=== PATIENT | male | born 1950 | race Caucasian/White ===

== ENCOUNTER 2022-01-26 10:21 | Emergency (ER) | payer OTHER, MEDICARE, SELFPAY ==
[2022-01-26 10:25] VITALS: BP 115/65; PULSE 59; RESP 16; TEMP 36.8; O2SAT 96; BMI 29.5
[2022-01-26 12:37] VITALS: BP 127/78; PULSE 51; RESP 18; O2SAT 95
--- NOTE | 2022-01-26 13:02 | CRLHL7_ITS ---
For Patients: As a result of the Century Cures Act, medical imaging exams and procedure reports are released immediately into your electronic medical record. You may view this report before your referring provider. If you have questions, please contact your health care provider. indication: 2 to three-week progressive speech change, history of dementia Technique: Volumetric multidetector CT images of the head were obtained without the administration of low osmolar intravenous contrast. Comparison: CT head May 23, 2019 Findings: There are mildly prominent bilateral frontal convexity extra-axial CSF spaces. There is no intra-axial or extra-axial fluid collection. There is no mass effect or midline shift. There is slightly progressed cortical atrophy with moderate sulcal widening and ex vacuo dilatation of the lateral ventricles predominantly within the frontal lobes. There are chronic small vessel disease changes in the subcortical and periventricular white matter without lost landa-white differentiation. The orbits and their contents are grossly within normal limits. The bony calvarium is grossly intact. The paranasal sinuses are clear. The mastoid air cells are well aerated. Impression: Slight progression of frontotemporal cortical atrophic changes from remote comparison exam with widening of the sulci and prominence of the extra-axial CSF spaces. These findings are consistent with history of dementia. Otherwise, no acute intracranial abnormality is appreciated. Please note that all CT scans at this facility use dose modulation, iterative reconstruction, and/or weight-based dosing when appropriate to reduce radiation dose to as low as reasonably achievable. Dictated by Darrin Martinez MD @ 01/26/2022 1:45:03 PM (Electronically Signed)
--- NOTE | 2022-01-26 13:04 | ED.GENADULT ---
HPI - General Adult General Time Seen by Provider: 13:06 Date Seen: 01/26/22 Chief complaint: Neuro Symptoms/Altered Deficit Stated complaint: speech garbled,dragging feet,sleephy Time Seen by Provider: 01/26/22 12:37 Source: patient Mode of arrival: ambulatory Limitations: no limitations History of Present Illness HPI narrative: Silas is a 71-year-old male past medical history includes mild cognitive disorder, chronic hyponatremia, prostate cancer status post radiation, obstructive sleep apnea currently on CPAP, chronic speech changes and shuffling gait presents emerged department from clinic with neuro symptoms. Patient was seen in clinic today for evaluation of a abdominal hernia, patient was noted to have slowed and slurred speech and worsening shuffling gait, concerning for new neuro deficit, patient was brought to the emergency department for further evaluation. Per family patient has had worsening symptoms over the last 2-3 weeks, he is currently on medication for his mild cognitive disorder. No new falls, patient denies any fevers or chills, no shortness of breath or chest pain, he has not had any nausea vomiting associated with his abdominal hernia, no urinary complaints, no diarrhea. Patient has not had any lightheadedness, dizziness or headache, he denies any focal weakness. No visual changes. Patient was instructed to come the emergency department. Patient has a history of CAD but no stroke. Patient denies any pain at this time. Related Data Home Medications Medication Instructions Recorded Confirmed aspirin 81 mg tablet,delayed 81 mg PO QDAY 10/26/21 02/23/22 release citalopram 20 mg tablet 20 mg PO QDAY 10/26/21 02/23/22 primidone 50 mg tablet 50 mg PO BID 10/26/21 02/23/22 tamsulosin 0.4 mg capsule cap PO 10/26/21 02/23/22 donepezil 5 mg tablet 5 mg PO BID 02/03/22 02/23/22 memantine 10 mg tablet 10 mg PO BID 02/03/22 02/23/22 multivitamin 1 tab PO DAILY 02/03/22 02/23/22 Previous Rx's Medication Instructions Recorded simvastatin 40 mg tablet 40 mg PO .QHS #90 tabs 12/13/21 triamcinolone acetonide 0.1 % 1 applic topical BID #15 grams 01/11/22 topical cream celecoxib 200 mg capsule 200 mg PO QDAY #90 caps 01/17/22 omeprazole 40 mg capsule,delayed 40 mg PO QDAY #90 caps 01/17/22 release amoxicillin 875 mg tablet 875 mg PO BID #14 tabs 02/03/22 Allergies Allergy/AdvReac Type Severity Reaction Status Date / Time No Known Allergies Allergy Unknown Verified 02/23/22 14:22 Review of Systems Status of ROS: Reports: 10 or more systems reviewed and unremarkable except as noted in History and below [facility] Medical History (Updated 02/23/22 @ 14:47 by Marce Cardenas MD) Abnormal CT scan, neck Cellulitis of leg Diastasis recti Family history of Alzheimer's disease Family history of coronary artery disease Family history of diabetes mellitus Former smoker History of cataract in right eye as a child History of prostate cancer Hordeolum externum (stye) Medial epicondylitis of left elbow Otitis media Periorbital cellulitis of right eye Strain of lumbar paraspinal muscle Throat congestion Surgical History History of cataract removal with insertion of prosthetic lens History of tonsillectomy and adenoidectomy History of vasectomy Status post total knee replacement, left Family History Father Heart disease Other Alzheimers disease Diabetes Social History (Updated 02/23/22 @ 14:41 by Marce Cardenas MD) Narrative: Consumes alcohol occasionally Does not use illicit drugs Former smoker Patient is retired. Lives with his , 2 children and grandkids. Smoking Status: Never smoker Do you use any of these nicotine containing products: None Second hand tobacco smoke exposure: No How often do you have a drink containing alcohol: never How often do you have six or more drinks on one occasion: Never AUDIT-C Alcohol total score: 0 Non-prescribed substance use: denies use Little interest or pleasure in doing things: not at all Feeling down, depressed, or hopeless: not at all service: No Exam Narrative: Exam Narrative: General: No obvious distress, sitting comfortably HEENT: Tympanic membranes within normal limits bilaterally oropharynx clear and moist, pupils equal round reactive to light Visual rush within normal limits, extraocular muscles intact No facial asymmetry Symmetrical smile Neck: Full range of motion, no adenopathy, supple Lungs: Clear to auscultation bilaterally Heart: Normal sinus rhythm S1-S2 Abdomen: He has a large abdominal hernia which is reproducible just above the umbilicus, no tenderness to palpation Muscle skeletal: +5 strength upper lower extremities, chronic shuffling gait Neuro: NIH Stroke Scale: Level of consciousness: 0 Asked month and age: 0 Horizontal extraocular movements: 0 Blink eyes and squeeze hand:0 Visual rush:0 Facial palsy:0 Left arm motor drift:0 Right arm motor drift:0 Left leg motor drift:0 Right leg motor drift:0 Limb ataxia:0 Sensation:0 Aphasia:0 Dysarthria: +1 Extinction inattention:0 Score: +1 Const: Vital Signs, click to edit/add: Vital Signs - 24 hr 01/26/22 10:25 01/26/22 12:37 Temperature 98.3 F Pulse Rate [Left P ulse Oximeter] 59 L 51 L Respiratory Rate 16 18 Blood Pressure [Le ft Upper Arm] 127/78 Blood Pressure [Ri ght Upper Arm] 115/65 Pulse Oximetry 96 95 Oxygen Delivery Me thod Room Air Room Air Course Course Hospital Course: 1:00 pm: AIDET performed. vitals are stable. NIH stroke scale is, score of +1 due to his slurred speech but understandable, this is a chronic issue, no new focal findings, we discussed obtaining CT head without IV contrast rule out any new findings based on symptoms being greater than 2-week-old, will obtain CBC and metabolic panel based on his history of hyponatremia. Patient and family in agreement Reevaluation(s) Reevaluation #1: Imaging showed Slight progression of frontotemporal cortical atrophic changes from remote comparison exam with widening of the sulci and prominence of the extra-axial CSF spaces. These findings are consistent with history of dementia. CBC showed no acute findings, metabolic panel within normal limits, patient did well during his stay in the emergency department, plan would be to discharge he can follow-up with primary care provider as scheduled. Time: 14:20 Vital Signs Vital signs: Initial Vital Signs Temperature 98.3 F 01/26/22 10:25 Temperature Source Temporal Artery Scan 01/26/22 10:25 Pulse Rate 59 L 01/26/22 10:25 Pulse Rhythm 01/26/22 10:25 Pulse Strength 3+ Normal 01/26/22 10:25 Respiratory Rate 16 10/05/22 10:25 Blood Pressure 115/65 01/26/22 10:25 Blood Pressure Mean 81 01/26/22 10:25 Blood Pressure Position Sitting 01/26/22 10:25 Pulse Oximetry 96 01/26/22 10:25 Oxygen Delivery Method 01/26/22 10:25 Vital Signs Temperature 98.3 F 01/26/22 10:25 Pulse Rate 59 L 01/26/22 10:25 Respiratory Rate 16 01/26/22 10:25 Blood Pressure 115/65 01/26/22 10:25 Pulse Oximetry 96 01/26/22 10:25 Oxygen Delivery Method 01/26/22 10:25 Temperature 98.3 F 01/26/22 10:25 Pulse Rate 51 L 01/26/22 12:37 Respiratory Rate 18 01/26/22 12:37 Blood Pressure 127/78 01/26/22 12:37 Pulse Oximetry 95 01/26/22 12:37 Oxygen Delivery Method 01/26/22 12:37 Medical Decision Making Lab Data Labs: Lab Results 01/26/22 01/26/22 Range/Units 13:10 13:10 WBC 4.81 (4.50-11.00) K/uL RBC 5.00 (4.30-5.90) m/uL Hgb 15.3 (13.5-17.5) gm/dL Hct 44.8 (37.0-53.0) % MCV 90 (80-100) fL MCH 31 (26-34) pg MCHC 34 (32-36) gm/dL RDW Coeff of Monse 12.6 (11.5-15.5) % Plt Count 117 L (140-440) K/uL Neut % (Auto) 69.7 (42.0-72.0) % Lymph % (Auto) 17.7 L (20-44) % Brown % (Auto) 8.7 (0.0-11.0) % Eos % (Auto) 3.1 (0.0-7.0) % Baso % (Auto) 0.6 (0.0-3.0) % Neut # (Auto) 3.35 (1.7-7.0) K/uL Lymph # (Auto) 0.90 (0.90-2.90) K/uL Brown # (Auto) 0.40 (0.00-0.90) K/UL Eos # (Auto) 0.15 (0.00-0.50) K/uL Baso # (Auto) 0.03 (0.00-0.30) K/uL Abs Immat Gran (auto) 0.01 (0.00-0.30) K/uL Sodium 140 (135-149) mmol/L Potassium 3.9 (3.6-5.1) mmol/L Chloride 107 (96-114) mmol/L Carbon Dioxide 23 (20-32) mmol/L BUN 20 (7-30) mg/dL Creatinine 1.1 (0.5-1.5) mg/dL Estimated Creat Clear 60.70 Estimated GFR 71 ml/min Glucose 104 (60-115) mg/dL Calcium 8.9 (8.4-10.6) mg/dL Magnesium 2.1 (1.5-2.6) mg/dL Total Bilirubin 0.7 (0.1-1.5) mg/dL AST 32 (12-35) U/L ALT 33 (4-50) U/L Alkaline Phosphatase 58 (40-150) U/L Total Protein 6.9 (6.0-8.3) g/dL Albumin 4.4 (3.3-5.0) g/dL Discharge Plan Discharge Clinical Impression: Altered gait, Mild cognitive disorder, Alteration in speech, Abdominal hernia Patient Disposition: Home, Self-Care Condition: Improved Instructions: Dementia (ED), Umbilical Hernia (ED) Additional Instructions: To follow up with primary care provider as scheduled early next month, return precautions given. Activity Level: Activity as Tolerated Prescriptions: No Action tamsulosin 0.4 mg capsule PO citalopram 20 mg tablet 20 mg PO QDAY aspirin 81 mg tablet,delayed release (DR/EC) 81 mg PO QDAY Label Comments: TAKE ONE TABLET BY MOUTH TWICE A DAY primidone 50 mg tablet 50 mg PO BID donepezil 5 mg tablet 5 mg PO BID memantine 10 mg tablet 10 mg PO BID multivitamin Tablet 1 tab PO DAILY amoxicillin 875 mg tablet 875 mg PO BID Qty: 14 0RF simvastatin 40 mg tablet 40 mg PO .QHS Qty: 90 3RF triamcinolone acetonide 0.1 % cream 1 applic topical BID Qty: 15 3RF Rx Instructions: Apply thin layer to affected finger twice daily for 2 to 4 weeks celecoxib 200 mg capsule 200 mg PO QDAY Qty: 90 0RF omeprazole 40 mg capsule,delayed release(DR/EC) 40 mg PO QDAY Qty: 90 0RF Follow Up/Referrals: Ranjan Membreno MD [Primary Care Provider] - Stand Alone Forms: [employer] Info Instructions
[2022-01-26 13:24] LABS: Basophils Absolute Auto 0.03 K/uL (0.00-0.30); Basophils Percent Auto 0.6 % (0.0-3.0); Eosinophils Absolute Auto 0.15 K/uL (0.00-0.50); Eosinophils Percent Auto 3.1 % (0.0-7.0); Hematocrit 44.8 % (37.0-53.0); Hemoglobin* 15.3 gm/dL (13.5-17.5); Immature Granulocytes Abs Auto 0.01 K/uL (0.00-0.30); Lymphocytes Percent Auto 17.7 % (20-44); Mean Corpuscular HGB Conc 34 gm/dL (32-36); Mean Corpuscular Hemoglobin 31 pg (26-34); Mean Corpuscular Volume 90 fL (80-100); Monocytes Percent Auto 8.7 % (0.0-11.0); Neutrophils Absolute Auto 3.35 K/uL (1.7-7.0); Neutrophils Percent Auto 69.7 % (42.0-72.0); Platelet Count* 117 K/uL (140-440); RDW Coefficient of Variation % 12.6 % (11.5-15.5); White Blood Count* 4.81 K/uL (4.50-11.00)
[2022-01-26 13:29] LABS: Slide Review Reflex No
[2022-01-26 13:40] LABS: Albumin* 4.4 g/dL (3.3-5.0); Chloride* 107 mmol/L (96-114); Potassium* 3.9 mmol/L (3.6-5.1); Sodium* 140 mmol/L (135-149)
[2022-01-26 13:42] LABS: Aspartate Amino Transferase* 32 U/L (12-35); Bilirubin Total* 0.7 mg/dL (0.1-1.5); Carbon Dioxide* 23 mmol/L (20-32); Creatinine* 1.1 mg/dL (0.5-1.5); Estimated Glomerular Filt Rate 71 ml/min; Total Protein* 6.9 g/dL (6.0-8.3)
[2022-01-26 13:43] LABS: Alanine Aminotransferase* 33 U/L (4-50); Alkaline Phosphatase* 58 U/L (40-150); Blood Urea Nitrogen* 20 mg/dL (7-30); Calcium* 8.9 mg/dL (8.4-10.6); Glucose* 104 mg/dL (60-115); Magnesium* 2.1 mg/dL (1.5-2.6)
== END 2022-01-26 14:34 | disposition home or self-care (01) ==
PROVIDERS: Emergency Provider Student in an Organized Health Care Education/Training Program; PCP Family Medicine
DX: G31.84 Mild cognitive impairment of uncertain or unknown etiology (principal); R47.81 Slurred speech; R26.89 Other abnormalities of gait and mobility
CPT/HCPCS: 36415; 70450; 80053; 83735; 85025; 99283; 99284

== ENCOUNTER 2022-01-28 16:05 | Emergency (ER) | payer OTHER, SELFPAY ==
[2022-01-28] VITALS (10 sets, daily range): BP systolic 126–141; BP diastolic 71–85; PULSE 56–63; RESP 14–21; TEMP 36.1; O2SAT 95–98; BMI 29.8
--- NOTE | 2022-01-28 16:12 | CRLHL7_ITS ---
For Patients: As a result of the Cures Act, medical imaging exams and procedure reports are released immediately into your electronic medical record. You may view this report before your referring provider. If you have questions, please contact your health care provider. INDICATION: Fall, head injury TECHNIQUE: CT cervical spine without contrast. COMPARISON: None. FINDINGS: Vertebrae: No acute fracture or aggressive osseous lesion. Grade 1 anterolisthesis of L4 on L5. Discs and facet joints: There are advanced diffuse degenerative changes in the disc spaces and facet joints. Intervertebral disc space narrowing most notably severe at C5-C6 and C6-C7. Severe degenerative spondylosis at C1-C2. Extraspinal findings: Paraspinous soft tissues are unremarkable. Partial visualization of suspected right glossal tonsillar sulcus. Underlying mass not excluded. IMPRESSION: 1. No evidence of acute cervical spine fracture. 2. Advance multilevel degenerative spondylosis. 3. Partial visualization of suspected right glossal tonsillar sulcus prominence. Underlying mass not excluded. Recommend direct visualization or CT soft tissue neck to further evaluate on a nonemergent basis. Please note that all CT scans at this facility use dose modulation, iterative reconstruction, and/or weight-based dosing when appropriate to reduce radiation dose to as low as reasonably achievable. Dictated by Alexi Lawrence MD @ 01/28/2022 5:04:26 PM (Electronically Signed)
--- NOTE | 2022-01-28 16:12 | CRLHL7_ITS ---
For Patients: As a result of the Century Cures Act, medical imaging exams and procedure reports are released immediately into your electronic medical record. You may view this report before your referring provider. If you have questions, please contact your health care provider. INDICATION: . Fall TECHNIQUE: Head CT without contrast. COMPARISON: None. FINDINGS: CSF spaces: Within normal limits for age. Brain parenchyma and extra-axial spaces: There are nonspecific low attenuation white matter changes consistent with chronic microvascular disease. No sign of intracranial hemorrhage, or midline shift. Skull base and calvarium: The visualized paranasal sinuses and mastoid air cells demonstrate no acute or significant findings. The visualized orbits are grossly unremarkable. No skull fractures. IMPRESSION: Suspect small posterior midline scalp contusion without evidence of skull fracture or intracranial hemorrhage. Please note that all CT scans at this facility use dose modulation, iterative reconstruction, and/or weight-based dosing when appropriate to reduce radiation dose to as low as reasonably achievable. Dictated by Alexi Lawrence MD @ 01/28/2022 4:58:24 PM (Electronically Signed)
--- NOTE | 2022-01-28 16:59 | ED.GENADULT ---
HPI - General Adult General Chief complaint: Fall/Minor Trauma Stated complaint: Fell off ladder Time Seen by Provider: 01/28/22 16:12 Source: patient, family and EMS Mode of arrival: EMS Limitations: no limitations History of Present Illness HPI narrative: Patient is a 71-year-old male who presents to the ER after falling of the 2nd step on his ladder. He was outside putting up following decorations when he was coming down the ladder and he missed the 2nd to last step falling backwards and hitting his head on asphalt. He is not sure if he lost consciousness or not. A neighbor ran in and told his that he was on the ground and they called EMS. He was awake but confused. However patient does have a history of dementia so is unclear if this is normal for him or if it is his baseline as he does have episodes of some cognitive impairment. There was no nausea or vomiting. Patient states that the back of his head hurts. He denies any neck or back pain. He denies any buttock pain. He denies pain to the extremities. Confusion is not worsening. He denies any changes in his hearing or vision. He is not on any blood thinners aside from a daily aspirin. TTA was called. Tetanus updated in 2018. Related Data Home Medications Medication Instructions Recorded Confirmed aspirin 81 mg tablet,delayed 81 mg PO QDAY 10/26/21 01/26/22 release citalopram 20 mg tablet 20 mg PO QDAY 10/26/21 01/26/22 donepezil 10 mg tablet 10 mg PO BID 10/26/21 01/26/22 primidone 50 mg tablet 50 mg PO BID 10/26/21 01/26/22 tamsulosin 0.4 mg capsule cap PO 10/26/21 10/26/21 Previous Rx's Medication Instructions Recorded simvastatin 40 mg tablet 40 mg PO .QHS #90 tabs 12/13/21 triamcinolone acetonide 0.1 % 1 applic topical BID #15 grams 01/11/22 topical cream celecoxib 200 mg capsule 200 mg PO QDAY #90 caps 01/17/22 omeprazole 40 mg capsule,delayed 40 mg PO QDAY #90 caps 01/17/22 release Allergies Allergy/AdvReac Type Severity Reaction Status Date / Time No Known Allergies Allergy Unknown Verified 01/28/22 16:18 Review of Systems Status of ROS: Reports: 10 or more systems reviewed and unremarkable except as noted in History and below [facility] Medical History Cellulitis of leg Family history of Alzheimer's disease Family history of coronary artery disease Family history of diabetes mellitus Former smoker History of cataract in right eye as a child History of prostate cancer Hordeolum externum (stye) Medial epicondylitis of left elbow Periorbital cellulitis of right eye Strain of lumbar paraspinal muscle Throat congestion Surgical History History of cataract removal with insertion of prosthetic lens History of tonsillectomy and adenoidectomy History of vasectomy Status post total knee replacement, left Family History Father Heart disease Other Alzheimer disease Diabetes Social History Narrative: Consumes alcohol occasionally Does not use illicit drugs Former smoker Smoking Status: Never smoker Do you use any of these nicotine containing products: None Second hand tobacco smoke exposure: No How often do you have a drink containing alcohol: never How often do you have six or more drinks on one occasion: Never AUDIT-C Alcohol total score: 0 Non-prescribed substance use: denies use service: No Exam Narrative: Exam Narrative: GCS is 15. Patient is alert and oriented x3. He is speaking and breathing without any difficulty. He has bleeding from the posterior scalp. Well-nourished well-developed patient in no acute distress. Answers questions appropriately. Mood and affect are appropriate. Thoughts are goal oriented and rational. No tangential or magical thinking noted. Patient speaks in full sentences without needing to catch his breath. HEENT: Normocephalic. Pupils are equally round reactive to light. Extraocular muscles are intact. Conjunctivae are moist without any icterus noted. Moist mucous membranes. Neck is soft without any lymphadenopathy or thyromegaly. Cervical collar is in place, He has no tenderness of the cervical spine. Patient has approximately a 1 in laceration to the occipital scalp, with surrounding hematoma. Cardiovascular: Heart is regular rate and rhythm S1 and S2 are present without any murmurs. Lungs: Clear to auscultation bilaterally no wheezes rhonchi or rales are appreciated. Patient takes deep breaths without any discomfort. Abdomen: Soft and nontender nondistended with normal bowel sounds. No guarding or rebound. No masses or organomegaly appreciated. Extremities: Bilateral lower extremities with trace edema. Normal DP and PT pulses. Skin: Well perfused without any obvious rashes. Back: No tenderness of the cervical, thoracic or lumbar spine. There is no bruising ecchymosis or abrasions to the back. Const: Vital Signs, click to edit/add: Vital Signs - 24 hr 01/28/22 16:19 Temperature 96.9 F L Pulse Rate [Apical ] 60 Respiratory Rate 18 Blood Pressure [Le ft Upper Arm] 134/79 Pulse Oximetry 96 Oxygen Delivery Me thod Room Air Course Course Hospital Course: Upon arrival patient had a head and cervical spine CT. Both unremarkable for acute pathology. Cervical spine CT did show a slight abnormality of tonsillar sulcus. C-collar was removed. Again no tenderness was noted on examination of the cervical spine. He had good range of motion with flexion, extension, side way bending and rotation without discomfort. Scalp laceration was washed per nursing. Area was anesthetized lidocaine with epinephrine. Running suture was placed with 3-0 Ethilon. Patient tolerated this well. Wound was dressed per nursing. Vital Signs Vital signs: Initial Vital Signs Temperature 96.9 F L 01/28/22 16:19 Temperature Source Temporal Artery Scan 01/28/22 16:19 Pulse Rate 60 01/28/22 16:19 Pulse Rhythm 01/28/22 16:19 Respiratory Rate 18 01/28/22 16:19 Blood Pressure 134/79 01/28/22 16:19 Blood Pressure Mean 97 01/28/22 16:19 Pulse Oximetry 96 01/28/22 16:19 Oxygen Delivery Method 01/28/22 16:19 Vital Signs Temperature 96.9 F L 01/28/22 16:19 Pulse Rate 60 01/28/22 16:19 Respiratory Rate 18 01/28/22 16:19 Blood Pressure 134/79 01/28/22 16:19 Pulse Oximetry 96 01/28/22 16:19 Oxygen Delivery Method 01/28/22 16:19 Temperature 96.9 F L 01/28/22 16:19 Pulse Rate 60 01/28/22 16:19 Respiratory Rate 18 01/28/22 16:19 Blood Pressure 134/79 01/28/22 16:19 Pulse Oximetry 96 01/28/22 16:19 Oxygen Delivery Method 01/28/22 16:19 Medical Decision Making MDM Narrative Medical decision making narrative: 71-year-old male status post fall with scalp laceration. Imaging did not show any further injury. Scalp was sutured per above. We discussed wound hygiene, signs and symptoms of infection, reasons to return to the ER. We discussed suture removal in 7-10 days in the clinic. Discussed results of cervical spine CT: Partial visualization of suspected right glossal tonsillar sulcus prominence. Underlying mass not excluded. Recommend direct visualization or CT soft tissue neck to further evaluate on a nonemergent basis. Report was given to them today and recommendation to follow up with her primary care provider. Patient and agreeable to everything discussed had no other questions or concerns. Medical Records Medical records reviewed: Yes I reviewed the patient's medical records Imaging Data CT scan - head: Attestation: I have reviewed the pertinent imaging results. Radiologist's impression: Head CT without contrast. COMPARISON: None. FINDINGS: CSF spaces: Within normal limits for age. Brain parenchyma and extra-axial spaces: There are nonspecific low attenuation white matter changes consistent with chronic microvascular disease. No sign of intracranial hemorrhage, or midline shift. Skull base and calvarium: The visualized paranasal sinuses and mastoid air cells demonstrate no acute or significant findings. The visualized orbits are grossly unremarkable. No skull fractures. IMPRESSION: Suspect small posterior midline scalp contusion without evidence of skull fracture or intracranial hemorrhage. Cervical spine CT: Attestation: I have reviewed the pertinent imaging results. Radiologist's impression: CT cervical spine without contrast. COMPARISON: None. FINDINGS: Vertebrae: No acute fracture or aggressive osseous lesion. Grade 1 anterolisthesis of L4 on L5. Discs and facet joints: There are advanced diffuse degenerative changes in the disc spaces and facet joints. Intervertebral disc space narrowing most notably severe at C5-C6 and C6-C7. Severe degenerative spondylosis at C1-C2. Extraspinal findings: Paraspinous soft tissues are unremarkable. Partial visualization of suspected right glossal tonsillar sulcus. Underlying mass not excluded. IMPRESSION: 1. No evidence of acute cervical spine fracture. 2. Advance multilevel degenerative spondylosis. 3. Partial visualization of suspected right glossal tonsillar sulcus prominence. Underlying mass not excluded. Recommend direct visualization or CT soft tissue neck to further evaluate on a nonemergent basis. Discharge Plan Discharge Clinical Impression: Fall, Laceration of scalp Patient Disposition: Home w/ Parent or Adult Condition: Stable Additional Instructions: Keep scalp clean and dry. Okay to shower like he normally would but be careful not to snag the sutures when you are washing. Watch for signs of infection which include redness of the area or purulent drainage from the laceration. Sutures need to come out in 7-10 days. You can follow-up in the clinic to have this done. There was a small abnormality found on the cervical neck CT scan-you should bring the results with you to your next clinic visit and discuss these results with your primary care provider to discuss what next steps are needed if any. Report of your cervical neck CT will be given to you today. Expect increased soreness of the neck and shoulder area tomorrow this is normal. Okay to take Tylenol as needed/as directed. Okay to use heat to the area, do not apply heat directly to skin. Return to the ER if he develops confusion, vomiting or lethargy. Prescriptions: No Action donepezil 10 mg tablet 10 mg PO BID tamsulosin 0.4 mg capsule PO citalopram 20 mg tablet 20 mg PO QDAY aspirin 81 mg tablet,delayed release (DR/EC) 81 mg PO QDAY Label Comments: TAKE ONE TABLET BY MOUTH TWICE A DAY primidone 50 mg tablet 50 mg PO BID simvastatin 40 mg tablet 40 mg PO .QHS Qty: 90 3RF triamcinolone acetonide 0.1 % cream 1 applic topical BID Qty: 15 3RF Rx Instructions: Apply thin layer to affected finger twice daily for 2 to 4 weeks celecoxib 200 mg capsule 200 mg PO QDAY Qty: 90 0RF omeprazole 40 mg capsule,delayed release(DR/EC) 40 mg PO QDAY Qty: 90 0RF Follow Up/Referrals: Ranjan Membreno MD [Referring] - Stand Alone Forms: [employer] Info Instructions
--- OUTSIDE RECORDS SUMMARY | 2022-01-28 17:13 | XMS_ITS | Encounter Summary ---
:1950 Author Organization [facility] Address [address] [place] [address] Care Team Providers Name Role Phone Unavailable Primary Care Provider Unavailable Encounter Details Date Type Department Care Team Description 02/27/2019 Clinical Communication Department of [facility] Radiation Oncology in [address] [place] [address] [address] [place] [address] [phone] Social History Tobacco Use Types Packs/Day Years Used Date Smoking Tobacco: Never Assessed Alcohol Habits Answer Date Recorded How often do you have a drink containing alcohol? Monthly or less 02/25/2021 How many drinks containing alcohol do you have on a 1 or 2 02/25/2021 typical day when you are drinking? How often do you have six or more drinks on one Less than mo nthly 02/25/2021 occasion? Comment: Not asked Social Isolation Answer Date Recorded In a typical week, how many times do you Twice a week 02/25/2021 talk on the phone with family, friends, or neighbors? How often do you get together with friends Once a week 02/25/2021 or relatives? How often do you attend bahai or spiritism 1 to 4 times per year 02/25/2021 services? Do you belong to any clubs or organizations Yes 02/25/2021 such as bahai groups, unions, fraternal or athletic groups, or school groups? How often do you attend meetings of the More than 4 times pe r year 02/25/2021 clubs or organizations you belong to? Are you now , , , 02/25/2021 , never or living with a partner? Physical Activity Answer Date Recorded On average, how many days per week do you engage in moderate to 1 day 02/25/2021 strenuous exercise (like walking fast, running, jogging, dancing, swimming, biking, or other activities that cause a light or heavy sweat)? On average, how many minutes do you engage in exercise at th is 30 min 02/25/2021 level? Stress Answer Date Recorded Do you feel stress - tense, restless, nervous, or anxious, N ot at all 02/25/2021 or unable to sleep at night because your mind is troubled all the time - these days? Financial Resource Strain Answer Date Recorded How hard is it for you to pay for the very basics like Not h kassie at all 02/25/2021 food, housing, medical care, and heating? Food Insecurity Answer Date Recorded Within the past 12 months, you worried that your food would Never true 02/25/2021 run out before you got money to buy more. Within the past 12 months, the food you bought just didn't N ever true 02/25/2021 last and you didn't have money to get more. Transportation Needs Answer Date Recorded In the past 12 months, has lack of transportation kept you f rom No 02/25/2021 medical appointments or from getting medications? In the past 12 months, has lack of transportation kept you f rom No 02/25/2021 meetings, work, or getting things needed for daily living? Housing Stability Answer Date Recorded In the last 12 months, was there a time when you were not ab le No 02/25/2021 to pay the mortgage or rent on time? In the last 12 months, how many places have you lived? 1 02/25/2021 In the last 12 months, was there a time when you did not hav e a No 02/25/[address] or slept in a retirement (including now)? Education Answer Date Recorded What is the highest level of school Associate degree: [employer]. program 02/01/2019 you have completed or the highest degree you have received? Sex Assigned at Date Recorded Male 12/24/2018 8:16 PM CDT documented as of this encounter Plan of Treatment Upcoming Encounters Date Type Specialty Care Team Description 02/14/2022 Appointment Radiation Oncology Chris Grey M.D. [address] [place] [address] [phone] (Wo rk) documented as of this encounter Visit Diagnoses Not on filedocumented in this encounter
--- OUTSIDE RECORDS SUMMARY | 2022-01-28 17:13 | XMS_ITS | Encounter Summary ---
:1950 Author Organization [facility] Address [address] [place] [address] Care Team Providers Name Role Phone Unavailable Primary Care Provider Unavailable Reason for Visit Reason Comments Results Encounter Details Date Type Department Care Team Description 10/25/2019 Clinical Communication Department of Radiation Cheri Al, Results Oncology in [facility] [address] [facility] [address] [place] [address] [phone] Social History Tobacco Use Types Packs/Day Years [...] or relatives? How often do you attend mandaen or zoroastrian 1 to 4 times per year 02/25/2021 services? Do you belong to any clubs or organizations Yes 02/25/2021 such as mandaen groups, unions, fraternal or athletic groups, or [...] place to sleep or slept in a care home (including now)? Education Answer Date Recorded What is the highest level of school Associate degree: [employer], 10/09/2019 you have completed or the highest technical, or vocational p leelee degree you have received? Sex Assigned at Date Recorded Male 12/24/2018 8:16 PM CDT documented as of this encounter Miscellaneous Notes Telephone Encounter - Cheri Al Judy, Marcelina. - 10/29/2019 1:07 PM CDT Test Result Information: Resulted Orders Interpretation of Outside CT Abdomen and or Pelvis Narrative EXAM: INTERPRETATION OF OUTSIDE CT ABDOMEN AND OR PELVIS COMPARISON: Outside CT 10/23/2018. Outside PET CT 04/18/2019. FINDINGS: Outside CT of the abdomen and pelvis with IV contrast dated 10/10/2019. External radiotherapy fiducial markers in the prostate, new since outside CT 10/23/2018. No suspicious lymphadenopathy. No suspicious bone lesion. Degenerative disc disease and facet arthropathy throughout the lumbar spine. Degenerative change both hips. Subcentimeter hypoenhancing focus inferiorly in the right hepatic lobe (series 2 image 65) is stable since 2019 and likely a benign cyst. Gallbladder, pancreas, spleen, and adrenals are negative. Bilateral renal parenchymal and parapelvic cysts. 2 mm nonobstructing calyceal stone in the lower pole of the right kidney. Bowel is normal caliber. Colonic diverticulosis. Subpleural fibrotic changes in the lung bases. Impression No evidence of metastatic prostate carcinoma in the abdomen or pelvis. October 14, 2019: PSA <0.06 ng/mL His oncologic history is as follows: 1. ??2017: ??PSA 2.49 ng/mL. 2. ??November 01, 2017: ??PSA 3.72 ng/mL. 3. ??January 17, 2018: ??PSA 3.42 ng/mL. 4. ??March 21, 2018: ??Urology consultation with Dr. Ming Laura where physical examination revealed a 35 g prostate with no nodule. ??Postvoid residual was 28 mL. ??The patient was prescribed Flomax 0.4 mg daily for urinary frequency. ??Plan to follow up in 2 months with PSA and bladder scan. 5. ??May 23, 2018: ??PSA 4.43 ng/mL. 6.?August 29, 2018: ??PSA 5.03 ng/mL. 7.?October 09, 2018: ??TRUS biopsy of the prostate was performed by Dr. Laura. ??Prostate volume was 69 cc. ??Pathology of the left prostate demonstrated adenocarcinoma of the prostate, [place] 3+4=7,involving 10-30% of the length of 3 cores, perineural invasion not seen. ??Pathology of the right prostate demonstrated high-grade prostatic intraepithelial neoplasia, focal and adenocarcinoma of the prostate, [place] 4+3=7, involving 1-40% of the length of 3 cores, perineural invasion not seen. 8. ??October 23, 2018: ??CT scan of the abdomen and pelvis demonstrated stable, mildly prominent bilateral inguinal lymph nodes, right greater than left, measuring up to 1.7 cm. ??Mild increased size and number of multiple mesenteric lymph nodes measuring up to 12 mm. ??multiple subcentimeter retroperitoneal lymph nodes. ??Bilateral simple renal cortical cysts and parapelvic cysts without hydronephrosis.??Fatty infiltration of the liver with indeterminate subcentimeter hypodensity within the tip of theliver. ??There was a 5 mm pleural-based nodule left lower lobe. ??Nuclear medicine whole-body bone scan demonstrated no convincing evidence of bony metastasis. ??There were findings consistent with benign arthritic changes at multiple locations. 9. ??October 29, 2018: ??Appointment with Dr. Laura for T1c prostate cancer, [place] 4+3=7. ??He discussed treatment options including expectant management, hormonal therapy, cryotherapy, HIFU, radiation,and surgery. ??He recommended obtaining second opinions with Radiation Oncology and Oncology. 10. ??November 12, 2018:?Dr. Grey??saw the patient in consultation and recommended radiotherapy with neoadjuvant and concurrent androgen deprivation therapy. ?? 11. ??November 15, 2018: ??PSA 4.14 ng/mL. ??Testosterone 419 ng/dL. ??Patient started bicalutamide 50 mg daily for 3 weeks 12. ??November 20, 2018: ??Patient saw Dr. Zamora at [facility] for chronic thrombocytopenia. 13. ??November 21, 2018: ??Patient received a Lupron 7.5 mg injection [facility]. 14. ??December 20, 2018: ??Patient received??a Lupron 22.5 injection at [facility]. ??This was??his last injection??for a total of 4 months of ADT. 15.?December 27, 2018: ??Hydrogel rectal spacer was placed as well as 4 gold seed fiducial markers in the prostate. 16. ??January 31, 2019 through February 27, 2019: ??Intensity modulated radiation therapy to the prostate and proximal seminal vesicles to a dose of 6000 cGy in 20 fractions. 17. ??April 16, 2019: ??PSA <0.06 ng/mL 18. ??April 18, 2019: ??PET/CT scan??demonstrated a rounded intense focus of uptake involving a left lower quadrant small bowel loop or in the mesentery surrounding it.?No hypermetabolic adenopathy in the body to suggest lymphoma. ??No definite hypermetabolic metastatic disease in the body. ??[facility] interpretation of outside imaging demonstrated that the multiple mildly prominent mesenteric and inguinal nodes had no or??only minimal FDG uptake, likely inflammatory. ??No other findings were seen to indicate abdominal or pelvic malignancy, higher grade lymphoma, or a??lymphoproliferative disorder. ??I spoke to the [facility] Radiologist regarding the uptake in the left lower quadrant andhe felt that this was normal uptake within the bowels. 19. October 10, 2019: CT scan of the abdomen and pelvis demonstrated no evidence for metastatic diseasein the abdomen or pelvis. No skeletal metastatic disease. Prostatic enlargement with prostatic seeds. I called patient and discussed with him that Dr. Grey states that his CT looks good per radiology. Annia Stewart PA-C has reviewed his recent PSA of <0.06 ng.mL and no concerns noted. Annia Stewart PA-C has ordered for repeat lab work to be completed at [facility] in [place] this coming January. Patient reports that he is doing well overall. No hematuria, diarrhea, rectal bleeding, feelings of obstruction, dysuria, bone pain or new symptoms or concerns. Radiation Oncology [place] can be contacted at anytime for concerns or questions. Disposition/Recommendation: self-care - appropriate at this time, patient encouraged to call back with questions Information/Education: patient/caller able to teach back Caller agreeable to plan of care: yes Toxicities will be reviewed with Annia Stewart PA-C. documented in this encounter Plan of Treatment Upcoming Encounters Date Type Specialty Care Team Description 02/14/2022 Appointment Radiation Oncology Chris Grey M.D. [address] [place], [place] [phone] (Wo rk) documented as of this encounter Procedures Procedure Name Priority Date/Time Associated Diagnosis Comme nts EXTM EXTERNAL LAB Routine 10/14/2019 9:44 AM Resu lts for this RESULTS - MANUAL CDT procedure a re in ENTRY the results section. PROSTATE-SPECIFIC Routine 10/14/2019 9:44 AM AG (PSA) CDT DIAGNOSTIC, S documented in this encounter Results External Lab Results - Manual Entry (10/14/2019 9:44 AM CDT) P athologist Signature EXT <0.06 [facility], Diagnostic, [facility] Specimen (Source) Anatomical Collection Method Collection Time Re ceived Time Location / / Volume Laterality Blood (Blood, 10/14/2019 9:44 AM Venous) CDT Angel Grey M.D. LAB BLOOD ADD-ON Performing Organization Address City/[facility] Phon e Number [facility], [address] [place] [address] [phone] [facility]) PSA (Prostate-Specific Antigen), Diagnostic (10/14/2019 9:44 AM CDT) Specimen (Source) Anatomical Collection Method Collection Time Re ceived Time Location / / Volume Laterality Blood (Blood, 10/14/2019 9:44 AM Venous) CDT Angel Grey M.D. LAB BLOOD ADD-ON Performing Organization Address City/[facility] Phon e Number [facility], [address] [place] [address] [phone] [facility]) documented in this encounter Visit Diagnoses Not on filedocumented in this encounter
--- OUTSIDE RECORDS SUMMARY | 2022-01-28 17:13 | XMS_ITS | Encounter Summary ---
:1950 Author Organization [facility] Address [address] [place] [address] Care Team Providers Name Role Phone Unavailable Primary Care Provider Unavailable Encounter Details Date Type Department Care Team Description 02/10/2021 Immunization Department of [facility] Moises Turcios M.D. [address], in [facility] [address] [place] [address] [place] [address] [phone] Social History Tobacco Use Types Packs/Day Years [...] more drinks on one Less than mo nthl 02/25/2021 occasion? Comment: Not asked Social Isolation Answer Date Recorded In a typical week, how many times do you Twice a week 02/25/2021 talk on the phone with family, friends, or neighbors? How often do you get together with friends Once a week 02/25/2021 or relatives? How often do you attend amish or sabianism 1 to 4 times per year 02/25/2021 services? Do you belong to any clubs or organizations Yes 02/25/2021 such as amish groups, unions, fraternal or athletic groups, or [...] place to sleep or slept in a [place] [facility] [place] (including now)? Education Answer Date Recorded What [...] Radiation Oncology Chris Grey M.D. [address] [place], [place] [phone] (Wo rk) documented as of this encounter Visit Diagnoses Not on filedocumented in this encounter
--- OUTSIDE RECORDS SUMMARY | 2022-01-28 17:13 | XMS_ITS | Encounter Summary ---
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 for Visit Outpatient (Routine) - Closed Specialty Diagnoses / Procedures Referred By Contact Refer red To Contact Radiation Oncology Annia Stewart P.A.-C., [facility] [address] [place] [phone] Referral ID Status Reason Start Date Expiration Date Visits Requ ested Visits Authorized [id number] Closed 02/27/2019 02/27/2020 1 1 Encounter Details Date Type Department Care Team Description 04/19/2019 Hospital Encounter Department of Angel Grey Malignant Radiation Oncology Omaira Renteria Neoplasm Of Prostate in [address] (HCC) (Primary Dx) [place], [place] [address] [facility] [address] [place], [place] [phone] (Work) [phone] Social History Tobacco Use Types Packs/Day Years [...] or relatives? How often do you attend restorationism or baptist 1 to 4 times per year 02/25/2021 services? Do you belong to any clubs or organizations Yes 02/25/2021 such as restorationism groups, unions, fraternal or athletic groups, or [...] place to sleep or slept in a [facility] (including now)? Education Answer Date Recorded What is the highest level of school Associate degree: academ [employer] program 02/01/2019 you have completed or the highest degree you have received? 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 aspirin [address] tablet Take 81 mg by mouth. 0 calcium carbonate-vitamin Take 1 tablet by mouth 0 D3 (CALCIUM 500 + D) daily with breakfast. 1,250 mg (500 mg calcium)-200 unit per tablet celecoxib (CeleBREX) 200 Take 200 mg by mouth. 0 08/04/2015 mg capsule famotidine (PEPCID) 20 mg Take 20 mg by mouth. 0 08/04/2015 tablet fluticasone propionate Administer 2 sprays 0 (FLONASE) 50 into each nostril mcg/actuation nasal spray daily. mineral oil, Administer into 0 light/mineral oil (SOOTHE affected eye(s) as XP OPHT) needed (for dry eyes). fedpfwcnudor-ibiitoyr-cys Take 1 tablet by 0 05/2013 ein (CENTURY MATURE) mouth. tablet omega 2-vge-rtq-fish oil Take 1,200 mg by 0 1,000 mg (120 mg-180 mg) mouth. capsule omeprazole (PriLOSEC) 40 0 11/01/[address] capsule psyllium (METAMUCIL) Take 1 packet by mouth 0 powder daily. simvastatin (ZOCOR) 40 mg Take 40 mg by mouth. 0 08/04/2015 tablet tamsulosin (FLOMAX) 0.4 Take 0.4 mg by mouth. 0 1 05/21/2017 mg 24 hr capsule documented as of this encounter Progress Notes Annia Stewart P.A.-C., M.S. - 04/19/2019 4:00 PM CST SUBJECTIVE DIAGNOSIS 1. Primary Malignant Neoplasm Of Prostate (HCC) SUPERVISED BY: Angel Grey M.D. ([phone]) HISTORY OF PRESENT ILLNESS Mr. Dick Sigala is a 68-year-old male with prostate cancer. He is completed intensity modulated radiation therapy to the prostate and proximal seminal vesicles to a dose of 6000 cGy in 20 fractions on February 27, 2019. His oncologic history is as follows: 1. [...] left prostate demonstrated adenocarcinoma of the prostate, Grass[place] 3+4=7,involving 10-30% of the length of 3 cores, perineural invasion not seen. ??Pathology of the right prostate demonstrated high-grade prostatic intraepithelial neoplasia, focal and adenocarcinoma of the prostate, [place] 4+3=7, involving 1-40% of the length of [...] with Dr. Laura for T1c prostate cancer, Grassflat 4+3=7. ??He discussed treatment options including expectant management, hormonal therapy, cryotherapy, HIFU, radiation,and surgery. ??He recommended obtaining second opinions with Radiation Oncology and Oncology. 10. ??November 12, 2018: ??Dr. Grey saw the patient in consultation and recommended radiotherapy with neoadjuvant and concurrent androgen deprivation therapy. ?? 11. ??November 15, 2018: ??PSA 4.14 ng/mL. ??Testosterone 419 ng/dL. ??Patient started bicalutamide 50 mg daily for 3 weeks 12. ??November 20, 2018: ??Patient saw Dr. Zamora at [facility] for chronic thrombocytopenia. 13. ??November 21, 2018: ??Patient received a Lupron 7.5 mg injection [facility]. 14. ??December 20, 2018: ??Patient received??a Lupron 22.5 injection at [facility]. ??This was??his last injection??for a total of 4 months of ADT. 15.?December 27, 2018: ??Hydrogel rectal spacer was placed as well as 4 gold seed fiducial markers in the prostate. 16. January 31, 2019 through February 27, 2019: Intensity modulated radiation therapy to the prostateand proximal seminal vesicles to a dose of 6000 cGy in 20 fractions. 17. April 16, 2019: PSA <0.06 ng/mL 18. April 18, 2019: PET/CT scan report is pending. INTERVAL HISTORY The patient's case was discussed today with Dr. Grey. The patient reports doing well overall. He rates his fatigue as 5-6/10 in severity. He had the flu earlier this month and was diagnosed with a sinus infection earlier today. He reports no side effects from radiation treatment. He is averaging one bowel movement per day. He denies rectal bleeding or fecal incontinence. He denies urinary frequency, urgency, incontinence, dysuria, hematuria, or nocturia. He denies new or persistent bone pain. He has hot flashes that are slightly improved. He reports that he is not sexually active. AUA SYMPTOM INDEX: November 12, 2018: 11 (0, 1, 5, 0, 5, 0, 0). December 20, 2018: 10 (0, 1, 5, 1, 3, 0, 0). April 19, 2019: 10 (0, 1, 5, 0, 3, 0, 1). IIEF-5 QUESTIONNAIRE: November 12, 2018: 21 (3, 3, 5, 5, 5 all with the aid of Viagra). December 20, 2018: 5 (1, 1, 1, 1, 1) after starting ADT. April 19, 2019: 5 (1, 1, 1, 1, 1), patient reports not being sexually active. REVIEW OF SYSTEMS Review of systems was negative except as documented above. PATIENT REPORTED SYMPTOM SCREEN FATIGUE (Scale: 0 = no fatigue; 10 = worst fatigue you can imagine): 5-6 ?? PAIN (Scale: 0 = no pain; 10 = worst pain you can imagine): 0 ?? OVERALL QUALITY OF LIFE (Scale: 0 = as bad as can be; 10 = as good as can be): 10 OBJECTIVE BP 112/68 (BP Location: Right arm, Patient Position: Sitting, Cuff Size: Large) Pulse 70 Temp 36.5 ??C (Temporal) Wt 92.3 kg BMI 30.05 kg/m? PHYSICAL EXAM GENERAL: Alert and oriented in no apparent distress. ASSESSMENT / PLAN 1. ??Stage IIC (cT1c, cN0, cM0, PSA: 5.1, Grade Group: 3) Thania 4 + 3??adenocarcinoma of the prostate 2.?Androgen deprivation therapy with bicalutamide for 3 weeks initiated on November 15, 2018; Lupron 7.5 mg injection on November 21, 2018; and Lupron 22.5 mg injection on December 20, 2018 with no further ADT planned 3. ??Erectile dysfunction?? 4. ??Radiation therapy to the prostate initiated on January 31, 2019; completed on February 27, 2019 The patient is doing well overall following radiation treatment. I reviewed his recent PSA result of<0.06 ng/mL today. He has no persistent side effects from radiation treatment. Dr. Grey and Ireviewed the patient's PET/CT scan images today. There is an area of increased activity in the left abdomen. I reviewed the images with the patient and explained that we will need to wait for the Radiologist's report on the images. Dr. Grey also recommended a [facility] interpretation of the images and I will place an order. I will call the patient and review the results with him next week when they are available. The patient did report having a colonoscopy earlier this year through [facility] and I have also requested those records. I will order for a PSA and testosterone blood draw to be done at [facility] in [place] in three months. We will call the patient with the results when they are available. We will then schedule his next lab work and follow-up as appropriate at that time. He will contact us sooner with questions or concerns. He verbally expressed his understanding of the plan. EDUCATION Ready to learn, no apparent learning barriers were identified; learning preferences include listening. Explained diagnosis and treatment plan; patient expressed understanding of the content. I have spent 15 minutes with this patient today, greater than 50% was spent in counseling and coordination of care. Signed by: Annia Stewart P.A.-C., M.S. 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 These are mo re likely inflammatory. Slower growing malignant tumors such as a low-grade lym phoma or prostate carcinoma can have lymph nodes with low FDG uptake. Prostat e carcinoma could be evaluated with choline PET scanning imaging if indicate d. No other findings are seen to indicate an abdominal or pelvic malignan cy, a higher grade lymphoma or a lymphoproliferative disorder. ? 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 COMPARISON: ??No previous FDG PET scan. Outside CT scan of the abdomen and pelvis dated 10/31/2018. ?? INDICATION: Evaluation of lymphadenopath y. Evaluation of inguinal and mesenteric lymph nodes. History of prostate carcino ma. Initial treatment strategy. FINDINGS: The prominent mesenteric nodes seen on the outside CT scan abdomen pelvis from 10/31/2018 are unchanged in size and have only mild FDG uptake. The mesenteric nodes are only mildly enlarge d (PET/CT image 159) including a small node just to the left of midline in the mesentery measuring 0.8 cm with very mild FDG uptake and the FDG SUV maximum measuring 1.1. Mildly enlarged bilateral inguinal nodes are also with the largest node on the left (PET/CT image 221) measures 1.0 cm and having a SUV maximum measures 0.8 cm. The largest node on the right (PET/CT image 217) measures 0. 9 cm and has FDG SUV maximum measuring 1.3. No increased FDG uptake is seen wit hin the retroperitoneal nodes or thoracic nodes. ??No other nodes are see n to be enlarged or to have increased FDG uptake. The spleen is normal size and has normal FDG uptake. No increased FDG uptake seen within the bone marrow. Physiologic uptake is seen within the vocal cords. Additional findings on the noncontrast l ow-dose CT: No change from the abdomen pelvis CT scan report from 01/23/2019. C T scan images of the chest show vascular calcifications including coronary arteri es. Procedure Note J Luis Fuentes M.D. - 04/23/2019For matting of this note might be different from the original. EXAM: INTERPRETATION OF OUTSIDE NM PET S CAN - outside FDG PET/CT scan dated 04/18/2019 TECHNIQUE: Outside FDG PET scan images o btained from the orbits through the pelvis with fused CT images for attenuat ion correction and anatomic localization only. COMPARISON: No previous FDG PET scan. Ou tside CT scan of the abdomen and pelvis dated 10/31/2018. INDICATION: Evaluation of lymphadenopath y. Evaluation of inguinal and mesenteric lymph nodes. History of prostate carcino ma. Initial treatment strategy. FINDINGS: The prominent mesenteric nodes seen on the outside CT scan abdomen pelvis from 10/31/2018 are unchanged in size and have only mild FDG uptake. The mesenteric nodes are only mildly enlarge d (PET/CT image 159) including a small node just to the left of midline in the mesentery measuring 0.8 cm with very mild FDG uptake and the FDG SUV maximum measuring 1.1. Mildly enlarged bilateral inguinal nodes are also with the largest node on the left (PET/CT image 221) measures 1.0 cm and having a SUV maximum measures 0.8 cm. The largest node on the right (PET/CT image 217) measures 0. 9 cm and has FDG SUV maximum measuring 1.3. No increased FDG uptake is seen wit hin the retroperitoneal nodes or thoracic nodes. No other nodes are seen to be enlarged or to have increased FDG uptake. The spleen is normal size and has normal FDG uptake. No increased FDG uptake seen within the bone marrow. Physiologic uptake is seen within the vocal cords. Additional findings on the noncontrast l ow-dose CT: No change from the abdomen pelvis CT scan report from 01/23/2019. C T scan images of the chest show vascular calcifications including coronary arteri es. IMPRESSION: The multiple mildly prominent mesenteric and inguinal nodes have no or only minimal FDG uptake. These are mo re likely inflammatory. Slower growing malignant tumors such as a low-grade lym phoma or prostate carcinoma can have lymph nodes with low FDG uptake. Prostat e carcinoma could be evaluated with choline PET scanning imaging if indicate d. No other findings are seen to indicate an abdominal or pelvic malignan cy, a higher grade lymphoma or a lymphoproliferative disorder. Annia Stewart P.A.-C., M.S. IM NM PROCEDURES documented in this encounter Visit Diagnoses Diagnosis Primary Malignant Neoplasm Of Prostate ( HCC) - Primary Primary Malignant Neoplasm Of Prostate ( HCC) documented in this encounter
--- OUTSIDE RECORDS SUMMARY | 2022-01-28 17:13 | XMS_ITS | Encounter Summary ---
:1950 Author Organization [facility] Address [address] [place] [address] Care Team Providers Name Role Phone Unavailable Primary Care Provider Unavailable Encounter Details Date Type Department Care Team Description 10/11/2019 Clinical Communication Department of Mee Berry Radiation Oncology in [address] [place] [address] [address] [place] [phone] Social History Tobacco Use Types Packs/Day Years [...] or relatives? How often do you attend alevism or yarsani 1 to 4 times per year 02/25/2021 services? Do you belong to any clubs or organizations Yes 02/25/2021 such as alevism groups, unions, fraternal or athletic groups, or [...] place to sleep or slept in a penitentiary (including now)? Education Answer Date Recorded What [...] Appointment Radiation Oncology Chris Grey M.D. [address] [place] [phone] (Wo rk) documented as of this encounter Visit Diagnoses Not on filedocumented in this encounter
--- OUTSIDE RECORDS SUMMARY | 2022-01-28 17:13 | XMS_ITS | Encounter Summary ---
:1950 Author Organization [facility] Address [address] [place] [address] Care Team Providers Name Role Phone Unavailable Primary Care Provider Unavailable Encounter Details Date Type Department Care Team Description 10/22/2019 Clinical Communication Department of Angel Grey Radiation Oncology [facility] [place] [address] [facility] [address] [place] [phone] Social History Tobacco Use Types Packs/Day Years [...] How often do you attend alevism or methodist 1 to 4 times per year 02/25/2021 [...] place to sleep or slept in a jail (including now)? Education Answer Date Recorded What is the highest level of school Associate degree: magda leigh, 10/09/2019 you have completed or the highest technical, or vocational p leelee degree you have received? Sex Assigned at Date Recorded Male 12/24/2018 8:16 PM CDT documented as of this encounter Miscellaneous Notes Telephone Encounter - Giovanna, Gracie J - 10/22/2019 3:32 PM CDT Caller: Patient Is there a valid authorization to speak with caller? Yes Primary Radiation Oncologist: Dr. Grey Reason for call: Returning your call. Please call him back when you are able. Phone number: [phone] Is it okay to leave a voicemail on answering machine with test results? Yes Pharmacy (if medication related): N/A Gracie Heredia documented in this encounter Plan of Treatment Upcoming Encounters Date Type Specialty Care Team Description 02/14/2022 Appointment Radiation Oncology Chris Grey M.D. [address] [place] [phone] (Wo rk) documented as of this encounter Visit Diagnoses Not on filedocumented in this encounter
--- OUTSIDE RECORDS SUMMARY | 2022-01-28 17:13 | XMS_ITS | Encounter Summary ---
:1950 Author Organization [facility] Address [address] [place] [address] Care Team Providers Name Role Phone Unavailable Primary Care Provider Unavailable Encounter Details Date Type Department Care Team Description 02/27/2019 Clinical Communication Department of Mee Berry Radiation Oncology in [address] [place] [address] [address] [place] [phone] Social History Tobacco Use Types Packs/Day Years [...] or relatives? How often do you attend hindu or faith 1 to 4 times per year 02/25/2021 services? Do you belong to any clubs or organizations Yes 02/25/2021 such as hindu groups, unions, fraternal or athletic groups, or [...] highest level of school Associate degree: academ [employer] program 02/01/2019 you have completed or the highest degree you have received? Sex Assigned at Date Recorded Male 12/24/2018 8:16 PM CDT documented as of this encounter Plan of Treatment Upcoming Encounters Date Type Specialty Care Team Description 02/14/2022 Appointment Radiation Oncology Chris Grey M.D. [address] [place] [phone] (Wo rk) documented as of this encounter Visit Diagnoses Not on filedocumented in this encounter
--- OUTSIDE RECORDS SUMMARY | 2022-01-28 17:13 | XMS_ITS | Encounter Summary ---
:1950 Author Organization [facility] Address [address] [place] [id number] Care Team Providers Name Role Phone Unavailable Primary Care Provider Unavailable Reason for Referral Outpatient (Routine) - Closed Specialty Diagnoses / Procedures Referred By Contact Refer red To Contact Radiation Oncology Annia Stewart P.A.-C., BENNY [facility] [address] [place] [phone] Referral ID Status Reason Start Date Expiration Date Visits Requ ested Visits Authorized [id number] Closed 04/26/2019 04/25/[address] A/P completed prior at [facility], need imag es and report. PSA and testosterone lab work completed prior also. Reason for Visit Outpatient (Routine) - Closed Specialty Diagnoses / Procedures Referred By Contact Refer red To Contact Radiation Oncology Annia Stewart P.A.-C., BENNY [facility] [address] [place] [phone] Referral ID Status Reason Start Date Expiration Date Visits Requ ested Visits Authorized [id number] Closed 04/26/2019 04/25/2020 1 1 Encounter Details Date Type Department Care Team Description 10/14/2019 Hospital Encounter Department of Angel Grey Malignant Radiation Oncology Omaira Renteria Neoplasm Of Prostate in [address] (HCC) (Primary Dx) [place], [place] [address] [facility] [place] [address] [place], [place] [phone] (Work) [phone] Social History Tobacco Use Types Packs/Day Years [...] or relatives? How often do you attend christianity or congregation 1 to 4 times per year 02/25/2021 services? Do you belong to any clubs or organizations Yes 02/25/2021 such as christianity groups, unions, fraternal or athletic groups, or [...] Sign Reading Time Taken Comments Blood Pressure 131/68 10/14/2019 9:28 AM CDT Pulse 78 10/14/2019 9:28 AM CDT Temperature 36.8 ??C (98.3 ??F) 10/14/2019 9:28 AM CDT Respiratory Rate - - Oxygen Saturation - - Inhaled Oxygen Concentration - - Weight 95.3 kg (210 lb 1.6 oz) 10/14/2019 9:28 AM CDT Height - - Body Mass Index 31.03 11/12/2018 9:48 AM CDT documented in this [...] mg by mouth. 0 08/04/2015 mg capsule donepeziL (ARICEPT) 5 mg 0 09/28/2019 tablet famotidine (PEPCID) 20 mg Take 20 mg by mouth. 0 08/04/2015 tablet fluticasone propionate Administer 2 sprays 0 (FLONASE) 50 into each nostril mcg/actuation nasal spray daily. mineral oil, Administer into 0 light/mineral oil (SOOTHE affected eye(s) as XP OPHT) needed (for dry eyes). fhdztlyoebyi-vlgqvnbe-nka Take 1 tablet by 0 /05/2013 ein (CENTURY MATURE) mouth. tablet omega 7-gbp-zfe-fish oil Take 1,200 mg by 0 1,000 mg (120 mg-180 mg) mouth. capsule omeprazole (PriLOSEC) 40 0 11/01/[address] capsule psyllium (METAMUCIL) Take 1 packet by mouth 0 powder daily. simvastatin (ZOCOR) 40 mg Take 40 mg by mouth. 0 08/04/2015 tablet tamsulosin (FLOMAX) 0.4 Take 0.4 mg by mouth. 0 1 05/21/2017 mg 24 hr capsule traZODone (DESYREL) 50 mg 0 tablet documented as of this encounter Progress Notes Annia Stewart P.A.-C., M.S. - 10/14/2019 9:30 AM CDT SUBJECTIVE DIAGNOSIS 1. Primary Malignant Neoplasm Of Prostate (HCC) SUPERVISED BY: Angel Grey M.D. [phone]) HISTORY OF PRESENT ILLNESS Mr. Dick Sigala is a 68-year-old male with prostate cancer. His oncologic history is as follows: 1. [...] left prostate demonstrated adenocarcinoma of the prostate, Thania 3+4=7,involving 10-30% of the length of 3 cores, perineural invasion not seen. 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 Laura for T1c prostate cancer, Thania 4+3=7. ??He discussed treatment options including expectant management, hormonal therapy, cryotherapy, HIFU, radiation,and surgery. ??He recommended obtaining second opinions with Radiation Oncology and Oncology. . ??November 12, 2018:?Dr. Grey??saw the patient in consultation and recommended radiotherapy with neoadjuvant and concurrent androgen deprivation therapy. ?? 11. ??November 15, 2018: ??PSA 4.14 ng/mL. ??Testosterone 419 ng/dL. ??Patient started bicalutamide 50 mg daily for 3 weeks 12. ??November 20, 2018: ??Patient saw Dr. Zamora at [facility] for chronic thrombocytopenia. 13. ??November 21, 2018: ??Patient received a Lupron 7.5 mg injection [facility]. 14. ??December 20, 2018: ??Patient received??a Lupron 22.5 injection at [facility]. ??This was??his last injection??for a total of [...] <0.06 ng/mL 18. ??April 18, 2019: ??PET/CT scan demonstrated a rounded intense focus of uptake involving a left lower quadrant small bowel loop or in the mesentery surrounding it. No hypermetabolic adenopathy in the body to suggest lymphoma. No definite hypermetabolic metastatic disease in the body. [facility] interpretation of outside imaging demonstrated that the multiple mildly prominent mesenteric and inguinal nodes had no or only minimal FDG uptake, likely inflammatory. No other findings were seen to indicate abdominal or pelvic malignancy, higher grade lymphoma, or a lymphoproliferative disorder. I spoke to the [facility] Radiologist regarding the uptake in the left lower quadrant and he felt that this was normal uptake within the bowels. 19. October 10, 2019: CT scan of the abdomen and pelvis demonstrated no evidence for metastatic diseasein the abdomen or pelvis. No skeletal metastatic disease. Prostatic enlargement with prostatic seeds. INTERVAL HISTORY The patient was seen and examined today with Dr. Grey. The patient reports doing well overall. He rates his fatigue as 2/10 in severity. He is averaging one bowel movement per day. He denies rectal bleeding or fecal incontinence. He denies urinary frequency, urgency, incontinence, dysuria, or hematuria. He has nocturia x 0-1. He has arthritic pain in his right shoulder and left knee that comes and goes. He does report having pain below his belly button afew months ago that has since improved. He does still get the pain occasionally, most recently a fewdays ago. The pain lasts for 5-15 minutes then resolves on its own. He rates the pain as 5/10 in severity. He has not had to take any pain medication. He has not noticed any precipitating factors, speci fically with regards to eating or bowel movements. He has not felt a lump in the area. AUA SYMPTOM INDEX: November 12, 2018: ??11 (0, 1, 5, 0, 5, 0, 0). December 20, 2018: ??10 (0, 1, 5, 1, 3, 0, 0). April 19, 2019: 10 (0, 1, 5, 0, 3, 0, 1). October 14, 2019: 6 (0, 1, 5, 0, 0, 0, 0). IIEF-5 QUESTIONNAIRE: November 12, 2018: ??21 (3, 3, 5, 5, 5 all with the aid of Viagra). December 20, 2018: ??5 (1, 1, 1, 1, 1) after starting ADT. April 19, 2019: 5 (1, 1, 1, 1, 1), patient reports not being sexually active. October 14, 2019: 5 (1, 1, 1, 1, 1), patient reports not being sexually active. REVIEW OF SYSTEMS Review of systems was negative except as documented above. PATIENT REPORTED SYMPTOM SCREEN FATIGUE (Scale: 0 = no fatigue; 10 = worst fatigue you can imagine): 2 PAIN (Scale: 0 = no pain; 10 = worst pain you can imagine): 0 OVERALL QUALITY OF LIFE (Scale: 0 = as bad as can be; 10 = as good as can be): 9-10 OBJECTIVE BP 131/68 (BP Location: Right arm, Patient Position: Sitting, Cuff Size: Large) Pulse 78 Temp 36.8 ??C (Temporal) Wt 95.3 kg BMI 31.03 kg/m?? PHYSICAL EXAM GENERAL: Alert and oriented in no apparent distress. HEART: Regular rate and rhythm. ABDOMEN: Normal bowel sounds. Lower central abdomen is non-tender to palpation. No palpable masses when laying or sitting. ASSESSMENT / PLAN 1. ??Stage IIC (cT1c, [...] prostate initiated on January 31, 2019; completed on??February 27, 2019 The patient is doing well overall following radiation treatment without persistent side effects. HisCT scan report was reviewed today. Dr. Grey has ordered [facility] Radiology Interpretation of the images. The patient did not have his PSA and testosterone lab work completed, so he will have this done today at [facility] in [place]. We will call the patient when the results are available. Depending on the results, we will also order for his next lab work and follow-upto be done at the appropriate time and discuss this with him on the phone. The patient has had intermittent abdominal pain that has continued to improve. He will continue to monitor this and if he has p ersistent or worsening pain, should see his primary provider for further evaluation. We will follow-up with the patient on the phone within a few days. EDUCATION Ready to learn, no apparent learning barriers were identified; learning preferences include listening. Explained diagnosis and treatment plan; patient expressed understanding of the content. I have spent 15 minutes with this patient today, greater than 50% was spent in counseling and coordination of care. Signed by: Annia Stewart P.A.-C., M.S. 10/14/2019 10:33 AM CDT [facility] [address] [place] [address] Associated attestation - Angel Grey M.D. - 10/14/2019 11:05 AM CDT I saw and evaluated the patient and participated in the tapia portions of the service. I reviewed the documentation of Cheri Al R.N. and agree with the findings and plan. The patient appears well onexam. He is doing well now almost 8 months out from treatment completion. He had a CT scan done of his abdomen last week because of mesenteric adenopathy that we saw prior to his treatment. This looks smaller to stable on my review. I have ordered a [facility] radiology review. He did not have PSA and testosterone lab work done, so we will obtain this today and call him with the results of that and his CT scan review. We will base his follow-up off of that data. The patient verbalized satisfaction with this plan. Signed by: Angel Grey M.D. 10/14/2019 11:05 AM CDT [facility] [place] documented in this encounter Miscellaneous Notes Addendum Note - Shira Polo - 10/14/2019 9:30 AM CDT Encounter addended by: Shira Polo on: 10/14/2019 11:55 AM Actions taken: Letter saved documented in this encounter Plan of Treatment Upcoming Encounters Date Type Specialty Care Team Description 02/14/2022 Appointment Radiation Oncology Chris Grey M.D. [address] [place], [place] [phone] (Wo rk) Scheduled Referrals Name Type Priority Associated Order Schedule Diagnoses Radiation Oncology Outpatient Referral Routine On ce for 1 office visit Occurrences sta rting (clinic) 10/14/2019 unti l 10/14/2019 documented as of this encounter Results Interpretation of Outside CT Abdomen and or Pelvis (10/14/2019 8:52 AM CDT) Anatomical Region Laterality Modality Abdomen, Pelvis, Abdominal RST LOS, Abdominal ARZ LOS, N/A Computed Tomography Abdominal FLA LOS, Other Specimen (Source) Anatomical Collection Method Collection Time Re ceived Time Location / / Volume Laterality 10/15/2019 2:45 PM CDT Impressions 10/15/2019 2:52 PM CDT No evidence of metastatic prostate carcinoma in the abdomen or pelvis. Narrative 10/15/2019 2:52 PM CDT EXAM: ??INTERPRETATION OF OUTSIDE CT ABDOMEN AND OR PELVIS COMPARISON: ??Outside CT 10/23/2018. Out side PET CT 04/18/2019. FINDINGS: ??Outside CT of the abdomen an d pelvis with IV contrast dated 10/10/2019. External radiotherapy fiducial markers i n the prostate, new since outside CT 10/23/2018. No suspicious lymphadenopathy. No suspicious bone lesion. Degenerative disc disease and facet arthropathy throughout the lumbar spine. Degenerativ e change both hips. Subcentimeter hypoenhancing focus inferi abigail in the right hepatic lobe (series 2 image 65) is stable since 2019 and likel y a benign cyst. Gallbladder, pancreas, spleen, and adrenals are negative. Bilat eral renal parenchymal and parapelvic cysts. 2 mm nonobstructing calyceal ston e in the lower pole of the right kidney. Bowel is normal caliber. Colonic diverti culosis. Subpleural fibrotic changes in the lung bases. Procedure Note Xavier Hickey M.D. - 10/15/2019Form atting of this note might be different from the original. EXAM: INTERPRETATION OF OUTSIDE CT ABDOM EN AND OR PELVIS COMPARISON: Outside CT 10/23/2018. Outsi de PET CT 04/18/2019. FINDINGS: Outside CT of the abdomen and pelvis with IV contrast dated 10/10/2019. External radiotherapy fiducial markers i n the prostate, new since outside CT 10/23/2018. No suspicious lymphadenopathy. No suspicious bone lesion. Degenerative disc disease and facet arthropathy throughout the lumbar spine. Degenerativ e change both hips. Subcentimeter hypoenhancing focus inferi abigail in the right hepatic lobe (series 2 image 65) is stable since 2019 and likel y a benign cyst. Gallbladder, pancreas, spleen, and adrenals are negative. Bilat eral renal parenchymal and parapelvic cysts. 2 mm nonobstructing calyceal ston e in the lower pole of the right kidney. Bowel is normal caliber. Colonic diverti culosis. Subpleural fibrotic changes in the lung bases. IMPRESSION: No evidence of metastatic prostate carci noma in the abdomen or pelvis. Angel GREENE CT PROCEDURES documented in this encounter Visit Diagnoses Diagnosis Primary Malignant Neoplasm Of Prostate ( HCC) - Primary Primary Malignant Neoplasm Of Prostate ( HCC) documented in this encounter
--- OUTSIDE RECORDS SUMMARY | 2022-01-28 17:13 | XMS_ITS | Encounter Summary ---
:1950 Author Organization [facility] Address [address] [place] [id number] Care Team Providers Name Role Phone Unavailable Primary Care Provider Unavailable Reason for Referral Outpatient (Routine) - Authorized Specialty Diagnoses / Procedures Referred By Contact Refer red To Contact Radiation Oncology Diagnoses Primary Malignant Neoplasm Of Prostate (HCC) Annia Stewart P.A.-C., [facility] [place] M.S. [address] [place] [phone] Referral ID Status Reason Start Date Expiration Date Visits V isits Requested Authorized [id number] Authorized 08/12/2021 08/12/2022 1 1 Encounter Details Date Type Department Care Team Description 08/12/2021 Orders Only Department of Radiation Brissa Willis Pri mary Malignant Oncology in [facility] Neoplasm Of Prostate [address] (HCC) (Primary Dx) [address] [place] [phone] Social History Tobacco Use Types Packs/Day Years [...] or relatives? How often do you attend presybeterian or anabaptism 1 to 4 times per year 02/25/2021 services? Do you belong to any clubs or organizations Yes 02/25/2021 such as presybeterian groups, unions, fraternal or athletic groups, or [...] Radiation Oncology Chris Grey M.D. [address] [place], [place] [phone] (Wo rk) Scheduled Referrals Name Type Priority Associated Diagnoses Order S [facility] Radiation Oncology Outpatient Referral Routine Primary Maligna nt Expected: office visit Neoplasm Of Prostate 022 (clinic) (HCC) (Approximate), Expires: 08/12/2022 documented as of this encounter Visit Diagnoses Diagnosis Primary Malignant Neoplasm Of Prostate ( HCC) - Primary documented in this encounter
--- OUTSIDE RECORDS SUMMARY | 2022-01-28 17:13 | XMS_ITS | Encounter Summary ---
:1950 Author Organization [facility] Address [address] [place] [address] Care Team Providers Name Role Phone Unavailable Primary Care Provider Unavailable Encounter Details Date Type Department Care Team Description 10/14/2019 Ancillary Procedure Department of Angel Grey Malignant Radiology in [place] Neoplasm Of Prostate [place], [place] [address] [facility] (HCC) [address] [place] [phone] Social History Tobacco Use Types Packs/Day Years [...] or relatives? How often do you attend restoration or voodoo 1 to 4 times per year 02/25/2021 services? Do you belong to any clubs or organizations Yes 02/25/2021 such as restoration groups, unions, fraternal or athletic groups, or [...] place to sleep or slept in a mcfp (including now)? Education Answer Date Recorded What [...] Oncology Chris Grey M.D. [address] [place], [place] [phone] (Wo rk) documented as of this encounter Procedures Procedure Name Priority Date/Time Associated Comments Diagnosis INTERPRETATION OF RAD - Routine 10/14/2019 8:52 Primary Result s for OUTSIDE CT ABDOMEN (most inpatients AM CDT Malignant this procedure AND OR PELVIS and all Neoplasm Of are in the outpatients) Prostate (HCC) results section. documented in this encounter Results Interpretation of Outside CT [...]
--- OUTSIDE RECORDS SUMMARY | 2022-01-28 17:13 | XMS_ITS | Encounter Summary ---
:1950 Author Organization [facility] Address [address] [place] [address] Care Team Providers Name Role Phone Unavailable Primary Care Provider Unavailable Encounter Details Date Type Department Care Team Description 05/29/2019 Clinical Communication Department of Angel Grey Radiation Oncology [place] [address] [facility] [address] [place] [phone] Social History Tobacco Use Types Packs/Day Years [...] How often do you attend mandaen or uatsdin 1 to 4 times per year 02/25/2021 [...] place to sleep or slept in a alf (including now)? Education Answer Date Recorded What is the highest level of school Associate degree: academ [employer] program 02/01/2019 you have completed or the highest degree you have received? Sex Assigned at Date Recorded Male 12/24/2018 8:16 PM CDT documented as of this encounter Plan of Treatment Upcoming Encounters Date Type Specialty Care Team Description 02/14/2022 Appointment Radiation Oncology Chris Grey M.D. [address] [place], [place] [phone] (Wo rk) documented as of this encounter Visit Diagnoses Not on filedocumented in this encounter
--- OUTSIDE RECORDS SUMMARY | 2022-01-28 17:13 | XMS_ITS | Encounter Summary ---
:1950 Author Organization [facility] Address [address] [place] [address] Care Team Providers Name Role Phone Unavailable Primary Care Provider Unavailable Encounter Details Date Type Department Care Team Description 10/23/2019 Orders Only Department of Radiation Annia Stewart Pri mary Malignant Oncology in [place], [place] M.S. Neoplasm Of Prostate [place] [address] [facility] (HCC) (Primary Dx) [address] [place] [phone] Social History Tobacco Use Types Packs/Day Years [...] or relatives? How often do you attend christian or pentecostal 1 to 4 times per year 02/25/2021 services? Do you belong to any clubs or organizations Yes 02/25/2021 such as christian groups, unions, fraternal or athletic groups, or [...] place to sleep or slept in a long-term (including now)? Education Answer Date Recorded What [...] Appointment Radiation Oncology Chris Grey M.D. [address] [place] [phone] (Wo rk) documented as of this encounter Visit Diagnoses Diagnosis Primary Malignant Neoplasm Of Prostate ( HCC) - Primary documented in this encounter
--- OUTSIDE RECORDS SUMMARY | 2022-01-28 17:13 | XMS_ITS | Encounter Summary ---
:1950 Author Organization [facility] Address [address] [place] [address] Care Team Providers Name Role Phone Unavailable Primary Care Provider Unavailable Encounter Details Date Type Department Care Team Description 02/10/2021 Immunization Department of [facility] Mike Turcios Cance led (Clinic: Medicine[facility]ep[facility] M.D. Request) Clinic, in [address] [phone] Social History Tobacco Use Types Packs/Day Years [...] How often do you attend amish or yazdanism 1 to 4 times per year 02/25/2021 [...] place to sleep or slept in a detention (including now)? Education Answer Date Recorded What [...] Appointment Radiation Oncology Chris Grey M.D. [address] [place] [phone] (Wo rk) documented as of this encounter Visit Diagnoses Not on filedocumented in this encounter
--- OUTSIDE RECORDS SUMMARY | 2022-01-28 17:13 | XMS_ITS | Encounter Summary ---
:1950 Author Organization [facility] Address [address] [place] [address] Care Team Providers Name Role Phone Unavailable Primary Care Provider Unavailable Reason for Referral Outpatient (Routine) - Closed Specialty Diagnoses / Procedures Referred By Contact Refer red To Contact Radiation Oncology Annia Stewart P.A.-C., BENNY [facility]ermudez [facility] [address] [place] [phone] Referral ID Status Reason Start Date Expiration Date Visits Requ ested Visits Authorized [id number] Closed 01/29/2020 01/28/2021 1 1 Scheduling Instructions Please get PSA results and office notes from Dr. Laura. If patient has not had a recent PSA, please let us know and we ca n place an order. Thank you! RAL RESOURCES TECHNICIAN Reason for Visit Outpatient (Routine) - Closed Specialty Diagnoses / Procedures Referred By Contact Refer red To Contact Radiation Oncology Annia Stewart P.A.-C., BENNY [facility] 200 [place] [address] Referral ID Status Reason Start Date Expiration Date Visits Requ ested Visits Authorized [id number] Closed 01/29/2020 01/28/2021 1 1 Encounter Details Date Type Department Care Team Description 03/01/2021 Hospital Encounter Department of Angel Grey Malignant Radiation Oncology [place] Renteria Neoplasm Of Prostate in [place], [address] [facility] (HCC) (Primary Dx) [place], [place] [address] [facility] [address] [place], [place] [phone] (Work) [phone] Social History Tobacco Use Types Packs/Day Years [...] or relatives? How often do you attend synagogue or anabaptism 1 to 4 times per year 02/25/2021 services? Do you belong to any clubs or organizations Yes 02/25/2021 such as synagogue groups, unions, fraternal or athletic groups, or [...] Sign Reading Time Taken Comments Blood Pressure 137/72 03/01/2021 3:28 PM NATURAL RESOURCES TECHNICIAN Pulse 53 03/01/2021 3:28 PM NATURAL RESOURCES TECHNICIAN Temperature 36.7 ??C (98 ??F) 03/01/2021 3:28 PM NATURAL RESOURCES TECHNICIAN Respiratory Rate - - Oxygen Saturation - - Inhaled Oxygen Concentration - - Weight 94.2 kg (207 lb 10.8 oz) 03/01/2021 3:28 PM NATURAL RESOURCES TECHNICIAN Height - - Body Mass Index 30.67 11/12/2018 9:48 AM CDT documented in this [...] mg by mouth. 0 08/04/2015 mg capsule citalopram (CeleXA) 20 mg 0 01/25/2021 tablet donepeziL (ARICEPT) 5 mg 0 09/28/2019 tablet fluticasone propionate Administer 2 sprays 0 (FLONASE) 50 into each nostril mcg/actuation nasal spray daily. exrrvmjoslsw-garpmqdu-vtb Take 1 tablet by 0 05/2013 ein (CENTURY MATURE) mouth. tablet omega 3-zrx-dhz-fish oil Take 1,200 mg by 0 1,000 mg (120 mg-180 mg) mouth. capsule omeprazole (PriLOSEC) 40 0 11/01/[address] capsule primidone (MYSOLINE) 50 0 11/11/2020 mg tablet psyllium (METAMUCIL) Take 1 packet by mouth 0 powder daily. simvastatin (ZOCOR) 40 mg Take 40 mg by mouth. 0 08/04/2015 tablet tamsulosin (FLOMAX) 0.4 Take 0.4 mg by mouth. 0 1 05/21/2017 mg 24 hr capsule famotidine (PEPCID) 20 mg Take 20 mg by mouth. 0 08/04/2015 tablet mineral oil, Administer into 0 light/mineral oil (SOOTHE affected eye(s) as XP OPHT) needed (for dry eyes). traZODone (DESYREL) 50 mg 0 tablet documented as of this encounter Progress Notes Annia Stewart P.A.-C., M.S. - 03/01/2021 3:30 PM CST SUBJECTIVE DIAGNOSIS 1. Primary Malignant Neoplasm Of Prostate (HCC) SUPERVISED BY: Angel Grey M.D. ([id number]) HISTORY OF PRESENT ILLNESS Mr. Dick Sigala is a 70-year-old male with prostate cancer. His oncologic history [...] left prostate demonstrated adenocarcinoma of the prostate, Petros 3+4=7,involving 10-30% of the length of 3 cores, perineural invasion not seen. ??Pathology of the right prostate demonstrated high-grade prostatic intraepithelial neoplasia, focal and adenocarcinoma of the prostate, Thania 4+3=7, involving 1-40% of the length of [...] with Dr. Laura for T1c prostate cancer, Petros 4+3=7. ??He discussed treatment options including expectant [...] 20, 2018: ??Patient saw Dr. Zamora at [facility] for chronic thrombocytopenia. 13. ??November 21, 2018: ??Patient received a Lupron 7.5 mg injection [facility]. 14. ??December 20, 2018: ??Patient received??a Lupron 22.5 injection at [facility]. ??This was??his last injection??for a total [...] definite hypermetabolic metastatic disease in the body. ??[facility] interpretation of outside imaging demonstrated that the multiple mildly prominent mesenteric and inguinal nodes had no or??only minimal FDG uptake, likely inflammatory. ??No other findings were seen to indicate abdominal or pelvic malignancy, higher grade lymphoma, or a??lymphoproliferative disorder. ??I spoke to the [facility] Radiologist regarding the uptake in the left lower quadrant andhe felt that this was normal uptake within the bowels. 19. October 10, 2019: CT scan of the abdomen and pelvis demonstrated no evidence for metastatic diseasein the abdomen or pelvis. No skeletal metastatic disease. Prostatic enlargement with prostatic seeds. 20. October 14, 2019: PSA <0.06 ng/mL . January 24, 2020: PSA 0.07 ng/mL. Testosterone total 330 ng/dL. 22. February 18, 2021: PSA 0.18 ng/mL. INTERVAL HISTORY The patient was seen and examined today with Dr. Grey. The patient reports doing well overall. He is averaging two bowel movements per day. He denies rectal bleeding or fecal incontinence. He denies urinary frequency, urgency, incontinence, dysuria, or hematuria or nocturia. He reports chronic arthritis in his shoulders bilaterally. He is also going to bescheduled for a left knee replacement soon, but he isn't having much knee pain. He denies other areas of new or persistent bone pain. AUA SYMPTOM INDEX: November 12, 2018: ??11 (0, 1, 5, 0, 5, 0, 0). December 20, 2018: ??10 (0, 1, 5, 1, 3, 0, 0). April 19, 2019:?10??(0, 1, 5,??0,??3, 0, 1). October 14, 2019: 6 (0, 1, 5, 0, 0, 0, 0). March 01, 2021: 1 (0, 1, 0, 0, 0, 0, 0). IIEF-5 QUESTIONNAIRE: November 12, 2018: ??21 (3, 3, 5, 5, 5 all with the aid of Viagra). December 20, 2018: ??5 (1, 1, 1, 1, 1) after starting ADT. April 19, 2019:?5 (1, 1, 1, 1, 1), patient reports not being sexually active. October 14, 2019: 5 (1, 1, 1, 1, 1), patient reports not being sexually active. March 01, 2021: Not sexually active. REVIEW OF SYSTEMS Review of systems was negative except as documented above. PATIENT REPORTED SYMPTOM SCREEN FATIGUE (Scale: 0 = no fatigue; 10 = worst fatigue you can imagine): N/A PAIN (Scale: 0 = no pain; 10 = worst pain you can imagine): 0 OVERALL QUALITY OF LIFE (Scale: 0 = as bad as can be; 10 = as good as can be): 8 OBJECTIVE BP 137/72 (BP Location: Left arm, Patient Position: Sitting, Cuff Size: Regular) Pulse (!) 53 Temp 36.7 ??C (Temporal) Wt 94.2 kg BMI 30.67 kg/m?? PHYSICAL EXAM GENERAL: Alert and oriented [...] is doing well overall following radiation treatment. We reviewed his PSA result of 0.18 ng/mL. We discussed that this is a good result following definitive radiation therapy. He is not having persistent side effects following radiation treatment. He reports that he is going to be scheduledfor left knee surgery within the next 1-2 months. He has not seen Dr. Laura recently and is not scheduled for any upcoming visits. We discussed continued monitoring of the PSA every 6 months. I will order for a PSA lab draw to be done at [facility] in [place] in 6 months. We will send the result to the patient. We will then plan on another PSA lab draw and follow-up visit here in 1 year. The patient was asked to contact us sooner with questions or concerns. He verbally expressed his understanding of the plan. EDUCATION Ready to learn, no apparent learning barriers were identified; learning preferences include listening. Explained diagnosis and treatment plan; patient expressed understanding of the content. I personally spent 25 minutes in care of the patient today. Time includes both non face to face and face to face patient care. Signed by: Annia Stewart P.A.-C., M.S. 03/01/2021 3:55 PM NATURAL RESOURCES TECHNICIAN [facility] [address] [place] [address] RAL RESOURCES TECHNICIAN Associated attestation - Angel Grey M.D. - 03/01/2021 4:28 PM NATURAL RESOURCES TECHNICIAN I saw and evaluated the patient and participated in the tapia portions of the service. I reviewed the documentation of Annia Stewart P.A.-C. and agree with the findings and plan. The patient appears well onexam. He completed definitive radiotherapy per prostate cancer with a short course of androgen deprivation therapy on February 27, 2019. His PSA was recently 0.18 ng/mL. His urinary function and bowel function are good. We will repeat a PSA in 6 months and contact him with those results and then see him back in 1 year with a pre-visit PSA. The patient verbalized satisfaction with this plan. Signed by: Angel Grey M.D. 03/01/21 4:28 PM NATURAL RESOURCES TECHNICIAN [facility] [place] documented in this encounter Miscellaneous Notes Addendum Note - Shannan Suarez C.N.A. - 03/01/2021 3:30 PM NATURAL RESOURCES TECHNICIAN Encounter addended by: Shannan Suarez C.N.A. on: 03/02/2021 7:06 AM Actions taken: Letter saved RAL RESOURCES TECHNICIAN documented in this encounter Plan of Treatment Upcoming Encounters Date Type Specialty Care Team Description 02/14/2022 Appointment Radiation Oncology Chris Grey M.D. [address] [place], [place] [phone] (Wo rk) Scheduled Referrals Name Type Priority Associated Order Schedule Diagnoses Radiation Oncology Outpatient Referral Routine On ce for 1 office visit Occurrences sta rting (clinic) 03/01/2021 unti l 03/01/2021 documented as of this encounter Visit Diagnoses Diagnosis Primary Malignant Neoplasm Of Prostate ( HCC) - Primary documented in this encounter
--- OUTSIDE RECORDS SUMMARY | 2022-01-28 17:13 | XMS_ITS | Encounter Summary ---
:1950 Author Organization [facility] Address [address] [place] [address] Care Team Providers Name Role Phone Unavailable Primary Care Provider Unavailable Reason for Referral Outpatient (Routine) - Closed Specialty Diagnoses / Procedures Referred By Contact Refer red To Contact Radiation Oncology Annia Stewart P.A.-C., BENNY [facility] [address] [place] [phone] Referral ID Status Reason Start Date Expiration Date Visits Requ ested Visits Authorized [id number] Closed 02/27/2019 02/27/2020 1 1 Scheduling Instructions PET/CT scan prior at [facility] SIT BUS OPERATOR Radiation Therapy (Routine) - Canceled Specialty Diagnoses / Procedures Referred By Contact Refer red To Contact Diagnoses Primary Malignant Neoplasm Of Prostate (HCC) Angel Grey M.D. [facility] Procedures Management Visit [address] [place] [phone] Referral ID Status Reason Start Date Expiration Date Visits V isits Requested Authorized [id number] Canceled 12/20/2018 12/20/2019 10 10 SIT BUS OPERATOR Reason for Visit Radiation Therapy (Routine) - Canceled Specialty Diagnoses / Procedures Referred By Contact Refer red To Contact Diagnoses Primary Malignant Neoplasm Of Prostate (HCC) Angel [facility] M.D. [facility] Procedures Management Visit [address] [place] [phone] Referral ID Status Reason Start Date Expiration Date Visits V maddi Requested Authorized [id number] Canceled 12/20/2018 12/20/2019 10 10 Encounter Details Date Type Department Care Team Description 02/27/2019 Hospital Encounter Department of Angel Grey Malignant Radiation Oncology [place] Renteria Neoplasm Of Prostate in [place], [address] [place] [address] (HCC) [place], [place] [address] [facility] [address] [place], [place] [phone] (Work) [phone] Social History Tobacco Use Types Packs/Day Years [...] or relatives? How often do you attend moravian or gnosticist 1 to 4 times per year 02/25/2021 services? Do you belong to any clubs or organizations Yes 02/25/2021 such as moravian groups, unions, fraternal or athletic groups, or [...] minutes do you engage in exercise at is 30 min 02/25/2021 level? Stress Answer [...] highest level of school Associate degree: academ [employer] program 02/01/2019 you have completed or the highest degree you have received? Sex Assigned at Date Recorded Male 12/24/2018 8:16 PM CDT documented as of this encounter Last Filed Vital Signs Vital Sign Reading Time Taken Comments Blood Pressure - - Pulse - - Temperature 36.1 ??C (97 ??F) 02/27/2019 8:34 AM TRANSIT BUS OPERATOR Respiratory Rate - - Oxygen Saturation - - Inhaled Oxygen Concentration - - Weight 96 kg (211 lb 10.3 oz) 02/27/2019 8:34 AM TRANSIT BUS OPERATOR Height - - Body Mass Index 31.25 11/12/2018 9:48 AM CDT documented in this [...] as XP OPHT) needed (for dry eyes). emacinfuucxx-nrzrkeqg-yly Take 1 tablet by 0 05/2013 ein (CENTURY MATURE) mouth. tablet omega 5-dxx-flv-fish oil Take 1,200 mg by 0 1,000 mg (120 mg-180 mg) mouth. capsule omeprazole (PriLOSEC) 40 0 11/01/[address] capsule psyllium (METAMUCIL) Take 1 packet by mouth 0 powder daily. simvastatin (ZOCOR) 40 mg Take 40 mg by mouth. 0 08/04/2015 tablet tamsulosin (FLOMAX) 0.4 Take 0.4 mg by mouth. 0 1 05/21/2017 mg 24 hr capsule fluticasone propionate Administer 2 sprays 0 (FLONASE) 50 into each nostril mcg/actuation nasal spray daily. documented as of this encounter Progress Notes Annia Stewart P.A.-C., M.S. - 02/27/2019 8:30 AM CST DIAGNOSIS: 1. Primary Malignant Neoplasm Of Prostate (HCC) Attending Physician: Angel Grey M.D. ([phone]) Treatment Intent: Curative Concomitant Therapy: Hormonal Therapy Treatment Dates: January 31, 2019 - February 27, 2019 Single Plan Course Summary 02/27/2019 Plan ID [id number] PROSTATE First treatment 01/31/2019 07:39 TRANSIT BUS OPERATOR Last treatment 02/27/2019 08:11 TRANSIT BUS OPERATOR Fractions treated to date 20 Planned total fractions 20 Dosage given to date cGy 6000 Planned dose in cGy 6000 CLINICAL SUMMARY Mr. Dick Sigala completed radiation treatment as planned without interruptions. The course of treatment was tolerated well and with anticipated side effects. The patient experienced toxicities of grade 1 fatigue, urinary frequency, and dysuria during radiation treatment. TREATMENT RESPONSE: Response to treatment will be determined by post-treatment laboratory work. RECOMMENDED FOLLOW UP: Radiation Oncologist. He will have a follow-up appointment with Dr. Grey at the end of March 2019. Signed by: Annia Stewart P.A.-C., M.S., 02/27/2019 9:13 AM [facility] [address] [place] [address] SIT BUS OPERATOR Annia Stewart P.A.-C., M.S. - 02/27/2019 8:30 AM CST SUBJECTIVE REASON FOR VISIT Evaluation for side effects while receiving radiation treatment for 1. Primary Malignant Neoplasm Of Prostate (HCC) SUPERVISED BY: Angel Grey M.D. ([phone]) HISTORY OF PRESENT ILLNESS Mr. Dick Sigala is a 68-year-old male with prostate cancer. He is completed intensity modulated radiation therapy to the prostate and proximal seminal vesicles to a dose of 6000 cGy in 20 fractions on February 27, 2019. His oncologic history is as follows: 1. 2016: PSA 2.49 ng/mL. 2. November 01, 2017: PSA 3.72 ng/mL. 3. January 17, 2018: PSA 3.42 ng/mL. 4. March 21, 2018: Urology consultation with Dr. Ming Laura where physical examination revealed a 35 g prostate with no nodule. Postvoid residual was 28 mL. The patient was prescribed Flomax 0.4 mgdaily for urinary frequency. Plan to follow up in 2 months with PSA and bladder scan. 5. May 23, 2018: PSA 4.43 ng/mL. 6. August 29, 2018: PSA 5.03 ng/mL. 7. October 09, 2018: TRUS biopsy of the prostate was performed by Dr. Laura. Prostate volume was 69 cc. Pathology of the left prostate demonstrated adenocarcinoma of the prostate, Thania 3+4=7, involving 10-30% of the length of 3 cores, perineural invasion not seen. Pathology of the right prostate demon strated high-grade prostatic intraepithelial neoplasia, focal and adenocarcinoma of the prostate, Thania 4+3=7, involving 1-40% of the length of 3 cores, perineural invasion not seen. 8. October 23, 2018: CT scan of the abdomen and pelvis demonstrated stable, mildly prominent bilateral inguinal lymph nodes, right greater than left, measuring up to 1.7 cm. Mild increased size and number of multiple mesenteric lymph nodes measuring up to 12 mm. multiple subcentimeter retroperitoneal lymph nodes. Bilateral simple renal cortical cysts and parapelvic cysts without hydronephrosis. Fatty infiltration of the liver with indeterminate subcentimeter hypodensity within the tip of the liver. There was a 5 mm pleural-based nodule left lower lobe. Nuclear medicine whole-body bone scan demonstratedno convincing evidence of bony metastasis. There were findings consistent with benign arthritic changes at multiple locations. 9. October 29, 2018: Appointment with Dr. Laura for T1c prostate cancer, Blakeslee 4+3=7. He discussed treatment options including expectant management, hormonal therapy, cryotherapy, HIFU, radiation, and surgery. He recommended obtaining second opinions with Radiation Oncology and Oncology. 10. November 12, 2018: Dr. Grey saw the patient in consultation and recommended radiotherapy with neoadjuvant and concurrent androgen deprivation therapy. 11. November 15, 2018: PSA 4.14 ng/mL. Testosterone 419 ng/dL. Patient started bicalutamide 50 mg daily for 3 weeks 12. November 20, 2018: Patient saw Dr. Zamora at [facility] for chronic thrombocytopenia. 13. November 21, 2018: Patient received a Lupron 7.5 mg injection [facility]. 14. December 20, 2018: Patient received a Lupron 22.5 injection at [facility]. This was his last injection for a total of 4 months of ADT. 15. December 27, 2018: Hydrogel rectal spacer was placed as well as 4 gold seed fiducial markers in the prostate. 16. January 31, 2019 through February 27, 2019: Intensity modulated radiation therapy to the prostateand proximal seminal vesicles to a dose of 6000 cGy in 20 fractions. The patient was seen and examined today with Dr. Grey. The patient reports doing well overall. He rates his fatigue as 1-2/10 in severity. He reports urinary frequency and mild irritation with the initiation of urination. He denies urinary urgency, incontinence, hematuria, or nocturia. He is averaging one bowel movement per day. He denies pain with bowel movements or rectal bleeding. He does have hot flashes that are overall manageable. PATIENT REPORTED SYMPTOM SCREEN FATIGUE (Scale: 0 = no fatigue; 10 = worst fatigue you can imagine): 1-2 ?? PAIN (Scale: 0 = no pain; 10 = worst pain you can imagine): 0 ?? OVERALL QUALITY OF LIFE (Scale: 0 = as bad as can be; 10 = as good as can be): 9 OBJECTIVE Temp 36.1 ??C (Temporal) Wt 96 kg BMI 31.25 kg/m? PHYSICAL EXAM General: Alert and oriented in no apparent distress. ASSESSMENT / PLAN 1. ??Stage IIC (cT1c, cN0, cM0, PSA: 5.1, Grade Group: 3) Blakeslee 4 + 3??adenocarcinoma of the prostate 2.?Androgen deprivation therapy with bicalutamide for 3 weeks initiated on November 15, 2018; Lupron 7.5 mg injection on November 21, 2018; and Lupron 22.5 mg injection on December 20, 2018 with no further ADT planned 3. ??Erectile dysfunction?? 4. ??Radiation therapy to the prostate initiated on January 31, 2019; completed on February 27, 2019 The patient tolerated radiation treatment well overall. He experienced grade 1 fatigue, urinary frequency, and dysuria. He is experiencing manageable hot flashes with androgen deprivation therapy. He was educated on the anticipated time frame of recovery following treatment. We will order for a PSA blood draw to be done at [facility] in [place] at the end of April 2019. Dr. Grey discussed the enlarged mesenteric lymph nodes seen on the CT scan from October 23, 2018. Afterdiscussion, it was agreed to proceed with a PET/CT scan for further evaluation. The PET/CT scan has been ordered to be completed at [facility] at the end of March 2019 to allow time for recovery following radiation treatment prior to the imaging. We will schedule a return visit here a few days later to review the results. He will contact us with sooner any questions or concerns. He verbally expressed his understanding of the plan. Signed by: Annia Stewart P.A.-C., M.S. 02/27/2019 9:02 AM SIT BUS OPERATOR Associated attestation - Angel Grey M.D. - 02/27/2019 1:38 PM TRANSIT BUS OPERATOR I saw and evaluated the patient and participated in the tapia portions of the service. I reviewed the documentation of Annia Stewart P.A.-C. and agree with the findings and plan. The patient appears well onexam. He has tolerated treatment well. He finished today. He has had both mesenteric and inguinal lymph nodes it but enlarged on CT imaging. I think that this is likely secondary to diverticular disease, but to be more certain of this, we will check a CBC and a PET/CT scan near on April 18, 2019 after the inflammation from his radiotherapy has subsided. I want to be sure that he does not have CLL.We will check a PSA then to and see him for result reporting on April 19, 2019. Patient and his spouse verbalized satisfaction with this plan. Signed by: Angel Grey M.D. 02/27/19 1:38 PM [facility] [address] [place] [address] documented in this encounter Miscellaneous Notes Addendum Note - Shira Polo - 02/27/2019 8:30 AM TRANSIT BUS OPERATOR Encounter addended by: Shira Polo on: 02/27/2019 1:51 PM Actions taken: SmartForm saved, Letter saved SIT BUS OPERATOR documented in this encounter Plan of Treatment Upcoming Encounters Date Type Specialty Care Team Description 02/14/2022 Appointment Radiation Oncology Chris Grey M.D. [address] [place] [phone] (Wo rk) Scheduled Orders Name Type Priority Associated Diagnoses Order S chedule Management Visit Radiation Oncology Routine Primary Malignant Once for 1 Neoplasm Of Prostate Occurre nces starting (HCC) 02/27/2019 unti l 02/27/2019 Scheduled Referrals Name Type Priority Associated Diagnoses Order [facility] Outpatient Referral Routine Ex pected: office visit 04/22/2019 (clinic) (Approximate), Expires: 02/28/2020 documented as of this encounter Visit Diagnoses Diagnosis Primary Malignant Neoplasm Of Prostate ( HCC) documented in this encounter
--- OUTSIDE RECORDS SUMMARY | 2022-01-28 17:13 | XMS_ITS | Clinical Summary ---
:1950 Author Organization [facility] Address [address] [place] [address] Care Team Providers Name Role Phone Unavailable Primary Care Provider Unavailable Source Comments Patient records contain information from all sites at [facility]. For routine questions regarding patient records, call [phone] during business hours, M-F 8:00 AM - 5:00 PM Central Time. Record requests for emergency care only can be directed to [phone] at any time.[facility] Allergies No known active allergies Medications Medication Sig Dispensed Refills Start Date End Date Status aspirin [address] Take 81 mg by 0 09/23/2013 Active tablet mouth. celecoxib (CeleBREX) Take 200 mg by 0 08/04/2015 Active 200 mg capsule mouth. famotidine (PEPCID) 20 Take 20 mg by 0 08/04/2015 Active mg tablet mouth. multivitamin-minerals- Take 1 tablet by 0 09/23/2013 Active lutein (CENTURY mouth. MATURE) tablet omeprazole (PriLOSEC) 0 11/01/[address] capsule simvastatin (ZOCOR) 40 Take 40 mg by 0 08/04/2015 Active mg tablet mouth. tamsulosin (FLOMAX) Take 0.4 mg by 0 03/21/2018 Active 0.4 mg 24 hr capsule mouth. calcium Take 1 tablet by 0 Act rox carbonate-vitamin D3 mouth daily with (CALCIUM 500 + D) breakfast. 1,250 mg (500 mg calcium)-200 unit per tablet acetaminophen Take 500 mg by 0 A ctive (TYLENOL) 500 mg mouth every 6 tablet (six) hours as needed for pain. omega 7-sij-ltm-fish Take 1,200 mg by 0 Active oil 1,000 mg (120 mouth. mg-180 mg) capsule fluticasone propionate Administer 2 0 Active (FLONASE) 50 sprays into each mcg/actuation nasal nostril daily. spray psyllium (METAMUCIL) Take 1 packet by 0 Active powder mouth daily. mineral oil, Administer into 0 A ctive light/mineral oil affected eye(s) as (SOOTHE XP OPHT) needed (for dry eyes). traZODone (DESYREL) 50 0 Active mg tablet donepeziL (ARICEPT) 5 0 09/28/2019 Active mg tablet primidone (MYSOLINE) 0 11/11/2020 Active 50 mg tablet citalopram (CeleXA) 20 0 01/25/2021 Active mg tablet Active Problems Problem Noted Date Primary Malignant Neoplasm Of Prostate 11/12/2018 Cancer Staging: Clinical stage from 10/09: Stage IIC (cT1c, cN0, cM0, PSA: 5.1, Grade Group: 3) - Signed by Angel Grey M.D. on 11/12/2018 Immunizations Name Administration Dates Next Due Influenza high dose QV(65 years or older) (PF) 02/10/2021 SARS-COV-2 (COVID-19) - PFIZER (12 years or older) Social History Tobacco Use Types Packs/Day Years [...] or relatives? How often do you attend mormonism or orthodoxy 1 to 4 times per year 02/25/2021 services? Do you belong to any clubs or organizations Yes 02/25/2021 such as mormonism groups, unions, fraternal or athletic groups, or [...] place to sleep or slept in a half-way (including now)? Education Answer Date Recorded What is the highest level of school Associate degree: magda leigh, 10/09/2019 you have completed or the highest technical, or vocational p leelee degree you have received? Sex Assigned at Date Recorded Male 12/24/2018 8:16 PM CDT Last Filed Vital Signs Vital Sign Reading Time Taken Comments Blood Pressure 137/72 03/01/2021 3:28 PM SCOURING TRAIN OPERATOR CHIEF Pulse 53 03/01/2021 3:28 PM SCOURING TRAIN OPERATOR CHIEF Temperature 36.7 ??C (98 ??F) 03/01/2021 3:28 PM SCOURING TRAIN OPERATOR CHIEF Respiratory Rate - - Oxygen Saturation - - Inhaled Oxygen Concentration - - Weight 94.2 kg (207 lb 10.8 oz) 03/01/2021 3:28 PM SCOURING TRAIN OPERATOR CHIEF Height 175.3 cm (5' 9) 11/12/2018 9:48 AM CDT Body Mass Index 30.67 11/12/2018 9:48 AM CDT Plan of Treatment Upcoming Encounters Date Type Specialty Care Team Description 02/14/2022 Appointment Radiation Oncology Chris Grey M.D. [address] [place], [place] [phone] (Wo rk) Health Maintenance Due Date Last Done Comments CT Colonography 1950 Cologuard 1950 FIT 1950 Fasting Glucose for Diabetes 1950 Screening Hepatitis C Screening 1950 Colonoscopy 01/28/2016 01/27/2006 Colorectal Cancer Screening 01/28/2016 Depression Screening (Annual 04/24/2021 PHQ-2) Fall Risk Screen (Annual) 04/24/2021 COVID-19 Vaccine (5 - Booster for 12/07/2021 10/12/2021, , Pfizer series) 07/17/2020, Additional history exists Influenza Vaccine (#1) 2022 02/10/2021, 02/16/2020, 05/24/2019, Additional history exists DTaP,Tdap,and Td Vaccines (3 - Td 11/02/2027 11/01/2017, or Tdap) Pneumococcal vaccine (65+ years) Completed 10/29/2015, 04/2014 Zoster Vaccines Completed 10/15/2018, 07/27/2018 Medical Devices Implanted Type Area Foundry Supervisor Device Shelf Model / Serial / Identifier Expiration Lot Date Marker Gold Seed - [id number] - [id number] Imaging Team [id number] / Implanted: Qty: 4 on 12/27/2018 by William Mendez M.D. at [facility] [employer] [id number] / [facility] [id number] Insurance Payer Benefit Plan / Subscriber ID Effective Phone Address T ype Group Dates [facility] [id number] 2015-Pres [phone] [address] PPO OPEN ACCESS ent [address] [place] [address]
--- OUTSIDE RECORDS SUMMARY | 2022-01-28 17:13 | XMS_ITS | Encounter Summary ---
:1950 Author Organization [facility] Address [address] [place] [address] Care Team Providers Name Role Phone Unavailable Primary Care Provider Unavailable Encounter Details Date Type Department Care Team Description 02/24/2021 Orders Only Department of Radiation Cheri Al, Primary Malignant Oncology in [facility] Neoplasm Of Prostate [place] [address] [facility] (HCC) (Primary Dx) [address] [place] [address] [phone] Social History Tobacco Use Types Packs/Day Years [...] or relatives? How often do you attend mu-ism or orthodoxy 1 to 4 times per year 02/25/2021 services? Do you belong to any clubs or organizations Yes 02/25/2021 such as mu-ism groups, unions, fraternal or athletic groups, or [...] place to sleep or slept in a nursing home (including now)? Education Answer Date Recorded [...] Appointment Radiation Oncology Chris Grey M.D. [address] [place] [address] [phone] (Wo rk) documented as of this encounter Visit Diagnoses Diagnosis Primary Malignant Neoplasm Of Prostate ( HCC) - Primary documented in this encounter
--- OUTSIDE RECORDS SUMMARY | 2022-01-28 17:13 | XMS_ITS | Encounter Summary ---
:1950 Author Organization [facility] Address [address] [place] [address] Care Team Providers Name Role Phone Unavailable Primary Care Provider Unavailable Reason for Referral Outpatient (Routine) - Closed Specialty Diagnoses / Procedures Referred By Contact Refer red To Contact Radiation Oncology Annia Stewart P.A.-C., [facility] Region M.S. [address] [place] [address] Referral ID Status Reason Start Date Expiration Date Visits Requ ested Visits Authorized [id number] Closed 04/26/2019 04/25/[address] A/P completed prior at [facility], need imag es and report. PSA and testosterone lab work completed prior also. SFORMATION ANALYST MRI/CAT/PET Scan (Routine) - Closed Specialty Diagnoses / Procedures Referred By Contact Refer red To Contact Radiology Diagnoses Primary Malignant Neoplasm Of Prostate (HCC) Lymphadenopathy Annia Stewart P.A.-C., [facility] Region Procedures CT Abdomen Pelvis with IV Contrast M.S. [address] [place] [address] Referral ID Status Reason Start Date Expiration Date Visits Requ ested Visits Authorized [id number] Closed 04/26/2019 04/25/2020 1 1 SFORMATION ANALYST Encounter Details Date Type Department Care Team Description 04/26/2019 Clinical Communication Department of Radiation Dexter Stewart, Oncology in [place], PFaisal, M.S. [address] [phone] Social History Tobacco Use Types Packs/Day Years [...] or relatives? How often do you attend caodaism or sikhism 1 to 4 times per year 02/25/2021 services? Do you belong to any clubs or organizations Yes 02/25/2021 such as caodaism groups, unions, fraternal or athletic groups, or [...] highest level of school Associate degree: academ ic program 02/01/2019 you have completed or the highest degree you have received? Sex Assigned at Date Recorded Male 12/24/2018 8:16 PM CDT documented as of this encounter Miscellaneous Notes Telephone Encounter - Annia Stewart P.A.-C., M.S. - 04/26/2019 8:50 AM TRANSFORMATION ANALYST DIAGNOSIS 1. Primary Malignant Neoplasm Of Prostate (HCC) REASON FOR ENCOUNTER Telephone call. SUPERVISED BY: Angel Grey M.D. ([phone]) INTERVAL HISTORY Mr. Dick Sigala is a 68-year-old??male??with??prostate cancer.? His oncologic history is as follows: 1. [...] neoplasia, focal and adenocarcinoma of the prostate, [place] 4+3=7, involving 1-40% of the length of [...] 20, 2018: ??Patient saw Dr. Zamora at [facility] for chronic thrombocytopenia. 13. ??November 21, 2018: ??Patient received a Lupron 7.5 mg injection [facility]. 14. ??December 20, 2018: ??Patient received??a Lupron 22.5 injection at [facility]. ??This was??his last injection??for a total of [...] ng/mL 18. April 18, 2019: PET/CT scan demonstrated a rounded intense focus of uptake involving a left lower quadrant small bowel loop or in the mesentery surrounding it. No hypermetabolic adenopathy in the body to suggest lymphoma. No definite hypermetabolic metastatic disease in the body. [facility] int erpretation of outside imaging demonstrated that the multiple mildly prominent mesenteric and inguinal nodes had no or only minimal FDG uptake, likely inflammatory. No other findings were seen to indicate abdominal or pelvic malignancy, higher grade lymphoma, or a lymphoproliferative disorder. I spoketo the [facility] Radiologist regarding the uptake in the left lower quadrant and he felt that thiswas normal uptake within the bowels. ASSESSMENT / PLAN I called to provide the patient with the PET/CT scan report and [facility] interpretation today. I left a voicemail asking for a return phone call. The patient's case was dicussed with Dr. Grey yesterday and he recommended ordering a CT scan of the abdomen and pelvis with IV contrast to be done in approximately 3 months. The patient will also be having a lab draw for PSA and testosterone done atthat time. We will schedule a return visit here after the labs and imaging to review the results. EDUCATION Ready to learn, no apparent learning barriers were identified; learning preferences include listening. Explained diagnosis and treatment plan; patient expressed understanding of the content. Signed by: Annia Stewart P.A.-C., MRaheelS. 04/26/2019 8:51 AM TRANSFORMATION ANALYST ADDENDUM: The patient returned my phone call and I spoke to him directly. I reviewed the PET report and [facility] interpretation with him. I reviewed Dr. Grey's recommendation for a CT scan in 3 months. Hewould like to have all his lab work and imaging done at the [facility]. I relayed this information to our clinical mailing machine assistant for scheduling. The patient was appreciative of the phone call and results today. He had no further questions or concerns. He will contact us again if questions arise. He verbally expressed his understanding of the plan. SFORMATION ANALYST documented in this encounter Plan of Treatment Upcoming Encounters Date Type Specialty Care Team Description 02/14/2022 Appointment Radiation Oncology Chris Grey M.D. [address] [place] [address] [phone] (Wo rk) Scheduled Orders Name Type Priority Associated Diagnoses Order S chedule CT Abdomen Pelvis Imaging RAD - Routine (most Primary Malignan t Expected: with IV Contrast inpatients and all Neoplasm Of Prosta te 07/18/2019 outpatients) (HCC) (Approximate), Lymphadenopathy Expires: 04/26/2022 Scheduled Referrals Name Type Priority Associated Diagnoses Order S chedule Radiation Oncology Outpatient Referral Routine Ex pected: office visit 07/22/2019 (clinic) (Approximate), Expires: 04/26/2020 documented as of this encounter Visit Diagnoses Diagnosis Primary Malignant Neoplasm Of Prostate ( HCC) - Primary Lymphadenopathy documented in this encounter
--- OUTSIDE RECORDS SUMMARY | 2022-01-28 17:13 | XMS_ITS | Encounter Summary ---
:1950 Author Organization [facility] Address [address] [place] [address] Care Team Providers Name Role Phone Unavailable Primary Care Provider Unavailable Encounter Details Date Type Department Care Team Description 12/24/2019 Clinical Communication Department of Gracie Heredia [facility] [phone] [address] (Work) [place] [phone] Social History Tobacco Use Types Packs/Day Years [...] or relatives? How often do you attend religious or confucianist 1 to 4 times per year 02/25/2021 services? Do you belong to any clubs or organizations Yes 02/25/2021 such as religious groups, unions, fraternal or athletic groups, or [...] place to sleep or slept in a residential (including now)? Education Answer Date Recorded What [...] Appointment Radiation Oncology Chris Grey M.D. [address] [place], [place] [phone] (Wo rk) documented as of this encounter Visit Diagnoses Not on filedocumented in this encounter
--- OUTSIDE RECORDS SUMMARY | 2022-01-28 17:13 | XMS_ITS | Encounter Summary ---
:1950 Author Organization [facility] Address [address] [place] [address] Care Team Providers Name Role Phone Unavailable Primary Care Provider Unavailable Encounter Details Date Type Department Care Team Description 04/19/2019 Ancillary Procedure Department of Annia Stewart Primar y Malignant Radiology in [place], M.S. Neoplasm Of Prostate [place], [place] [address] [facility] (HCC) [address] [place] [phone] Social History Tobacco Use Types Packs/Day Years [...] or relatives? How often do you attend pentecostalism or alevism 1 to 4 times per year 02/25/2021 services? Do you belong to any clubs or organizations Yes 02/25/2021 such as pentecostalism groups, unions, fraternal or athletic groups, or [...] place to sleep or slept in a intermediate (including now)? Education Answer Date Recorded What is the highest level of school Associate degree: academ [employer] program 02/01/2019 you have completed or the highest degree you have received? Sex Assigned at Date Recorded Male 12/24/2018 8:16 PM CDT documented as of this encounter Plan of Treatment Upcoming Encounters Date Type Specialty Care Team Description 02/14/2022 Appointment Radiation Oncology Chris Grey M.D. [address] [place], [place] [phone] (Wo rk) documented as of this encounter Procedures Procedure Name Priority Date/Time Associated Comments Diagnosis INTERPRETATION OF RAD - Routine 04/22/2019 7:21 Primary Result s for OUTSIDE NM PET SCAN (most inpatients AM SEMICONDUCTOR PACKAGES SEALER Malignant this procedure and all Neoplasm Of are in the outpatients) Prostate (HCC) results section. documented in this encounter Results Interpretation of Outside NM PET Scan (04/22/2019 7:21 AM SEMICONDUCTOR PACKAGES SEALER) Anatomical Region Laterality Modality Nuclear Medicine PET RST LOS, Nuclear Medicine ARZ LOS, N/A Nuclear Medicine Nuclear Medicine FLA LOS, Nuclear Medicine, Other Specimen (Source) Anatomical Collection Method Collection Time Re ceived Time Location / / Volume Laterality 04/23/2019 8:47 AM SEMICONDUCTOR PACKAGES SEALER Impressions 04/23/2019 3:49 PM SEMICONDUCTOR PACKAGES SEALER The multiple mildly prominent mesenteric and inguinal [...] lymphoproliferative disorder. ? Narrative 04/23/2019 3:49 PM SEMICONDUCTOR PACKAGES SEALER EXAM: ??INTERPRETATION OF OUTSIDE NM PET SCAN [...] a lymphoproliferative disorder. Annia Stewart P.A.-C., M.S. [facility] [place] PROCEDURES documented in this encounter Visit Diagnoses Diagnosis Primary Malignant Neoplasm Of Prostate ( HCC) documented in this encounter
--- OUTSIDE RECORDS SUMMARY | 2022-01-28 17:13 | XMS_ITS | Encounter Summary ---
:1950 Author Organization [facility] Address [address] [place] [address] Care Team Providers Name Role Phone Unavailable Primary Care Provider Unavailable Encounter Details Date Type Department Care Team Description 07/23/2019 Clinical Communication Department of Gracie [facility]red[facility] [phone] [address] (Work) [place] [phone] Social History Tobacco Use Types Packs/Day Years [...] or relatives? How often do you attend scientology or sikhism 1 to 4 times per year 02/25/2021 services? Do you belong to any clubs or organizations Yes 02/25/2021 such as scientology groups, unions, fraternal or athletic groups, or [...] place to sleep or slept in a correction (including now)? Education Answer Date Recorded What is the highest level of school Associate degree: academ ic program 02/01/2019 you have completed or the highest degree you have received? Sex Assigned at Date Recorded Male 12/24/2018 8:16 PM CDT documented as of this encounter Plan of Treatment Upcoming Encounters Date Type Specialty Care Team Description 02/14/2022 Appointment Radiation Oncology Chris Grey M.D. [address] [place] [phone] (Wo rk) documented as of this encounter Visit Diagnoses Not on filedocumented in this encounter
--- OUTSIDE RECORDS SUMMARY | 2022-01-28 17:13 | XMS_ITS | Encounter Summary ---
:1950 Author Organization [facility] Address [address] [place] [address] Care Team Providers Name Role Phone Unavailable Primary Care Provider Unavailable Reason for Visit Radiation Therapy (Routine) - Closed Specialty Diagnoses / Procedures Referred By Contact Refer red To Contact Diagnoses Primary Malignant Neoplasm Of Prostate (HCC) Angel Grey M.D. [facility] Procedures Prior Auth Rad Tx FL IMRT SIMPLE [address] [place] [address] Referral ID Status Reason Start Date Expiration Date Visits Requ ested Visits Authorized [id number] Closed 12/20/2018 12/20/2019 20 20 Encounter Details Date Type Department Care Team Description 02/27/2019 Hospital Encounter Department of Radiation Willi Grey, [place]cology [place] [address] [facility] [address] [place] [address] [phone] Social History Tobacco Use Types Packs/Day Years [...] or relatives? How often do you attend baptism or baptist 1 to 4 times per year 02/25/2021 services? Do you belong to any clubs or organizations Yes 02/25/2021 such as baptism groups, unions, fraternal or athletic groups, or [...] place to sleep or slept in a senior care (including now)? Education Answer Date Recorded What is the highest level of school Associate degree: [employer] program 02/01/2019 you have completed or the highest degree you have received? Sex Assigned at Date Recorded Male 12/24/2018 8:16 PM CDT documented as of this encounter Medications at Time of Discharge [...] as XP OPHT) needed (for dry eyes). bzefvoocygkk-szugdzfh-vba Take 1 tablet by 0 05/2013 ein (CENTURY MATURE) mouth. tablet omega 7-ynn-ttv-fish oil Take 1,200 mg by 0 1,000 mg (120 mg-180 mg) mouth. capsule omeprazole (PriLOSEC) 40 0 11/01/[address] capsule psyllium (METAMUCIL) Take 1 packet by mouth 0 powder daily. simvastatin (ZOCOR) 40 mg Take 40 mg by mouth. 0 08/04/2015 tablet tamsulosin (FLOMAX) 0.4 Take 0.4 mg by mouth. 0 1 05/21/2017 mg 24 hr capsule documented as of this encounter Plan of Treatment Upcoming Encounters Date Type Specialty Care Team Description 02/14/2022 Appointment Radiation Oncology Chris Grey M.D. [address] [place] [phone] (Wo rk) documented as of this encounter Visit Diagnoses Not on filedocumented in this encounter
--- OUTSIDE RECORDS SUMMARY | 2022-01-28 17:13 | XMS_ITS ---
:1950 Author Organization [facility] Address [address] [place] [address] Care Team Providers Name Role Phone Unavailable Primary Care Provider Unavailable Active Problems Problem Noted Date Primary Malignant Neoplasm Of Prostate 11/12/2018 Cancer Staging: Clinical stage from 10/09: Stage IIC (cT1c, cN0, cM0, PSA: 5.1, Grade Group: 3) - Signed by Angel Grey M.D. on 11/12/2018 Current Oncology Plans No current plan information found. Past Plans No past plan information found. Radiation Treatments Plan Last Treated Elapsed Days Fractions Prescribed Prescribed Total On Treated Fraction Dose Dose F1 PROSTATE 02/27/2019 27 20 of 20 300 cGy 6,000 cGy Reference Point Last Treated On Elapsed Days Session Dose Total Dos e [id number] 02/27/2019 27 300 cGy 6,000 cGy
--- OUTSIDE RECORDS SUMMARY | 2022-01-28 17:13 | XMS_ITS | Encounter Summary ---
:1950 Author Organization [facility] Address [address] [place] [address] Care Team Providers Name Role Phone Unavailable Primary Care Provider Unavailable Encounter Details Date Type Department Care Team Description 10/29/2019 Clinical Communication Department of Radiation Cheri Al, Oncology in [facility] [address] [facility] [address] [place] [phone] Social History Tobacco Use Types Packs/Day Years [...] or relatives? How often do you attend jainism or congregation 1 to 4 times per year 02/25/2021 services? Do you belong to any clubs or organizations Yes 02/25/2021 such as jainism groups, unions, fraternal or athletic groups, or [...] Appointment Radiation Oncology Chris Grey M.D. [address] [place] [address] [phone] (Wo rk) documented as of this encounter Visit Diagnoses Not on filedocumented in this encounter
--- OUTSIDE RECORDS SUMMARY | 2022-01-28 17:13 | XMS_ITS | Encounter Summary ---
:1950 Author Organization [facility] Address [address] [place] [address] Care Team Providers Name Role Phone Unavailable Primary Care Provider Unavailable Reason for Referral Outpatient (Routine) - Closed Specialty Diagnoses / Procedures Referred By Contact Refer red To Contact Radiation Oncology Annia Stewart P.A.-C., [facility] [address] [place] [address] Referral ID Status Reason Start Date Expiration Date Visits Requ ested Visits Authorized [id number] Closed 01/29/2020 01/28/2021 1 1 Scheduling Instructions Please get PSA results and office notes from Dr. Laura. If patient has not had a recent PSA, please let us know and we ca n place an order. Thank you! Encounter Details Date Type Department Care Team Description 01/29/2020 Orders Only Department of Radiation Annia Stewart P.A .-C., Oncology in [facility] [address] [facility] [address] [place] [phone] [phone] (Wo rk) Social History Tobacco Use Types Packs/Day Years [...] or relatives? How often do you attend yazidi or mormon 1 to 4 times per year 02/25/2021 services? Do you belong to any clubs or organizations Yes 02/25/2021 such as yazidi groups, unions, fraternal or athletic groups, or [...] Appointment Radiation Oncology Chris Grey M.D. [address] [place] [address] [phone] (Wo rk) Scheduled Referrals Name Type Priority Associated Diagnoses [facility] Outpatient Referral Routine Ex pected: office visit 03/01/2021 (clinic) (Approximate), Expires: 02/17/2022 documented as of this encounter Visit Diagnoses Not on filedocumented in this encounter
--- OUTSIDE RECORDS SUMMARY | 2022-01-28 17:13 | XMS_ITS | Encounter Summary ---
:1950 Author Organization [facility] Address [address] [place] [address] Care Team Providers Name Role Phone Unavailable Primary Care Provider Unavailable Encounter Details Date Type Department Care Team Description 01/01/2021 Orders Only RST PCP TH Abril Baxter M.D. [address] [place], [place] [phone] (Wo rk) Social History Tobacco Use Types [...] or relatives? How often do you attend anabaptist or anabaptist 1 to 4 times per year 02/25/2021 services? Do you belong to any clubs or organizations Yes 02/25/2021 such as anabaptist groups, unions, fraternal or athletic groups, or [...] Appointment Radiation Oncology Chris Grey M.D. [address] [place] [address] [phone] (Wo rk) documented as of this encounter Visit Diagnoses Not on filedocumented in this encounter
--- OUTSIDE RECORDS SUMMARY | 2022-01-28 17:14 | XMS_ITS | Encounter Summary ---
:1950 Author Organization [facility] Address [address] [place] [address] Care Team Providers Name Role Phone Unavailable Primary Care Provider Unavailable Reason for Visit Radiation Therapy (Routine) - Closed Specialty Diagnoses / Procedures Referred By Contact Refer red To Contact Diagnoses Primary Malignant Neoplasm Of Prostate (HCC) Angel Grey M.D. [facility] Procedures Prior Auth Rad Tx [place] IMRT SIMPLE [address] [place] [address] Referral ID Status Reason Start Date Expiration Date Visits Requ ested Visits Authorized [id number] Closed 12/20/2018 12/20/2019 20 20 Encounter Details Date Type Department Care Team Description 02/08/2019 Hospital Encounter Department of Radiation Willi Grey, [place]cology [place] [address] [facility] [address] [place] [address] [phone] Social History Tobacco Use Types Packs/Day Years [...] or relatives? How often do you attend sikh or orthodox 1 to 4 times per year 02/25/2021 services? Do you belong to any clubs or organizations Yes 02/25/2021 such as sikh groups, unions, fraternal or athletic groups, or [...] the highest level of school Associate degree: [employer] program 02/01/2019 you have completed or the [...] as XP OPHT) needed (for dry eyes). rznsuisjfdjg-emiledfk-qkm Take 1 tablet by 0 05/2013 ein (CENTURY MATURE) mouth. tablet omega 8-rps-yey-fish oil Take 1,200 mg by 0 1,000 [...] Radiation Oncology Chris Grey M.D. [address] [place] [address] [phone] (Wo rk) documented as of this encounter Visit Diagnoses Not on filedocumented in this encounter
--- OUTSIDE RECORDS SUMMARY | 2022-01-28 17:14 | XMS_ITS | Encounter Summary ---
:1950 Author Organization [facility] Address [address] [place] [address] Care Team Providers Name Role Phone Unavailable Primary Care Provider Unavailable Reason for Visit Radiation Therapy (Routine) - Closed Specialty Diagnoses / Procedures Referred By Contact Refer red To Contact Diagnoses Primary Malignant Neoplasm Of Prostate (HCC) Angel Grey M.D. [facility] Procedures Prior Auth Rad Tx [place] IMRT SIMPLE [address] [place] [address] Referral ID Status Reason Start Date Expiration Date Visits Requ ested Visits Authorized [id number] Closed 12/20/2018 12/20/2019 20 20 Encounter Details Date Type Department Care Team Description 02/07/2019 Hospital Encounter Department of Radiation Willi Grey, [place]cology [place] [address] [facility] [address] [place] [address] [phone] Social History Tobacco Use Types Packs/Day Years [...] or relatives? How often do you attend advent or tenriism 1 to 4 times per year 02/25/2021 services? Do you belong to any clubs or organizations Yes 02/25/2021 such as advent groups, unions, fraternal or athletic groups, or [...] place to sleep or slept in a usp (including now)? Education Answer Date Recorded What is the highest level of school Associate degree: [employer] program 02/01/2019 you have completed or the [...] as XP OPHT) needed (for dry eyes). lvfmczleczln-ervnfwwz-aoo Take 1 tablet by 0 05/2013 ein (CENTURY MATURE) mouth. tablet omega 9-vda-zjz-fish oil Take 1,200 mg by 0 1,000 [...] Radiation Oncology Chris Grey M.D. [address] [place] [address] [phone] (Wo rk) documented as of this encounter Visit Diagnoses Not on filedocumented in this encounter
--- OUTSIDE RECORDS SUMMARY | 2022-01-28 17:14 | XMS_ITS | Encounter Summary ---
:1950 Author Organization [facility] Address [address] [place] [address] Care Team Providers Name Role Phone Unavailable Primary Care Provider Unavailable Reason for Visit Radiation Therapy (Routine) - Closed Specialty Diagnoses / Procedures Referred By Contact Refer red To Contact Diagnoses Primary Malignant Neoplasm Of Prostate (HCC) Angel Grey M.D. [facility] Procedures Prior Auth Rad Tx [place] IMRT SIMPLE [address] [place] [address] Referral ID Status Reason Start Date Expiration Date Visits Requ ested Visits Authorized [id number] Closed 12/20/2018 12/20/2019 20 20 Encounter Details Date Type Department Care Team Description 02/19/2019 Hospital Encounter Department of Radiation Willi [place], [place]cology [place] [address] [facility] [address] [place] [phone] Social History Tobacco Use Types Packs/Day Years [...] or relatives? How often do you attend shinto or mormonism 1 to 4 times per year 02/25/2021 services? Do you belong to any clubs or organizations Yes 02/25/2021 such as shinto groups, unions, fraternal or athletic groups, or [...] the highest level of school Associate degree: [employer] program 02/01/2019 you have completed or the [...] as XP OPHT) needed (for dry eyes). ccxsderdjnpn-pbjnkuae-qtz Take 1 tablet by 0 05/2013 ein (CENTURY MATURE) mouth. tablet omega 5-kxn-png-fish oil Take 1,200 mg by 0 1,000 [...] Radiation Oncology Chris Grey M.D. [address] [place] [address] [phone] (Wo rk) documented as of this encounter Visit Diagnoses Not on filedocumented in this encounter
--- OUTSIDE RECORDS SUMMARY | 2022-01-28 17:14 | XMS_ITS | Encounter Summary ---
:1950 Author Organization [facility] Address [address] [place] [address] Care Team Providers Name Role Phone Unavailable Primary Care Provider Unavailable Reason for Referral Specialty Diagnoses / Procedures Referred By Contact Refer red To Contact Angel Grey M .D. [facility] [address] [place] [phone] Referral ID Status Reason Start Date Expiration Date Visits Requ ested Visits Authorized Encounter Details Date Type Department Care Team Description 02/05/2019 Hospital Encounter Department of Chris Grey M.D. [address] [place] [phone] Primary Malignant Radiation Oncology Zuleika Hudson C.C.RRaheelCRaheel Neoplasm Of Prostate in [facility] ([facility]) [address] [phone] Social History Tobacco Use Types Packs/Day Years [...] or relatives? How often do you attend judaism or presybeterian 1 to 4 times per year 02/25/2021 services? Do you belong to any clubs or organizations Yes 02/25/2021 such as judaism groups, unions, fraternal or athletic groups, or [...] the highest level of school Associate degree: [employer] program 02/01/2019 you have completed or the [...] as XP OPHT) needed (for dry eyes). vbpijczdpuui-gnqkdjds-bik Take 1 tablet by 0 05/2013 ein (CENTURY MATURE) mouth. tablet omega 5-mxo-yve-fish oil Take 1,200 mg by 0 1,000 [...] Appointment Radiation Oncology Chris Grey M.D. [address] [place] [phone] (Wo rk) Scheduled Referrals Name Type Priority Associated Order Schedule Diagnoses Radiation Oncology Outpatient Referral Routine Primary Maligna nt Once for 1 - PRO education Neoplasm Of Occurrences starting visit Prostate (HCC) 02/05/2019 un til 02/05/2019 documented as of this encounter Visit Diagnoses Diagnosis Primary Malignant Neoplasm Of Prostate ( HCC) documented in this encounter
--- OUTSIDE RECORDS SUMMARY | 2022-01-28 17:14 | XMS_ITS | Encounter Summary ---
:1950 Author Organization [facility] Address [address] [place] [address] Care Team Providers Name Role Phone Unavailable Primary Care Provider Unavailable Reason for Visit Radiation Therapy (Routine) - Closed Specialty Diagnoses / Procedures Referred By Contact Refer red To Contact Diagnoses Primary Malignant Neoplasm Of Prostate (HCC) Angel Grey M.D. [facility] Procedures Prior Auth Rad Tx [place] IMRT SIMPLE [address] [place] [address] Referral ID Status Reason Start Date Expiration Date Visits Requ ested Visits Authorized [id number] Closed 12/20/2018 12/20/2019 20 20 Encounter Details Date Type Department Care Team Description 02/05/2019 Hospital Encounter Department of Radiation Willi Grey, [place]cology [place] [address] [facility] [address] [place] [phone] Social History Tobacco Use Types Packs/Day Years [...] or relatives? How often do you attend oriental orthodox or confucianism 1 to 4 times per year 02/25/2021 services? Do you belong to any clubs or organizations Yes 02/25/2021 such as oriental orthodox groups, unions, fraternal or athletic groups, or [...] place to sleep or slept in a long term (including now)? Education Answer Date Recorded What is the highest level of school Associate degree: [employer] program 02/01/2019 you have completed or the [...] into each nostril mcg/actuation nasal spray daily. dfcqkgiqpaml-gugbvsrm-qvs Take 1 tablet by 0 05/2013 ein (CENTURY MATURE) mouth. tablet omega 4-wlm-dyp-fish oil Take 1,200 mg by 0 1,000 [...] Radiation Oncology Chris Grey M.D. [address] [place], [place] [phone] (Wo rk) documented as of this encounter Visit Diagnoses Not on filedocumented in this encounter
--- OUTSIDE RECORDS SUMMARY | 2022-01-28 17:14 | XMS_ITS | Encounter Summary ---
:1950 Author Organization [facility] Address [address] [place] [address] Care Team Providers Name Role Phone Unavailable Primary Care Provider Unavailable Reason for Visit Radiation Therapy (Routine) - Closed Specialty Diagnoses / Procedures Referred By Contact Refer red To Contact Diagnoses Primary Malignant Neoplasm Of Prostate (HCC) Angel Grey M.D. [facility] Procedures Prior Auth Rad Tx [place] IMRT SIMPLE [address] [place] [address] Referral ID Status Reason Start Date Expiration Date Visits Requ ested Visits Authorized [id number] Closed 12/20/2018 12/20/2019 20 20 Encounter Details Date Type Department Care Team Description 02/04/2019 Hospital Encounter Department of Radiation Willi [place], [place]cology [place] [address] [facility] [address] [place] [phone] Social History Tobacco Use Types Packs/Day Years [...] or relatives? How often do you attend voodoo or tenriism 1 to 4 times per year 02/25/2021 services? Do you belong to any clubs or organizations Yes 02/25/2021 such as voodoo groups, unions, fraternal or athletic groups, or [...] the highest level of school Associate degree: [employer] program 02/01/2019 you have completed or the [...] Take 81 mg by mouth. 0 calcium Take 1 tablet by 0 carbonate-vitamin D3 mouth daily with (CALCIUM 500 + D) 1,250 breakfast. mg (500 mg calcium)-200 unit per tablet celecoxib (CeleBREX) 200 Take 200 mg by mouth. 0 08/04/2015 mg capsule famotidine (PEPCID) 20 Take 20 mg by mouth. 0 03/2016 mg tablet fluticasone propionate Administer 2 sprays 0 (FLONASE) 50 into each nostril mcg/actuation nasal daily. spray mcnbwqvffvmf-fiiwalqf-mh Take 1 tablet by 0 09/23 tein (CENTURY MATURE) mouth. tablet omega 1-rut-aud-fish oil Take 1,200 mg by 0 1,000 mg (120 mg-180 mg) mouth. capsule omeprazole (PriLOSEC) 40 0 11/01/[address] capsule psyllium (METAMUCIL) Take 1 packet by 0 powder mouth daily. simvastatin (ZOCOR) 40 Take 40 mg by mouth. 0 03/2016 mg tablet tamsulosin (FLOMAX) 0.4 Take 0.4 mg by mouth. 0 1 05/21/2017 mg 24 hr capsule ciprofloxacin (CIPRO) 0 10/05/2018 500 mg tablet documented as of this encounter Plan of Treatment Upcoming Encounters Date Type Specialty Care Team Description 02/14/2022 Appointment Radiation Oncology Chris Grey M.D. [address] [place], [place] [phone] (Wo rk) documented as of this encounter Visit Diagnoses Not on filedocumented in this encounter
--- OUTSIDE RECORDS SUMMARY | 2022-01-28 17:14 | XMS_ITS | Encounter Summary ---
:1950 Author Organization [facility] Address [address] [place] [address] Care Team Providers Name Role Phone Unavailable Primary Care Provider Unavailable Reason for Visit Radiation Therapy (Routine) - Closed Specialty Diagnoses / Procedures Referred By Contact Refer red To Contact Diagnoses Primary Malignant Neoplasm Of Prostate (HCC) Angel Grey M.D. [facility] Procedures Prior Auth Rad Tx [place] IMRT SIMPLE [address] [place] [address] Referral ID Status Reason Start Date Expiration Date Visits Requ ested Visits Authorized [id number] Closed 12/20/2018 12/20/2019 20 20 Encounter Details Date Type Department Care Team Description 02/21/2019 Hospital Encounter Department of Radiation Willi Grey, [place]cology [place] [address] [facility] [address] [place] [phone] Social History Tobacco Use Types Packs/Day Years [...] or relatives? How often do you attend tenriism or zoroastrian 1 to 4 times per year 02/25/2021 services? Do you belong to any clubs or organizations Yes 02/25/2021 such as tenriism groups, unions, fraternal or athletic groups, or [...] the highest level of school Associate degree: [employer] program 02/01/2019 you have completed or the [...] as XP OPHT) needed (for dry eyes). qqyggtxnsmbm-nllpsaqy-rxz Take 1 tablet by 0 05/2013 ein (CENTURY MATURE) mouth. tablet omega 6-eel-lmy-fish oil Take 1,200 mg by 0 1,000 [...] Radiation Oncology Chris Grey M.D. [address] [place] [address] [phone] (Wo rk) documented as of this encounter Visit Diagnoses Not on filedocumented in this encounter
--- OUTSIDE RECORDS SUMMARY | 2022-01-28 17:14 | XMS_ITS | Encounter Summary ---
:1950 Author Organization [facility] Address [address] [place] [address] Care Team Providers Name Role Phone Unavailable Primary Care Provider Unavailable Reason for Visit Radiation Therapy (Routine) - Closed Specialty Diagnoses / Procedures Referred By Contact Refer red To Contact Diagnoses Primary Malignant Neoplasm Of Prostate (HCC) Angel Grey M.D. [facility] Procedures Prior Auth Rad Tx [place] IMRT SIMPLE [address] [place] [address] Referral ID Status Reason Start Date Expiration Date Visits Requ ested Visits Authorized [id number] Closed 12/20/2018 12/20/2019 20 20 Encounter Details Date Type Department Care Team Description 02/18/2019 Hospital Encounter Department of Radiation Willi Grey, [place]cology [place] [address] [facility] [address] [place] [phone] Social History Tobacco Use Types Packs/Day Years [...] or relatives? How often do you attend religion or catholic 1 to 4 times per year 02/25/2021 services? Do you belong to any clubs or organizations Yes 02/25/2021 such as religion groups, unions, fraternal or athletic groups, or [...] the highest level of school Associate degree: [employer] program 02/01/2019 you have completed or the [...] as XP OPHT) needed (for dry eyes). nucvxregrnsk-yfwexsrp-jms Take 1 tablet by 0 05/2013 ein (CENTURY MATURE) mouth. tablet omega 3-tdl-nrp-fish oil Take 1,200 mg by 0 1,000 [...] Radiation Oncology Chris Grey M.D. [address] [place] [address] [phone] (Wo rk) documented as of this encounter Visit Diagnoses Not on filedocumented in this encounter
--- OUTSIDE RECORDS SUMMARY | 2022-01-28 17:14 | XMS_ITS | Encounter Summary ---
:1950 Author Organization [facility] Address [address] [place] [address] Care Team Providers Name Role Phone Unavailable Primary Care Provider Unavailable Reason for Visit Radiation Therapy (Routine) - Closed Specialty Diagnoses / Procedures Referred By Contact Refer red To Contact Diagnoses Primary Malignant Neoplasm Of Prostate (HCC) Angel Grey M.D. [facility] Procedures Prior Auth Rad Tx [place] IMRT SIMPLE [address] [place] [address] Referral ID Status Reason Start Date Expiration Date Visits Requ ested Visits Authorized [id number] Closed 12/20/2018 12/20/2019 20 20 Encounter Details Date Type Department Care Team Description 02/26/2019 Hospital Encounter Department of Radiation Willi Grey, [place]cology [place] [address] [facility] [address] [place] [phone] Social History Tobacco Use Types Packs/Day Years [...] How often do you attend mormonism or pentecostal 1 to 4 times per [...] place to sleep or slept in a prison (including now)? Education Answer Date Recorded What is the highest level of school Associate degree: [employer] program 02/01/2019 you have completed or the [...] as XP OPHT) needed (for dry eyes). gzifplmhzlcj-zkxhwcmp-ymt Take 1 tablet by 0 05/2013 ein (CENTURY MATURE) mouth. tablet omega 4-wry-oqx-fish oil Take 1,200 mg by 0 1,000 [...] Radiation Oncology Chris Grey M.D. [address] [place] [phone] (Wo rk) documented as of this encounter Visit Diagnoses Not on filedocumented in this encounter
--- OUTSIDE RECORDS SUMMARY | 2022-01-28 17:14 | XMS_ITS | Encounter Summary ---
:1950 Author Organization [facility] Address [address] [place] [address] Care Team Providers Name Role Phone Unavailable Primary Care Provider Unavailable Reason for Visit Radiation Therapy (Routine) - Closed Specialty Diagnoses / Procedures Referred By Contact Refer red To Contact Diagnoses Primary Malignant Neoplasm Of Prostate (HCC) Angel Grey M.D. [facility] Procedures Prior Auth Rad Tx [place] IMRT SIMPLE [address] [place] [address] Referral ID Status Reason Start Date Expiration Date Visits Requ ested Visits Authorized [id number] Closed 12/20/2018 12/20/2019 20 20 Encounter Details Date Type Department Care Team Description 02/06/2019 Hospital Encounter Department of Radiation Willi Grey, [place]cology [place] [address] [facility] [address] [place] [phone] Social History Tobacco Use Types Packs/Day Years [...] or relatives? How often do you attend orthodox or tenriism 1 to 4 times per year 02/25/2021 services? Do you belong to any clubs or organizations Yes 02/25/2021 such as orthodox groups, unions, fraternal or athletic groups, [...] place to sleep or slept in a custodial (including now)? Education Answer Date Recorded What is the highest level of school Associate degree: [employer] program 02/01/2019 you have completed or the [...] as XP OPHT) needed (for dry eyes). qofxfhvyrvmx-dajrvqna-eof Take 1 tablet by 0 05/2013 ein (CENTURY MATURE) mouth. tablet omega 2-frl-mah-fish oil Take 1,200 mg by 0 1,000 [...] Radiation Oncology Chris Grey M.D. [address] [place] [phone] (Wo rk) documented as of this encounter Visit Diagnoses Not on filedocumented in this encounter
--- OUTSIDE RECORDS SUMMARY | 2022-01-28 17:14 | XMS_ITS | Encounter Summary ---
:[address] [facility] Address [address] [place] [address] Care Team Providers Name Role Phone Unavailable Primary Care Provider Unavailable Reason for Referral Radiation Therapy (Routine) - Canceled Specialty Diagnoses / Procedures Referred By Contact Refer red To Contact Diagnoses Primary Malignant Neoplasm Of Prostate (HCC) Angel Grey M.D. [facility] Procedures Management Visit [address] [place] [phone] Referral ID Status Reason Start Date Expiration Date Visits V isits Requested Authorized [id number] Canceled 12/20/2018 12/20/2019 10 10 Reason for Visit Radiation Therapy (Routine) - Canceled Specialty Diagnoses / Procedures Referred By Contact Refer red To Contact Diagnoses Primary Malignant Neoplasm Of Prostate (HCC) [facility]. [facility] Procedures Management Visit [address] [place] [phone] Referral ID Status Reason Start Date Expiration Date Visits V isits Requested Authorized [id number] Canceled 12/20/2018 12/20/2019 10 10 Encounter Details Date Type Department Care Team Description 02/13/2019 Hospital Encounter Department of Angel Grey Malignant Radiation Oncology [place] Renteria Neoplasm Of Prostate in [place], [address] [facility] (HCC) [place], [place] [address] [facility] [address] [place], [place] [phone] (Work) [phone] Social History Tobacco Use Types Packs/Day Years [...] or relatives? How often do you attend adventism or mu-ism 1 to 4 times per year 02/25/2021 services? Do you belong to any clubs or organizations Yes 02/25/2021 such as adventism groups, unions, fraternal or athletic groups, or [...] the highest level of school Associate degree: [employer] program 02/01/2019 you have completed or the highest degree you have received? Sex Assigned at Date Recorded Male 12/24/2018 8:16 PM CDT documented as of this encounter Last Filed Vital Signs Vital Sign Reading Time Taken Comments Blood Pressure - - Pulse - - Temperature 36.2 ??C (97.2 ??F) 02/13/2019 9:52 AM CDT Respiratory Rate - - Oxygen Saturation - - Inhaled Oxygen Concentration - - Weight 95.5 kg (210 lb 8.6 oz) 02/13/2019 9:52 AM CDT Height - - Body Mass Index 31.09 11/12/2018 9:48 AM CDT documented in this [...] as XP OPHT) needed (for dry eyes). mezmjwldmrbc-vawiwjtt-new Take 1 tablet by 0 05/2013 ein (CENTURY MATURE) mouth. tablet omega 8-yyt-dyd-fish oil Take 1,200 mg by 0 1,000 [...] Progress Notes Annia Stewart P.A.-C., M.S. - 02/13/2019 9:45 AM CDT SUBJECTIVE REASON FOR VISIT Evaluation for side effects while receiving radiation treatment for 1. Primary Malignant Neoplasm Of Prostate (HCC) SUPERVISED BY: Angel Grey M.D. ([phone]) HISTORY OF PRESENT ILLNESS Mr. Dick Sigala is a 68-year-old male with unfavorable intermediate risk prostate cancer. He is currently receiving radiation therapy to the prostate to a dose of 6000 cGy in 20 fractions. He has received 10 of 20 fractions for a dose of 3000 cGy out of a planned total dose of 6000 cGy. His anticipated date of completion is February 27, 2019. The patient was seen and examined today with Dr. Grey. The patient reports doing well overall. He reports good energy levels. He reports urinary frequency and urgency. He denies urinary incontinence, dysuria, or hematuria. He has nocturia x 0-1. He is averaging two soft bowel movements per day. He denies diarrhea or rectal bleeding. He has not taken a stool softener. He reports hot flashes that are overall manageable. PATIENT REPORTED SYMPTOM SCREEN FATIGUE (Scale: 0 = no fatigue; 10 = worst fatigue you can imagine): 0 ?? PAIN (Scale: 0 = no pain; 10 = worst pain you can imagine): 0 ?? OVERALL QUALITY OF LIFE (Scale: 0 = as bad as can be; 10 = as good as can be): 9-10 OBJECTIVE Temp 36.2 ??C (Temporal) Wt 95.5 kg BMI 31.09 kg/m? PHYSICAL EXAM General: Alert and oriented [...] with no further ADT planned 3. ??Erectile dysfunction 4. Radiation therapy to the prostate initiated on January 31, 2019; anticipated date of completion is February 27, 2019 The patient is tolerating radiation treatment well overall. He has experienced irritative GI and symptoms as expected. He has hot flashes that are overall manageable. We will continue to monitor hisside effects throughout treatment. He will contact us with any questions or concerns. We will continue with radiation treatment as planned. Signed by: Annia Stewart P.A.-C., M.S. 02/13/2019 9:39 AM Associated attestation - Angel Grey M.D. - 02/13/2019 3:19 PM CDT I saw and evaluated the patient and participated in the tapia portions of the service. I reviewed the documentation of Annia Stewart P.A.-C. and agree with the findings and plan. The patient appears well onexam. He will continue with treatment as planned. documented in this encounter Plan of Treatment Upcoming Encounters Date Type Specialty Care Team Description 02/14/2022 Appointment Radiation Oncology Chris Grey M.D. [address] [place], [place] [phone] (Wo rk) Scheduled Orders Name Type Priority Associated Diagnoses Order S chedule Management Visit Radiation Oncology Routine Primary Malignant Once for 1 Neoplasm Of Prostate Occurre nces starting (HCC) 02/13/2019 unti l 02/13/2019 documented as of this encounter Visit Diagnoses Diagnosis Primary Malignant Neoplasm Of Prostate ( HCC) documented in this encounter
--- OUTSIDE RECORDS SUMMARY | 2022-01-28 17:14 | XMS_ITS | Encounter Summary ---
:1950 Author Organization [facility] Address [address] [place] [address] Care Team Providers Name Role Phone Unavailable Primary Care Provider Unavailable Reason for Visit Radiation Therapy (Routine) - Closed Specialty Diagnoses / Procedures Referred By Contact Refer red To Contact Diagnoses Primary Malignant Neoplasm Of Prostate (HCC) Angel Grey M.D. [facility] Procedures Prior Auth Rad Tx MA IMRT SIMPLE [address] [place] [phone] Referral ID Status Reason Start Date Expiration Date Visits Requ ested Visits Authorized [id number] Closed 12/20/2018 12/20/2019 20 20 Encounter Details Date Type Department Care Team Description 02/25/2019 Hospital Encounter Department of Radiation Willi Grey, [place]cology [place] [address] [facility] [address] [place] [phone] Social History Tobacco Use Types Packs/Day Years [...] or relatives? How often do you attend nondenominational or faith 1 to 4 times per year 02/25/2021 services? Do you belong to any clubs or organizations Yes 02/25/2021 such as nondenominational groups, unions, fraternal or athletic groups, or [...] place to sleep or slept in a group home (including now)? Education Answer Date Recorded What is the highest level of school Associate degree: [email or web address] program 02/01/2019 you have completed or the [...] as XP OPHT) needed (for dry eyes). rftcadeakydn-uvqqkzil-rrm Take 1 tablet by 0 05/2013 ein (CENTURY MATURE) mouth. tablet omega 9-wvw-ylq-fish oil Take 1,200 mg by 0 1,000 [...] Radiation Oncology Chris Grey M.D. [address] [place] [phone] (Wo rk) documented as of this encounter Visit Diagnoses Not on filedocumented in this encounter
--- OUTSIDE RECORDS SUMMARY | 2022-01-28 17:14 | XMS_ITS | Encounter Summary ---
:1950 Author Organization [facility] Address [address] [place] [address] Care Team Providers Name Role Phone Unavailable Primary Care Provider Unavailable Reason for Referral Specialty Diagnoses / Procedures Referred By Contact Refer red To Contact Angel Grey M .D. [facility] [address] [place] [phone] Referral ID Status Reason Start Date Expiration Date Visits Requ ested Visits Authorized Encounter Details Date Type Department Care Team Description 02/05/2019 Hospital Encounter Department of Chris Grey M.D. [address] [place] [phone] Primary Malignant Radiation Oncology Cheri Al RPenny [address] [place] [phone] Neoplasm Of Prostate in [place], (HCC) [address] [phone] Social History Tobacco Use Types Packs/Day Years [...] or relatives? How often do you attend buddhism or sikh 1 to 4 times per year 02/25/2021 services? Do you belong to any clubs or organizations Yes 02/25/2021 such as buddhism groups, unions, fraternal or athletic groups, or [...] the highest level of school Associate degree: [employer] program 02/01/2019 you have completed or the highest degree you have received? Sex Assigned at Date Recorded Male 12/24/2018 8:16 PM CDT documented as of this encounter Last Filed Vital Signs Vital Sign Reading Time Taken Comments Blood Pressure - - Pulse - - Temperature - - Respiratory Rate - - Oxygen Saturation - - Inhaled Oxygen Concentration - - Weight 96.4 kg (212 lb 8.4 oz) 02/05/2019 9:00 AM CDT Height - - Body Mass Index 31.38 11/12/2018 9:48 AM CDT documented in this [...] as XP OPHT) needed (for dry eyes). efblyhbbzvvj-hflyxxcz-ctw Take 1 tablet by 0 05/2013 ein (CENTURY MATURE) mouth. tablet omega 4-oxo-nvb-fish oil Take 1,200 mg by 0 1,000 [...] Radiation Oncology Chris Grey M.D. [address] [place], [place] [phone] (Wo rk) Scheduled Referrals Name Type Priority Associated Order Schedule Diagnoses Radiation Oncology Outpatient Referral Routine Primary Maligna nt Once for 1 - Nurse education Neoplasm Of Occurrence s starting visit (clinic) Prostate (HCC) 02/05/2019 until 02/05/2019 documented as of this encounter Visit Diagnoses Diagnosis Primary Malignant Neoplasm Of Prostate ( HCC) documented in this encounter
--- OUTSIDE RECORDS SUMMARY | 2022-01-28 17:14 | XMS_ITS | Encounter Summary ---
:1950 Author Organization [facility] Address [address] [place] [address] Care Team Providers Name Role Phone Unavailable Primary Care Provider Unavailable Reason for Visit Radiation Therapy (Routine) - Closed Specialty Diagnoses / Procedures Referred By Contact Refer red To Contact Diagnoses Primary Malignant Neoplasm Of Prostate (HCC) Angel Grey M.D. [facility] Procedures Prior Auth Rad Tx [place] IMRT SIMPLE [address] [place] [address] Referral ID Status Reason Start Date Expiration Date Visits Requ ested Visits Authorized [id number] Closed 12/20/2018 12/20/2019 20 20 Encounter Details Date Type Department Care Team Description 02/15/2019 Hospital Encounter Department of Radiation Willi Grey, Oncology in [place] [address] [facility] [address] [place] [phone] Social History Tobacco Use Types Packs/Day Years [...] or relatives? How often do you attend gnosticist or restorationist 1 to 4 times per year 02/25/2021 services? Do you belong to any clubs or organizations Yes 02/25/2021 such as gnosticist groups, unions, fraternal or athletic groups, or [...] the highest level of school Associate degree: [employer] program 02/01/2019 you have completed or the [...] as XP OPHT) needed (for dry eyes). qnszjfgpbhdk-gutqrozu-sqz Take 1 tablet by 0 05/2013 ein (CENTURY MATURE) mouth. tablet omega 9-ezh-oon-fish oil Take 1,200 mg by 0 1,000 [...] Radiation Oncology Chris Grey M.D. [address] [place] [phone] (Wo rk) documented as of this encounter Visit Diagnoses Not on filedocumented in this encounter
--- OUTSIDE RECORDS SUMMARY | 2022-01-28 17:14 | XMS_ITS | Encounter Summary ---
:1950 Author Organization [facility] Address [address] [place] [address] Care Team Providers Name Role Phone Unavailable Primary Care Provider Unavailable Reason for Visit Radiation Therapy (Routine) - Closed Specialty Diagnoses / Procedures Referred By Contact Refer red To Contact Diagnoses Primary Malignant Neoplasm Of Prostate (HCC) Angel Grey M.D. [facility] Procedures Prior Auth Rad Tx MA IMRT SIMPLE [address] [place] [address] Referral ID Status Reason Start Date Expiration Date Visits Requ ested Visits Authorized [id number] Closed 12/20/2018 12/20/2019 20 20 Encounter Details Date Type Department Care Team Description 02/20/2019 Hospital Encounter Department of Radiation Willi Grey, Oncology in [place] [address] [facility] [address] [place] [phone] Social History Tobacco Use Types Packs/Day Years [...] or relatives? How often do you attend sabianist or methodist 1 to 4 times per year 02/25/2021 services? Do you belong to any clubs or organizations Yes 02/25/2021 such as sabianist groups, unions, fraternal or athletic groups, or [...] the highest level of school Associate degree: [employer] program 02/01/2019 you have completed or the [...] as XP OPHT) needed (for dry eyes). drxriaxbwduy-jkyainct-cbp Take 1 tablet by 0 05/2013 ein (CENTURY MATURE) mouth. tablet omega 6-niz-sbb-fish oil Take 1,200 mg by 0 1,000 [...] Radiation Oncology Chris Grey M.D. [address] [place] [phone] (Wo rk) documented as of this encounter Visit Diagnoses Not on filedocumented in this encounter
--- OUTSIDE RECORDS SUMMARY | 2022-01-28 17:14 | XMS_ITS | Encounter Summary ---
:1950 Author Organization [facility] Address [address] [place] [address] Care Team Providers Name Role Phone Unavailable Primary Care Provider Unavailable Reason for Visit Radiation Therapy (Routine) - Closed Specialty Diagnoses / Procedures Referred By Contact Refer red To Contact Diagnoses Primary Malignant Neoplasm Of Prostate (HCC) Angel Grey M.D. [facility] Procedures Prior Auth Rad Tx [place] IMRT SIMPLE [address] [place] [address] Referral ID Status Reason Start Date Expiration Date Visits Requ ested Visits Authorized [id number] Closed 12/20/2018 12/20/2019 20 20 Encounter Details Date Type Department Care Team Description 02/12/2019 Hospital Encounter Department of Radiation Willi Grey, Oncology [place] [address] [facility] [address] [place] [phone] Social History Tobacco Use Types Packs/Day Years [...] or relatives? How often do you attend sabianism or orthodoxy 1 to 4 times per year 02/25/2021 services? Do you belong to any clubs or organizations Yes 02/25/2021 such as sabianism groups, unions, fraternal or athletic groups, or [...] the highest level of school Associate degree: [employer] program 02/01/2019 you have completed or the [...] as XP OPHT) needed (for dry eyes). awoobxpplyds-mevnuxkj-fyp Take 1 tablet by 0 05/2013 ein (CENTURY MATURE) mouth. tablet omega 2-opy-zkk-fish oil Take 1,200 mg by 0 1,000 [...] Radiation Oncology Chris Grey M.D. [address] [place] [phone] (Wo rk) documented as of this encounter Visit Diagnoses Not on filedocumented in this encounter
--- OUTSIDE RECORDS SUMMARY | 2022-01-28 17:14 | XMS_ITS | Encounter Summary ---
:1950 Author Organization [facility] Address [address] [place] [address] Care Team Providers Name Role Phone Unavailable Primary Care Provider Unavailable Reason for Referral Radiation Therapy (Routine) - Canceled Specialty Diagnoses / Procedures Referred By Contact Refer red To Contact Diagnoses Primary Malignant Neoplasm Of Prostate (HCC) Angel Grey M.D. [facility] Procedures Management Visit [address] [place] [phone] Referral ID Status Reason Start Date Expiration Date Visits V isits Requested Authorized [id number] Canceled 12/20/2018 12/20/2019 10 10 Reason for Visit Radiation Therapy (Routine) - Canceled Specialty Diagnoses / Procedures Referred By Contact Refer red To Contact Diagnoses Primary Malignant Neoplasm Of Prostate (HCC) Angel Grey M.D. [facility] Procedures Management Visit [address] [place] [phone] Referral ID Status Reason Start Date Expiration Date Visits V isits Requested Authorized [id number] Canceled 12/20/2018 12/20/2019 10 10 Encounter Details Date Type Department Care Team Description 02/20/2019 Hospital Encounter Department of Angel Grey Malignant Radiation Oncology [place] Renteria Neoplasm Of Prostate in [place], [address] [facility] (HCC) [place], [place] [address] [facility] [address] [place], [place] [phone] (Work) [phone] Social History Tobacco Use Types Packs/Day Years [...] How often do you attend shinto or cheondoism 1 to 4 times per year 02/25/2021 [...] the highest level of school Associate degree: [employer] program 02/01/2019 you have completed or the highest degree you have received? Sex Assigned at Date Recorded Male 12/24/2018 8:16 PM CDT documented as of this encounter Last Filed Vital Signs Vital Sign Reading Time Taken Comments Blood Pressure - - Pulse - - Temperature 36 ??C (96.8 ??F) 02/20/2019 8:36 AM CDT Respiratory Rate - - Oxygen Saturation - - Inhaled Oxygen Concentration - - Weight 96.5 kg (212 lb 11.9 oz) 02/20/2019 8:36 AM CDT Height - - Body Mass Index 31.42 11/12/2018 9:48 AM CDT documented in this [...] as XP OPHT) needed (for dry eyes). vzlmjulmdwbk-tuzwxkmv-hun Take 1 tablet by 0 05/2013 ein (CENTURY MATURE) mouth. tablet omega 9-vmm-weg-fish oil Take 1,200 mg by 0 1,000 [...] Progress Notes Annia Stewart P.A.-C., M.S. - 02/20/2019 8:30 AM CDT SUBJECTIVE REASON FOR VISIT Evaluation for side effects while receiving radiation treatment for 1. Primary Malignant Neoplasm Of Prostate (HCC) SUPERVISED BY: Angel Grey M.D. ([phone]) HISTORY OF PRESENT ILLNESS Mr. Dick Sigala is a 68-year-old male with unfavorable intermediate risk prostate cancer.?He??is currently receiving radiation therapy to the prostate??to a dose of 6000??cGy in 20??fractions. ??He??has received 15??of 20??fractions for a dose of 4500??cGy out of a planned total dose of 6000??cGy. ??His??anticipated date of completion is February 27, 2019. The patient was seen and examined today with Dr. Grey. The patient reports doing well overall, even better than last week. He reports good energy levels. He has improved urination. He denies urinary frequency, urgency, incontinence, dysuria, hematuria, or nocturia. He is averaging one bowel movement per day. He denies pain with bowel movements or rectal bleeding. He has hot flashes that are overall manageable. He does report tingling of his right hand that comes and goes. He denies weakness or pain of the right hand. PATIENT REPORTED SYMPTOM SCREEN FATIGUE (Scale: 0 = no fatigue; 10 = worst fatigue you can imagine): 0 ?? PAIN (Scale: 0 = no pain; 10 = worst pain you can imagine): 0 ?? OVERALL QUALITY OF LIFE (Scale: 0 = as bad as can be; 10 = as good as can be): 9 OBJECTIVE Temp 36 ??C (Temporal) Wt 96.5 kg BMI 31.42 kg/m? PHYSICAL EXAM General: Alert and oriented [...] further ADT planned 3. ??Erectile dysfunction?? 4. Radiation therapy to the prostate initiated on January 31, 2019; anticipated date of completion is February 27, 2019 The patient is tolerating radiation treatment well overall without acute toxicity. He has hot flashes that are overall manageable. He does report occasional right hand tingling. We discussed how this could be nerve related and he was recommended to discuss this further with his primary provider. He was recommended to seek further evaluation sooner if he develops pain or weakness of the right hand. Hewill contact us with any questions or concerns. We will continue with radiation treatment as planned. Signed by: Annia Stewart P.A.-C., M.S. 02/20/2019 8:43 AM Associated attestation - Angel Grey M.D. - 02/20/2019 9:10 AM CDT I saw and evaluated the [...] Radiation Oncology Chris Grey M.D. [address] [place], [place] [phone] (Wo rk) Scheduled Orders Name Type Priority Associated Diagnoses Order S chedule Management Visit Radiation Oncology Routine Primary Malignant Once for 1 Neoplasm Of Prostate Occurre nces starting (HCC) 02/20/2019 unti l 02/20/2019 documented as of this encounter Visit Diagnoses Diagnosis Primary Malignant Neoplasm Of Prostate ( HCC) documented in this encounter
--- OUTSIDE RECORDS SUMMARY | 2022-01-28 17:14 | XMS_ITS | Encounter Summary ---
:1950 Author Organization [facility] Address [address] [place] [id number] Care Team Providers Name Role Phone Unavailable Primary Care Provider Unavailable Reason for Referral Radiation Therapy (Routine) - Canceled Specialty Diagnoses / Procedures Referred By Contact Refer red To Contact Diagnoses Primary Malignant Neoplasm Of Prostate (HCC) Angel Grey M.D. [facility] Procedures Management Visit [address] [place] [phone] Referral ID Status Reason Start Date Expiration Date Visits V isits Requested Authorized [id number] Canceled 12/20/2018 12/20/2019 10 10 Reason for Visit Radiation Therapy (Routine) - Canceled Specialty Diagnoses / Procedures Referred By Contact Refer red To Contact Diagnoses Primary Malignant Neoplasm Of Prostate (HCC) Angel [facility]. [facility] Procedures Management Visit [address] [place] [phone] Referral ID Status Reason Start Date Expiration Date Visits V isits Requested Authorized [id number] Canceled 12/20/2018 12/20/2019 10 10 Encounter Details Date Type Department Care Team Description 02/06/2019 Hospital Encounter Department of Chris Grey M.D. [address] [place] [address] [phone] Primary Malignant Radiation Oncology Karely Cosme M.D. [address] [place] [phone] Neoplasm Of Prostate in [place], ([facility]) [place] [address] [place] [address] Social History Tobacco Use Types Packs/Day Years [...] or relatives? How often do you attend jew or uatsdin 1 to 4 times per year 02/25/2021 services? Do you belong to any clubs or organizations Yes 02/25/2021 such as jew groups, unions, fraternal or athletic groups, or [...] the highest level of school Associate degree: [employer] program 02/01/2019 you have completed or the highest degree you have received? Sex Assigned at Date Recorded Male 12/24/2018 8:16 PM CDT documented as of this encounter Last Filed Vital Signs Vital Sign Reading Time Taken Comments Blood Pressure - - Pulse - - Temperature 35.9 ??C (96.6 ??F) 02/06/2019 8:07 AM CDT Respiratory Rate - - Oxygen Saturation - - Inhaled Oxygen Concentration - - Weight 96.7 kg (213 lb 3 oz) 02/06/2019 8:07 AM CDT Height - - Body Mass Index 31.48 11/12/2018 9:48 AM CDT documented in this [...] as XP OPHT) needed (for dry eyes). wljwlpzdquqo-gszxqnbg-fgq Take 1 tablet by 0 /0 05/2013 ein (CENTURY MATURE) mouth. tablet omega 5-nqk-yim-fish oil Take 1,200 mg by 0 1,000 [...] documented as of this encounter Progress Notes Karely Cosme M.D. - 02/06/2019 8:00 AM CDT ATTESTATION FOR MANAGEMENT VISIT I saw and evaluated the patient and participated in the tapia portions of the service as noted below. I reviewed the documentation of Ms. Cheri Al RN and agree with the findings and plan. The patient appears well on exam. We will continue with radiation as planned and monitor weekly. Karely Cosme M.D., 02/06/19 SUBJECTIVE REASON FOR VISIT Evaluation for side effects while receiving radiation treatment for 1. Primary Malignant Neoplasm Of Prostate (HCC) SUPERVISED BY: Karely Cosme M.D. HISTORY OF PRESENT ILLNESS Mr. Dick Sigala is a 68 y.o. male with unfavorable intermediate risk prostate cancer. He is currently receiving radiation therapy to the prostate to a dose of 6000 cGy in 20 fractions. He has received 5 of 20 fractions for a dose of 1500 cGy out of a planned total dose of 6000 cGy. His anticipated date of completion is February 27, 2019. Patient is enrolled in the clinical trial: COMPPARE. The patient was seen and examined today with Dr. Cosme. The patient reports that he is doing well overall. He developed 1-2 out of 10 right lower pelvic pain that he describes as achy and stabbing. He also describes mid pelvic cramping pain. He has not had a bowel movement in 2-3 days. He has noticed urinary frequency with low volume urinary output with each void. He denies hematuria, rectal bleeding, dysuria, urinary urgency, diarrhea, proctitis or incontinence. PATIENT REPORTED SYMPTOM SCREEN FATIGUE (Scale: 0 = no fatigue; 10 = worst fatigue you can imagine): 4-5 PAIN (Scale: 0 = no pain; 10 = worst pain you can imagine): 1-2 OVERALL QUALITY OF LIFE (Scale: 0 = as bad as can be; 10 = as good as can be): 10 OBJECTIVE Temp (!) 35.9 ??C (Temporal) Wt 96.7 kg BMI 31.48 kg/m?? PHYSICAL EXAM General: Alert and oriented in no apparent distress. ASSESSMENT / PLAN 1. Stage IIC (cT1c, cN0, cM0, PSA: 5.1, Grade Group: 3) [place] 4 + 3 adenocarcinoma of the prostate 2. Androgen deprivation therapy with bicalutamide for 3 weeks initiated on November 15, 2018; Lupron 7.5mg injection on November 21, 2018; and Lupron 22.5 mg injection on December 20, 2018 with no further ADT planned 3. Erectile dysfunction 4. Radiation therapy on COMPPARE trial to the prostate initiated on January 31, 2019; anticipated date of completion is February 27, 2019 The patient is tolerating radiation treatment well overall. Dr. Cosme has reviewed patient's imaging report today and no concern was noted. Dr. Cosme and I recommend that he trial an over the counterstool softener such as Senna-S to ensure bowel movement occurs today. We will closely monitor his urinary symptoms. He will contact us with any questions or concerns. We will continue with radiation treatment as planned. Signed by: Cheri Al R.N. 02/06/2019 documented in this encounter Plan of Treatment Upcoming Encounters Date Type Specialty Care Team Description 02/14/2022 Appointment Radiation Oncology Chris Grey M.D. [address] [place] [address] [phone] (Wo rk) Scheduled Orders Name Type Priority Associated Diagnoses Order S chedule Management Visit Radiation Oncology Routine Primary Malignant Once for 1 Neoplasm Of Prostate Occurre nces starting (HCC) 02/06/2019 unti [place] 02/06/2019 documented as of this encounter Visit Diagnoses Diagnosis Primary Malignant Neoplasm Of Prostate ( HCC) documented in this encounter
--- OUTSIDE RECORDS SUMMARY | 2022-01-28 17:14 | XMS_ITS | Encounter Summary ---
:1950 Author Organization [facility] Address [address] [place] [address] Care Team Providers Name Role Phone Unavailable Primary Care Provider Unavailable Reason for Visit Radiation Therapy (Routine) - Closed Specialty Diagnoses / Procedures Referred By Contact Refer red To Contact Diagnoses Primary Malignant Neoplasm Of Prostate (HCC) Angel Grey M.D. [facility] Procedures Prior Auth Rad Tx [place] IMRT SIMPLE [address] [place] [phone] Referral ID Status Reason Start Date Expiration Date Visits Requ ested Visits Authorized [id number] Closed 12/20/2018 12/20/2019 20 20 Encounter Details Date Type Department Care Team Description 02/14/2019 Hospital Encounter Department of Radiation [place] Grey, [place] [address] [facility] [address] [place] [address] [phone] Social History Tobacco Use Types Packs/Day Years [...] How often do you attend scientology or shinto 1 to 4 times per year 02/25/2021 [...] place to sleep or slept in a fpc (including now)? Education Answer Date Recorded What is the highest level of school Associate degree: [employer] program 02/01/2019 you have completed or the [...] as XP OPHT) needed (for dry eyes). vkneawpknanr-pqylirzf-cip Take 1 tablet by 0 05/2013 ein (CENTURY MATURE) mouth. tablet omega 2-ezh-kge-fish oil Take 1,200 mg by 0 1,000 [...] Radiation Oncology Chris Grey M.D. [address] [place] [address] [phone] (Wo rk) documented as of this encounter Visit Diagnoses Not on filedocumented in this encounter
--- OUTSIDE RECORDS SUMMARY | 2022-01-28 17:14 | XMS_ITS | Encounter Summary ---
:1950 Author Organization [facility] Address [address] [place] [address] Care Team Providers Name Role Phone Unavailable Primary Care Provider Unavailable Reason for Visit Radiation Therapy (Routine) - Closed Specialty Diagnoses / Procedures Referred By Contact Refer red To Contact Diagnoses Primary Malignant Neoplasm Of Prostate (HCC) Angel Grey M.D. [facility] Procedures Prior Auth Rad Tx [place] IMRT SIMPLE [address] [place] [phone] Referral ID Status Reason Start Date Expiration Date Visits Requ ested Visits Authorized [id number] Closed 12/20/2018 12/20/2019 20 20 Encounter Details Date Type Department Care Team Description 02/13/2019 Hospital Encounter Department of Radiation Willi Grey, [place] [address] [facility] [address] [place] [address] [phone] Social History Tobacco Use Types Packs/Day Years [...] or relatives? How often do you attend orthodoxy or orthodoxy 1 to 4 times per year 02/25/2021 services? Do you belong to any clubs or organizations Yes 02/25/2021 such as orthodoxy groups, unions, fraternal or athletic groups, or [...] the highest level of school Associate degree: [employer] program 02/01/2019 you have completed or the [...] as XP OPHT) needed (for dry eyes). hwptyqxhjmrj-cvcjrsct-kvt Take 1 tablet by 0 05/2013 ein (CENTURY MATURE) mouth. tablet omega 6-csj-rwa-fish oil Take 1,200 mg by 0 1,000 [...] Radiation Oncology Chris Grey M.D. [address] [place] [address] [phone] (Wo rk) documented as of this encounter Visit Diagnoses Not on filedocumented in this encounter
--- OUTSIDE RECORDS SUMMARY | 2022-01-28 17:14 | XMS_ITS | Encounter Summary ---
:1950 Author Organization [facility] Address [address] [place] [address] Care Team Providers Name Role Phone Unavailable Primary Care Provider Unavailable Encounter Details Date Type Department Care Team Description 02/05/2019 Orders Only Department of Zuleika Hudson Primary Zaire flores Radiation Oncology [place] [facility] Neoplasm Of Prostate [facility] [phone] (HCC) (Primary Dx) [address] (Work) [place] [address] Social History Tobacco Use Types [...] or relatives? How often do you attend anglican or religion 1 to 4 times per year 02/25/2021 services? Do you belong to any clubs or organizations Yes 02/25/2021 such as anglican groups, unions, fraternal or athletic groups, or [...] highest level of school Associate degree: [employer] 02/01/2019 you have completed or the highest degree you have received? Sex Assigned at Date Recorded Male 12/24/2018 8:16 PM CDT documented as of this encounter Plan of Treatment Upcoming Encounters Date Type Specialty Care Team Description 02/14/2022 Appointment Radiation Oncology Chris Grey M.D. [address] [place], [place] [phone] (Wo rk) documented as of this encounter Visit Diagnoses Diagnosis Primary Malignant Neoplasm Of Prostate ( HCC) - Primary documented in this encounter
--- OUTSIDE RECORDS SUMMARY | 2022-01-28 17:14 | XMS_ITS | Encounter Summary ---
:1950 Author Organization [facility] Address [address] [place] [address] Care Team Providers Name Role Phone Unavailable Primary Care Provider Unavailable Reason for Visit Radiation Therapy (Routine) - Closed Specialty Diagnoses / Procedures Referred By Contact Refer red To Contact Diagnoses Primary Malignant Neoplasm Of Prostate (HCC) Angel Grey M.D. [facility] Procedures Prior Auth Rad Tx [place] IMRT SIMPLE [address] [place] [address] Referral ID Status Reason Start Date Expiration Date Visits Requ ested Visits Authorized [id number] Closed 12/20/2018 12/20/2019 20 20 Encounter Details Date Type Department Care Team Description 02/22/2019 Hospital Encounter Department of Radiation Willi Grey, [place] [address] [facility] [address] [place] [address] [phone] Social History Tobacco Use Types Packs/Day Years [...] How often do you attend tenriism or latter-day 1 to 4 times per year 02/25/2021 [...] place to sleep or slept in a halfway (including now)? Education Answer Date Recorded What is the highest level of school Associate degree: [employer] program 02/01/2019 you have completed or the [...] as XP OPHT) needed (for dry eyes). slkkvfzvbdwm-qfnmkswo-puu Take 1 tablet by 0 05/2013 ein (CENTURY MATURE) mouth. tablet omega 6-utp-kvn-fish oil Take 1,200 mg by 0 1,000 [...] Radiation Oncology Chris Grey M.D. [address] [place] [address] [phone] (Wo rk) documented as of this encounter Visit Diagnoses Not on filedocumented in this encounter
--- OUTSIDE RECORDS SUMMARY | 2022-01-28 17:14 | XMS_ITS | Encounter Summary ---
:1950 Author Organization [facility] Address [address] [place] [phone] Care Team Providers Name Role Phone Unavailable Primary Care Provider Unavailable Reason for Referral Outpatient (Routine) - Closed Specialty Diagnoses / Procedures Referred By Contact Refer red To Contact Angel Stockton M .D. [facility] [address] [place] [address] [phone] Referral ID Status Reason Start Date Expiration Date Visits Requ ested Visits Authorized [id number] Closed 12/20/2018 12/20/2019 1 1 Reason for Visit Outpatient (Routine) - Closed Specialty Diagnoses / Procedures Referred By Contact Refer red To Contact Angel Stockton M .D. [facility] Region [address] [place] [address] [phone] Referral ID Status Reason Start Date Expiration Date Visits Requ ested Visits Authorized [id number] Closed 12/20/2018 12/20/2019 1 1 Encounter Details Date Type Department Care Team Description 02/12/2019 Hospital Encounter Department of Chris Grey M.D. [address] [place] [address] [phone] Primary Malignant Radiation Oncology Anayeli Oneil Neoplasm Of Prostate in [place], (HCC) [place] [address] [place] [address] Social History Tobacco Use Types [...] or relatives? How often do you attend yazidism or holiness 1 to 4 times per year 02/25/2021 services? Do you belong to any clubs or organizations Yes 02/25/2021 such as yazidism groups, unions, fraternal or athletic groups, or [...] the highest level of school Associate degree: [employer] program 02/01/2019 you have completed or the [...] as XP OPHT) needed (for dry eyes). jpfismjrmuom-jdzgfqdz-fci Take 1 tablet by 0 05/2013 ein (CENTURY MATURE) mouth. tablet omega 2-sfq-sqq-fish oil Take 1,200 mg by 0 1,000 mg (120 mg-180 mg) mouth. capsule omeprazole (PriLOSEC) 40 0 11/01/[address] capsule psyllium (METAMUCIL) Take 1 packet by mouth 0 powder daily. simvastatin (ZOCOR) 40 mg Take 40 mg by mouth. 0 08/04/2015 tablet tamsulosin (FLOMAX) 0.4 Take 0.4 mg by mouth. 0 1 05/21/2017 mg 24 hr capsule documented as of this encounter Consult Notes MariosebastianJessietete Wiggins - 02/12/2019 10:00 AM CDT Psychosocial Assessment SUBJECTIVE DEMOGRAPHIC INFORMATION Referral by: Angel Grey MD Person(s) present during interview: Patient Dick Sigala, unaccompanied. Primary care clinic and provider: No primary care provider on file. Primary Language: Indonesian REASON FOR CONSULT Initial social work consult for assessment of psychosocial strengths and concerns while undergoing radiation therapy for prostate cancer. Radiation therapy was initiated on 01/31/19, with an anticipated completion on 02/27/19. No past medical history on file. No past surgical history on file. SOCIAL HISTORY Marital Status / Family / Household Status: Household information: Number of persons in household: 6 Relationships of persons in household: patient, spouse/SO and their son, daughter, and two grandchildren. Type of housing: Private residence Support Systems: Family Primary caregiver: His , Maria G. We have received permission to contact them. 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 Psychosocial Risk Factors impacting the patient: none noted. Abuse, Neglect, Maltreatment, Trauma: Current: None reported. Past: None reported. ENVIRONMENTAL SUPPORTS Current Living Situation: Lives in [place], [place] with his , children, and grandchildren. Patient's Home Environment: No safety concerns. FUNCTIONAL STATUS (ADL's and IADL's) Patient is fully independent in all activities. FINANCES/INSURANCE Primary insurance: [employer] OPEN ACCESS Secondary insurance: N/A ADVANCE DIRECTIVES Mr. Sigala does not have a health care directive on file with [facility]. This was not discussed today. OBJECTIVE MENTAL HEALTH Mental Status Exam: Appearance: Dressed appropriately in street clothing. Well groomed. Good eye contact. Appears statedage. Behavior: Calm and interactive, although his speech is slow. Cooperation: Cooperative. Appears reliable. Consciousness/Orientation: Alert and oriented to person, place and time. Memory/Attention: Conversationally intact. Fund of knowledge: Consistent with education and experiences as evidenced by vocabulary. Insight: Good. Judgment: Good. Safety: Denies current suicidal or homicidal ideation. No safety concerns. Motivation to pursue treatment: Good. Current Stressors: Normal stressors associated with cancer diagnosis and treatment. Coping skills/strengths: Distraction through continued parttime work, and Family support Discussion: Mr. Dick Sigala met with this family welfare social work professor today for an initial social work consult and psychosocial assessment. He hoped to keep the visit brief so that he could get to his job. He and his Clara live in [place], [place], along with their son and their daughter and her two adolescent children. Mr. Sigala states he is well supported, is feeling as well as possible through his treatment, and is not currently in need of any additional resources or information. IMPRESSION Mr. Sigala understands his diagnosis, prognosis and recommended treatment, and demonstrates motivationto comply with his treatment plan. He is self-sufficient and able to communicate his own wishes, questions, and concerns. INTERVENTIONS Introduction to medical social work services, and assessment of coping, support, and resources were provided. Patient is coping well with treatment, is well- supported by family and community resources,and identifies no gaps in resources or need for added services, assistance, or information. He is aware of the availability of social work assistance throughout radiation treatment, and is aware how torequest this assistance if any needs or concerns arise. PLAN Mr. Sigala is aware of social work assistance availability, and can request additional help if needed. Anticipated barriers: None Face to face time (for billing purposes) 15 minutes total time Anayeli Oneil 02/12/2019 documented in this encounter Plan of Treatment Upcoming Encounters Date Type Specialty Care Team Description 02/14/2022 Appointment Radiation Oncology Crhis Grey M.D. [address] [place], [place] [phone] (Wo rk) Scheduled Referrals Name Type Priority Associated Diagnoses Order S chedule Social Work Outpatient Referral Routine Once for 1 office visit Occurrences sta rting (clinic) 02/12/2019 unti l 02/12/2019 documented as of this encounter Visit Diagnoses Diagnosis Primary Malignant Neoplasm Of Prostate ( HCC) documented in this encounter
--- OUTSIDE RECORDS SUMMARY | 2022-01-28 17:14 | XMS_ITS | Encounter Summary ---
:1950 Author Organization [facility] Address [address] [place] [address] Care Team Providers Name Role Phone Unavailable Primary Care Provider Unavailable Reason for Visit Radiation Therapy (Routine) - Closed Specialty Diagnoses / Procedures Referred By Contact Refer red To Contact Diagnoses Primary Malignant Neoplasm Of Prostate (HCC) Angel Grey M.D. [facility] Procedures Prior Auth Rad Tx [place] IMRT SIMPLE [address] [place] [address] Referral ID Status Reason Start Date Expiration Date Visits Requ ested Visits Authorized [id number] Closed 12/20/2018 12/20/2019 20 20 Encounter Details Date Type Department Care Team Description 02/11/2019 Hospital Encounter Department of Radiation Willi Grey, [place] [address] [facility] [address] [place] [address] [phone] Social History Tobacco Use Types Packs/Day Years [...] or relatives? How often do you attend evangelical or jew 1 to 4 times per year 02/25/2021 services? Do you belong to any clubs or organizations Yes 02/25/2021 such as evangelical groups, unions, fraternal or athletic groups, or [...] place to sleep or slept in a fdc (including now)? Education Answer Date Recorded What is the highest level of school Associate degree: [employer] program 02/01/2019 you have completed or the [...] as XP OPHT) needed (for dry eyes). qticwhhzciav-ffpeztve-cmc Take 1 tablet by 0 05/2013 ein (CENTURY MATURE) mouth. tablet omega 5-xlt-jnp-fish oil Take 1,200 mg by 0 1,000 [...] Radiation Oncology Chris Grey M.D. [address] [place] [address] [phone] (Wo rk) documented as of this encounter Visit Diagnoses Not on filedocumented in this encounter
--- OUTSIDE RECORDS SUMMARY | 2022-01-28 17:15 | XMS_ITS | Encounter Summary ---
:1950 Author Organization [facility] Address [address] [place] [address] Care Team Providers Name Role Phone Unavailable Primary Care Provider Unavailable Encounter Details Date Type Department Care Team Description 01/23/2019 Ancillary Procedure Department of Angel Grey Malignant Radiology in [place] Neoplasm Of Prostate [place], [place] [address] [facility] (HCC) [address] [place] [address] [phone] Social History Tobacco Use Types Packs/Day Years [...] or relatives? How often do you attend quaker or restorationism 1 to 4 times per year 02/25/2021 services? Do you belong to any clubs or organizations Yes 02/25/2021 such as quaker groups, unions, fraternal or athletic groups, or [...] or slept in a fdc (including now)? Sex Assigned at Date Recorded Male 12/24/2018 8:16 PM CDT documented as of this encounter Plan of Treatment Upcoming Encounters Date Type Specialty Care Team Description 02/14/2022 Appointment Radiation Oncology Chris Grey M.D. [address] [place] [address] [phone] (Wo rk) documented as of this encounter Procedures Procedure Name Priority Date/Time Associated Comments Diagnosis INTERPRETATION OF RAD - Routine 01/23/2019 2:13 Primary Result s for OUTSIDE CT ABDOMEN (most inpatients PM CDT Malignant this procedure AND OR PELVIS and all Neoplasm Of are in the outpatients) Prostate (HCC) results section. documented in this encounter Results Interpretation of Outside CT Abdomen and or Pelvis (01/23/2019 2:13 PM CDT) Anatomical Region Laterality Modality Abdomen, Pelvis, Abdominal RST LOS, Abdominal ARZ LOS, N/A Computed Tomography Abdominal FLA LOS Specimen (Source) Anatomical Collection Method Collection Time Re ceived Time Location / / Volume Laterality 01/24/2019 12:20 PM CDT Impressions 01/24/2019 5:43 PM CDT Multiple prominent mesenteric lymph nodes measuring up to 11 mm should be due to small bowel or mesenter ic inflammation or a lymphoproliferative disorder; metastatic prostate cancer is very unlikely. Additional prominent subcentimeter retroperitoneal and inguin al lymph nodes, not significantly changed compared to 01/03/2012. Choline PET/CT could be helpful for further evaluation if clinically indicated given biopsy-proven [place] 4+3 prostate cancer. Narrative 01/24/2019 5:43 PM CDT REVISED REPORT: EXAM: ??INTERPRETATION OF OUTSIDE CT ABD OMEN AND OR PELVIS COMPARISON: ??Pelvis MRI 01/11/2019 and bone scan 10/23/2018. Renal stone CT from 01/03/2012 is also submitted for compari son. FINDINGS: ?? 1. Exam type: CT abdomen/pelvis,, two-ph ase with delayed imaging through the kidneys. 2. Contrast: Intravenous 3. Exam date: 10/31/2018 Tiny hepatic cyst or hemangioma (series 2, image 84). No suspicious hepatic lesions. Probable hepatic steatosis. Few tiny pancreatic calcifications. No pancreatic ductal dilatation. Small patrick l cortical and parapelvic cysts. Colonic diverticulosis. Multiple prominent mesen teric lymph nodes with the largest measuring up to 11 mm in short axis dime nsion on (series 2, image 79); these are new compared to 01/03/2012. Multiple pro minent subcentimeter retroperitoneal lymph nodes measure 1-2 mm larger compar ed to the exam from 2011. Multiple small inguinal lymph nodes, similar to the 201 2 exam. Prostatic enlargement with multiple intraprostatic calcifications. Probable small left pulmonary lymph node along the left major fissure (series 2, image 20). No lytic or sclerotic osseous lesions. Hypertrophic and degenerative c hanges lumbar spine.[id number] Procedure Note Rachid Mata M.D. - 01/29/2019Forma tting of this note might be different from the original. REVISED REPORT: EXAM: INTERPRETATION OF OUTSIDE CT ABDOM EN AND OR PELVIS COMPARISON: Pelvis MRI 01/11/2019 and rachael ne scan 10/23/2018. Renal stone CT from 01/03/2012 is also submitted for compari son. FINDINGS: 1. Exam type: CT abdomen/pelvis,, two-ph ase with delayed imaging through the kidneys. 2. Contrast: Intravenous 3. Exam date: 10/31/2018 Tiny hepatic cyst or hemangioma (series 2, image 84). No suspicious hepatic lesions. Probable hepatic steatosis. Few tiny pancreatic calcifications. No pancreatic ductal dilatation. Small patrick l cortical and parapelvic cysts. Colonic diverticulosis. Multiple prominent mesen teric lymph nodes with the largest measuring up to 11 mm in short axis dime nsion on (series 2, image 79); these are new compared to 01/03/2012. Multiple pro minent subcentimeter retroperitoneal lymph nodes measure 1-2 mm larger compar ed to the exam from 2011. Multiple small inguinal lymph nodes, similar to the 201 2 exam. Prostatic enlargement with multiple intraprostatic calcifications. Probable small left pulmonary lymph node along the left major fissure (series 2, image 20). No lytic or sclerotic osseous lesions. Hypertrophic and degenerative c hanges lumbar spine.[id number] IMPRESSION: Multiple prominent mesenteric lymph node s measuring up to 11 mm should be due to small bowel or mesenter ic inflammation or a lymphoproliferative disorder; metastatic prostate cancer is very unlikely. Additional prominent subcentimeter retroperitoneal and inguin al lymph nodes, not significantly changed compared to 01/03/2012. Choline PET/CT could be helpful for further evaluation if clinically indicated given biopsy-proven [place] 4+[address] CT PROCEDURES documented in this encounter Visit Diagnoses Diagnosis Primary Malignant Neoplasm Of Prostate ( HCC) documented in this encounter
--- OUTSIDE RECORDS SUMMARY | 2022-01-28 17:15 | XMS_ITS | Encounter Summary ---
:1950 Author Organization [facility] Address [address] [place] [address] Care Team Providers Name Role Phone Unavailable Primary Care Provider Unavailable Reason for Visit Reason Comments Results Encounter Details Date Type Department Care Team Description 11/21/2018 Clinical Communication Department of Radiation Cheri Al, Results Oncology in [facility] [address] [facility] [address] [place] [address] [phone] Social History Tobacco Use Types Packs/Day Years [...] How often do you attend sabianist or yarsanism 1 to 4 times per year 02/25/2021 [...] or slept in a detention (including now)? Sex Assigned at Date Recorded Male 12/24/2018 8:16 PM CDT documented as of this encounter Miscellaneous Notes Telephone Encounter - Cheri Al R.N. - 11/21/2018 11:49 AM CDT PLAN Name of test result(s): PSA, total testosterone Test result information: PSA 4.14 ng/mL Total testosterone 419 ng/dL Ordered by: Dr. Grey. Date performed: November 15, 2018 His oncologic history is as follows: 1. [...] left prostate demonstrated adenocarcinoma of the prostate, [place] 3+4=7, involving 10-30% of the length of 3 cores, perineural invasion not seen. 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 He discussed treatment options including expectant management, hormonal therapy, cryotherapy, HIFU, radiation, and surgery. He recommended obtaining second opinions with Radiation Oncology and Oncology. 10. November 20, 2018: Scheduled appointment with Medical Oncology at [facility]. 11. November 15, 2018: PSA 4.14 ng/mL, Total testosterone 419 ng/dL (collected at [facility]). Patient started Casodex. Plan is for patient to receive 1 month hormonal injection tomorrow at [facility] and then return to see Dr. Grey in clinic for follow up discussion on December 20 and a 3 month hormonal injection that same day. Disposition/Recommendation: self-care appropriate at this time . Education: patient/caller able to teach back Caller agreeable to plan of care: yes The following references were used: provider Discussed with Dr. Grey. documented in this encounter Plan of Treatment Upcoming Encounters Date Type Specialty Care Team Description 02/14/2022 Appointment Radiation Oncology Chris Grey M.D. [address] [place] [address] [phone] (Wo rk) documented as of this encounter Visit Diagnoses Not on filedocumented in this encounter
--- OUTSIDE RECORDS SUMMARY | 2022-01-28 17:15 | XMS_ITS | Encounter Summary ---
:1950 Author Organization [facility] Address [address] [place] [id number] Care Team Providers Name Role Phone Unavailable Primary Care Provider Unavailable Reason for Referral Outpatient (Routine) - Closed Specialty Diagnoses / Procedures Referred By Contact Refer red To Contact Radiation Oncology Annia Stewart P.A.-C., B[facility] [address] [place] [phone] Referral ID Status Reason Start Date Expiration Date Visits Requ ested Visits Authorized [id number] Closed 01/11/2019 01/11/2020 1 1 Reason for Visit Outpatient (Routine) - Closed Specialty Diagnoses / Procedures Referred By Contact Refer red To Contact Radiation Oncology Annia Stewart P.A.-C., BENNY [facility] [address] [place] [phone] Referral ID Status Reason Start Date Expiration Date Visits Requ ested Visits Authorized [id number] Closed 01/11/2019 01/11/2020 1 1 Encounter Details Date Type Department Care Team Description 01/11/2019 Hospital Encounter Department of Angel Grey Malignant Radiation Oncology [facility] Neoplasm Of Prostate in [address] (HCC) (Primary Dx) [place], [place] [address] [facility] [address] [place], [place] [phone] (Work) [phone] Social History Tobacco Use Types Packs/Day Years [...] or relatives? How often do you attend buddhist or methodist 1 to 4 times per year 02/25/2021 services? Do you belong to any clubs or organizations Yes 02/25/2021 such as buddhist groups, unions, fraternal or athletic groups, or [...] place to sleep or slept in a assisted (including now)? Sex Assigned at Date Recorded [...] into each nostril mcg/actuation nasal daily. spray [id number] Take 1 tablet by 0 09/23 tein ([employer]) mouth. tablet omega 2-kfn-jgn-fish oil Take 1,200 mg by 0 1,000 [...] mg tablet documented as of this encounter Progress Notes Angel Grey M.D. - 01/11/2019 2:00 PM CDT SUBJECTIVE REASON FOR VISIT 1. Primary Malignant Neoplasm Of Prostate (HCC) HISTORY OF PRESENT ILLNESS Mr. Dick Sigala is a 68 y.o. male with unfavorable intermediate risk prostate cancer. He returns today for a CT simulation. His oncologic history is as follows: 1. [...] left prostate demonstrated adenocarcinoma of the prostate, [place] 3+4=7, involving 10-30% of the length of [...] with Dr. Laura for T1c prostate cancer, [place] 4+3=7. He discussed treatment options including expectant management, hormonal therapy, cryotherapy, HIFU, radiation, and surgery. He recommended obtaining second opinions with Radiation Oncology and Oncology. 10. November 12, 2018: I saw the patient in consultation and recommended radiotherapy with neoadjuvant and concurrent androgen deprivation therapy. 11. November 15, 2018: PSA 4.14 ng/mL. Testosterone 419 ng/dL. Patient started bicalutamide 50 mg daily for 3 weeks 12. November 20, 2018: Patient saw Dr. Zamora at [facility] for chronic thrombocytopenia. 13. November 21, 2018: Patient received a Lupron 7.5 mg injection [facility]. 14. December 20, 2018: Patient received a Lupron 22.5 injection at [facility]. This was his last injection for a total of 4 months of ADT. 15. December 27, 2018: Hydrogel rectal spacer was placed as well as 4 gold seed fiducial markers in the prostate. INTERVAL HISTORY The patient reports that he is currently feeling well. He denies any bowel or bladder incontinence. He also denies any nocturia, dysuria, hematuria, melena, hematochezia, dyschezia, or persistent bone pain. He does have urinary hesitancy and weakness of stream. He is tolerating androgen deprivation therapy well with some increase in hot flashes. He is now waking him from sleep a few times a night. Hedenies any increased fatigue. He is taking calcium and vitamin-D supplementation. The patient's ECOGperformance status is 1. AUA SYMPTOM INDEX November 12, 2018: 11 (0, 1, 5, 0, 5, 0, 0). December 20, 2018: 10 (0, 1, 5, 1, 3, 0, 0). IIEF-5 November 12, 2018: 21 (3, 3, 5, 5, 5 all with the aid of Viagra). December 20, 2018: 5 (1, 1, 1, 1, 1) after starting ADT. REVIEW OF SYSTEMS Review of systems was negative except as documented above. PATIENT REPORTED SYMPTOM SCREEN FATIGUE (Scale: 0 = no fatigue; 10 = worst fatigue you can imagine): Not assessed. PAIN (Scale: 0 = no pain; 10 = worst pain you can imagine): Not assessed OVERALL QUALITY OF LIFE (Scale: 0 = as bad as can be; 10 = as good as can be): Not assessed OBJECTIVE There were no vitals taken for this visit. PHYSICAL EXAM General: Patient is awake, alert, and oriented to person, place, and time. No apparent distress. Thepatient is here today with his , Clara. ASSESSMENT / PLAN 1. Stage IIC (cT1c, cN0, cM0, PSA: 5.1, Grade Group: 3) [place] 4 + 3 adenocarcinoma of the prostate 2. Androgen deprivation therapy with bicalutamide for 3 weeks initiated on November 15, 2018; Lupron 7.5mg injection on November 21, 2018; and Lupron 22.5 mg injection on December 20, 2018 with no further ADT planned 3. Erectile dysfunction The patient had no complications following his rectal spacer placement. I met with him today prior to his simulation to discuss clinical trial enrollment. The patient is eligible for the ???COMPPARE: AProspective Comparative Study of Outcomes with Proton and Photon Radiation in Prostate Cancer?? trial (IRB# [id number]). We discussed the similarities and differences of proton and photon radiation. I explained that this trial is seeking to evaluate in a prospective fashion if proton therapy is superior to photon therapy with respect to patients' quality of life. We would be treating him with photon treatment at our site. The patient is in excellent health and has an ECOG performance status of 1. Heis in the top quartile (25%) and has a life expectancy of 15.0 years or more per the Social Securityactuarial life tables. I reviewed the consent form with him. He signed the consent to enroll in the trial. Our protocol coordinator will contact him next week to go over the baseline pretreatment questionnaire. He will undergo a CT simulation as well as an MRI in the planning position at [facility] today. We will aim to begin treatment on January 28, 2019. I explained to the patient that his start date will be dependent on final approval of his treatment plan review on the protocol. The patient and his spouse verbalized satisfaction with this plan. I have spent 20 minutes with this patient today with 20 minutes spent in counseling the patient. Signed by: Angel Grey M.D. 01/11/2019 1:28 PM Radiation Oncology [facility] [address] [place] [address] documented in this encounter Plan of Treatment Upcoming Encounters Date Type Specialty Care Team Description 02/14/2022 Appointment Radiation Oncology Chris Grey M.D. [address] [place], [place] [phone] (Wo rk) Scheduled Referrals Name Type Priority Associated Order Schedule Diagnoses Radiation Oncology Outpatient Referral Routine On ce for 1 office visit Occurrences sta rting (clinic) 01/11/2019 unti l 01/11/2019 documented as of this encounter Visit Diagnoses Diagnosis Primary Malignant Neoplasm Of Prostate ( HCC) - Primary documented in this encounter
--- OUTSIDE RECORDS SUMMARY | 2022-01-28 17:15 | XMS_ITS | Encounter Summary ---
:1950 Author Organization [facility] Address [address] [place] [address] Care Team Providers Name Role Phone Unavailable Primary Care Provider Unavailable Reason for Referral Specialty Diagnoses / Procedures Referred By Contact Refer red To Contact Angel Grey M .D. [address] [phone] Referral ID Status Reason Start Date Expiration Date Visits Requ ested Visits Authorized Outpatient (Routine) - Closed Specialty Diagnoses / Procedures Referred By Contact Refer red To Contact Social Work Angel Grey M .D. [address] [phone] Referral ID Status Reason Start Date Expiration Date Visits Requ ested Visits Authorized [id number] Closed 12/20/2018 12/20/2019 1 1 Specialty Diagnoses / Procedures Referred By Contact Refer red To Contact Angel Grey M .D. [address] [phone] Referral ID Status Reason Start Date Expiration Date Visits Requ ested Visits Authorized Radiation Therapy (Routine) - Closed Specialty Diagnoses / Procedures Referred By Contact Refer red To Contact Diagnoses Primary Malignant Neoplasm Of Prostate (HCC) Angel Grey M.D. [facility] Procedures Prior Auth Rad Tx MT IMRT SIMPLE [address] [place], [place] [phone] Referral ID Status Reason Start Date Expiration Date Visits Requ ested Visits Authorized [id number] Closed 12/20/2018 12/20/2019 20 20 Radiation Therapy (Routine) - Closed Specialty Diagnoses / Procedures Referred By Contact Refer red To Contact Diagnoses Primary Malignant Neoplasm Of Prostate (HCC) Angel Grey M.D. [facility] Procedures Initial Rad Onc Treatment Planning CT Simulation [address] [place] [address] Referral ID Status Reason Start Date Expiration Date Visits Requ ested Visits Authorized [id number] Closed 12/20/2018 12/20/2019 2 2 Outpatient (Routine) - Closed Specialty Diagnoses / Procedures Referred By Contact Refer red To Contact Radiation Oncology Angel Grey M .D. [facility] [address] [place] [address] Referral ID Status Reason Start Date Expiration Date Visits Requ ested Visits Authorized [id number] Closed 11/12/2018 11/12/2019 1 1 Reason for Visit Outpatient (Routine) - Closed Specialty Diagnoses / Procedures Referred By Contact Refer red To Contact Radiation Oncology Angel Grey M .D. [facility] [address] [place] [address] Referral ID Status Reason Start Date Expiration Date Visits Requ ested Visits Authorized [id number] Closed 11/12/2018 11/12/2019 1 1 Encounter Details Date Type Department Care Team Description 12/20/2018 Hospital Encounter Department of Angel Grey Malignant Radiation Oncology L, M.D. Neoplasm Of Prostate in [place], [facility] [address] (HCC) (Primary Dx) [place], [place] [address] [facility] [address] [place], [place] [phone] (Work) [phone] Social History Tobacco Use Types Packs/Day Years [...] or relatives? How often do you attend jehovah's witness or judaism 1 to 4 times per year 02/25/2021 services? Do you belong to any clubs or organizations Yes 02/25/2021 such as jehovah's witness groups, unions, fraternal or athletic groups, or [...] Sign Reading Time Taken Comments Blood Pressure 132/78 12/20/2018 9:39 AM CDT Pulse 84 12/20/2018 9:39 AM CDT Temperature 36.3 ??C (97.3 ??F) 12/20/2018 9:39 AM CDT Respiratory Rate - - Oxygen Saturation - - Inhaled Oxygen Concentration - - Weight 94.3 kg (207 lb 14.3 oz) 12/20/2018 9:39 AM CDT Height - - Body Mass Index 30.7 11/12/2018 9:48 AM CDT documented in this encounter Medications at Time of Discharge Medication Sig Dispensed Refills Start Date End Date aspirin [address] Take 81 mg by mouth. 0 4 tablet calcium Take 1 tablet by mouth 0 carbonate-vitamin D3 daily with breakfast. (CALCIUM 500 + D) 1,250 mg (500 mg calcium)-200 unit per tablet celecoxib (CeleBREX) Take 200 mg by mouth. 0 07/23 200 mg capsule famotidine (PEPCID) 20 Take 20 mg by mouth. 0 03/2016 mg tablet multivitamin-minerals- Take 1 tablet by mouth. 0 09/23/2013 lutein (CENTURY MATURE) tablet omeprazole (PriLOSEC) 0 11/01/[address] capsule simvastatin (ZOCOR) 40 Take 40 mg by mouth. 0 03/2016 mg tablet tamsulosin (FLOMAX) Take 0.4 mg by mouth. 0 03/21 0.4 mg 24 hr capsule leuprolide, 3 month, Inject 22.5 mg 22.5 mg 0 12/20/2018 12/20/2018 (LUPRON) 22.5 mg intramuscularly once injection for 1 dose. ciprofloxacin (CIPRO) 0 10/05/2018 500 mg tablet documented as of this encounter Progress Notes Angel Grey M.D. - 12/20/2018 2:22 PM CDT SUBJECTIVE REASON FOR CONSULT 1. Primary Malignant Neoplasm Of Prostate (HCC) HISTORY OF PRESENT ILLNESS Mr. Dick Sigala is a 68 y.o. male with unfavorable intermediate risk prostate cancer. He returns today after 1 month of androgen deprivation therapy to check on his tolerance. His oncologic history is as follows: 1. 2017: PSA 2.49 ng/mL. 2. November 01, 2017: [...] neoplasia, focal and adenocarcinoma of the prostate, Marceline 4+3=7, involving 1-40% of the length of [...] with Dr. Laura for T1c prostate cancer, Marceline 4+3=7. He discussed treatment options including expectant [...] 20, 2018: Patient saw Dr. Zamora at [facility] for chronic thrombocytopenia. 13. November 21, 2018: Patient received a Lupron 7.[address] [facility]. 14. December 20, 2018: Patient is scheduled for a Lupron 22.[address] [facility]. This will be his last injection. INTERVAL HISTORY The patient reports that he is currently feeling well. He denies any bowel or bladder incontinence. He also denies any nocturia, dysuria, hematuria, or melena. He does have urinary hesitancy and weakness of stream. He is tolerating androgen deprivation therapy well with minimal hot flashes. He has 1 that wakes him up from sleep every other week. He denies any increased fatigue. He is taking calcium and vitamin-D supplementation. The patient's ECOG performance status is 1. AUA SYMPTOM INDEX November [...] 10 = worst fatigue you can imagine): 5 PAIN (Scale: 0 = no pain; 10 = worst pain you can imagine): 0 OVERALL QUALITY OF LIFE (Scale: 0 = as bad as can be; 10 = as good as can be): 10 OBJECTIVE BP 132/78 (BP Location: Left arm, Patient Position: Sitting, Cuff Size: Large) Pulse 84 Temp 36.3 ??C (Temporal) Wt 94.3 kg BMI 30.70 kg/m?? PHYSICAL EXAM General: Patient is awake, alert, and oriented to person, place, and time. No apparent distress. Thepatient is here today with his , Clara. DIAGNOSTICS Baseline testosterone was normal at 419 in PSA was 4.14. ASSESSMENT / PLAN 1. Stage IIC (cT1c, cN0, cM0, PSA: 5.1, Grade Group: 3) Thania 4 + 3 adenocarcinoma of the prostate 2. Androgen deprivation therapy with bicalutamide for 3 weeks initiated on November 15, 2018; Lupron 7.5mg injection on November 21, 2018; and Lupron 22.5 mg injection on December 20, 2018 with no further ADT planned 3. Erectile dysfunction I again had a detailed discussion with the patient and his spouse regarding the risks, benefits, andalternatives of radiotherapy in this setting. We discussed the pros and cons of a rectal spacer and fiducial placement including risks of infection and possible rectal sphincter disruption (very low risk). The patient would like to proceed with this as well as a hypofractionated course of intensity modulated radiotherapy. I explained that we will attempt to proceed with hypofractionation if radiationdose to the adjacent bladder and rectum and bowel are acceptable. If the organs at risk cannot be will spared, then we would switch to standard fractionation. The patient's questions and those of his spouse were answered to their verbalized satisfaction. He stated he would like to proceed with treatment and signed the consent form. He will proceed to [facility] next for his last Lupron injection (22.5 mg). I have ordered rectal spacer and fiducial p lacement in [place]. He will return in 2-[address] simulation as well as an MRI in the planning position at [facility]. We discussed our rectal emptying and bladder filling protocol. The patient and his spouse verbalized satisfaction with this plan. I have spent 20 minutes with this patient today with 20 minutes spent in counseling the patient. Signed by: Angel Grey M.D. 12/20/2018 4:04 PM Radiation Oncology [facility] [address] [place] [id number] documented in this encounter Plan of Treatment Upcoming Encounters Date Type Specialty Care Team Description 02/14/2022 Appointment Radiation Oncology Chris Grey M.D. [address] [place], [place] [phone] (Wo rk) Scheduled Orders Name Type Priority Associated Diagnoses Order S chedule Prior Auth Rad Tx Radiation Oncology Routine Primary Malignant Ordered: 12/20/2018 Neoplasm Of Prostate (HCC) Scheduled Referrals Name Type Priority Associated Order Schedule Diagnoses Radiation Oncology Outpatient Referral Routine On ce for 1 office visit Occurrences sta rting (clinic) 12/20/2018 unti l 12/20/2018 Radiation Oncology Outpatient Referral Routine Primary Maligna nt Expected: 12/20/2018 - PRO education Neoplasm Of (Approximate ), visit Prostate (HCC) Expires: 11/23 Social Work office Outpatient Referral Routine Ex pected: 12/20/2018 visit (clinic) (Approximate) , Expires: 2019 Radiation Oncology Outpatient Referral Routine Primary Maligna nt Expected: 12/20/2018 - Nurse education Neoplasm Of (Approxima te), visit (clinic) Prostate (HCC) Expires: documented as of this encounter Results Initial Rad Onc Treatment Planning CT Simulation (01/11/2019 1:00 PM CDT) Specimen (Source) Anatomical Location Collection Method / Collectio n Time Received Time / Laterality Volume Narrative ZION ARIA - 01/11/2019 1:00 PM CDT Angel Grey M.D. ? 01/11/2019 ??1:39 PM Initial Rad Onc Treatment Planning CT Si mulation Date/Time: 01/11/2019 1:37 PM Performed by: Angel Grey M.D. Authorized by: Angel Grey M.D. Care team members present 1. Linnea Martinez, RTT 2. Chel Zheng, RTT CONSENT Consent obtained: written Angel Grey M.D. RADIATION ONCOLOGY ORDERABLE S Performing Organization Address City/State/ZIP Code Phon e Number JO EDITHA JO EDITHA na US Prostate Fiducial Marker Placement with Hydrogel Spacer (12/27/2018 2:15 PM CDT) Anatomical Region Laterality Modality Pelvis, Ultrasound RST LOS, Ultrasound ARZ LOS, Vascular N/A Ultrasound Interventional FLA LOS Specimen (Source) Anatomical Collection Method Collection Time Re ceived Time Location / / Volume Laterality 12/27/2018 2:06 PM CDT Impressions 12/27/2018 2:16 PM CDT 1. Successful ultrasound guided placement of 4 gold seed markers into the prostate. No immediate complications. 2. Successful ultrasound guided injectio n of 10 cc's hydrogel between the prostate and rectum. No immediate compli cations. NR Narrative 12/27/2018 2:16 PM CDT EXAM: US PROSTATE FIDUCIAL MARKER PLACEMENT WITH HYDROGEL SPACER PRE-PROCEDURE: Patient seen, evaluated, and history reviewed. Discussed risks, benefits, alternatives for procedure, an d obtained informed consent. Patient understands information and questions an swered. Immediately prior to starting the procedure, in the presence of the as sisting personnel, procedural pause was conducted to verify correct patient iden tity and verification of procedure to be performed, and as applicable, correct si de and site, correct patient position, availability of implants, special equipm ent, or special requirements, and all image and specimen identification data. The roles and responsibilities of care team members, residents, and fellows kevon moser discussed. TECHNIQUE: ??Under the usual sterile pre parations and using 1% lidocaine for local anesthesia, four gold seeds were p laced into the prostate gland (right apex, left apex, left base, and right ba se) via a transperineal approach and under transrectal ultrasound guidance. P ost-procedure images demonstrate the four seeds to be in good position. SpaceOAR hydrogel was prepared as descri bed in the seam closer's Instructions For Use. With the subject maintained in the dorsal lithotomy position, the transrectal ultrasound probe was positio rikki to enable visual guidance of the needle into the space between the prosta te and the rectum. Under transrectal ultrasound guidance, t he 18G needle was inserted through the rectourethralis muscle and the needle ti p advanced into the perirectal fat inferior to the prostate all by using a transperineal approach. 1% lidocaine injected as needed for local anesthesia. ??The midline needle position with tip at mid gland was confirmed in both sagit bernadette and axial rush. A small amount of saline or lidocaine was injected to conf irm appropriate needle tip position between the prostate and anterior rectal wall (Denonvilliers' fascia). The lidocaine syringe was then removed and t he assembled SpaceOAR delivery system was attached to the 18G needle. ?? Under ultrasound guidance (sagittal plan e), a smooth, continuous injection technique was used to dispense the Space OAR hydrogel into the space between the prostate and rectum (Denonvilliers' fasc ia and the anterior rectal wall). ??The entire syringe contents (10 mL total) we re injected without stopping. ??Optimal visualization of the needle during hydro gel administration was maintained at all times. No suspected penetration or compr omise of the rectal wall occurred. Needle removed and local pressure held u ntil hemostasis was achieved. Patient tolerated both procedures well a nd left the department in good condition. Location: Prostate gland (right apex, le ft apex, right base, left base). Needle size: 18G Fiducial type: gold Complication: None. Blood loss: None. PATIENT INSTRUCTIONS: Patient may be dis missed from the radiology department when dismissal criteria met. POST-PROCEDURE DIAGNOSIS: Prostate cance r. Procedure Note William Jacobson M.D. - 12/27/2018Fo rmatting of this note might be different from the original. EXAM: US PROSTATE FIDUCIAL MARKER PLACEM ENT WITH HYDROGEL SPACER PRE-PROCEDURE: Patient seen, evaluated, and history reviewed. Discussed risks, benefits, alternatives for procedure, an d obtained informed consent. Patient understands information and questions an swered. Immediately prior to starting the procedure, in the presence of the as sisting personnel, procedural pause was conducted to verify correct patient iden tity and verification of procedure to be performed, and as applicable, correct si de and site, correct patient position, availability of implants, special equipm ent, or special requirements, and all image and specimen identification data. The roles and responsibilities of care team members, residents, and fellows wer e discussed. TECHNIQUE: Under the usual sterile prepa rations and using 1% lidocaine for local anesthesia, four gold seeds were p laced into the prostate gland (right apex, left apex, left base, and right ba se) via a transperineal approach and under transrectal ultrasound guidance. P ost-procedure images demonstrate the four seeds to be in good position. SpaceOAR hydrogel was prepared as descri bed in the seam closer's Instructions For Use. With the subject maintained in the dorsal lithotomy position, the transrectal ultrasound probe was positio rikki to enable visual guidance of the needle into the space between the prosta te and the rectum. Under transrectal ultrasound guidance, t he 18G needle was inserted through the rectourethralis muscle and the needle ti p advanced into the perirectal fat inferior to the prostate all by using a transperineal approach. 1% lidocaine injected as needed for local anesthesia. The midline needle position with tip at mid gland was confirmed in both sagit bernadette and axial rush. A small amount of saline or lidocaine was injected to conf irm appropriate needle tip position between the prostate and anterior rectal wall (Denonvilliers' fascia). The lidocaine syringe was then removed and t he assembled SpaceOAR delivery system was attached to the 18G needle. Under ultrasound guidance (sagittal plan e), a smooth, continuous injection technique was used to dispense the Space OAR hydrogel into the space between the prostate and rectum (Denonvilliers' fasc ia and the anterior rectal wall). The entire syringe contents (10 mL total) we re injected without stopping. Optimal visualization of the needle during hydro gel administration was maintained at all times. No suspected penetration or compr omise of the rectal wall occurred. Needle removed and local pressure held u ntil hemostasis was achieved. Patient tolerated both procedures well a nd left the department in good condition. Location: Prostate gland (right apex, le ft apex, right base, left base). Needle size: 18G Fiducial type: gold Complication: None. Blood loss: None. PATIENT INSTRUCTIONS: Patient may be dis missed from the radiology department when dismissal criteria met. POST-PROCEDURE DIAGNOSIS: Prostate cance r. IMPRESSION: 1. Successful ultrasound guided placemen t of 4 gold seed markers into the prostate. No immediate complications. 2. Successful ultrasound guided injectio n of 10 cc's hydrogel between the prostate and rectum. No immediate compli cations. NR Angel GREENE US PROCEDURES documented in this encounter Visit Diagnoses Diagnosis Primary Malignant Neoplasm Of Prostate ( HCC) - Primary Primary Malignant Neoplasm Of Prostate ( HCC) Primary Malignant Neoplasm Of Prostate ( HCC) documented in this encounter
--- OUTSIDE RECORDS SUMMARY | 2022-01-28 17:15 | XMS_ITS | Encounter Summary ---
:1950 Author Organization [facility] Address [address] [place] [address] Care Team Providers Name Role Phone Unavailable Primary Care Provider Unavailable Reason for Visit Auth/Cert Specialty Diagnoses / Procedures Referred By Contact Refer red To Contact Diagnoses Primary Malignant Neoplasm Of Prostate (HCC) Procedures US PROSTATE FIDUCIAL MARKER PLACEMENT WITH HYDROGEL SPACER C61 (ICD-10-CM) - Primary Malignant Neoplasm Of Prostate (HCC) Referral ID Status Reason Start Date Expiration Date Visits Requ ested Visits Authorized [id number] 1 1 Encounter Details Date Type Department Care Team Description 12/27/2018 Hospital Encounter Department of Angel Grey Malignant Radiology, Marcin Renteria M.D. Neoplasm Of Prostate [facility], in [address] [place] [address] (HCC) [place], [place] [address] [place] [phone] [place], [place] [phone] (Work) [phone] Social History Tobacco Use Types Packs/Day Years [...] or relatives? How often do you attend pentecostal or confucianist 1 to 4 times per year 02/25/2021 services? Do you belong to any clubs or organizations Yes 02/25/2021 such as pentecostal groups, unions, fraternal or athletic groups, or [...] [place] [facility] (including [facility])? Sex Assigned at Date Recorded Male 12/24/2018 8:16 PM CDT documented as of this encounter Medications at Time of Discharge Medication Sig Dispensed Refills Start Date End Date aspirin [address] tablet Take 81 mg by 0 4 mouth. calcium carbonate-vitamin Take 1 tablet by 0 D3 (CALCIUM 500 + D) 1,250 mouth daily with mg (500 mg calcium)-200 breakfast. unit per tablet celecoxib (CeleBREX) 200 Take 200 mg by 0 016 mg capsule mouth. famotidine (PEPCID) 20 mg Take 20 mg by 0 016 tablet mouth. mywlzlrjnvxa-ohdrmsve-hemn Take 1 tablet by 0 05/2013 in (CENTURY MATURE) tablet mouth. omeprazole (PriLOSEC) 40 0 11/01/[address] capsule simvastatin (ZOCOR) 40 mg Take 40 mg by 0 016 tablet mouth. tamsulosin (FLOMAX) 0.4 mg Take 0.4 mg by 0 03/21 24 hr capsule mouth. ciprofloxacin (CIPRO) 500 0 10/05/2018 02/05/2019 mg tablet documented as of this encounter Plan of Treatment Upcoming Encounters Date Type Specialty Care Team Description 02/14/2022 Appointment Radiation Oncology Chris Grey M.D. [address] [place], [place] [phone] (Wo rk) documented as of this encounter Procedures Procedure Name Priority Date/Time Associated Comments Diagnosis US PROSTATE RAD - Routine 12/27/2018 2:15 Primary Malignant Result s for this FIDUCIAL MARKER (most inpatients PM CDT Neoplasm Of procedur e are in PLACEMENT WITH and all Prostate (HCC) the results HYDROGEL SPACER outpatients) section. documented in this encounter Results US Prostate Fiducial Marker Placement with Hydrogel [...] care team members, residents, and fellows kevon e discussed. TECHNIQUE: ??Under the usual sterile pre [...] was prepared as descri bed in the yard cleaner's Instructions For Use. With the subject maintained [...] was prepared as descri bed in the yard cleaner's Instructions For Use. With the subject maintained [...] Prostate ( HCC) documented in this encounter Administered Medications Inactive Administered Medications - up to 3 most recent administrations Medication Order MAR Action Action Date Dose Rate Site lidocaine 10 mg/mL (1 %) injection Given 12/27/2018 2:18 PM CDT 30 mL (XYLOCAINE) Code/trauma/sedation medication, Starting on Leigh 12/27/18 at 1418 documented in this encounter Active and Recently Administered Medications Times are shown in CDT. PRN Medication Order 12/25/2018 12/26/2018 12/27/2018 lidocaine 10 mg/mL (1 %) injection (XYLOCAINE) (COMPLETED) 1418 (Given - Provider: William Jacobson M.D.) Code/trauma/sedation medication, Starting on Leigh 12/27/18 at 1418 documented in this encounter
--- OUTSIDE RECORDS SUMMARY | 2022-01-28 17:15 | XMS_ITS | Encounter Summary ---
:1950 Author Organization [facility] Address [address] [place] [address] Care Team Providers Name Role Phone Unavailable Primary Care Provider Unavailable Reason for Referral Outpatient (Routine) - Closed Specialty Diagnoses / Procedures Referred By Contact Refer red To Contact Radiation Oncology [facility] Stewart [facility]A.-C., [facility] [address] [place] [address] Referral ID Status Reason Start Date Expiration Date Visits Requ ested Visits Authorized [id number] Closed 01/11/2019 01/11/2020 1 1 Encounter Details Date Type Department Care Team Description 01/11/2019 Orders Only Department of Radiation Annia Stewart [facility] Malignant Oncology in [place], Rosi, M.SRaheel Neoplasm Of Prostate [address] (HCC) (Primary Dx) [address] [place] [phone] Social History Tobacco Use Types Packs/Day Years [...] How often do you attend quaker or nondenominational 1 to 4 times per year 02/25/2021 [...] place to sleep or slept in a fci (including now)? Sex Assigned at Date Recorded Male 12/24/2018 8:16 PM CDT documented as of this encounter Plan of Treatment Upcoming Encounters Date Type Specialty Care Team Description 02/14/2022 Appointment Radiation Oncology Chris Grey M.D. [address] [place] [phone] (Wo rk) Scheduled Referrals Name Type Priority Associated Diagnoses Order S jerilyn Radiation Oncology Outpatient Referral Routine Ex pected: office visit 01/11/2019, (clinic) Expires: 01/12/2020 documented as of this encounter Visit Diagnoses Diagnosis Primary Malignant Neoplasm Of Prostate ( HCC) - Primary documented in this encounter
--- OUTSIDE RECORDS SUMMARY | 2022-01-28 17:15 | XMS_ITS | Encounter Summary ---
:1950 Author Organization [facility] Address [address] [place] [address] Care Team Providers Name Role Phone Unavailable Primary Care Provider Unavailable Reason for Visit Radiation Therapy (Routine) - Closed Specialty Diagnoses / Procedures Referred By Contact Refer red To Contact Diagnoses Primary Malignant Neoplasm Of Prostate (HCC) Angel Grey M.D. [facility] Procedures Prior Auth Rad Tx [place] IMRT SIMPLE [address] [place] [address] Referral ID Status Reason Start Date Expiration Date Visits Requ ested Visits Authorized [id number] Closed 12/20/2018 12/20/2019 20 20 Encounter Details Date Type Department Care Team Description 02/01/2019 Hospital Encounter Department of Radiation Willi Grey, [place] [address] [facility] [address] [place] [phone] Social History Tobacco Use Types Packs/Day Years [...] or relatives? How often do you attend adventist or anabaptist 1 to 4 times per year 02/25/2021 services? Do you belong to any clubs or organizations Yes 02/25/2021 such as adventist groups, unions, fraternal or athletic groups, or [...] place to sleep or slept in a skilled nursing (including now)? Education Answer Date Recorded What is the highest level of school Associate degree: Stat program 02/01/2019 you have completed or the [...] into each nostril mcg/actuation nasal daily. spray fkjbtztugbix-jocqzrov-th Take 1 tablet by 0 09/23 tein (CENTURY MATURE) mouth. tablet omega 2-plu-igq-fish oil Take 1,200 mg by 0 1,000 [...] Radiation Oncology Chris Grey M.D. [address] [place], [place] [phone] (Wo rk) documented as of this encounter Visit Diagnoses Not on filedocumented in this encounter
--- OUTSIDE RECORDS SUMMARY | 2022-01-28 17:15 | XMS_ITS | Encounter Summary ---
:1950 Author Organization [facility] Address [address] [place] [address] Care Team Providers Name Role Phone Unavailable Primary Care Provider Unavailable Encounter Details Date Type Department Care Team Description 01/11/2019 Orders Only Department of Radiation Angel Grey , Oncology in [facility] [address] [facility] [address] [place] [phone] (Wo rk) Social History Tobacco Use Types [...] or relatives? How often do you attend lutheran or adventism 1 to 4 times per year 02/25/2021 services? Do you belong to any clubs or organizations Yes 02/25/2021 such as lutheran groups, unions, fraternal or athletic groups, or [...] or slept in a halfway (including now)? Sex Assigned at Date Recorded Male 12/24/2018 8:16 PM CDT documented as of this encounter Plan of Treatment Upcoming Encounters Date Type Specialty Care Team Description 02/14/2022 Appointment Radiation Oncology Chris Grey M.D. [address] [place] [phone] (Wo rk) documented as of this encounter Visit Diagnoses Not on filedocumented in this encounter
--- OUTSIDE RECORDS SUMMARY | 2022-01-28 17:15 | XMS_ITS | Encounter Summary ---
:1950 Author Organization [facility] Address [address] [place] [address] Care Team Providers Name Role Phone Unavailable Primary Care Provider Unavailable Encounter Details Date Type Department Care Team Description 11/30/2018 Clinical Communication Department of Juanita, Radiation Oncology in [facility] [address] [place] [phone] Social History Tobacco Use Types Packs/Day Years [...] How often do you attend religion or anglican 1 to 4 times per year 02/25/2021 [...] Miscellaneous Notes Telephone Encounter - Cheri Al RPenny - 11/30/2018 3:41 PM CDT Patient is requesting the following information: He is asking if he is supposed to be taking Calcium since being started on androgen deprivation therapy. PLAN The following information was provided: Dr. Grey recommends that start taking 1200 mg of Calcium daily and 2000 international units of Vitamin D daily for bone health. Education: patient/caller able to teach back The following references were used: provider Dr. Grey Telephone Encounter - La Nena Grant - 11/30/2018 11:00 AM CDT Caller: Dick Is there a valid authorization to speak with caller? Yes Primary Radiation Oncologist: Dr. Grey Reason for call: Wondering if Dr. Grey had recommended him to start taking calcium pills. Phone number: [phone] Is it okay to leave a voicemail on answering machine with test results? Yes Pharmacy (if medication related): [address] [address] La Nena Grant documented in this encounter Plan of Treatment Upcoming Encounters Date Type Specialty Care Team Description 02/14/2022 Appointment Radiation Oncology Chris Grey M.D. [address] [place] [phone] (Wo rk) documented as of this encounter Visit Diagnoses Not on filedocumented in this encounter
--- OUTSIDE RECORDS SUMMARY | 2022-01-28 17:15 | XMS_ITS | Encounter Summary ---
:1950 Author Organization [facility] Address [address] [place] [address] Care Team Providers Name Role Phone Unavailable Primary Care Provider Unavailable Encounter Details Date Type Department Care Team Description 01/29/2019 Orders Only Department of Radiation Angel Grey , Oncology in [facility] [address] [facility] [address] [place] [phone] (Wo rk) Social History Tobacco Use Types [...] How often do you attend mandaen or voodoo 1 to 4 times per [...] or slept in a intermediate (including now)? Sex Assigned at Date Recorded Male 12/24/2018 8:16 PM CDT documented as of this encounter Plan of Treatment Upcoming Encounters Date Type Specialty Care Team Description 02/14/2022 Appointment Radiation Oncology Chris Grey M.D. [address] [place] [phone] (Wo rk) documented as of this encounter Visit Diagnoses Not on filedocumented in this encounter
--- OUTSIDE RECORDS SUMMARY | 2022-01-28 17:15 | XMS_ITS | Encounter Summary ---
:1950 Author Organization [facility] Address [address] [place] [address] Care Team Providers Name Role Phone Unavailable Primary Care Provider Unavailable Reason for Referral Outpatient (Routine) - Closed Specialty Diagnoses / Procedures Referred By Contact Refer red To Contact Radiation Oncology Angel Grey M .D. [facility] [address] [place] [address] Referral ID Status Reason Start Date Expiration Date Visits Requ ested Visits Authorized [id number] Closed 11/12/2018 11/12/2019 1 1 Reason for Visit Appointment Request (Routine) - Closed Specialty Diagnoses / Procedures Referred By Contact Refer red To Contact Radiation Oncology Ming Laura M.D. [address] [place] [id number] Referral ID Status Reason Start Date Expiration Date Visits Requ ested Visits Authorized [id number] Closed 10/31/2018 10/31/2019 1 1 Encounter Details Date Type Department Care Team Description 11/12/2018 Hospital Encounter Department of Angel Grey Malignant Radiation Oncology [place] Neoplasm Of Prostate in [address] (HCC) (Primary Dx) [place], [place] [address] [facility] [address] [place], [place] [phone] (Work) [phone] Social History Tobacco Use Types Packs/Day Years [...] or relatives? How often do you attend congregational or pentecostal 1 to 4 times per year 02/25/2021 services? Do you belong to any clubs or organizations Yes 02/25/2021 such as congregational groups, unions, fraternal or athletic groups, or [...] slept in a care home (including now)? Sex Assigned at Date Recorded Male 12/24/2018 8:16 PM CDT documented as of this encounter Last Filed Vital Signs Vital Sign Reading Time Taken Comments Blood Pressure 115/68 11/12/2018 9:48 AM CDT Pulse 73 11/12/2018 9:48 AM CDT Temperature 36.9 ??C (98.4 ??F) 11/12/2018 9:48 AM CDT Respiratory Rate - - Oxygen Saturation - - Inhaled Oxygen Concentration - - Weight 92.9 kg (204 lb 12.9 oz) 11/12/2018 9:48 AM CDT Height 175.3 cm (5' 9) 11/12/2018 9:48 AM CDT Body Mass Index 30.24 11/12/2018 9:48 AM CDT documented in this encounter Medications at Time of Discharge Medication Sig Dispensed Refills Start Date End Date aspirin [address] Take 81 mg by mouth. 0 4 tablet celecoxib (CeleBREX) Take 200 mg by [...] 0 03/21 0.4 mg 24 hr capsule ciprofloxacin (CIPRO) 0 10/05/2018 500 mg tablet bicalutamide (CASODEX) Take 1 tablet (50 mg 21 tablet 0 12/03/2018 50 mg tablet total) by mouth daily for 21 days. Take at the same time everyday. Take with or without food. leuprolide (LUPRON Inject 7.5 mg 7.5 mg 0 11/12/2018 DEPOT) 7.5 mg intramuscularly once injection for 1 dose. documented as of this encounter Consult Notes Angel Grey M.D. - 11/12/2018 3:56 PM CDT SUBJECTIVE REQUESTING PROVIDER Ming Laura M.D. REASON FOR CONSULT 1. Primary Malignant Neoplasm Of Prostate (HCC) HISTORY OF PRESENT ILLNESS Mr. Dick Sigala is a 68 y.o. male with unfavorable intermediate risk prostate cancer. I am asked by Dr. Laura to evaluate the patient for radiotherapy. His oncologic history is as follows: 1. [...] neoplasia, focal and adenocarcinoma of the prostate, Cyclone 4+3=7, involving 1-40% of the length of [...] 2018: Scheduled appointment with Medical Oncology at [facility]. INTERVAL HISTORY The patient reports that he is currently feeling well. He denies any bowel or bladder incontinence. He also denies any nocturia, dysuria, hematuria, or melena. He does have urinary hesitancy and weakness of stream. This was not aided much by Flomax in the past. He does have a history of hemorrhoids and did have an episode last week of scant hematochezia. Prior to this his hemorrhoids have been quiescent for many years. He has multiple areas of chronic arthritic type pain including his shoulders, knees, and right hip. He takes Celebrex for these areas of discomfort with good benefit. He has erectiledysfunction but is able to achieve erections with the aid of Viagra. However, he has not been sexually active for approximately 10 years. The patient denies a history of prior radiation therapy, connective tissue disorders, or inflammatory bowel disease. The patient's ECOG performance status is 1. AUA SYMPTOM INDEX November 12, 2018: 11 (0, 1, 5, 0, 5, 0, 0). IIEF-5 November 12, 2018: 21 (3, 3, 5, 5, 5 all with the aid of Viagra). REVIEW OF SYSTEMS Review of systems was negative except as documented above. PATIENT REPORTED SYMPTOM SCREEN FATIGUE (Scale: 0 = no fatigue; 10 = worst fatigue you can imagine): 1 PAIN (Scale: 0 = no pain; 10 = worst pain you can imagine): 1 OVERALL QUALITY OF LIFE (Scale: 0 = as bad as can be; 10 = as good as can be): 10 PAST MEDICAL HISTORY 1. Esophageal reflux 2. Dry eyes 3. Glaucoma 4. Benign prostatic hyperplasia 5. Adenocarcinoma of the prostate, diagnosed September 2018 PAST SURGICAL HISTORY 1. Vasectomy 2. Tonsillectomy 3. Glaucoma cataract surgery bilaterally, 2018 SOCIAL HISTORY Patient is to his , Clara. They live in [place], [place]. 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 He has 2 adult children, son and adaughter. He has 2 grandchildren. He is a former smoker. FAMILY HISTORY Negative for prostate cancer. His brother, who was a smoker, of lung cancer at age 62. OBJECTIVE BP 115/68 (BP Location: Left arm, Patient Position: Sitting, Cuff Size: Large) Pulse 73 Temp 36.9 ??C (Temporal) Ht 175.3 cm Wt 92.9 kg BMI 30.24 kg/m?? PHYSICAL EXAM General: Patient is awake, alert, and oriented to person, place, and time. No apparent distress. Thepatient is here today with his , Clara. ENT: Pupils equal, round, and reactive to light. Sclera anicteric. Oral cavity inspection reveals moist mucous membranes and no visible lesions. Neck: Supple. Lymph: No palpable cervical, supraclavicular, infraclavicular, or axillary adenopathy. Spine: There is no tenderness to palpation of the spine. Lungs: Clear to auscultation bilaterally. Heart: Regular rate and rhythm. Normal S1 and S2. No murmurs. Abdomen: Soft, non-tender, non-distended. Normal active bowel sounds are present. Extremities: No clubbing, cyanosis, or edema. Neurologic: CN II-XII tested and intact. Strength is normal and symmetric in both upper and lower extremities. Sensation is intact to light touch. Gait is normal. Rectal: Deferred. DIAGNOSTICS I reviewed the CT scan of the abdomen and pelvis as well as the bone scan from October 23, 2018 with thepatient and his spouse. I also reviewed his biopsy pathology from October 09, 2018. ASSESSMENT / PLAN 1. Stage IIC (cT1c, cN0, cM0, PSA: 5.1, Grade Group: 3) adenocarcinoma of the prostate 2. Obstructive uropathy 3. Erectile dysfunction I had a detailed discussion with the patient and his spouse regarding the risks, benefits, and alternatives of radiotherapy in this setting. I had a detailed discussion with the patient regarding the risks, benefits, and alternatives of radiotherapy in this setting. I consulted the NCCN guidelines in formulating my recommendations and reviewed these with him. The patient has already discussed prostatectomy with Dr. Laura; hence, I focused my discussion on radiotherapy options. These include external beam radiotherapy alone to a dose of 60 Gy in 20 fractions utilizing IMRT or a combination of external beam radiotherapy to a dose of 45 Gy in 25 fractions utilizing IMRT and 1 high dose rate prostate brachytherapy boost implant. Because of his obstructive symptoms, I would recommend treatment with external beam radiotherapy alone. We discussed the results of the ProtecT trial that randomized patients to surgery, radiotherapy, or observation (Erica et al, [facility], 2016) that showed that surgery and rad iotherapy were equally efficacious. Given his unfavorable-intermediate risk disease, I would recommend the addition of a short course (4 months) androgen deprivation therapy if I were to treat him withphoton therapy. We discussed the use of Hydrogel spacer. We also discussed the fact that surgical salvage is typically not possible after any form of prostate radiotherapy. I also discussed the indications for adjuvant radiotherapy following prostatectomy as well as salvage radiotherapy in the settingof rising PSA. I discussed the logistics as well as the acute and chronic side effects associated treatment in detail including acute side effects of urinary frequency and urgency, dysuria, bowel frequency and urgency, diarrhea, gaseous bloating and discomfort, radiation dermatitis, loss of pubic hair, and fatigue. Long-term side effects include common mild increase in urinary and bowel frequency, as well as more rare side effects including radiation cystitis (5% risk or less), radiation proctitis (5% or less risk), urethral stenoses requiring dilatation (1% risk or less), fistula formation (less than 1% risk), increasing arthritis of the hips, small bowel obstruction, and a very small risk of secondary malignancy. The patient is also likely to experience erectile dysfunction. He has some baseline erectile dysfunction, but is not currently sexually active. I also discussed the side effects of androgen deprivation therapy, which include hot flashes, fatigue, bone loss with prolonged use, mood changes, gynecomastia, loss of muscle strength and power, and complete loss of erectile function until his testosterone levels normalize (which can take up to a year after ADT is discontinued). After this discussion, I provided the patient with a written summary of my recommendations. His questions were answered to their verbalized satisfaction. The patient verbally stated that he would like to proceed with treatment. He has a follow-up visit with Dr. Membreno on at the [facility]. I have ordered a repeat PSA and baseline testosterone to be drawn at that visit. He will beginbicalutamide after his blood draw. Next week, he will be scheduled for a Lupron 7.5 mg injection at [facility]. I will see him back 4 weeks later to check on his ADT tolerance. He will be scheduled for a Lupron 22.5 mg injection that same day after his visit with me. If he is not tolerating it well, we will discontinue Lupron. I explained that we are aiming for a total of 4 months of therapy. He is undecided is yet about the placement of a rectal spacer. We will make that decision for against this at his follow-up visit. He will then return to see me in approximately [address] simulation. We discussed bladder filling and rectal emptying for the simulation and his daily treatments. The patient and his spouse verbalized satisfaction with this plan. My thanks to Evan Barakat, and Haseeb for the opportunity to participate in this patient's care. EDUCATION Ready to learn, no apparent learning barriers were identified; learning preferences include listening. Explained diagnosis and treatment plan; patient expressed understanding of the content. CONSENT Discussed the risks, benefits, alternatives, and the necessity of other members of the healthcare team participating in the procedure. All questions answered and consent given. I have spent 75 minutes with this patient today with 65 minutes spent in counseling the patient. Signed by: Angel Grey M.D. 11/12/2018 5:12 PM Radiation Oncology [facility] [address] [place] [address] REFERRING PHYSICIAN Ming Laura M.D. PRIMARY PHYSICIAN Ranjan Membreno M.D. documented in this encounter Miscellaneous Notes Addendum Note - Polo, Shira M - 11/12/2018 5:15 PM CDT Encounter addended by: Shira Polo on: 11/13/2018 7:04 AM Actions taken: Letter saved documented in this encounter Plan of Treatment Upcoming Encounters Date Type Specialty Care Team Description 02/14/2022 Appointment Radiation Oncology Chris Grey M.D. [address] [place] [phone] (Wo rk) Scheduled Referrals Name Type Priority Associated Diagnoses Order S [facility] Radiation Oncology Outpatient Referral Routine Ex pected: office visit 12/13/2018 (clinic) (Approximate), Expires: 11/13/2019 documented as of this encounter Visit Diagnoses Diagnosis Primary Malignant Neoplasm Of Prostate ( HCC) - Primary documented in this encounter
--- OUTSIDE RECORDS SUMMARY | 2022-01-28 17:15 | XMS_ITS | Encounter Summary ---
:1950 Author Organization [facility] Address [address] [place] [address] Care Team Providers Name Role Phone Unavailable Primary Care Provider Unavailable Encounter Details Date Type Department Care Team Description 11/20/2018 Orders Only Department of Angel Grey Primary Mal ignant Radiation Oncology in [place] [facility] [address] [facility] (HCC) (Primary Dx) [address] [place] [phone] Social History Tobacco Use Types Packs/Day Years [...] How often do you attend jainism or congregational 1 to 4 times per year 02/25/2021 [...] Appointment Radiation Oncology Chris Grey M.D. 200 [place], [place] [phone] (Wo rk) documented as of this encounter Visit Diagnoses Diagnosis Primary Malignant Neoplasm Of Prostate ( HCC) - Primary documented in this encounter
--- OUTSIDE RECORDS SUMMARY | 2022-01-28 17:15 | XMS_ITS | Encounter Summary ---
:1950 Author Organization [facility] Address [address] [place] [address] Care Team Providers Name Role Phone Unavailable Primary Care Provider Unavailable Encounter Details Date Type Department Care Team Description 11/23/2018 Clinical Communication Department of Juanita, Radiation Oncology in [facility] [address] [place] [address] Social History Tobacco Use Types Packs/Day Years [...] How often do you attend adventism or jain 1 to 4 times per year 02/25/2021 [...] place to sleep or slept in a longterm (including now)? Sex Assigned at Date Recorded Male 12/24/2018 8:16 PM CDT documented as of this encounter Miscellaneous Notes Telephone Encounter - Angel Grey M.D. - 11/28/2018 1:52 PM CDT Thanks everyone. Kayden Telephone Encounter - Olga Berry C.Ph.T. - 11/27/2018 8:09 AM CDT He is confirmed for December 20 at 10:30am. Telephone Encounter - Cheri Al R.N. - 11/26/2018 10:[address] Grey, I called Dick and he understand the plan going forward. Desk staff - can you please confirm that Dick is scheduled for 3 month Lupron injection on December 20? Wilder, Cheri Telephone Encounter - Angel Grey M.D. - 11/26/2018 12:41 AM CDT Cheri, Can you please call Mr. Sigala and explain that we need to allow time for the Lupron to shrink his prostate before we proceed with treatment? He is scheduled to see me on 12/20. He should have a 3 month Lupron injection scheduled for the same day, but please confirm that. We can schedule spacer placementand return for simulation at that visit. I can talk to him when I return on Monday if he has further questions. Thanks, Kayden Telephone Encounter - La Nena Grant - 11/23/2018 4:10 PM CDT Caller: Dick Is there a valid authorization to speak with caller? Yes Primary Radiation Oncologist: Dr. Grey Reason for call: Would like to go ahead with the spacer and get started with radiation sooner than later Phone number: [phone] or [phone] Is it okay to leave a voicemail on answering machine with test results? Yes Pharmacy (if medication related): [facility] [place], [place] - [address] [place] [phone] La Nena Grant documented in this encounter Plan of Treatment Upcoming Encounters Date Type Specialty Care Team Description 02/14/2022 Appointment Radiation Oncology Chris Grey M.D. [address] [place] [phone] (Wo rk) documented as of this encounter Visit Diagnoses Not on filedocumented in this encounter
--- OUTSIDE RECORDS SUMMARY | 2022-01-28 17:15 | XMS_ITS | Encounter Summary ---
:1950 Author Organization [facility] Address [address] [place] [address] Care Team Providers Name Role Phone Unavailable Primary Care Provider Unavailable Reason for Visit Radiation Therapy (Routine) - Closed Specialty Diagnoses / Procedures Referred By Contact Refer red To Contact Diagnoses Primary Malignant Neoplasm Of Prostate (HCC) Angel Grey M.D. [facility] Procedures Prior Auth Rad Tx [place] IMRT SIMPLE [address] [place] [address] Referral ID Status Reason Start Date Expiration Date Visits Requ ested Visits Authorized [id number] Closed 12/20/2018 12/20/2019 20 20 Encounter Details Date Type Department Care Team Description 01/31/2019 Hospital Encounter Department of Radiation Willi Grey, [place] [address] [facility] [address] [place] [phone] Social History Tobacco Use Types Packs/Day Years [...] often do you attend jehovah's witness or latter day 1 to 4 times per year 02/25/2021 [...] or slept in a half-way (including now)? Sex Assigned at Date Recorded [...] into each nostril mcg/actuation nasal daily. spray ulnnkonvhbwo-ahlfewhq-hf Take 1 tablet by 0 09/23 tein (CENTURY MATURE) mouth. tablet omega 9-zrb-wnq-fish oil Take 1,200 mg by 0 1,000 [...] Radiation Oncology Chris Grey M.D. [address] [place], [place] [phone] (Wo rk) documented as of this encounter Visit Diagnoses Not on filedocumented in this encounter
--- OUTSIDE RECORDS SUMMARY | 2022-01-28 17:15 | XMS_ITS | Clinical Summary ---
:1950 Author Organization [facility] [place] [address] Care Team Providers Name Role Phone Sharmin Gallegos RN Unavailable Ranjan Membreno MD Primary Care Provider [phone] Allergies No known active allergies Medications Medication Sig Dispensed Refills Start Date End Date Status latanoprost (XALATAN) Place 1 Drop into 2.5 mL 0 09/23/2013 Active 0.005 % ophthalmic both eyes at solution bedtime. aspirin enteric coated Take 1 tablet by 0 09/23/2013 Active 81 mg tablet mouth once daily with a meal. multivitamins-minerals Take 1 tablet by 0 09/23/2013 Active -lutein (CENTRUM mouth once daily. SILVER) tab tablet famotidine (PEPCID) 20 Take 1 tablet by 0 08/04/2015 Active mg tablet mouth 2 times daily. simvastatin (ZOCOR) 40 Take 1 tablet by 0 08/04/2015 Active mg tablet mouth at bedtime. aspirin chewable 81 mg Chew 1 Tablet by 0 Active chewable tablet mouth once daily. primidone (MYSOLINE) Take 1 Tablet by 0 01/25/2021 Active 50 mg tablet mouth once daily. donepeziL (ARICEPT) 10 Take 1 Tablet by 0 01/04/2021 Active mg tablet mouth once daily. citalopram (CELEXA) 20 Take 1 Tablet by 0 01/25/2021 Active mg tablet mouth once daily. omeprazole (PRILOSEC) Take 1 Capsule by 0 01/14/2021 Active 40 mg Delayed-Release mouth once daily. capsule tamsulosin (FLOMAX) TAKE 1 CAPSULE 90 Capsule 3 04/06/2021 Active 0.4 mg DAILY AFTER A capsuleIndications: MEAL Benign prostatic hyperplasia with urinary frequency Active Problems Problem Noted Date Prostate cancer 10/29/2018 Elevated PSA 08/29/2018 Benign prostatic hyperplasia with urinary frequency EXAMINATION, ROUTINE MEDICAL 10/19/2000 LACRIMAL INSUFFICIENCY 11/23/1999 REFLUX, ESOPHAGEAL 07/19/1999 Overview: EGD 09/2013 gastritis, no H. 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 RASH, OTH NONSPECIFIC SKIN ERUPTION FATIGUE AND MALAISE SHORTNESS OF BREATH NOCTURIA PAIN, ABDOMINAL, GENERALIZED MOLE - BENIGN Encounters Date Type Specialty Care Team Description 01/21/2022 Refill Ming Laura MD Refi ll Request (Tamsulosin) from Last 3 Months Immunizations Name Administration Dates Next Due Influenza A (H1N1), Inactivated 04/09/2009 Influenza, High-dose Inactivated 05/24/2019, 01/03/2018, Influenza, High-dose Quadrivalent 02/10/2021 Inactivated Influenza, IIV3 (Age >=3 years) 01/03/2018, 01/21/2015, 01/24, 01/13/2013 Influenza, IIV4 04/09/2009 Influenza, Inactivated AIIV4 (Age 65+ 02/16/2020 Years) Preserv Free Pneumococcal Poly,23-Valent 10/22/2014 (Pneumovax) Pneumococcal conj 13-Valent (Prevnar 10/29/2015 13) Td, Preservative Free (age >= 7 11/01/2017 Years) Tdap 04/24/2007 Zoster (Shingrix-RZV, recombinant) 10/15/2018, 07/27/2018 Zoster, Unspecified Formulation 04/24/2012 Family History Medical History Relation Name Comments Genetic Other Mo-; Diabetic Relation Name Status Comments Other Social History Tobacco Use Types Packs/Day Years Used Date Former Smoker 0 Smokeless Tobacco: Never Used Tobacco Cessation: Counseling Given: Yes Alcohol Use Standard Drinks/Week Comments Yes 0 (1 standard drink = 0.6 oz pure alcoho l) occ Alcohol Habits Answer Date Recorded How often do you have a drink containing alcohol? Not asked How many drinks containing alcohol do you have on a typical Not asked day when you are drinking? How often do you have six or more drinks on one occasion? No t asked Comment: occ 08/04/2015 Sex Assigned at Date Recorded Not on file Obstetrics History Last Filed Vital Signs Vital Sign Reading Time Taken Comments Blood Pressure 112/62 03/15/2021 1:25 PM [employer] Pulse 66 03/15/2021 1:25 PM [employer]OR INST[employer] Temperature 36.4 ??C (97.6 ??F) 03/15/2021 1:25 PM [employer]OR INST[employer]ER Respiratory Rate 16 11/24/2000 12:00 AM CDT Oxygen Saturation 99% 03/15/2021 1:25 PM [employer]OR INST[employer]ER Inhaled Oxygen Concentration - - Weight 92.1 kg (203 lb) 03/15/2021 1:25 PM [employer]OR INST[employer] Height 178 cm (5' 10.08) 08/04/2015 10:48 AM CDT Body Mass Index 29.06 08/04/2015 10:48 AM CDT Plan of Treatment Health Maintenance Due Date Last Done Comments Depression screening for age 12+ 1961 Hepatitis C screening for age 0610/21/1967 18-79 Colonoscopy through age 75 1994 Lipids for age 45-75 10/24/2005 10/24/2000 BMI (ht and wt on same day) for 08/03/2016 08/04/2015 age 18+ COVID-19 vaccine series (4 - 04/07/2021 02/10/2021, 021, Booster for Pfizer series) 06/26/2020 Influenza for age 65+ 12/23/2021 02/10/2021, 02/16/2020, 05/24/2019, Additional history exists Tetanus booster 11/02/2027 11/01/2017, 04/24/2007 Tdap Completed 04/24/2007 Pneumococcal series for age 65+ Completed 10/29/2015, 0704/2014 Zoster (shingles) series for age Completed 10/15/2018, 08/2018 50+ Results Not on filefrom Last 3 Months Insurance Payer Benefit Plan / Subscriber ID Effective Dates Phone Addre ss Type Group [employer] [id number] 2015-Present [address] [place] [address] Care Teams Administration Intern Relationship Specialty Start Date End Date Ranjan Membreno, PCP - General Family Practice 06/11/[address] [place] [id number] Sharmin Gallegos, RN Cancer Nurse Coordinator Registered Nurse 10/31/18
--- OUTSIDE RECORDS SUMMARY | 2022-01-28 17:15 | XMS_ITS | Encounter Summary ---
:1950 Author Organization [facility] Address [address] [place] [address] Care Team Providers Name Role Phone Unavailable Primary Care Provider Unavailable Encounter Details Date Type Department Care Team Description 01/15/2019 Orders Only Department of Zuleika Hudson Primary Zaire flores Radiation Oncology in [facility] Neoplasm Of Prostate [facility] [phone] (HCC) (Primary Dx) [address] (Work) [place] [phone] Social History Tobacco Use Types [...] or relatives? How often do you attend gnosticism or uatsdin 1 to 4 times per year 02/25/2021 services? Do you belong to any clubs or organizations Yes 02/25/2021 such as gnosticism groups, unions, fraternal or athletic groups, or [...] or slept in a alf (including now)? Sex Assigned at Date Recorded Male 12/24/2018 8:16 PM CDT documented as of this encounter Plan of Treatment Upcoming Encounters Date Type Specialty Care Team Description 02/14/2022 Appointment Radiation Oncology Chris Grey M.D. [address] [place] [phone] (Wo rk) documented as of this encounter Visit Diagnoses Diagnosis Primary Malignant Neoplasm Of Prostate ( HCC) - Primary documented in this encounter
--- OUTSIDE RECORDS SUMMARY | 2022-01-28 17:15 | XMS_ITS | Encounter Summary ---
:1950 Author Organization [facility] Address [address] [place] [address] Care Team Providers Name Role Phone Unavailable Primary Care Provider Unavailable Encounter Details Date Type Department Care Team Description 01/23/2019 Orders Only Department of Angel Grey Primary Mal ignant Radiation Oncology in [place] [facility] Neoplasm Of Prostate [facility] a [address] [facility] (HCC) (Primary Dx) [address] [place] [phone] Social History Tobacco Use Types Packs/Day Years [...] or relatives? How often do you attend roman catholic or advent 1 to 4 times per year 02/25/2021 services? Do you belong to any clubs or organizations Yes 02/25/2021 such as roman catholic groups, unions, fraternal or athletic groups, or [...] Oncology Chris Grey M.D. [address] [place], [place] [phone] (Wo rk) documented as of this encounter Results Interpretation [...] indicated given biopsy-proven [place] 4+3 prostate cancer. Narrative 01/24/2019 5:43 PM [...] pancreatic calcifications. No pancreatic ductal dilatation. Small aptrick l cortical and parapelvic cysts. Colonic diverticulosis. [...] lesions. Hypertrophic and degenerative c hanges lumbar spine.[id number] Procedure Note Rachid Mata M.D. - 01/29/2019Forma [...] lesions. Hypertrophic and degenerative c hanges lumbar spine.[id number] IMPRESSION: Multiple prominent mesenteric lymph node s [...]
--- OUTSIDE RECORDS SUMMARY | 2022-01-28 17:15 | XMS_ITS | Encounter Summary ---
:1950 Author Organization [facility] Address [address] [place] [address] Care Team Providers Name Role Phone Unavailable Primary Care Provider Unavailable Encounter Details Date Type Department Care Team Description 01/30/2019 Clinical Communication Department of Angel Grey Radiation Oncology [facility] [place] [address] [facility] [address] [place] [phone] Social History Tobacco Use Types Packs/Day Years [...] How often do you attend scientology or yazidism 1 to 4 times per year 02/25/2021 [...] or slept in a mcfp (including now)? Sex Assigned at Date Recorded Male 12/24/2018 8:16 PM CDT documented as of this encounter Miscellaneous Notes Telephone Encounter - Angel Grey M.D. - 01/30/2019 10:36 AM CDT DIAGNOSIS 1. Primary Malignant Neoplasm Of Prostate (HCC) REASON FOR ENCOUNTER Telephone call. INTERVAL HISTORY Dick Sigala is a 68 y.o. male with the above diagnosis. His oncologic history is as follows: 1. [...] with benign arthritic changes at multiple locations. [facility]ology reviewed his CT imaging and concluded that his mesenteric lymph nodes and inguinal lymph nodes were enlarged but stable potentially due to inflammatory disease or a lymphoproliferative disorder. 9. October 29, 2018: Appointment with Dr. Laura for T1c prostate cancer, [place] 4+3=7. He discussed treatment options including expectant [...] 20, 2018: Patient saw Dr. Zamora at [facility] for chronic thrombocytopenia. 13. November 21, 2018: Patient received a Lupron 7.5 mg injection [facility]. 14. December 20, 2018: Patient received a Lupron 22.5 injection at [facility]. This was his last injection for a total of 4 months of ADT. 15. December 27, 2018: Hydrogel rectal spacer was placed as well as 4 gold seed fiducial markers in the prostate. ASSESSMENT / PLAN 1. Stage IIC (cT1c, cN0, cM0, PSA: 5.1, Grade Group: 3) [place] 4 + 3 adenocarcinoma of the prostate 2. Androgen deprivation therapy with bicalutamide for 3 weeks initiated on November 15, 2018; Lupron 7.5mg injection on November 21, 2018; and Lupron 22.5 mg injection on December 20, 2018 with no further ADT planned 3. Erectile dysfunction I communicated with Dr. Mcelroy who is the primary animal cruelty investigator of the [employer] trial for which the patient consented to enroll. She was concerned that the patient may have CLL given the patient's lymphadenopathy seen on his CT imaging. I requested [facility] review and they agree that his lymph adenopathy was not likely due to prostate cancer. Dr. Mcelroy requested a PET scan. I called the patient's spouse, Clara, last night. I explained the situation to her. I then called the patient this morning and reached him on his cell phone. I explained the situation to him as well. He would like to drop out of the trial because he does not want a PET scan. I explained that that is certainly fine. We will drop his enrollment from the trial, and he will proceed with treatment off trial beginning tomorrow. One of our therapists will call him later today for his treatment appointment time for tomorrow the patient verbalized satisfaction with this plan and was appreciative of the call. Signed by: Angel Grey M.D. 01/30/2019 10:46 AM documented in this encounter Plan of Treatment Upcoming Encounters Date Type Specialty Care Team Description 02/14/2022 Appointment Radiation Oncology Chris Grey M.D. [address] [place], [place] [phone] (Wo rk) documented as of this encounter Visit Diagnoses Diagnosis Primary Malignant Neoplasm Of Prostate ( HCC) - Primary documented in this encounter
--- OUTSIDE RECORDS SUMMARY | 2022-01-28 17:15 | XMS_ITS | Encounter Summary ---
:1950 Author Organization [facility] Address [address] [place] [address] Care Team Providers Name Role Phone Unavailable Primary Care Provider Unavailable Reason for Referral Radiation Therapy (Routine) - Closed Specialty Diagnoses / Procedures Referred By Contact Refer red To Contact Diagnoses Primary Malignant Neoplasm Of Prostate (HCC) Angel Grey M.D. [facility] Procedures Initial Rad Onc Treatment Planning CT Simulation [address] [place] [address] Referral ID Status Reason Start Date Expiration Date Visits Requ ested Visits Authorized [id number] Closed 12/20/2018 12/20/2019 2 2 Reason for Visit Radiation Therapy (Routine) - Closed Specialty Diagnoses / Procedures Referred By Contact Refer red To Contact Diagnoses Primary Malignant Neoplasm Of Prostate (HCC) Angel Grey M.D. [facility] Procedures Initial Rad Onc Treatment Planning CT Simulation [address] [place] [address] Referral ID Status Reason Start Date Expiration Date Visits Requ ested Visits Authorized [id number] Closed 12/20/2018 12/20/2019 2 2 Encounter Details Date Type Department Care Team Description 01/11/2019 Hospital Encounter Department of Angel Grey Malignant Radiation Oncology [facility] Renteria Neoplasm Of Prostate in [place], [address] [facility] (HCC) [place], [place] [address] [facility] [address] [facility], [place] [phone] (Work) [phone] Social History Tobacco Use Types Packs/Day Years [...] often do you attend jehovah's witness or anabaptist 1 to 4 times per [...] place to sleep or slept in a snf (including now)? Sex Assigned at Date Recorded [...] into each nostril mcg/actuation nasal daily. spray luzuufyoykhq-yljgwegp-ge Take 1 tablet by 0 09/23 tein (CENTURY MATURE) mouth. tablet omega 4-gup-xbs-fish oil Take 1,200 mg by 0 1,000 [...] mg tablet documented as of this encounter Procedure Notes Angel Grey M.D. - 01/11/2019 1:00 PM CDTAssociated Order(s): Initial Rad Onc Treatment Planning CT Simulation Pre-Procedure Diagnose(s): Primary Malignant Neoplasm Of Prostate (HCC) Post-Procedure Diagnose(s): Primary Malignant Neoplasm Of Prostate (HCC) Initial Rad Onc Treatment Planning CT Simulation Date/Time: 01/11/2019 1:37 PM Performed by: Angel Grey M.D. Authorized by: Angel Grey M.D. Care team members present 1. Linnea Martinez, RTT 2. Chel Zheng, RTT CONSENT Consent obtained: written 1. Stage IIC (cT1c, cN0, cM0, PSA: 5.1, Grade Group: 3) [place] 4 + 3 adenocarcinoma of the prostate 2. Androgen deprivation therapy with bicalutamide for 3 weeks initiated on November 15, 2018; Lupron 7.5mg injection on November 21, 2018; and Lupron 22.5 mg injection on December 20, 2018 with no further ADT planned 3. Erectile dysfunction Simulation was initiated on January 11, 2019 based on my order, under my direct supervision in preparation for radiation therapy for prostate can. The patient was placed in the treatment position using the necessary immobilization to ensure a reproducible treatment position. Set-up parameters to be used for daily treatment are outlined below. Reference acharya were placed on the patient to facilitatemarking of isocenter. The procedure was performed under my personal supervision. Contrast used for the simulation procedure: None. Patient position: Supine. Arm/Hand position: On chest. Custom immobilization device: Vac-Shahzad to the lower extremities. Legs/feet position: Straight. Motion management: None Bolus: None. CT guidance: Following positioning of the patient, a series of 226 slices was obtained through the treatment area to be utilized in treatment planning. Isocenter was determined and marked on the patient with tattoos. CT images were transferred to the Humanoid planning system. Segmentation and treatmentplanning will take place prior to treatment delivery. Patient set up and imaging was appropriate and completed without incident. He will proceed next [facility] for a planning MRI. documented in this encounter Plan of Treatment Upcoming Encounters Date Type Specialty Care Team Description 02/14/2022 Appointment Radiation Oncology Chris Grey M.D. [address] [place], [place] [phone] (Wo rk) documented as of this encounter Procedures Procedure Name Priority Date/Time Associated Comments Diagnosis INITIAL RAD ONC Routine 01/11/2019 1:00 PM Primary Malignant R esults for this TREATMENT PLANNING CDT Neoplasm Of procedure are in CT SIMULATION Prostate (HCC) the results section. documented in this encounter Results Initial Rad Onc Treatment Planning CT Simulation (01/11/2019 1:00 PM CDT) Specimen (Source) Anatomical Location Collection Method / Collectio n Time Received Time / Laterality Volume Narrative [facility] - 01/11/2019 1:00 PM CDT Angel Grey [...] Organization Address City/State/ZIP Code Phon e Number [facility] na documented in this encounter Visit Diagnoses Diagnosis Primary Malignant Neoplasm Of Prostate ( HCC) documented in this encounter
--- OUTSIDE RECORDS SUMMARY | 2022-01-28 17:15 | XMS_ITS | Encounter Summary ---
:1950 Author Organization [facility] Address [address] [place] [address] Care Team Providers Name Role Phone Unavailable Primary Care Provider Unavailable Encounter Details Date Type Department Care Team Description 12/07/2018 Clinical Communication Department of Juanita, Radiation Oncology in [facility] [address] [place] [phone] Social History Tobacco Use Types Packs/Day Years [...] or relatives? How often do you attend samaritan or voodoo 1 to 4 times per year 02/25/2021 services? Do you belong to any clubs or organizations Yes 02/25/2021 such as samaritan groups, unions, fraternal or athletic groups, or [...] Telephone Encounter - Cheri Al R.N. - 12/10/2018 10:16 AM CDT INFORMATION DISCUSSED Patient called into office to inquire on if he needs a bone density scan ordered due to the fact that he reports that he has shrunk 4 inches in a few years. PLAN I discussed with Annia Stewart PA-C and bone density scan with short course ADT is not typically ordered. It sounds as concern is not related to ADT therefore we recommend that this would be best evaluated by his primary provider. If treatment would be indicated, this would be managed by his primary careprovider. Disposition/Recommendation: self-care appropriate at this time . Education: patient/caller able to teach back Caller agreeable to plan of care: yes The following references were used: provider Annia Stewart PA-C Telephone Encounter - Annia Stewart P.A.-C., M.S. - 12/10/2018 8:21 AM CDT Cheri, We don't typically order a bone density scan with short-course ADT. It sounds like his concern is not related to ADT, so would probably be best evaluated by his primary provider. If treatment would be indicated, this would be managed by his primary anyways. Annia Hdz Telephone Encounter - Cheri Al R.N. - 12/07/2018 3:42 PM CDT Annia, What is the timeframe that you tend to order bone scan when starting/on Lupron? Cheri Hdz Telephone Encounter - La Nena Grant - 12/07/2018 12:13 PM CDT Caller: Dick Is there a valid authorization to speak with caller? Yes Primary Radiation Oncologist: Dr. Grey Reason for call: Would like to know if a bone density scan should be scheduled, due to shrinking 4 inches in a few years. Please call the patient back. Phone number: [phone] Is it okay to leave a voicemail on answering machine with test results? Yes Pharmacy (if medication related): [facility] - [place], [place] - [address] [facility] [address] La Nena Grant documented in this encounter Plan of Treatment Upcoming Encounters Date Type Specialty Care Team Description 02/14/2022 Appointment Radiation Oncology Chris Grey M.D. [address] [place], [place] [phone] (Wo rk) documented as of this encounter Visit Diagnoses Not on filedocumented in this encounter
--- NOTE | 2022-01-28 18:25 | ED.NURSE ---
last tetanus was 09/01/2017. dr cortes informed. did place bacitracin, telfa, pressure dressing on his head lac. did get copies of ct scans.
== END 2022-01-28 18:35 | disposition home or self-care (01) ==
PROVIDERS: Emergency Provider Family Medicine; PCP Physician Assistant Medical
DX: S01.01XA Laceration without foreign body of scalp, initial encounter (principal); W11.XXXA Fall on and from ladder, initial encounter
CPT/HCPCS: 12001; 70450; 72125; 99283; 99285; 99291; G0390

== ENCOUNTER 2022-02-09 09:49 | Outpatient (CLI) | payer OTHER, MEDICARE, SELFPAY ==
--- OUTSIDE RECORDS SUMMARY | 2022-02-09 10:08 | XMS_ITS | Encounter Summary ---
:1950 Author Organization [facility] Address [address] [place] [address] Care Team Providers Name Role Phone Unavailable Primary Care Provider Unavailable Reason for Referral Outpatient (Routine) - Closed Specialty Diagnoses / Procedures Referred By Contact Refer red To Contact Radiation Oncology Annia Stewart P.A.-C., BENNY [facility] M.S. [address] [place] [address] Referral ID Status Reason Start Date Expiration Date Visits Requ ested Visits Authorized [id number] Closed 04/26/2019 04/25/[address] A/P completed prior at [facility], need imag es and report. PSA and testosterone lab work completed prior also. BUCKLE MAKER MRI/CAT/PET Scan (Routine) - Closed Specialty Diagnoses / Procedures Referred By Contact Refer red To Contact Radiology Diagnoses Primary Malignant Neoplasm Of Prostate (HCC) Lymphadenopathy Annia Stewart P.A.-C., [facility]NY [facility] Region Procedures CT Abdomen Pelvis with IV Contrast M.S. [address] [place] [address] Referral ID Status Reason Start Date Expiration Date Visits Requ ested Visits Authorized [id number] Closed 04/26/2019 04/25/2020 1 1 BUCKLE MAKER Encounter Details Date Type Department Care Team Description 04/26/2019 Clinical Communication Department of Radiation Dexter Stewart, Oncology in [place], PFaisal, M.S. [address] [address] [phone] Social History Tobacco Use Types Packs/Day Years [...] one Less than mo nthly 02/25/2021 occasion? Social Isolation Answer Date Recorded In a typical week, how many times do you Twice a week 02/25/2021 talk on the phone with family, friends, or neighbors? How often do you get together with friends Once a week 02/25/2021 or relatives? How often do you attend mandaen or mormonism 1 to 4 times per [...] highest level of school Associate degree: academ [employer] program 02/01/2019 you have completed or the highest degree you have received? Sex Assigned at Date Recorded Male 12/24/2018 8:16 PM CDT documented as of this encounter Miscellaneous Notes Telephone Encounter - Annia Stewart P.A.-Jarad., M.S. - 04/26/2019 8:50 AM BELT BUCKLE MAKER DIAGNOSIS 1. Primary Malignant Neoplasm Of Prostate (HCC) REASON FOR ENCOUNTER Telephone call. SUPERVISED BY: Angel Grey M.D. ([phone]) INTERVAL HISTORY Mr. Dick Sigala is a [...] left prostate demonstrated adenocarcinoma of the prostate, Hydes 3+4=7,involving 10-30% of the length of 3 [...] with Dr. Laura for T1c prostate cancer, Hydes 4+3=7. ??He discussed treatment options including expectant [...] 20, 2018: ??Patient saw Dr. Zamora at [facility] for chronic thrombocytopenia. 13. ??November 21, 2018: ??Patient received a Lupron 7.5 mg injection [facility]. 14. ??December 20, 2018: ??Patient received??a Lupron 22.5 injection at [facility]. ??This was??his last injection??for a total [...] hypermetabolic metastatic disease in the body. [facility] int erpretation of outside imaging demonstrated that the multiple mildly prominent mesenteric and inguinal nodes had no or only minimal FDG uptake, likely inflammatory. No other findings were seen to indicate abdominal or pelvic malignancy, higher grade lymphoma, or a lymphoproliferative disorder. I spoketo the [facility] Radiologist regarding the uptake in the left lower quadrant and he felt that thiswas normal uptake within the bowels. ASSESSMENT / PLAN I called to provide the patient with the PET/CT scan report and [facility] interpretation today. I left a voicemail asking [...] the content. Signed by: Annia Stewart P.A.-C., M.S. 04/26/2019 8:51 AM BELT BUCKLE MAKER ADDENDUM: The patient returned my phone call and I spoke to him directly. I reviewed the PET report and [facility] interpretation with him. I reviewed Dr. Grey's recommendation for a CT scan in 3 months. Hewould like to have all his lab work and imaging done at the [facility]. I relayed this information to our clinical assistant head cashier for scheduling. The patient was appreciative of the phone call and results today. He had no further questions or concerns. He will contact us again if questions arise. He verbally expressed his understanding of the plan. BUCKLE MAKER documented in this encounter Plan of Treatment Upcoming Encounters Date Type Specialty Care Team Description 02/14/2022 Appointment Radiation Oncology Chris Grey M.D. [address] [place] [address] [phone] (Wo rk) Scheduled Orders Name [...]
--- OUTSIDE RECORDS SUMMARY | 2022-02-09 10:08 | XMS_ITS | Encounter Summary ---
:1950 Author Organization [facility] Address [address] [place] [address] Care Team Providers Name Role Phone Unavailable Primary Care Provider Unavailable Encounter Details Date Type Department Care Team Description 12/24/2019 Clinical Communication Department of Gracie [phone] [address] (Work) [place] [phone] Social History Tobacco Use Types Packs/Day Years [...] or relatives? How often do you attend muslim or hindu 1 to 4 times per year 02/25/2021 services? Do you belong to any clubs or organizations Yes 02/25/2021 such as muslim groups, unions, fraternal or athletic groups, or [...] the highest level of school Associate degree: [employer], 10/09/2019 you have completed or the highest technical, or vocational p rogram degree you have received? Sex Assigned at Date Recorded Male 12/24/2018 8:16 PM CDT documented as of this encounter Plan of Treatment Upcoming Encounters Date Type Specialty Care Team Description 02/14/2022 Appointment Radiation Oncology Chris Grey M.D. [address] [place] [address] [phone] (Wo rk) documented as of this encounter Visit Diagnoses Not on filedocumented in this encounter
--- OUTSIDE RECORDS SUMMARY | 2022-02-09 10:08 | XMS_ITS | Encounter Summary ---
:1950 Author Organization [facility] Address [address] [place] [address] Care Team Providers Name Role Phone Unavailable Primary Care Provider Unavailable Encounter Details Date Type Department Care Team Description 04/19/2019 Ancillary Procedure Department of Annia Stewart Primar y Malignant Radiology in [place], M.S. Neoplasm Of Prostate [place], [place] [address] [facility] (HCC) [address] [place] [address] [phone] Social History Tobacco Use Types Packs/Day Years [...] or relatives? How often do you attend druze or sikh 1 to 4 times per year 02/25/2021 services? Do you belong to any clubs or organizations Yes 02/25/2021 such as druze groups, unions, fraternal or athletic groups, or [...] or slept in a snf (including now)? Education Answer Date Recorded What is the highest level of school Associate degree: academ [employer] program 02/01/2019 you have completed or the highest degree you have received? Sex Assigned at Date Recorded Male 12/24/2018 8:16 PM CDT documented as of this encounter Plan of Treatment Upcoming Encounters Date Type Specialty Care Team Description 02/14/2022 Appointment Radiation Oncology Chris Grey M.D. [address] [place], [place] [phone] (Wo rk) documented as of this encounter Procedures Procedure Name Priority Date/Time Associated Comments Diagnosis INTERPRETATION OF RAD - Routine 04/22/2019 7:21 Primary Result s for OUTSIDE NM PET SCAN (most inpatients AM REEL WINDER Malignant this procedure and all Neoplasm Of are in the outpatients) Prostate (HCC) results section. documented in this encounter Results Interpretation of Outside NM PET Scan (04/22/2019 7:21 AM REEL WINDER) Anatomical Region Laterality Modality Nuclear Medicine PET RST LOS, Nuclear Medicine ARZ LOS, N/A Nuclear Medicine Nuclear Medicine FLA LOS, Nuclear Medicine, Other Specimen (Source) Anatomical Collection Method Collection Time Re ceived Time Location / / Volume Laterality 04/23/2019 8:47 AM REEL WINDER Impressions 04/23/2019 3:49 PM REEL WINDER The multiple mildly prominent mesenteric and inguinal [...] lymphoproliferative disorder. ? Narrative 04/23/2019 3:49 PM REEL WINDER EXAM: ??INTERPRETATION OF OUTSIDE NM PET SCAN [...] a lymphoproliferative disorder. Annia Stewart P.A.-C., M.S. [facility] [place] PROCEDURES documented in this encounter Visit Diagnoses Diagnosis Primary Malignant Neoplasm Of Prostate ( HCC) documented in this encounter
--- OUTSIDE RECORDS SUMMARY | 2022-02-09 10:08 | XMS_ITS | Encounter Summary ---
:1950 Author Organization [facility] Address [address] [place] [address] Care Team Providers Name Role Phone Unavailable Primary Care Provider Unavailable Encounter Details Date Type Department Care Team Description 01/01/2021 Orders Only RST PCP TH Abril Baxter M.D. [address] [place], [place] [phone] (Wo rk) Social History [...] or relatives? How often do you attend hinduism or christianity 1 to 4 times per year 02/25/2021 services? Do you belong to any clubs or organizations Yes 02/25/2021 such as hinduism groups, unions, fraternal or athletic groups, or [...] Radiation Oncology Chris Grey M.D. [address] [place] [address] [phone] (Wo rk) documented as of this encounter Visit Diagnoses Not on filedocumented in this encounter
--- OUTSIDE RECORDS SUMMARY | 2022-02-09 10:08 | XMS_ITS | Encounter Summary ---
:1950 Author Organization [facility] Address [address] [place] [address] Care Team Providers Name Role Phone Unavailable Primary Care Provider Unavailable Reason for Referral Outpatient (Routine) - Closed Specialty Diagnoses / Procedures Referred By Contact Refer red To Contact Radiation Oncology Annia Stewart P.A.-C., B[facility] [address] [place] [phone] Referral ID Status Reason Start Date Expiration Date Visits Requ ested Visits Authorized [id number] Closed 04/26/2019 04/25/[address] A/P completed prior at [facility], need imag es and report. PSA and testosterone lab work completed prior also. Reason for Visit Outpatient (Routine) - Closed Specialty Diagnoses / Procedures Referred By Contact Refer red To Contact Radiation Oncology Annia Stewart P.A.-C., B[facility] [address] [place] [phone] Referral ID Status Reason Start Date Expiration Date Visits Requ ested Visits Authorized [id number] Closed 04/26/2019 04/25/2020 1 1 Encounter Details Date Type Department Care Team Description 10/14/2019 Hospital Encounter Department of Angel Grey Malignant Radiation Oncology Omaira Renteria Neoplasm Of Prostate in [address] (HCC) (Primary Dx) [place], [place] [address] [facility] [address] [place], [place] [phone] (Work) [phone] Social History Tobacco Use Types Packs/Day Years [...] How often do you attend sabianism or lutheran 1 to 4 times per year 02/25/2021 [...] as XP OPHT) needed (for dry eyes). [id number]-mmtbrnzl-qso Take 1 tablet by 0 /05/2013 ein (CENTURY MATURE) mouth. tablet omega 2-ugw-tvc-fish oil Take 1,200 mg by 0 1,000 [...] Prostate (HCC) SUPERVISED BY: Angel Grey M.D. ([phone]) HISTORY OF PRESENT ILLNESS Mr. Dick Sigala [...] with Dr. Laura for T1c prostate cancer, Menard 4+3=7. ??He discussed treatment options including expectant [...] 20, 2018: ??Patient saw Dr. Zamora at [facility] for chronic thrombocytopenia. 13. ??November 21, 2018: ??Patient received a Lupron 7.5 mg injection [facility]. 14. ??December 20, 2018: ??Patient received??a Lupron 22.5 injection at [facility]. ??This was??his last injection??for a total [...] definite hypermetabolic metastatic disease in the body. [facility] interpretation of outside imaging demonstrated that the multiple mildly prominent mesenteric and inguinal nodes had no or only minimal FDG uptake, likely inflammatory. No other findings were seen to indicate abdominal or pelvic malignancy, higher grade lymphoma, or a lymphoproliferative disorder. I spoke to the [facility] Radiologist regarding the uptake in the left [...] cN0, cM0, PSA: 5.1, Grade Group: 3) Menard 4 + 3??adenocarcinoma of the prostate 2.?Androgen [...] was reviewed today. Dr. Grey has ordered [facility] Radiology Interpretation of the images. The patient did not have his PSA and testosterone lab work completed, so he will have this done today at [facility] in [place]. We will call the patient when the [...] Stewart P.A.-C., M.S. 10/14/2019 10:33 AM CDT [facility] Radiation Therapy Center [address] [place] [address] Associated attestation - Angel Grey M.D. - [...] on my review. I have ordered a [place] radiology review. He did not have PSA and testosterone lab work done, so we will obtain this today and call him with the results of that and his CT scan review. We will base his follow-up off of that data. The patient verbalized satisfaction with this plan. Signed by: Angel Grey M.D. 10/14/2019 11:05 AM CDT [facility] Radiation Therapy [facility] [place] documented in this encounter Miscellaneous Notes Addendum Note - Shira Polo - 10/14/2019 9:30 AM CDT Encounter addended by: Shira Polo on: 10/14/2019 11:55 AM Actions taken: Letter saved documented in this encounter Plan of Treatment Upcoming Encounters Date Type Specialty Care Team Description 02/14/2022 Appointment Radiation Oncology Chris Grey M.D. [address] [place], [place] [phone] (Wo rk) Scheduled Referrals [...]
--- OUTSIDE RECORDS SUMMARY | 2022-02-09 10:08 | XMS_ITS | Encounter Summary ---
:1950 Author Organization [facility] Address [address] [place] [address] Care Team Providers Name Role Phone Unavailable Primary Care Provider Unavailable Reason for Referral Outpatient (Routine) - Closed Specialty Diagnoses / Procedures Referred By Contact Refer red To Contact Radiation Oncology Annia Stewart P.A.-C., B[facility] [address] [place] [phone] Referral ID Status Reason Start Date Expiration Date Visits Requ ested Visits Authorized [id number] Closed 01/29/2020 01/28/2021 1 1 Scheduling Instructions Please get PSA results and office notes from Dr. Laura. If patient has not had a recent PSA, please let us know and we ca n place an order. Thank you! OBIOLOGY MANAGER Reason for Visit Outpatient (Routine) - Closed Specialty Diagnoses / Procedures Referred By Contact Refer red To Contact Radiation Oncology Annia Stewart P.A.-C., BENNY [facility] [address] [place] [address] Referral ID Status Reason Start Date Expiration Date Visits Requ ested Visits Authorized [id number] Closed 01/29/2020 01/28/2021 1 1 Encounter Details Date Type Department Care Team Description 03/01/2021 Hospital Encounter Department of Angel Grey Malignant Radiation Oncology Omaira Renteria Neoplasm Of Prostate in [place], [address] [facility] (HCC) (Primary Dx) [place], [place] [address] [facility] [address] [place], [place] [phone] (Work) [phone] Social History Tobacco Use Types Packs/Day Years [...] or relatives? How often do you attend hoahaoism or sikhism 1 to 4 times per year 02/25/2021 services? Do you belong to any clubs or organizations Yes 02/25/2021 such as hoahaoism groups, unions, fraternal or athletic groups, or [...] Comments Blood Pressure 137/72 03/01/2021 3:28 PM MICROBIOLOGY MANAGER Pulse 53 03/01/2021 3:28 PM MICROBIOLOGY MANAGER Temperature 36.7 ??C (98 ??F) 03/01/2021 3:28 PM MICROBIOLOGY MANAGER Respiratory Rate - - Oxygen Saturation - - Inhaled Oxygen Concentration - - Weight 94.2 kg (207 lb 10.8 oz) 03/01/2021 3:28 PM MICROBIOLOGY MANAGER Height - - Body Mass Index 30.67 [...] into each nostril mcg/actuation nasal spray daily. [id number]-auykhpin-ufg Take 1 tablet by 0 05/2013 ein (CENTURY MATURE) mouth. tablet omega 3-bsm-hut-fish oil Take 1,200 mg by 0 1,000 [...] Prostate (HCC) SUPERVISED BY: Angel Grey M.D. ([phone]) HISTORY OF PRESENT ILLNESS Mr. Dick Sigala [...] neoplasia, focal and adenocarcinoma of the prostate, Imbler 4+3=7, involving 1-40% of the length of [...] with Dr. Laura for T1c prostate cancer, Imbler 4+3=7. ??He discussed treatment options including expectant [...] 20, 2018: ??Patient saw Dr. Zamora at [facility] for chronic thrombocytopenia. 13. ??November 21, 2018: ??Patient received a Lupron 7.5 mg injection [facility]. 14. ??December 20, 2018: ??Patient received??a Lupron 22.5 injection at [facility]. ??This was??his last injection??for a total [...] definite hypermetabolic metastatic disease in the body. ??[facility] interpretation of outside imaging demonstrated that the multiple mildly prominent mesenteric and inguinal nodes had no or??only minimal FDG uptake, likely inflammatory. ??No other findings were seen to indicate abdominal or pelvic malignancy, higher grade lymphoma, or a??lymphoproliferative disorder. ??I spoke to the [facility] Radiologist regarding the uptake in the [...] PSA 0.07 ng/mL. Testosterone total 330 ng/dL. . February 18, 2021: PSA 0.18 ng/mL. INTERVAL [...] 5, 5 all with the aid of [email or web address]). December 20, 2018: ??5 (1, 1, 1, [...] PSA lab draw to be done at [facility] and [facility] in [place] in 6 months. We will send the [...] Annia Stewart P.A.-C., M.S. 03/01/2021 3:55 PM MICROBIOLOGY MANAGER [facility] Radiation Therapy Center [address] [place] [address] OBIOLOGY MANAGER Associated attestation - Angel Grey M.D. - 03/01/2021 4:28 PM MICROBIOLOGY MANAGER I saw and evaluated the patient and [...] by: Angel Grey M.D. 03/01/21 4:28 PM MICROBIOLOGY MANAGER [facility] Radiation Therapy [facility] [place] documented in this encounter Miscellaneous Notes Addendum Note - Shannan Suarez C.N.A. - 03/01/2021 3:30 PM MICROBIOLOGY MANAGER Encounter addended by: Shannan Suarez C.NGustavo on: 03/02/2021 7:06 AM Actions taken: Letter saved OBIOLOGY MANAGER documented in this encounter Plan of Treatment Upcoming Encounters Date Type Specialty Care Team Description 02/14/2022 Appointment Radiation Oncology Chris Grey M.D. [address] [place], [place] [phone] (Wo rk) Scheduled Referrals Name Type Priority Associated Order Schedule Diagnoses Radiation Oncology Outpatient Referral Routine On ce for 1 office visit Occurrences sta rting (clinic) 03/01/2021 unti l 03/01/2021 documented as of this encounter Visit Diagnoses Diagnosis Primary Malignant Neoplasm Of Prostate ( HCC) - Primary documented in this encounter
--- OUTSIDE RECORDS SUMMARY | 2022-02-09 10:08 | XMS_ITS | Encounter Summary ---
:1950 Author Organization [facility] Address [address] [place] [address] Care Team Providers Name Role Phone Unavailable Primary Care Provider Unavailable Encounter Details Date Type Department Care Team Description 10/11/2019 Clinical Communication Department of Mee Berry Radiation Oncology in [address] [place] [address] 1821 [place] [phone] Social History Tobacco Use Types Packs/Day Years [...] How often do you attend pentecostal or buddhism 1 to 4 times per year 02/25/2021 [...] Appointment Radiation Oncology Chris Grey M.D. [address] [place] [address] [phone] (Wo rk) documented as of this encounter Visit Diagnoses Not on filedocumented in this encounter
--- OUTSIDE RECORDS SUMMARY | 2022-02-09 10:08 | XMS_ITS | Encounter Summary ---
:1950 Author Organization [facility] Address [address] [place] [address] Care Team Providers Name Role Phone Unavailable Primary Care Provider Unavailable Reason for Referral Outpatient (Routine) - Closed Specialty Diagnoses / Procedures Referred By Contact Refer red To Contact Radiation Oncology Annia Stewart P.A.-C., BENNY Good[facility] [address] [place] [phone] Referral ID Status Reason Start Date Expiration Date Visits Requ ested Visits Authorized [id number] Closed 02/27/2019 02/27/2020 1 1 Scheduling Instructions PET/CT scan prior at [facility] DRY ROUTE DRIVER Reason for Visit Outpatient (Routine) - Closed Specialty Diagnoses / Procedures Referred By Contact Refer red To Contact Radiation Oncology Annia Stewart P.A.-C., BENNY Goodwin [facility] [address] [place] [phone] Referral ID Status Reason Start Date Expiration Date Visits Requ ested Visits Authorized [id number] Closed 02/27/2019 02/27/2020 1 1 Encounter Details Date Type Department Care Team Description 04/19/2019 Hospital Encounter Department of Angel Grey Malignant Radiation Oncology Omaira Renteria Neoplasm Of Prostate in [address] (HCC) (Primary Dx) [place], [place] [address] [facility] [address] [place], [place] [phone] (Work) [phone] Social History Tobacco Use Types Packs/Day Years [...] How often do you attend quaker or rastafarian 1 to 4 times per year 02/25/2021 [...] highest level of school Associate degree: academ [employer] program 02/01/2019 you have completed or the highest degree you have received? Sex Assigned at Date Recorded Male 12/24/2018 8:16 PM CDT documented as of this encounter Last Filed Vital Signs Vital Sign Reading Time Taken Comments Blood Pressure 112/68 04/19/2019 3:48 PM LAUNDRY ROUTE DRIVER Pulse 70 04/19/2019 3:48 PM LAUNDRY ROUTE DRIVER Temperature 36.5 ??C (97.7 ??F) 04/19/2019 3:48 PM LAUNDRY ROUTE DRIVER Respiratory Rate - - Oxygen Saturation - - Inhaled Oxygen Concentration - - Weight 92.3 kg (203 lb 7.8 oz) 04/19/2019 3:48 PM LAUNDRY ROUTE DRIVER Height - - Body Mass Index [...] as XP OPHT) needed (for dry eyes). roacfzlprgqn-ovrzkoqi-xic Take 1 tablet by 0 05/2013 ein (CENTUR[facility] MATURE) mouth. tablet omega 8-deh-lia-fish oil Take 1,200 mg by 0 1,000 [...] Prostate (HCC) SUPERVISED BY: Angel Grey M.D. ([id number]) HISTORY OF PRESENT ILLNESS Mr. Dick Sigala [...] left prostate demonstrated adenocarcinoma of the prostate, [place] 3+4=7,involving 10-30% of the length of 3 [...] 20, 2018: ??Patient saw Dr. Zamora at [facility] for chronic thrombocytopenia. 13. ??November 21, 2018: ??Patient received a Lupron 7.5 mg injection [facility]. 14. ??December 20, 2018: ??Patient received??a Lupron 22.5 injection at [facility]. ??This was??his last injection??for a total of [...] cN0, cM0, PSA: 5.1, Grade Group: 3) [place] 4 + 3??adenocarcinoma of the prostate 2.?Androgen [...] the images. Dr. Grey also recommended a [facility] Radiology interpretation of the images and I will place an order. I will call the patient and review the results with him next week when they are available. The patient did report having a colonoscopy earlier this year through [facility] and I have also requested those records. I will order for a PSA and testosterone blood draw to be done at [facility] in [place] in three months. We will call the [...] Annia Stewart P.A.-C., M.S. 04/19/2019 3:30 PM LAUNDRY ROUTE DRIVER [facility] [address] [place] [address] DRY ROUTE DRIVER documented in this encounter Plan of Treatment Upcoming Encounters Date Type Specialty Care Team Description 02/14/2022 Appointment Radiation Oncology Chris Grey M.D. [address] [place], [place] [phone] (Wo rk) Scheduled Referrals Name Type Priority Associated Order Schedule Diagnoses Radiation Oncology Outpatient Referral Routine On ce for 1 office visit Occurrences sta rting (clinic) 04/19/2019 unti l 04/19/2019 documented as of this encounter Results Interpretation of Outside NM PET Scan (04/22/2019 7:21 AM LAUNDRY ROUTE DRIVER) Anatomical Region Laterality Modality Nuclear Medicine PET RST LOS, Nuclear Medicine ARZ LOS, N/A Nuclear Medicine Nuclear Medicine FLA LOS, Nuclear Medicine, Other Specimen (Source) Anatomical Collection Method Collection Time Re ceived Time Location / / Volume Laterality 04/23/2019 8:47 AM LAUNDRY ROUTE DRIVER Impressions 04/23/2019 3:49 PM LAUNDRY ROUTE DRIVER The multiple mildly prominent mesenteric and [...] lymphoproliferative disorder. ? Narrative 04/23/2019 3:49 PM LAUNDRY ROUTE DRIVER EXAM: ??INTERPRETATION OF OUTSIDE NM PET [...] a lymphoproliferative disorder. Annia Stewart P.A.-C., M.S. IMG NM PROCEDURES documented in this encounter Visit Diagnoses Diagnosis Primary Malignant Neoplasm Of Prostate ( HCC) - Primary Primary Malignant Neoplasm Of Prostate ( HCC) documented in this encounter
--- OUTSIDE RECORDS SUMMARY | 2022-02-09 10:08 | XMS_ITS | Encounter Summary ---
:1950 Author Organization [facility] Address [address] [place] [address] Care Team Providers Name Role Phone Unavailable Primary Care Provider Unavailable Encounter Details Date Type Department Care Team Description 02/10/2021 Immunization Department of [facility] Mike Turcios Cance led (Clinic: Pepito Del Castillo M.D., Ph. D. Request) Clinic, in [address] [phone] Social History Tobacco Use Types Packs/Day Years [...] or relatives? How often do you attend cheondoism or nondenominational 1 to 4 times per year 02/25/2021 services? Do you belong to any clubs or organizations Yes 02/25/2021 such as cheondoism groups, unions, fraternal or athletic groups, or [...] Appointment Radiation Oncology Chris Grey M.D. [address] [place] [phone] (Wo rk) documented as of this encounter Visit Diagnoses Not on filedocumented in this encounter
--- OUTSIDE RECORDS SUMMARY | 2022-02-09 10:08 | XMS_ITS | Encounter Summary ---
:1950 Author Organization [facility] Address [address] [place] [address] Care Team Providers Name Role Phone Unavailable Primary Care Provider Unavailable Encounter Details Date Type Department Care Team Description 02/10/2021 Immunization Department of [facility] Mike Turcios M.D., Medicine, [place] Ph.D. [facility], [address] [address] [place] [address] [phone] Social History Tobacco Use Types Packs/Day Years [...] or relatives? How often do you attend yazdanism or faith 1 to 4 times per year 02/25/2021 services? Do you belong to any clubs or organizations Yes 02/25/2021 such as yazdanism groups, unions, fraternal or athletic groups, or [...] Radiation Oncology Chris Grey M.D. [address] [place], [place] [phone] (Wo rk) documented as of this encounter Visit Diagnoses Not on filedocumented in this encounter
--- OUTSIDE RECORDS SUMMARY | 2022-02-09 10:08 | XMS_ITS | Encounter Summary ---
:1950 Author Organization [facility] Address [address] [place] [address] Care Team Providers Name Role Phone Unavailable Primary Care Provider Unavailable Reason for Referral Outpatient (Routine) - Closed Specialty Diagnoses / Procedures Referred By Contact Refer red To Contact Radiation Oncology Annia Stewart P.A.-C., [facility] [address] [place] [address] Referral ID Status Reason Start Date Expiration Date Visits Requ ested Visits Authorized [id number] Closed 01/29/2020 01/28/2021 1 1 Scheduling Instructions Please get PSA results and office notes from Dr. Laura. If patient has not had a recent PSA, please let us know and we ca n place an order. Thank you! Encounter Details Date Type Department Care Team Description 01/29/2020 Orders Only Department of Radiation Annia Stewart P.A .-C., Oncology in [facility] [address] [facility] [address] [place] [phone] (Wo rk) Social History Tobacco Use Types [...] or relatives? How often do you attend episcopal or jainism 1 to 4 times per year 02/25/2021 services? Do you belong to any clubs or organizations Yes 02/25/2021 such as episcopal groups, unions, fraternal or athletic groups, or [...] Appointment Radiation Oncology Chris Grey M.D. [address] [place] [phone] (Wo rk) Scheduled Referrals Name Type Priority Associated Diagnoses Order S mary janedule Radiation Oncology Outpatient Referral Routine Ex pected: office visit 03/01/2021 (clinic) (Approximate), Expires: 02/17/2022 documented as of this encounter Visit Diagnoses Not on filedocumented in this encounter
--- OUTSIDE RECORDS SUMMARY | 2022-02-09 10:08 | XMS_ITS | Encounter Summary ---
:1950 Author Organization [facility] Address [address] [place] [address] Care Team Providers Name Role Phone Unavailable Primary Care Provider Unavailable Encounter Details Date Type Department Care Team Description 05/29/2019 Clinical Communication Department of Angel Grey Radiation Oncology [place] [address] [facility] [address] [place] [phone] Social History Tobacco Use Types Packs/Day Years [...] or relatives? How often do you attend jain or taoism 1 to 4 times per year 02/25/2021 services? Do you belong to any clubs or organizations Yes 02/25/2021 such as jain groups, unions, fraternal or athletic groups, or [...] or slept in a longterm (including now)? Education Answer Date Recorded What is the highest level of school Associate degree: academ [employer] program 02/01/2019 you have completed or the highest degree you have received? Sex Assigned at Date Recorded Male 12/24/2018 8:16 PM CDT documented as of this encounter Plan of Treatment Upcoming Encounters Date Type Specialty Care Team Description 02/14/2022 Appointment Radiation Oncology Chris Grey M.D. [address] [place], [place] [phone] (Wo rk) documented as of this encounter Visit Diagnoses Not on filedocumented in this encounter
--- OUTSIDE RECORDS SUMMARY | 2022-02-09 10:08 | XMS_ITS | Encounter Summary ---
:1950 Author Organization [facility] Address [address] [place] [address] Care Team Providers Name Role Phone Unavailable Primary Care Provider Unavailable Encounter Details Date Type Department Care Team Description 10/23/2019 Orders Only Department of Radiation Annia Stewart Pri mary Malignant Oncology in [place], PFaisal M.S. Neoplasm Of Prostate [place] [address] [facility] (HCC) (Primary Dx) [address] [place] [phone] Social History Tobacco Use Types Packs/Day Years [...] or relatives? How often do you attend confucianist or jehovah's witness 1 to 4 times per year 02/25/2021 services? Do you belong to any clubs or organizations Yes 02/25/2021 such as confucianist groups, unions, fraternal or athletic groups, or [...] Appointment Radiation Oncology Chris Grey M.D. [address] [place] [phone] (Wo rk) documented as of this encounter Visit Diagnoses Diagnosis Primary Malignant Neoplasm Of Prostate ( HCC) - Primary documented in this encounter
--- OUTSIDE RECORDS SUMMARY | 2022-02-09 10:08 | XMS_ITS | Encounter Summary ---
:1950 Author Organization [facility] Address [address] [place] [address] Care Team Providers Name Role Phone Unavailable Primary Care Provider Unavailable Encounter Details Date Type Department Care Team Description 10/22/2019 Clinical Communication Department of Angel Grey Radiation Oncology [place] [address] [facility] [address] [place] [phone] Social History Tobacco Use Types Packs/Day Years [...] or relatives? How often do you attend latter day or samaritan 1 to 4 times per year 02/25/2021 services? Do you belong to any clubs or organizations Yes 02/25/2021 such as latter day groups, unions, fraternal or athletic groups, or [...] this encounter Miscellaneous Notes Telephone Encounter - Gracie Heredia - 10/22/2019 3:32 PM CDT Caller: Patient Is there a valid authorization to speak with caller? Yes Primary Radiation Oncologist: Dr. Grey Reason for call: Returning your call. Please call him back when you are able. Phone number: [phone] Is it okay to leave a voicemail on answering machine with test results? Yes Pharmacy (if medication related): N/A Gracie Heredia documented in this encounter Plan of Treatment Upcoming Encounters Date Type Specialty Care Team Description 02/14/2022 Appointment Radiation Oncology Chris Grey M.D. [address] [place] [phone] (Wo rk) documented as of this encounter Visit Diagnoses Not on filedocumented in this encounter
--- OUTSIDE RECORDS SUMMARY | 2022-02-09 10:08 | XMS_ITS ---
:1950 Author Organization [facility] Address [address] [place] [address] Care Team Providers Name Role Phone Unavailable [...] Elapsed Days Session Dose Total Dos e [id number] 02/27/2019 27 300 cGy 6,000 cGy
--- OUTSIDE RECORDS SUMMARY | 2022-02-09 10:08 | XMS_ITS | Encounter Summary ---
:1950 Author Organization [facility] Address [address] [place] [address] Care Team Providers Name Role Phone Unavailable Primary Care Provider Unavailable Encounter Details Date Type Department Care Team Description 07/23/2019 Clinical Communication Department of Gracie Heredia [facility] [phone] [address] (Work) [place] [phone] Social History Tobacco Use Types Packs/Day Years [...] How often do you attend yazidism or gnosticist 1 to 4 times per [...] Appointment Radiation Oncology Chris Grey M.D. [address] [place] [phone] (Wo rk) documented as of this encounter Visit Diagnoses Not on filedocumented in this encounter
--- OUTSIDE RECORDS SUMMARY | 2022-02-09 10:08 | XMS_ITS | Encounter Summary ---
:1950 Author Organization [facility] Address [address] [place] [address] Care Team Providers Name Role Phone Unavailable Primary Care Provider Unavailable Encounter Details Date Type Department Care Team Description 10/29/2019 Clinical Communication Department of Radiation Cheri Al, Oncology in [facility] [address] [facility] [address] [place] [phone] Social History Tobacco Use Types Packs/Day Years [...] How often do you attend hinduism or anglican 1 to 4 times per [...] Radiation Oncology Chris Grey M.D. [address] [place], [place] [phone] (Wo rk) documented as of this encounter Visit Diagnoses Not on filedocumented in this encounter
--- OUTSIDE RECORDS SUMMARY | 2022-02-09 10:08 | XMS_ITS | Encounter Summary ---
:1950 Author Organization [facility] Address [address] [place] [address] Care Team Providers Name Role Phone Unavailable Primary Care Provider Unavailable Reason for Visit Reason Comments Results Encounter Details Date Type Department Care Team Description 10/25/2019 Clinical Communication Department of Radiation Cheri Al, Results Oncology in [facility] [address] [facility] [address] [place] [phone] Social History Tobacco Use Types Packs/Day Years [...] How often do you attend samaritan or alevism 1 to 4 times per [...] Miscellaneous Notes Telephone Encounter - Cheri Al Xiomy Kim - 10/29/2019 1:07 PM CDT Test Result [...] left prostate demonstrated adenocarcinoma of the prostate, [place] 3+4=7,involving 10-30% of the length of 3 [...] 20, 2018: ??Patient saw Dr. Zamora at [facility] for chronic thrombocytopenia. 13. ??November 21, 2018: ??Patient received a Lupron 7.5 mg injection [facility]. 14. ??December 20, 2018: ??Patient received??a Lupron 22.5 injection at [facility]. ??This was??his last injection??for a [...] metastatic disease in the body. ??[facility] interpretation of outside imaging demonstrated that the multiple mildly prominent mesenteric and inguinal nodes had no or??only minimal FDG uptake, likely inflammatory. ??No other findings were seen to indicate abdominal or pelvic malignancy, higher grade lymphoma, or a??lymphoproliferative disorder. ??I spoke to the [facility] Radiologist regarding the uptake in the [...] repeat lab work to be completed at [facility] in [place] this coming January. Patient reports that he is doing well overall. No hematuria, diarrhea, rectal bleeding, feelings of obstruction, dysuria, bone pain or new symptoms or concerns. Radiation Oncology [place] can be contacted at anytime for concerns [...] 02/14/2022 Appointment Radiation Oncology Chris Grey M.D. [address] [place] [address], [place] [phone] (Wo rk) documented as [...] AM CDT) P athologist Signature EXT <0.06 [place] [facility] CL[facility], Diagnostic, S [facility] ([facility]) Specimen (Source) Anatomical Collection Method Collection Time Re ceived Time Location / / Volume Laterality Blood (Blood, 10/14/2019 9:44 AM Venous) CDT Angel Grey M.D. LAB BLOOD ADD-ON Performing Organization Address City/[facility] Code Phon e Number [facility], [address] [place] [address] [phone] [facility]) PSA (Prostate-Specific Antigen), Diagnostic (10/14/2019 9:44 AM CDT) Specimen (Source) Anatomical Collection Method Collection Time Re ceived Time Location / / Volume Laterality Blood (Blood, 10/14/2019 9:44 AM Venous) CDT Angel Grey M.D. LAB BLOOD ADD-ON Performing Organization Address City/State/[facility] Phon e Number [facility], [address] [place] [phone] [facility]) documented in this encounter Visit Diagnoses Not on filedocumented in this encounter
--- OUTSIDE RECORDS SUMMARY | 2022-02-09 10:08 | XMS_ITS | Encounter Summary ---
:1950 Author Organization [facility] Address [address] [place] [address] Care Team Providers Name Role Phone Unavailable Primary Care Provider Unavailable Encounter Details Date Type Department Care Team Description 02/24/2021 Orders Only Department of Radiation Cheri Al, Primary Malignant Oncology in [facility] Neoplasm Of Prostate [place] [address] [facility] (HCC) (Primary Dx) [address] [place] [phone] Social History Tobacco Use Types Packs/Day Years [...] How often do you attend alevism or hoahaoism 1 to 4 times per year 02/25/2021 [...] Radiation Oncology Chris Grey M.D. [address] [place], [place] [phone] (Wo rk) documented as of this encounter Visit Diagnoses Diagnosis Primary Malignant Neoplasm Of Prostate ( HCC) - Primary documented in this encounter
--- OUTSIDE RECORDS SUMMARY | 2022-02-09 10:08 | XMS_ITS | Encounter Summary ---
:[address] [facility] Address [address] [place] [address] Care Team Providers Name Role Phone Unavailable Primary Care Provider Unavailable Encounter Details Date Type Department Care Team Description 10/14/2019 Ancillary Procedure Department of Angel Grey Malignant Radiology in [place] Neoplasm Of Prostate [place], [place] [address] [facility] (HCC) [address] [place] [phone] Social History Tobacco Use Types Packs/Day Years [...] or relatives? How often do you attend sikhism or gnosticism 1 to 4 times per year 02/25/2021 services? Do you belong to any clubs or organizations Yes 02/25/2021 such as sikhism groups, unions, fraternal or athletic groups, or [...] or the highest technical, or vocational p elleram degree you have received? Sex Assigned at Date Recorded Male 12/24/2018 8:16 PM CDT documented as of this encounter Plan of Treatment Upcoming Encounters Date Type Specialty Care Team Description 02/14/2022 Appointment Radiation Oncology Chris Grey M.D. [address] [place], [place] [phone] (Wo rk) documented as [...]
--- OUTSIDE RECORDS SUMMARY | 2022-02-09 10:08 | XMS_ITS | Encounter Summary ---
:1950 Author Organization [facility] Address [address] [place] [address] Care Team Providers Name Role Phone Unavailable Primary Care Provider Unavailable Reason for Referral Outpatient (Routine) - Authorized Specialty Diagnoses / Procedures Referred By Contact Refer red To Contact Radiation Oncology Diagnoses Primary Malignant Neoplasm Of Prostate (HCC) Annia Stewart P.A.-C., [facility] [place] M.S. [address] [place] [phone] Referral ID Status Reason Start Date Expiration Date Visits V isits Requested Authorized [id number] Authorized 08/12/2021 08/12/2022 1 1 Encounter Details Date Type Department Care Team Description 08/12/2021 Orders Only Department of Radiation Brissa Willis Pri mary Malignant Oncology in [facility] Neoplasm Of Prostate [address] (HCC) (Primary Dx) [address] [place] [phone] Social History Tobacco Use Types Packs/Day Years [...] How often do you attend sikh or congregational 1 to 4 times per [...] Radiation Oncology Chris Grey M.D. [address] [place], [place] [phone] (Wo rk) Scheduled Referrals Name Type Priority Associated Diagnoses Order S [facility] Radiation Oncology Outpatient Referral Routine Primary Maligna nt Expected: office visit Neoplasm Of Prostate 022 (clinic) (HCC) (Approximate), Expires: 08/12/2022 documented as of this encounter Visit Diagnoses Diagnosis Primary Malignant Neoplasm Of Prostate ( HCC) - Primary documented in this encounter
--- OUTSIDE RECORDS SUMMARY | 2022-02-09 10:08 | XMS_ITS | Encounter Summary ---
:1950 Author Organization [facility] Address [address] [place] [address] Care Team Providers Name Role Phone Unavailable Primary Care Provider Unavailable Encounter Details Date Type Department Care Team Description 02/27/2019 Clinical Communication Department of Mee Berry Radiation Oncology in [address] [place] [address] [address] [place] [phone] Social History Tobacco Use Types Packs/Day Years [...] How often do you attend pentecostal or sabianist 1 to 4 times per year 02/25/2021 [...] highest level of school Associate degree: academ [employer] program 02/01/2019 you have completed or the highest degree you have received? Sex Assigned at Date Recorded Male 12/24/2018 8:16 PM CDT documented as of this encounter Plan of Treatment Upcoming Encounters Date Type Specialty Care Team Description 02/14/2022 Appointment Radiation Oncology Chris Grey M.D. [address] [place] [phone] (Wo rk) documented as of this encounter Visit Diagnoses Not on filedocumented in this encounter
--- OUTSIDE RECORDS SUMMARY | 2022-02-09 10:08 | XMS_ITS | Clinical Summary ---
:1950 Author Organization [facility] Address [address] [place] [address] Care Team Providers Name Role Phone Unavailable Primary Care Provider Unavailable Source Comments Patient records contain information from all sites at [facility]. For routine questions regarding patient records, call [phone] during business hours, M-F 8:00 AM - 5:00 PM Central Time. Record requests for emergency care only can be directed to [phone] at any time.[facility] Allergies No known active allergies Medications Medication [...] (six) hours as needed for pain. omega 5-jmw-qyh-fish Take 1,200 mg by 0 Active oil [...] How often do you attend pentecostalism or orthodox 1 to 4 times per [...] to sleep or slept in a senior living (including now)? Education Answer Date Recorded What is the highest level of school Associate degree: magda leigh, 10/09/2019 you have completed or the highest technical, or vocational p leelee degree you have received? Sex Assigned at Date Recorded Male 12/24/2018 8:16 PM CDT Last Filed Vital Signs Vital Sign Reading Time Taken Comments Blood Pressure 137/72 03/01/2021 3:28 PM ELECTROPHYSIOLOGY TECHNOLOGIST Pulse 53 03/01/2021 3:28 PM ELECTROPHYSIOLOGY TECHNOLOGIST Temperature 36.7 ??C (98 ??F) 03/01/2021 3:28 PM ELECTROPHYSIOLOGY TECHNOLOGIST Respiratory Rate - - Oxygen Saturation - - Inhaled Oxygen Concentration - - Weight 94.2 kg (207 lb 10.8 oz) 03/01/2021 3:28 PM ELECTROPHYSIOLOGY TECHNOLOGIST Height 175.3 cm (5' 9) 11/12/2018 9:48 AM CDT Body Mass Index 30.67 11/12/2018 9:48 AM CDT Plan of Treatment Upcoming Encounters Date Type Specialty Care Team Description 02/14/2022 Appointment Radiation Oncology Chris Grey M.D. [address] [place], [place] [phone] (Wo rk) Health Maintenance Due Date Last [...] 10/29/2015, 04/2014 Zoster Vaccines Completed 10/15/2018, 07/27/2018 Abdominal Aortic Aneurysm (AAA) Discontinued 10/23/2018, 12/23 Screen Medical Devices Implanted Type Area Equipment Coordinator Device Shelf Model / Serial / Identifier Expiration Lot Date Marker Gold Seed - [id number] - [id number] Imaging Team [id number] / Implanted: Qty: 4 on 12/27/2018 by William Mendez M.D. at [facility] [employer] [id number] / Jamir [id number] Insurance Payer Benefit Plan / Subscriber ID Effective Phone Address T ype Group Dates [facility] [id number] 2015-Pres [phone] [address] PPO OPEN ACCESS ent [address] [place] [address]
--- OUTSIDE RECORDS SUMMARY | 2022-02-09 10:09 | XMS_ITS | Encounter Summary ---
:1950 Author Organization [facility] Address [address] [place] [address] Care Team Providers Name Role Phone Unavailable Primary Care Provider Unavailable Reason for Referral Radiation Therapy (Routine) - Canceled Specialty Diagnoses / Procedures Referred By Contact Refer red To Contact Diagnoses Primary Malignant Neoplasm Of Prostate (HCC) Angel Grey M.D. [facility] Procedures Management Visit [address] [place] [phone] Referral ID Status Reason Start Date Expiration Date Visits V isits Requested Authorized [id number] Canceled 12/20/2018 12/20/2019 10 10 Reason for Visit Radiation Therapy (Routine) - Canceled Specialty Diagnoses / Procedures Referred By Contact Refer red To Contact Diagnoses Primary Malignant Neoplasm Of Prostate (HCC) Angel Grey [facility].D. [facility] Procedures Management Visit [address] [place] [phone] Referral ID Status Reason Start Date Expiration Date Visits V isits Requested Authorized [id number] Canceled 12/20/2018 12/20/2019 10 10 Encounter Details Date Type Department Care Team Description 02/06/2019 Hospital Encounter Department of Chris Grey M.D. [address] [place] [address] [phone] Primary Malignant Radiation Oncology Karely Cosme M.D. [address] [place] [phone] Neoplasm Of Prostate in [place], ([facility]) [place] [address] [place] [address] Social History Tobacco Use Types [...] How often do you attend alevism or nondenominational 1 to 4 times per [...] the highest level of school Associate degree: [employer] program 02/01/2019 you have completed or the [...] as XP OPHT) needed (for dry eyes). husqtjtcilpa-aeftpvyv-bup Take 1 tablet by 0 /0 05/2013 ein (CENTURY MATURE) mouth. tablet omega 1-qag-wdq-fish oil Take 1,200 mg by 0 1,000 [...] Neoplasm Of Prostate (HCC) SUPERVISED BY: Karely Carmelina, M.D. HISTORY OF PRESENT ILLNESS Mr. Dick [...] cN0, cM0, PSA: 5.1, Grade Group: 3) [place] 4 + 3 adenocarcinoma of the prostate [...] 02/14/2022 Appointment Radiation Oncology Chris Grey M.D. [address] [place] [phone] (Wo rk) Scheduled Orders Name Type Priority Associated Diagnoses Order S chedule Management Visit Radiation Oncology Routine Primary Malignant Once for 1 Neoplasm Of Prostate Occurre nces starting (HCC) 02/06/2019 untdana estrella 02/06/2019 documented as of this encounter Visit Diagnoses Diagnosis Primary Malignant Neoplasm Of Prostate ( HCC) documented in this encounter
--- OUTSIDE RECORDS SUMMARY | 2022-02-09 10:09 | XMS_ITS | Encounter Summary ---
:1950 Author Organization [facility] Address [address] [place] [address] Care Team Providers Name Role Phone Unavailable Primary Care Provider Unavailable Reason for Visit Radiation Therapy (Routine) - Closed Specialty Diagnoses / Procedures Referred By Contact Refer red To Contact Diagnoses Primary Malignant Neoplasm Of Prostate (HCC) Angel Grey M.D. [facility] Procedures Prior Auth Rad Tx [place] IMRT SIMPLE [address] [place] [address] Referral ID Status Reason Start Date Expiration Date Visits Requ ested Visits Authorized [id number] Closed 12/20/2018 12/20/2019 20 20 Encounter Details Date Type Department Care Team Description 02/14/2019 Hospital Encounter Department of Radiation Willi Grey, [place] [address] [facility] [address] [place] [address] [phone] Social History Tobacco Use Types Packs/Day Years [...] or relatives? How often do you attend rastafarian or christian 1 to 4 times per year 02/25/2021 services? Do you belong to any clubs or organizations Yes 02/25/2021 such as rastafarian groups, unions, fraternal or athletic groups, or [...] the highest level of school Associate degree: [employer] program 02/01/2019 you have completed or the [...] as XP OPHT) needed (for dry eyes). opaytfsbnmdb-lubamifs-lyh Take 1 tablet by 0 05/2013 ein (CENTURY MATURE) mouth. tablet omega 7-ilz-obu-fish oil Take 1,200 mg by 0 1,000 [...] Appointment Radiation Oncology Chris Grey M.D. [address] [place] [phone] (Wo reggie) documented as of this encounter Visit Diagnoses Not on filedocumented in this encounter
--- OUTSIDE RECORDS SUMMARY | 2022-02-09 10:09 | XMS_ITS | Encounter Summary ---
:1950 Author Organization [facility] Address [address] [place] [address] Care Team Providers Name Role Phone Unavailable Primary Care Provider Unavailable Reason for Visit Radiation Therapy (Routine) - Closed Specialty Diagnoses / Procedures Referred By Contact Refer red To Contact Diagnoses Primary Malignant Neoplasm Of Prostate (HCC) Angel Grey M.D. [facility] Procedures Prior Auth Rad Tx [place] IMRT SIMPLE [address] [place] [address] Referral ID Status Reason Start Date Expiration Date Visits Requ ested Visits Authorized [id number] Closed 12/20/2018 12/20/2019 20 20 Encounter Details Date Type Department Care Team Description 02/07/2019 Hospital Encounter Department of Radiation Willi Grey, [place] [address] [facility] [address] [place] [address] [phone] Social History Tobacco Use Types Packs/Day Years [...] How often do you attend confucianist or restoration 1 to 4 times per year 02/25/2021 [...] or slept in a fci (including now)? Education Answer Date Recorded What is the highest level of school Associate degree: [employer] program 02/01/2019 you have completed or the [...] as XP OPHT) needed (for dry eyes). wicgccpvlnpe-htqdmgvd-gub Take 1 tablet by 0 05/2013 ein (CENTURY MATURE) mouth. tablet omega 9-nbj-rdk-fish oil Take 1,200 mg by 0 1,000 [...] Appointment Radiation Oncology Chris Grey M.D. [address] [place] [phone] (Wo reggie) documented as of this encounter Visit Diagnoses Not on filedocumented in this encounter
--- OUTSIDE RECORDS SUMMARY | 2022-02-09 10:09 | XMS_ITS | Encounter Summary ---
:1950 Author Organization [facility] Address [address] [place] [address] Care Team Providers Name Role Phone Unavailable Primary Care Provider Unavailable Reason for Visit Radiation Therapy (Routine) - Closed Specialty Diagnoses / Procedures Referred By Contact Refer red To Contact Diagnoses Primary Malignant Neoplasm Of Prostate (HCC) Angel Grey M.D. [facility] Procedures Prior Auth Rad Tx [place] IMRT SIMPLE [address] [place] [address] Referral ID Status Reason Start Date Expiration Date Visits Requ ested Visits Authorized [id number] Closed 12/20/2018 12/20/2019 20 20 Encounter Details Date Type Department Care Team Description 02/12/2019 Hospital Encounter Department of Radiation Willi [place], [place] [address] [facility] [address] [place] [address] [phone] Social History Tobacco Use Types Packs/Day Years [...] often do you attend jehovah's witness or holiness 1 to 4 times per [...] the highest level of school Associate degree: [employer] program 02/01/2019 you have completed or the [...] as XP OPHT) needed (for dry eyes). gxhtjajjjorc-paortqah-mln Take 1 tablet by 0 05/2013 ein (CENTURY MATURE) mouth. tablet omega 2-jey-gkb-fish oil Take 1,200 mg by 0 1,000 [...] Radiation Oncology Chris Grey M.D. [address] [place] [phone] (Wo reggie) documented as of this encounter Visit Diagnoses Not on filedocumented in this encounter
--- OUTSIDE RECORDS SUMMARY | 2022-02-09 10:09 | XMS_ITS | Encounter Summary ---
:1950 Author Organization [facility] Address [address] [place] [address] Care Team Providers Name Role Phone Unavailable Primary Care Provider Unavailable Reason for Visit Radiation Therapy (Routine) - Closed Specialty Diagnoses / Procedures Referred By Contact Refer red To Contact Diagnoses Primary Malignant Neoplasm Of Prostate (HCC) Angel Grey M.D. [facility] Procedures Prior Auth Rad Tx [place] IMRT SIMPLE [address] [place] [address] Referral ID Status Reason Start Date Expiration Date Visits Requ ested Visits Authorized [id number] Closed 12/20/2018 12/20/2019 20 20 Encounter Details Date Type Department Care Team Description 02/13/2019 Hospital Encounter Department of Radiation Willi Grey, [place] [address] [facility] [address] [place] [address] [phone] Social History Tobacco Use Types Packs/Day Years [...] How often do you attend anabaptist or anglican 1 to 4 times per [...] the highest level of school Associate degree: [employer] program 02/01/2019 you have completed or the [...] as XP OPHT) needed (for dry eyes). epkmpkfoijee-cpwirpek-apg Take 1 tablet by 0 05/2013 ein (CENTURY MATURE) mouth. tablet omega 7-lej-pra-fish oil Take 1,200 mg by 0 1,000 [...] Appointment Radiation Oncology Chris Grey M.D. [address] [place] [phone] (Wo reggie) documented as of this encounter Visit Diagnoses Not on filedocumented in this encounter
--- OUTSIDE RECORDS SUMMARY | 2022-02-09 10:09 | XMS_ITS | Encounter Summary ---
:1950 Author Organization [facility] Address [address] [place] [address] Care Team Providers Name Role Phone Unavailable Primary Care Provider Unavailable Reason for Visit Radiation Therapy (Routine) - Closed Specialty Diagnoses / Procedures Referred By Contact Refer red To Contact Diagnoses Primary Malignant Neoplasm Of Prostate (HCC) Angel Grey M.D. [facility] Procedures Prior Auth Rad Tx [place] IMRT SIMPLE [address] [place] [address] Referral ID Status Reason Start Date Expiration Date Visits Requ ested Visits Authorized [id number] Closed 12/20/2018 12/20/2019 20 20 Encounter Details Date Type Department Care Team Description 02/26/2019 Hospital Encounter Department of Radiation Willi Grey, [place]cology [place] [address] [facility] [address] [place] [address] [phone] Social History Tobacco Use Types Packs/Day Years [...] or relatives? How often do you attend mandaeism or sabianist 1 to 4 times per year 02/25/2021 services? Do you belong to any clubs or organizations Yes 02/25/2021 such as mandaeism groups, unions, fraternal or athletic groups, or [...] the highest level of school Associate degree: [employer] program 02/01/2019 you have completed or the [...] as XP OPHT) needed (for dry eyes). xkvabnfhttgi-ccyqvnfw-lcd Take 1 tablet by 0 05/2013 ein (CENTURY MATURE) mouth. tablet omega 1-hsv-ikd-fish oil Take 1,200 mg by 0 1,000 [...] Appointment Radiation Oncology Chris Grey M.D. [address] [place] [phone] (Wo reggie) documented as of this encounter Visit Diagnoses Not on filedocumented in this encounter
--- OUTSIDE RECORDS SUMMARY | 2022-02-09 10:09 | XMS_ITS | Encounter Summary ---
:1950 Author Organization [facility] Address [address] [place] [address] Care Team Providers Name Role Phone Unavailable Primary Care Provider Unavailable Reason for Referral Outpatient (Routine) - Closed Specialty Diagnoses / Procedures Referred By Contact Refer red To Contact Angel [facility]ton M .D. [facility] [address] [place] [phone] Referral ID Status Reason Start Date Expiration Date Visits Requ ested Visits Authorized [id number] Closed 12/20/2018 12/20/2019 1 1 Reason for Visit Outpatient (Routine) - Closed Specialty Diagnoses / Procedures Referred By Contact Refer red To Contact Angel Stockton M .D. [facility] [address] [place] [phone] Referral ID Status Reason Start Date Expiration Date Visits Requ ested Visits Authorized [id number] Closed 12/20/2018 12/20/2019 1 1 Encounter Details Date Type Department Care Team Description 02/12/2019 Hospital Encounter Department of Chris Grey M.D. [address] [place] [address] [phone] Primary Malignant Radiation Oncology Anayeli Oneil Neoplasm Of Prostate in [place], (HCC) [place] [address] [place] [address] Social History Tobacco Use Types [...] or relatives? How often do you attend zoroastrianism or adventism 1 to 4 times per year 02/25/2021 services? Do you belong to any clubs or organizations Yes 02/25/2021 such as zoroastrianism groups, unions, fraternal or athletic groups, or [...] the highest level of school Associate degree: [employer] program 02/01/2019 you have completed or the [...] as XP OPHT) needed (for dry eyes). izahfecmmhkb-lysldbkl-whl Take 1 tablet by 0 05/2013 ein (CENTURY MATURE) mouth. tablet omega 0-bzn-xxg-fish oil Take 1,200 mg by 0 1,000 [...] documented as of this encounter Consult Notes Anayeli Oneil Feliciano - 02/12/2019 10:00 AM CDT Psychosocial Assessment SUBJECTIVE DEMOGRAPHIC INFORMATION Referral by: Angel Grey MD Person(s) present during interview: Patient Dick Sigala, unaccompanied. Primary care clinic and provider: No primary care provider on file. Primary Language: Greenlandic REASON FOR CONSULT Initial social work consult [...] received permission to contact them. 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 Psychosocial Risk Factors impacting the patient: none noted. Abuse, Neglect, Maltreatment, Trauma: Current: None reported. Past: None reported. ENVIRONMENTAL SUPPORTS Current Living Situation: Lives in [place], [place] with his , children, and grandchildren. Patient's Home Environment: No safety concerns. FUNCTIONAL STATUS (ADL's and IADL's) Patient is fully independent in all activities. FINANCES/INSURANCE Primary insurance: [place] OPEN ACCESS Secondary insurance: N/A ADVANCE DIRECTIVES Mr. Sigala does not have a health care directive on file with [facility]. This was not discussed today. OBJECTIVE MENTAL [...] Discussion: Mr. Dick Sigala met with this social work therapist today for an initial social work consult and psychosocial assessment. He hoped to keep the visit brief so that he could get to his job. He and his Clara live in [place], [place], along with their son and their [...] Radiation Oncology Chris Grey M.D. [address] [place], [place] [phone] (Wo rk) Scheduled Referrals Name Type Priority Associated Diagnoses Order S chedule Social Work Outpatient Referral Routine Once for 1 office visit Occurrences sta rting (clinic) 02/12/2019 unti l 02/12/2019 documented as of this encounter Visit Diagnoses Diagnosis Primary Malignant Neoplasm Of Prostate ( HCC) documented in this encounter
--- OUTSIDE RECORDS SUMMARY | 2022-02-09 10:09 | XMS_ITS | Encounter Summary ---
:1950 Author Organization [facility] Address [address] [place] [address] Care Team Providers Name Role Phone Unavailable Primary Care Provider Unavailable Reason for Visit Radiation Therapy (Routine) - Closed Specialty Diagnoses / Procedures Referred By Contact Refer red To Contact Diagnoses Primary Malignant Neoplasm Of Prostate (HCC) Angel Grey M.D. [facility] Procedures Prior Auth Rad Tx [place] IMRT SIMPLE [address] [place] [address] Referral ID Status Reason Start Date Expiration Date Visits Requ ested Visits Authorized [id number] Closed 12/20/2018 12/20/2019 20 20 Encounter Details Date Type Department Care Team Description 02/18/2019 Hospital Encounter Department of Radiation Willi Grey, [place] [address] [facility] [address] [place] [address] [phone] Social History Tobacco Use Types Packs/Day Years [...] or relatives? How often do you attend catholic or holiness 1 to 4 times per year 02/25/2021 services? Do you belong to any clubs or organizations Yes 02/25/2021 such as catholic groups, unions, fraternal or athletic groups, [...] the highest level of school Associate degree: [employer] program 02/01/2019 you have completed or the [...] as XP OPHT) needed (for dry eyes). onexqwukqdla-rkamlszr-paz Take 1 tablet by 0 05/2013 ein (CENTURY MATURE) mouth. tablet omega 6-gwb-tzk-fish oil Take 1,200 mg by 0 1,000 [...] Appointment Radiation Oncology Chris Grey M.D. [address] [place] [phone] (Wo reggie) documented as of this encounter Visit Diagnoses Not on filedocumented in this encounter
--- OUTSIDE RECORDS SUMMARY | 2022-02-09 10:09 | XMS_ITS | Encounter Summary ---
:1950 Author Organization [facility] Address [address] [place] [address] Care Team Providers Name Role Phone Unavailable Primary Care Provider Unavailable Reason for Referral Outpatient (Routine) - Closed Specialty Diagnoses / Procedures Referred By Contact Refer red To Contact Radiation Oncology Annia Stewart P.A.-C., BENNY S Christa [facility] M.S. 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 [facility] Procedures Management Visit [address] [place] [phone] Referral ID Status Reason Start Date Expiration Date Visits V isits Requested Authorized [id number] Canceled 12/20/2018 12/20/2019 10 10 YARD PAINTER APPRENTICE Reason for Visit Radiation Therapy (Routine) - Canceled Specialty Diagnoses / Procedures Referred By Contact Refer red To Contact Diagnoses Primary Malignant Neoplasm Of Prostate (HCC) Angel Grey M.D. [facility] Procedures Management Visit [address] [place] [phone] Referral ID Status Reason Start Date Expiration Date Visits V maddi Requested Authorized [id number] Canceled 12/20/2018 12/20/2019 10 10 Encounter Details Date Type Department Care Team Description 02/27/2019 Hospital Encounter Department of Angel Grey Malignant Radiation Oncology [place]maira Renteria Neoplasm Of Prostate in [place], [address] [place] [address] (HCC) [place], [place] [address] [facility] [address] [place], [place] [phone] (Work) [phone] Social History Tobacco Use Types Packs/Day Years [...] How often do you attend pentecostal or advent 1 to 4 times per [...] highest level of school Associate degree: [employer] program 02/01/2019 you have completed or the highest degree you have received? Sex Assigned at Date Recorded Male 12/24/2018 8:16 PM CDT documented as of this encounter Last Filed Vital Signs Vital Sign Reading Time Taken Comments Blood Pressure - - Pulse - - Temperature 36.1 ??C (97 ??F) 02/27/2019 8:34 AM SHIPYARD PAINTER APPRENTICE Respiratory Rate - - Oxygen Saturation - - Inhaled Oxygen Concentration - - Weight 96 kg (211 lb 10.3 oz) 02/27/2019 8:34 AM SHIPYARD PAINTER APPRENTICE Height - - Body Mass Index 31.25 [...] as XP OPHT) needed (for dry eyes). foefbxgljxnl-rkbwfhxe-ldv Take 1 tablet by 0 05/2013 ein (CENTURY MATURE) mouth. tablet omega 6-aax-vty-fish oil Take 1,200 mg by 0 1,000 [...] Prostate (HCC) Attending Physician: Angel Grey M.D. ([id number]) Treatment Intent: Curative Concomitant Therapy: Hormonal Therapy Treatment Dates: January 31, 2019 - February 27, 2019 Single Plan Course Summary 02/27/2019 Plan ID [id number] PROSTATE First treatment 01/31/2019 07:39 SHIPYARD PAINTER APPRENTICE Last treatment 02/27/2019 08:11 SHIPYARD PAINTER APPRENTICE Fractions treated to date 20 Planned total [...] Annia Stewart P.A.-C., M.S., 02/27/2019 9:13 AM [facility] [address] [place] [address] YARD PAINTER APPRENTICE Annia Stewart P.A.-C., M.S. - 02/27/2019 8:30 AM CST SUBJECTIVE REASON FOR VISIT Evaluation for side effects while receiving radiation treatment for 1. Primary Malignant Neoplasm Of Prostate (HCC) SUPERVISED BY: Angel Grey M.D. ([phone]) HISTORY OF PRESENT ILLNESS Mr. Dick Sigala [...] 20, 2018: Patient saw Dr. Zamora at [facility] for chronic thrombocytopenia. 13. November 21, 2018: Patient received a Lupron 7.5 mg injection [facility]. 14. December 20, 2018: Patient received a Lupron 22.5 injection at [facility]. This was his last injection for a [...] cN0, cM0, PSA: 5.1, Grade Group: 3) [place] 4 + 3??adenocarcinoma of the prostate 2.?Androgen [...] PSA blood draw to be done at [facility] in [place] at the end of April 2019. Dr. Grey discussed the enlarged mesenteric lymph nodes seen on the CT scan from October 23, 2018. Afterdiscussion, it was agreed to proceed with a PET/CT scan for further evaluation. The PET/CT scan has been ordered to be completed at [facility] at the end of March 2019 to allow time for recovery following radiation treatment prior to the imaging. We will schedule a return visit here a few days later to review the results. He will contact us with sooner any questions or concerns. He verbally expressed his understanding of the plan. Signed by: Annia Stewart P.A.-C., M.S. 02/27/2019 9:02 AM YARD PAINTER APPRENTICE Associated attestation - Angel Grey M.D. - 02/27/2019 1:38 PM SHIPYARD PAINTER APPRENTICE I saw and evaluated the patient and [...] by: Angel Grey M.D. 02/27/19 1:38 PM [facility] [address] [place] [address] documented in this encounter Miscellaneous Notes Addendum Note - Shira Polo - 02/27/2019 8:30 AM SHIPYARD PAINTER APPRENTICE Encounter addended by: Shira Polo on: 02/27/2019 1:51 PM Actions taken: SmartForm saved, Letter saved YARD PAINTER APPRENTICE documented in this encounter Plan of Treatment Upcoming Encounters Date Type Specialty Care Team Description 02/14/2022 Appointment Radiation Oncology Chris Grey M.D. [address] [place] [phone] (Wo rk) Scheduled Orders Name Type Priority Associated Diagnoses Order S chedule Management Visit Radiation Oncology Routine Primary Malignant Once for 1 Neoplasm Of Prostate Occurre nces starting (HCC) 02/27/2019 unti l 02/27/2019 Scheduled Referrals Name Type Priority Associated Diagnoses Order S [facility] Radiation Oncology Outpatient Referral Routine Ex pected: office visit 04/22/2019 (clinic) (Approximate), Expires: 02/28/2020 documented as of this encounter Visit Diagnoses Diagnosis Primary Malignant Neoplasm Of Prostate ( HCC) documented in this encounter
--- OUTSIDE RECORDS SUMMARY | 2022-02-09 10:09 | XMS_ITS | Encounter Summary ---
:1950 Author Organization [facility] Address [address] [place] [address] Care Team Providers Name Role Phone Unavailable Primary Care Provider Unavailable Reason for Referral Radiation Therapy (Routine) - Canceled Specialty Diagnoses / Procedures Referred By Contact Refer red To Contact Diagnoses Primary Malignant Neoplasm Of Prostate (HCC) Angel Grey M.D. [facility] Procedures Management Visit [address] [place] [phone] Referral ID Status Reason Start Date Expiration Date Visits V isits Requested Authorized [id number] Canceled 12/20/2018 12/20/2019 10 10 Reason for Visit Radiation Therapy (Routine) - Canceled Specialty Diagnoses / Procedures Referred By Contact Refer red To Contact Diagnoses Primary Malignant Neoplasm Of Prostate (HCC) [facility]. [facility] Procedures Management Visit [address] [place] [phone] Referral ID Status Reason Start Date Expiration Date Visits V isits Requested Authorized [id number] Canceled 12/20/2018 12/20/2019 10 10 Encounter Details Date Type Department Care Team Description 02/20/2019 Hospital Encounter Department of Angel Grey Malignant Radiation Oncology Omaira Renteria Neoplasm Of Prostate in [place], [address] [facility] (HCC) [place], [place] [address] [facility] [phone] [place], [place] [phone] (Work) [phone] Social History Tobacco Use Types Packs/Day Years [...] How often do you attend gnosticist or sabianism 1 to 4 times per [...] the highest level of school Associate degree: [employer] program 02/01/2019 you have completed or the [...] as XP OPHT) needed (for dry eyes). hbkogxqsvzje-qoemsken-mzs Take 1 tablet by 0 05/2013 ein (CENTURY MATURE) mouth. tablet omega 0-ode-ggf-fish oil Take 1,200 mg by 0 1,000 [...] Prostate (HCC) SUPERVISED BY: Angel Grey M.D. ([phone]) HISTORY OF PRESENT ILLNESS Mr. Dick Sigala [...] cN0, cM0, PSA: 5.1, Grade Group: 3) [place] 4 + 3??adenocarcinoma of the prostate 2.?Androgen [...] Radiation Oncology Chris Grey M.D. [address] [place], [place] [phone] (Wo rk) Scheduled Orders Name Type Priority Associated Diagnoses Order S chedule Management Visit Radiation Oncology Routine Primary Malignant Once for 1 Neoplasm Of Prostate Occurre nces starting (HCC) 02/20/2019 unti l 02/20/2019 documented as of this encounter Visit Diagnoses Diagnosis Primary Malignant Neoplasm Of Prostate ( HCC) documented in this encounter
--- OUTSIDE RECORDS SUMMARY | 2022-02-09 10:09 | XMS_ITS | Encounter Summary ---
:1950 Author Organization [facility] Address [address] [place] [address] Care Team Providers Name Role Phone Unavailable Primary Care Provider Unavailable Reason for Visit Radiation Therapy (Routine) - Closed Specialty Diagnoses / Procedures Referred By Contact Refer red To Contact Diagnoses Primary Malignant Neoplasm Of Prostate (HCC) Angel Grey M.D. [facility] Procedures Prior Auth Rad Tx [place] IMRT SIMPLE [address] [place] [address] Referral ID Status Reason Start Date Expiration Date Visits Requ ested Visits Authorized [id number] Closed 12/20/2018 12/20/2019 20 20 Encounter Details Date Type Department Care Team Description 02/21/2019 Hospital Encounter Department of Radiation [place]ili Grey, [place]cology [place] [address] [place] [address] [place] [phone] Social History Tobacco Use Types Packs/Day Years [...] How often do you attend sikh or catholic 1 to 4 times per [...] the highest level of school Associate degree: [employer] program 02/01/2019 you have completed or the [...] as XP OPHT) needed (for dry eyes). iohuvoupzmlf-xibraoil-jec Take 1 tablet by 0 05/2013 ein (CENTURY MATURE) mouth. tablet omega 0-zjl-rtg-fish oil Take 1,200 mg by 0 1,000 [...] Radiation Oncology Chris Grey M.D. [address] [place] [phone] (Wo reggie) documented as of this encounter Visit Diagnoses Not on filedocumented in this encounter
--- OUTSIDE RECORDS SUMMARY | 2022-02-09 10:09 | XMS_ITS | Encounter Summary ---
:1950 Author Organization [facility] Address [address] [place] [address] Care Team Providers Name Role Phone Unavailable Primary Care Provider Unavailable Reason for Visit Radiation Therapy (Routine) - Closed Specialty Diagnoses / Procedures Referred By Contact Refer red To Contact Diagnoses Primary Malignant Neoplasm Of Prostate (HCC) Angel Grey M.D. [facility] Procedures Prior Auth Rad Tx [place] IMRT SIMPLE [address] [place] [address] Referral ID Status Reason Start Date Expiration Date Visits Requ ested Visits Authorized [id number] Closed 12/20/2018 12/20/2019 20 20 Encounter Details Date Type Department Care Team Description 02/08/2019 Hospital Encounter Department of Radiation [place] Grey, [place] [address] [facility] [address] [place] [phone] Social History Tobacco Use Types Packs/Day Years [...] How often do you attend muslim or muslim 1 to 4 times per year 02/25/2021 [...] place to sleep or slept in a mcc (including now)? Education Answer Date Recorded What is the highest level of school Associate degree: [employer] program 02/01/2019 you have completed or the [...] as XP OPHT) needed (for dry eyes). irjsgsyojtpm-glhompqh-vna Take 1 tablet by 0 05/2013 ein (CENTURY MATURE) mouth. tablet omega 3-ufr-mlj-fish oil Take 1,200 mg by 0 1,000 [...] Appointment Radiation Oncology Chris Grey M.D. [address] [place] [phone] (Wo reggie) documented as of this encounter Visit Diagnoses Not on filedocumented in this encounter
--- OUTSIDE RECORDS SUMMARY | 2022-02-09 10:09 | XMS_ITS | Encounter Summary ---
:1950 Author Organization [facility] Address [address] [place] [address] Care Team Providers Name Role Phone Unavailable Primary Care Provider Unavailable Reason for Visit Radiation Therapy (Routine) - Closed Specialty Diagnoses / Procedures Referred By Contact Refer red To Contact Diagnoses Primary Malignant Neoplasm Of Prostate (HCC) Angel Grey M.D. [facility] Procedures Prior Auth Rad Tx [place] IMRT SIMPLE [address] [place] [address] Referral ID Status Reason Start Date Expiration Date Visits Requ ested Visits Authorized [id number] Closed 12/20/2018 12/20/2019 20 20 Encounter Details Date Type Department Care Team Description 02/25/2019 Hospital Encounter Department of Radiation Willi Grey, [place]cology [place] [address] [facility] [address] [place] [address] [phone] Social History Tobacco Use Types Packs/Day Years [...] How often do you attend lutheran or gnosticist 1 to 4 times per [...] the highest level of school Associate degree: [employer] program 02/01/2019 you have completed or the [...] as XP OPHT) needed (for dry eyes). ekwnlfihuohu-nsvfmjug-dmd Take 1 tablet by 0 05/2013 ein (CENTURY MATURE) mouth. tablet omega 1-vfz-mid-fish oil Take 1,200 mg by 0 1,000 [...] Appointment Radiation Oncology Chris Grey M.D. [address] [place] [phone] (Wo reggie) documented as of this encounter Visit Diagnoses Not on filedocumented in this encounter
--- OUTSIDE RECORDS SUMMARY | 2022-02-09 10:09 | XMS_ITS | Encounter Summary ---
:1950 Author Organization [facility] Address [address] [place] [address] Care Team Providers Name Role Phone Unavailable Primary Care Provider Unavailable Reason for Visit Radiation Therapy (Routine) - Closed Specialty Diagnoses / Procedures Referred By Contact Refer red To Contact Diagnoses Primary Malignant Neoplasm Of Prostate (HCC) Angel Grey M.D. [facility] Procedures Prior Auth Rad Tx [place] IMRT SIMPLE [address] [place] [address] Referral ID Status Reason Start Date Expiration Date Visits Requ ested Visits Authorized [id number] Closed 12/20/2018 12/20/2019 20 20 Encounter Details Date Type Department Care Team Description 02/22/2019 Hospital Encounter Department of Radiation Willi Grey, [place]cology [place] [address] [facility] [address] [place] [phone] Social History Tobacco Use Types Packs/Day Years [...] How often do you attend yazdanism or yarsani 1 to 4 times per [...] the highest level of school Associate degree: [employer] program 02/01/2019 you have completed or the [...] as XP OPHT) needed (for dry eyes). nvxgbwvowlbo-agfmvbpn-ggx Take 1 tablet by 0 05/2013 ein (CENTURY MATURE) mouth. tablet omega 1-riv-suj-fish oil Take 1,200 mg by 0 1,000 [...] Appointment Radiation Oncology Chris Grey M.D. [address] [place] [phone] (Wo reggie) documented as of this encounter Visit Diagnoses Not on filedocumented in this encounter
--- OUTSIDE RECORDS SUMMARY | 2022-02-09 10:09 | XMS_ITS | Encounter Summary ---
:1950 Author Organization [facility] Address [address] [place] [address] Care Team Providers Name Role Phone Unavailable Primary Care Provider Unavailable Reason for Referral Radiation Therapy (Routine) - Canceled Specialty Diagnoses / Procedures Referred By Contact Refer red To Contact Diagnoses Primary Malignant Neoplasm Of Prostate (HCC) Angel Grey M.D. [facility] Procedures Management Visit [address] [place] [phone] Referral ID Status Reason Start Date Expiration Date Visits V isits Requested Authorized [id number] Canceled 12/20/2018 12/20/2019 10 10 Reason for Visit Radiation Therapy (Routine) - Canceled Specialty Diagnoses / Procedures Referred By Contact Refer red To Contact Diagnoses Primary Malignant Neoplasm Of Prostate (HCC) Angel Grey M.D. [facility] Procedures Management Visit [address] [place] [phone] Referral ID Status Reason Start Date Expiration Date Visits V isits Requested Authorized [id number] Canceled 12/20/2018 12/20/2019 10 10 Encounter Details Date Type Department Care Team Description 02/13/2019 Hospital Encounter Department of Angel Grey Malignant Radiation Oncology Omaira Renteria Neoplasm Of Prostate in [place], [address] [facility] (HCC) [place], [place] 18[address] [facility] [address] [place], [place] [phone] (Work) [phone] Social History Tobacco Use Types Packs/Day Years [...] often do you attend oriental orthodox or scientologist 1 to 4 times per year 02/25/2021 [...] the highest level of school Associate degree: [employer] program 02/01/2019 you have completed or [...] as XP OPHT) needed (for dry eyes). vozmphweusgg-qojbcxkv-vyb Take 1 tablet by 0 05/2013 ein (CENTURY MATURE) mouth. tablet omega 9-nwv-syv-fish oil Take 1,200 mg by 0 1,000 [...] Prostate (HCC) SUPERVISED BY: Angel Grey M.D. ([phone]) HISTORY OF PRESENT ILLNESS Mr. Dick Sigala [...] cN0, cM0, PSA: 5.1, Grade Group: 3) [place] 4 + 3??adenocarcinoma of the prostate 2.?Androgen [...] Radiation Oncology Chris Grey M.D. [address] [place], [place] [phone] (Wo rk) Scheduled Orders Name Type Priority Associated Diagnoses Order S chedule Management Visit Radiation Oncology Routine Primary Malignant Once for 1 Neoplasm Of Prostate Occurre nces starting (HCC) 02/13/2019 unti l 02/13/2019 documented as of this encounter Visit Diagnoses Diagnosis Primary Malignant Neoplasm Of Prostate ( HCC) documented in this encounter
--- OUTSIDE RECORDS SUMMARY | 2022-02-09 10:09 | XMS_ITS | Encounter Summary ---
:1950 Author Organization [facility] Address [address] [place] [address] Care Team Providers Name Role Phone Unavailable Primary Care Provider Unavailable Reason for Visit Radiation Therapy (Routine) - Closed Specialty Diagnoses / Procedures Referred By Contact Refer red To Contact Diagnoses Primary Malignant Neoplasm Of Prostate (HCC) Angel Grey M.D. [facility] Procedures Prior Auth Rad Tx [place] IMRT SIMPLE [address] [place] [address] Referral ID Status Reason Start Date Expiration Date Visits Requ ested Visits Authorized [id number] Closed 12/20/2018 12/20/2019 20 20 Encounter Details Date Type Department Care Team Description 02/11/2019 Hospital Encounter Department of Radiation Willi Grey, [place]cology [place] [address] [facility] [address] [place] [phone] Social History Tobacco Use Types Packs/Day Years [...] or relatives? How often do you attend mormon or restoration 1 to 4 times per year 02/25/2021 services? Do you belong to any clubs or organizations Yes 02/25/2021 such as mormon groups, unions, fraternal or athletic groups, or [...] the highest level of school Associate degree: [employer] program 02/01/2019 you have completed or [...] as XP OPHT) needed (for dry eyes). xicfdmjlyqmb-njhovuqw-vrt Take 1 tablet by 0 05/2013 ein (CENTURY MATURE) mouth. tablet omega 2-iwh-axr-fish oil Take 1,200 mg by 0 1,000 [...] Radiation Oncology Chris Grey M.D. [address] [place] [phone] (Wo reggie) documented as of this encounter Visit Diagnoses Not on filedocumented in this encounter
--- OUTSIDE RECORDS SUMMARY | 2022-02-09 10:09 | XMS_ITS | Encounter Summary ---
:1950 Author Organization [facility] Address [address] [place] [address] Care Team Providers Name Role Phone Unavailable Primary Care Provider Unavailable Reason for Visit Radiation Therapy (Routine) - Closed Specialty Diagnoses / Procedures Referred By Contact Refer red To Contact Diagnoses Primary Malignant Neoplasm Of Prostate (HCC) Angel [facility] M.D[facility] Procedures Prior Auth Rad Tx [place] IMRT SIMPLE [address] [place] [address] Referral ID Status Reason Start Date Expiration Date Visits Requ ested Visits Authorized [id number] Closed 12/20/2018 12/20/2019 20 20 Encounter Details Date Type Department Care Team Description 02/15/2019 Hospital Encounter Department of Radiation Willi Grey, [place] [address] [facility] [address] [place] [phone] Social History Tobacco Use Types Packs/Day Years [...] How often do you attend zoroastrianism or jew 1 to 4 times per [...] or slept in a assisted (including now)? Education Answer Date Recorded What is the highest level of school Associate degree: [employer] program 02/01/2019 you have completed or the [...] as XP OPHT) needed (for dry eyes). lgypofdoglti-tqhddqal-dnu Take 1 tablet by 0 05/2013 ein (CENTURY MATURE) mouth. tablet omega 9-rdl-rdf-fish oil Take 1,200 mg by 0 1,000 [...] Radiation Oncology Chris Grey M.D. [address] [place] [phone] (Wo reggie) documented as of this encounter Visit Diagnoses Not on filedocumented in this encounter
--- OUTSIDE RECORDS SUMMARY | 2022-02-09 10:09 | XMS_ITS | Encounter Summary ---
:1950 Author Organization [facility] Address [address] [place] [address] Care Team Providers Name Role Phone Unavailable Primary Care Provider Unavailable Reason for Referral Specialty Diagnoses / Procedures Referred By Contact Refer red To Contact Angel Grey M .D. [facility] [address] [place] [phone] Referral ID Status Reason Start Date Expiration Date Visits Requ ested Visits Authorized Encounter Details Date Type Department Care Team Description 02/05/2019 Hospital Encounter Department of Chris Grey M.D. [address] [place] [phone] Primary Malignant Radiation Oncology Zuleika Hudson C.C.RRaheelCRaheel Neoplasm Of Prostate in [facility] ([facility]) [address] [phone] Social History Tobacco Use Types Packs/Day Years [...] or relatives? How often do you attend episcopalian or nondenominational 1 to 4 times per year 02/25/2021 services? Do you belong to any clubs or organizations Yes 02/25/2021 such as episcopalian groups, unions, fraternal or athletic groups, or [...] the highest level of school Associate degree: [employer] program 02/01/2019 you have completed or the [...] as XP OPHT) needed (for dry eyes). nrkhefkotpvs-fdvrsybb-lwr Take 1 tablet by 0 05/2013 ein (CENTURY MATURE) mouth. tablet omega 9-ikc-dxd-fish oil Take 1,200 mg by 0 1,000 [...] Radiation Oncology Chris Grey M.D. [address] [place] [address] [phone] (Wo rk) Scheduled Referrals Name Type Priority Associated Order Schedule Diagnoses Radiation Oncology Outpatient Referral Routine Primary Maligna nt Once for 1 - PRO education Neoplasm Of Occurrences starting visit Prostate (HCC) 02/05/2019 un til 02/05/2019 documented as of this encounter Visit Diagnoses Diagnosis Primary Malignant Neoplasm Of Prostate ( HCC) documented in this encounter
--- OUTSIDE RECORDS SUMMARY | 2022-02-09 10:09 | XMS_ITS | Encounter Summary ---
:1950 Author Organization [facility] Address [address] [place] [address] Care Team Providers Name Role Phone Unavailable Primary Care Provider Unavailable Reason for Visit Radiation Therapy (Routine) - Closed Specialty Diagnoses / Procedures Referred By Contact Refer red To Contact Diagnoses Primary Malignant Neoplasm Of Prostate (HCC) Angel Grey M.D. [facility] Procedures Prior Auth Rad Tx [place] IMRT SIMPLE [address] [place] [address] Referral ID Status Reason Start Date Expiration Date Visits Requ ested Visits Authorized [id number] Closed 12/20/2018 12/20/2019 20 20 Encounter Details Date Type Department Care Team Description 02/06/2019 Hospital Encounter Department of Radiation Willi Grey, Oncology in [place] [address] [facility] [address] [place] [address] [phone] Social History Tobacco Use Types Packs/Day Years [...] How often do you attend judaism or religion 1 to 4 times per [...] the highest level of school Associate degree: [employer] program 02/01/2019 you have completed or the [...] as XP OPHT) needed (for dry eyes). tgyfcpeqfovg-jmeuwajy-jbc Take 1 tablet by 0 05/2013 ein (CENTURY MATURE) mouth. tablet omega 2-rxa-gtw-fish oil Take 1,200 mg by 0 1,000 [...] Radiation Oncology Chris Grey M.D. [address] [place] [address] [phone] (Wo reggie) documented as of this encounter Visit Diagnoses Not on filedocumented in this encounter
--- OUTSIDE RECORDS SUMMARY | 2022-02-09 10:09 | XMS_ITS | Encounter Summary ---
:1950 Author Organization [facility] Address [address] [place] [address] Care Team Providers Name Role Phone Unavailable Primary Care Provider Unavailable Encounter Details Date Type Department Care Team Description 02/05/2019 Orders Only Department of Zuleika Hudson Primary Zaire flores Radiation Oncology in [facility] Neoplasm Of Prostate [facility] [phone] (HCC) (Primary Dx) [address] (Work) [place] [address] Social History Tobacco Use Types [...] How often do you attend pentecostalism or hoahaoism 1 to 4 times per [...] highest level of school Associate degree: academ [employer] program 02/01/2019 you have completed or the highest degree you have received? Sex Assigned at Date Recorded Male 12/24/2018 8:16 PM CDT documented as of this encounter Plan of Treatment Upcoming Encounters Date Type Specialty Care Team Description 02/14/2022 Appointment Radiation Oncology Chris Grey M.D. 200 [place], [place] [phone] (Wo rk) documented as of this encounter Visit Diagnoses Diagnosis Primary Malignant Neoplasm Of Prostate ( HCC) - Primary documented in this encounter
--- OUTSIDE RECORDS SUMMARY | 2022-02-09 10:09 | XMS_ITS | Encounter Summary ---
:1950 Author Organization [facility] Address [address] [place] [address] Care Team Providers Name Role Phone Unavailable Primary Care Provider Unavailable Encounter Details Date Type Department Care Team Description 02/27/2019 Clinical Communication Department of Mee Berry Radiation Oncology in [address] [place] [address] [address] [place] [phone] Social History Tobacco Use Types Packs/Day Years [...] or relatives? How often do you attend scientologist or amish 1 to 4 times per year 02/25/2021 services? Do you belong to any clubs or organizations Yes 02/25/2021 such as scientologist groups, unions, fraternal or athletic groups, or [...] highest level of school Associate degree: academ [employer] program 02/01/2019 you have completed or the highest degree you have received? Sex Assigned at Date Recorded Male 12/24/2018 8:16 PM CDT documented as of this encounter Plan of Treatment Upcoming Encounters Date Type Specialty Care Team Description 02/14/2022 Appointment Radiation Oncology Chris Grey M.D. [address] [place] [address] [phone] (Wo rk) documented as of this encounter Visit Diagnoses Not on filedocumented in this encounter
--- OUTSIDE RECORDS SUMMARY | 2022-02-09 10:09 | XMS_ITS | Encounter Summary ---
:1950 Author Organization [facility] Address [address] [place] [address] Care Team Providers Name Role Phone Unavailable Primary Care Provider Unavailable Reason for Visit Radiation Therapy (Routine) - Closed Specialty Diagnoses / Procedures Referred By Contact Refer red To Contact Diagnoses Primary Malignant Neoplasm Of Prostate (HCC) Angel Grey M.D. [facility] Procedures Prior Auth Rad Tx [place] IMRT SIMPLE [address] [place] [address] Referral ID Status Reason Start Date Expiration Date Visits Requ ested Visits Authorized [id number] Closed 12/20/2018 12/20/2019 20 20 Encounter Details Date Type Department Care Team Description 02/19/2019 Hospital Encounter Department of Radiation Willi Grey, Oncology in [place] [address] [facility] [address] [place] [phone] Social History Tobacco Use Types Packs/Day Years [...] or relatives? How often do you attend taoist or yarsani 1 to 4 times per year 02/25/2021 services? Do you belong to any clubs or organizations Yes 02/25/2021 such as taoist groups, unions, fraternal or athletic groups, or [...] the highest level of school Associate degree: [employer] program 02/01/2019 you have completed or the [...] as XP OPHT) needed (for dry eyes). ekahvqhmampl-kscjqmjg-doj Take 1 tablet by 0 05/2013 ein (CENTURY MATURE) mouth. tablet omega 2-xlj-nfv-fish oil Take 1,200 mg by 0 1,000 [...] Radiation Oncology Chris Grey M.D. [address] [place] [address] [phone] (Wo reggie) documented as of this encounter Visit Diagnoses Not on filedocumented in this encounter
--- OUTSIDE RECORDS SUMMARY | 2022-02-09 10:09 | XMS_ITS | Encounter Summary ---
:1950 Author Organization [facility] Address [address] [place] [address] Care Team Providers Name Role Phone Unavailable Primary Care Provider Unavailable Reason for Visit Radiation Therapy (Routine) - Closed Specialty Diagnoses / Procedures Referred By Contact Refer red To Contact Diagnoses Primary Malignant Neoplasm Of Prostate (HCC) Angel Grey M.D. [facility] Procedures Prior Auth Rad Tx [place] IMRT SIMPLE [address] [place] [address] Referral ID Status Reason Start Date Expiration Date Visits Requ ested Visits Authorized [id number] Closed 12/20/2018 12/20/2019 20 20 Encounter Details Date Type Department Care Team Description 02/20/2019 Hospital Encounter Department of Radiation Willi Grey, Oncology in [place] [address] [facility] [address] [place] [phone] Social History Tobacco Use Types Packs/Day Years [...] How often do you attend yazidism or mu-ism 1 to 4 times per [...] the highest level of school Associate degree: [employer] program 02/01/2019 you have completed or the [...] as XP OPHT) needed (for dry eyes). uirohtcypjmh-mwbdjgro-ydh Take 1 tablet by 0 05/2013 ein (CENTURY MATURE) mouth. tablet omega 0-zba-rxh-fish oil Take 1,200 mg by 0 1,000 [...] Appointment Radiation Oncology Chris Grey M.D. [address] [place] [address] [phone] (Wo rgegie) documented as of this encounter Visit Diagnoses Not on filedocumented in this encounter
--- OUTSIDE RECORDS SUMMARY | 2022-02-09 10:09 | XMS_ITS | Encounter Summary ---
:1950 Author Organization [facility] Address [address] [place] [address] Care Team Providers Name Role Phone Unavailable Primary Care Provider Unavailable Reason for Visit Radiation Therapy (Routine) - Closed Specialty Diagnoses / Procedures Referred By Contact Refer red To Contact Diagnoses Primary Malignant Neoplasm Of Prostate (HCC) Angel Grey M.D. [facility] Procedures Prior Auth Rad Tx [place] IMRT SIMPLE [address] [place] [address] Referral ID Status Reason Start Date Expiration Date Visits Requ ested Visits Authorized [id number] Closed 12/20/2018 12/20/2019 20 20 Encounter Details Date Type Department Care Team Description 02/27/2019 Hospital Encounter Department of Radiation Willi Grey, Oncology in [place] [address] [facility] [address] [place] [address] [phone] Social History Tobacco Use Types Packs/Day Years [...] or relatives? How often do you attend faith or druze 1 to 4 times per year 02/25/2021 services? Do you belong to any clubs or organizations Yes 02/25/2021 such as faith groups, unions, fraternal or athletic groups, or [...] the highest level of school Associate degree: [employer] program 02/01/2019 you have completed or the [...] as XP OPHT) needed (for dry eyes). erqzgepagwot-ackuycke-vna Take 1 tablet by 0 05/2013 ein (CENTURY MATURE) mouth. tablet omega 8-lov-xdy-fish oil Take 1,200 mg by 0 1,000 [...] Appointment Radiation Oncology Chris Grey M.D. [address] [place] [address] [phone] (Wo reggie) documented as of this encounter Visit Diagnoses Not on filedocumented in this encounter
--- OUTSIDE RECORDS SUMMARY | 2022-02-09 10:10 | XMS_ITS | Encounter Summary ---
:1950 Author Organization [facility] Address [address] [place] [address] Care Team Providers Name Role Phone Unavailable Primary Care Provider Unavailable Encounter Details Date Type Department Care Team Description 01/23/2019 Orders Only Department of Angel Grey Primary Mal ignant Radiation Oncology in [place] Neoplasm Of Prostate [facility] [address] [facility] (HCC) (Primary Dx) [address] [place] [phone] Social History Tobacco Use Types Packs/Day Years [...] How often do you attend nondenominational or samaritan 1 to 4 times per [...] or slept in a usp (including now)? Sex Assigned at Date Recorded Male 12/24/2018 8:16 PM CDT documented as of this encounter Plan of Treatment Upcoming Encounters Date Type Specialty Care Team Description 02/14/2022 Appointment Radiation Oncology Chris Grey M.D. [address] [place] [address] [phone] (Wo rk) documented as of [...] further evaluation if clinically indicated given biopsy-proven [place] 4+3 prostate cancer. Narrative 01/24/2019 5:43 PM [...] lesions. Hypertrophic and degenerative c hanges lumbar spine.[id number] Procedure Note Rachid Mata M.D. - 01/29/2019Forma [...] lesions. Hypertrophic and degenerative c hanges lumbar spine.[id number] IMPRESSION: Multiple prominent mesenteric lymph node s measuring up to 11 mm should be due to small bowel or mesenter ic inflammation or a lymphoproliferative disorder; metastatic prostate cancer is very unlikely. Additional prominent subcentimeter retroperitoneal and inguin al lymph nodes, not significantly changed compared to 01/03/2012. Choline PET/CT could be helpful for further evaluation if clinically indicated given biopsy-proven [place] 4+3 prostate cancer. Angel Grey M.D. IMSteve CT PROCEDURES documented in this encounter Visit Diagnoses Diagnosis Primary Malignant Neoplasm Of Prostate ( HCC) - Primary Primary Malignant Neoplasm Of Prostate ( HCC) documented in this encounter
--- OUTSIDE RECORDS SUMMARY | 2022-02-09 10:10 | XMS_ITS | Clinical Summary ---
:1950 Author Organization [facility] [place] [address] Care Team Providers Name Role Phone Sharmin Gallegos RN Unavailable Ranjan Membreno MD Primary Care Provider [phone] Allergies No known active allergies Medications [...] Comments Blood Pressure 112/62 03/15/2021 1:25 PM LAWN CARE SPECIALIST Pulse 66 03/15/2021 1:25 PM LAWN CARE SPECIALIST Temperature 36.4 ??C (97.6 ??F) 03/15/2021 1:25 PM LAWN CARE SPECIALIST Respiratory Rate 16 11/24/2000 12:00 AM CDT Oxygen Saturation 99% 03/15/2021 1:25 PM LAWN CARE SPECIALIST Inhaled Oxygen Concentration - - Weight 92.1 kg (203 lb) 03/15/2021 1:25 PM LAWN CARE SPECIALIST Height 178 cm (5' 10.08) 08/04/2015 10:48 [...] Phone Addre ss Type Group [employer] [id number] 2015-Present [address] [place] [address] Care Teams Internet Designer Relationship Specialty Start Date End Date Ranjan Membreno, PCP - General Family Practice 06/11/[address] [place] [address] Sharmin Gallegos, RN Cancer Nurse Coordinator Registered Nurse 10/31/18
--- OUTSIDE RECORDS SUMMARY | 2022-02-09 10:10 | XMS_ITS | Encounter Summary ---
:1950 Author Organization [facility] Address [address] [place] [address] Care Team Providers Name Role Phone Unavailable Primary Care Provider Unavailable Reason for Visit Radiation Therapy (Routine) - Closed Specialty Diagnoses / Procedures Referred By Contact Refer red To Contact Diagnoses Primary Malignant Neoplasm Of Prostate (HCC) Angel Grey M.D. [facility] Procedures Prior Auth Rad Tx [place] IMRT SIMPLE [address] [place] [address] Referral ID Status Reason Start Date Expiration Date Visits Requ ested Visits Authorized [id number] Closed 12/20/2018 12/20/2019 20 20 Encounter Details Date Type Department Care Team Description 02/04/2019 Hospital Encounter Department of Radiation Willi Grey, Oncology [place] [address] [facility] [address] [place] [phone] Social History Tobacco Use Types Packs/Day Years [...] How often do you attend alevism or jain 1 to 4 times per [...] the highest level of school Associate degree: Any.DO program 02/01/2019 you have completed or the [...] into each nostril mcg/actuation nasal daily. spray lnfeusixqdav-dqwnfrxe-wk Take 1 tablet by 0 09/23 tein (CENTURY MATURE) mouth. tablet omega 9-aqx-uon-fish oil Take 1,200 mg by 0 1,000 [...] Radiation Oncology Chris Grey M.D. [address] [place], [place] [phone] (Wo rk) documented as of this encounter Visit Diagnoses Not on filedocumented in this encounter
--- OUTSIDE RECORDS SUMMARY | 2022-02-09 10:10 | XMS_ITS | Encounter Summary ---
:1950 Author Organization [facility] Address [address] [place] [address] Care Team Providers Name Role Phone Unavailable Primary Care Provider Unavailable Reason for Visit Radiation Therapy (Routine) - Closed Specialty Diagnoses / Procedures Referred By Contact Refer red To Contact Diagnoses Primary Malignant Neoplasm Of Prostate (HCC) Angel Grey M.D. [facility] Procedures Prior Auth Rad Tx [place] IMRT SIMPLE [address] [place] [address] Referral ID Status Reason Start Date Expiration Date Visits Requ ested Visits Authorized [id number] Closed 12/20/2018 12/20/2019 20 20 Encounter Details Date Type Department Care Team Description 01/31/2019 Hospital Encounter Department of Radiation Willi Grey, Oncology in [place] [address] [facility] [address] [place] [phone] Social History Tobacco Use Types Packs/Day Years [...] often do you attend latter day or uatsdin 1 to 4 times per [...] into each nostril mcg/actuation nasal daily. spray yfvphawcyglj-oijisltj-yq Take 1 tablet by 0 09/23 tein (CENTURY MATURE) mouth. tablet omega 3-svy-lao-fish oil Take 1,200 mg by 0 1,000 [...] Appointment Radiation Oncology Chris Grey M.D. 200 [place], [place] [phone] (Wo rk) documented as of this encounter Visit Diagnoses Not on filedocumented in this encounter
--- OUTSIDE RECORDS SUMMARY | 2022-02-09 10:10 | XMS_ITS | Encounter Summary ---
:1950 Author Organization [facility] Address [address] [place] [address] Care Team Providers Name Role Phone Unavailable Primary Care Provider Unavailable Reason for Referral Outpatient (Routine) - Closed Specialty Diagnoses / Procedures Referred By Contact Refer red To Contact Radiation Oncology Annia Stewart P.A.-C., [facility] [address] [place] [address] Referral ID Status Reason Start Date Expiration Date Visits Requ ested Visits Authorized [id number] Closed 01/11/2019 01/11/2020 1 1 Encounter Details Date Type Department Care Team Description 01/11/2019 Orders Only Department of Radiation Annia Stewart [facility] Malignant Oncology in [place], Rosi, M.SRaheel Neoplasm Of Prostate [address] (HCC) (Primary Dx) [address] [place] [phone] Social History Tobacco Use Types Packs/Day Years [...] How often do you attend mu-ism or anglican 1 to 4 times per [...] slept in a nursing home (including now)? Sex Assigned at Date Recorded Male 12/24/2018 8:16 PM CDT documented as of this encounter Plan of Treatment Upcoming Encounters Date Type Specialty Care Team Description 02/14/2022 Appointment Radiation Oncology Chris Grey M.D. [address] [place], [place] [phone] (Wo rk) Scheduled Referrals Name Type Priority Associated Diagnoses Order S jerilyn Radiation Oncology Outpatient Referral Routine Ex pected: office visit 01/11/2019, (clinic) Expires: 01/12/2020 documented as of this encounter Visit Diagnoses Diagnosis Primary Malignant Neoplasm Of Prostate ( HCC) - Primary documented in this encounter
--- OUTSIDE RECORDS SUMMARY | 2022-02-09 10:10 | XMS_ITS | Encounter Summary ---
:1950 Author Organization [facility] Address [address] [place] [address] Care Team Providers Name Role Phone Unavailable Primary Care Provider Unavailable Reason for Referral Radiation Therapy (Routine) - Closed Specialty Diagnoses / Procedures Referred By Contact Refer red To Contact Diagnoses Primary Malignant Neoplasm Of Prostate (HCC) Angel Grey M.D. [facility] Procedures Initial Rad Onc Treatment Planning CT Simulation [address] [place] [address] Referral ID Status Reason Start Date Expiration Date Visits Requ ested Visits Authorized [id number] Closed 12/20/2018 12/20/2019 2 2 Reason for Visit Radiation Therapy (Routine) - Closed Specialty Diagnoses / Procedures Referred By Contact Refer red To Contact Diagnoses Primary Malignant Neoplasm Of Prostate (HCC) Angel Grey M.D. [facility] Procedures Initial Rad Onc Treatment Planning CT Simulation [address] [place] [address] Referral ID Status Reason Start Date Expiration Date Visits Requ ested Visits Authorized [id number] Closed 12/20/2018 12/20/2019 2 2 Encounter Details Date Type Department Care Team Description 01/11/2019 Hospital Encounter Department of Angel Grey Malignant Radiation Oncology [place] Neoplasm Of Prostate in [place], [address] [email or web address] (HCC) [place], [place] [address] [facility] [address] [place], [place] [phone] (Work) [phone] Social History Tobacco Use Types Packs/Day Years [...] How often do you attend orthodoxy or jehovah's witness 1 to 4 times [...] or slept in a mcc (including now)? Sex Assigned at Date Recorded [...] into each nostril mcg/actuation nasal daily. spray ykymdgkuekfy-cofaumdh-ny Take 1 tablet by 0 09/23 tein (CENTURY MATURE) mouth. tablet omega 4-oxz-vhb-fish oil Take 1,200 mg by 0 1,000 [...] cN0, cM0, PSA: 5.1, Grade Group: 3) [place] 4 + 3 adenocarcinoma of the prostate [...] tattoos. CT images were transferred to the [facility] planning system. Segmentation and treatmentplanning will take place prior to treatment delivery. Patient set up and imaging was appropriate and completed without incident. He will proceed next [facility] for a planning MRI. documented in this encounter Plan of Treatment Upcoming Encounters Date Type Specialty Care Team Description 02/14/2022 Appointment Radiation Oncology Chris Grey M.D. [address] [place] [phone] (Wo rk) documented as of this [...] Time Received Time / Laterality Volume Narrative [facility] - 01/11/2019 1:00 PM CDT Angel Grey [...] Organization Address City/State/ZIP Code Phon e Number [facility] na documented in this encounter Visit Diagnoses Diagnosis Primary Malignant Neoplasm Of Prostate ( HCC) documented in this encounter
--- OUTSIDE RECORDS SUMMARY | 2022-02-09 10:10 | XMS_ITS | Encounter Summary ---
:1950 Author Organization [facility] Address [address] [place] [address] Care Team Providers Name Role Phone Unavailable Primary Care Provider Unavailable Reason for Referral Outpatient (Routine) - Closed Specialty Diagnoses / Procedures Referred By Contact Refer red To Contact Radiation Oncology Annia Stewart P.A.-C., [facility] [address] [place] [phone] Referral ID Status Reason Start Date Expiration Date Visits Requ ested Visits Authorized [id number] Closed 01/11/2019 01/11/2020 1 1 Reason for Visit Outpatient (Routine) - Closed Specialty Diagnoses / Procedures Referred By Contact Refer red To Contact Radiation Oncology Annia Stewart P.A.-C., BENNY S [facility] [address] [place] [phone] Referral ID Status Reason Start Date Expiration Date Visits Requ ested Visits Authorized [id number] Closed 01/11/2019 01/11/2020 1 1 Encounter Details Date Type Department Care Team Description 01/11/2019 Hospital Encounter Department of Angel Grey Malignant Radiation Oncology [place] Neoplasm Of Prostate in [address] (HCC) (Primary Dx) [place], [place] [address] [facility] [address] [place], [place] [phone] (Work) [phone] Social History Tobacco Use Types Packs/Day Years [...] or relatives? How often do you attend taoism or methodist 1 to 4 times per year 02/25/2021 services? Do you belong to any clubs or organizations Yes 02/25/2021 such as taoism groups, unions, fraternal or athletic groups, or [...] into each nostril mcg/actuation nasal daily. spray drxtgyqlqpah-rpgjlwwd-mn Take 1 tablet by 0 09/23 tein (CENTURY MATURE) mouth. tablet omega 0-iav-eyy-fish oil Take 1,200 mg by 0 1,000 [...] neoplasia, focal and adenocarcinoma of the prostate, [place] 4+3=7, involving 1-40% of the length of [...] with Dr. Laura for T1c prostate cancer, [place] 4+3=7. He discussed treatment options including expectant [...] 20, 2018: Patient saw Dr. Zamora at [facility] for chronic thrombocytopenia. 13. November 21, 2018: Patient received a Lupron 7.5 mg injection [facility]. 14. December 20, 2018: Patient received a Lupron 22.5 injection at [facility]. This was his last injection for a [...] cN0, cM0, PSA: 5.1, Grade Group: 3) [place] 4 + 3 adenocarcinoma of the prostate [...] Radiation in Prostate Cancer?? trial (IRB# [id number]). We discussed the similarities and differences of [...] an MRI in the planning position at [facility] today. We will aim to begin treatment [...] Grey M.D. 01/11/2019 1:28 PM Radiation Oncology [facility] [address] [place] [address] documented in this encounter Plan of Treatment Upcoming Encounters Date Type Specialty Care Team Description 02/14/2022 Appointment Radiation Oncology Chris Grey M.D. [address] [place], [place] [phone] (Wo rk) Scheduled Referrals Name Type Priority Associated Order Schedule Diagnoses Radiation Oncology Outpatient Referral Routine On ce for 1 office visit Occurrences sta rting (clinic) 01/11/2019 unti l 01/11/2019 documented as of this encounter Visit Diagnoses Diagnosis Primary Malignant Neoplasm Of Prostate ( HCC) - Primary documented in this encounter
--- OUTSIDE RECORDS SUMMARY | 2022-02-09 10:10 | XMS_ITS | Encounter Summary ---
:1950 Author Organization [facility] Address [address] [place] [address] Care Team Providers Name Role Phone Unavailable Primary Care Provider Unavailable Reason for Visit Radiation Therapy (Routine) - Closed Specialty Diagnoses / Procedures Referred By Contact Refer red To Contact Diagnoses Primary Malignant Neoplasm Of Prostate (HCC) Angel Grey M.D. [facility] Procedures Prior Auth Rad Tx [place] IMRT SIMPLE [address] [place] [address] Referral ID Status Reason Start Date Expiration Date Visits Requ ested Visits Authorized [id number] Closed 12/20/2018 12/20/2019 20 20 Encounter Details Date Type Department Care Team Description 02/05/2019 Hospital Encounter Department of Radiation Willi Grey, Oncology in [place] [address] [facility] [address] [place] [phone] Social History Tobacco Use Types Packs/Day Years [...] How often do you attend pentecostalism or hindu 1 to 4 times per [...] the highest level of school Associate degree: [employer] program 02/01/2019 you have completed or the [...] into each nostril mcg/actuation nasal spray daily. ezdepuadriln-tnyolola-xfq Take 1 tablet by 0 05/2013 ein (CENTURY MATURE) mouth. tablet omega 0-dbl-ujc-fish oil Take 1,200 mg by 0 1,000 [...] Radiation Oncology Chris Grey M.D. [address] [place], [place] [phone] (Wo rk) documented as of this encounter Visit Diagnoses Not on filedocumented in this encounter
--- OUTSIDE RECORDS SUMMARY | 2022-02-09 10:10 | XMS_ITS | Encounter Summary ---
:1950 Author Organization [facility] Address [address] [place] [address] Care Team Providers Name Role Phone Unavailable Primary Care Provider Unavailable Reason for Referral Specialty Diagnoses / Procedures Referred By Contact Refer red To Contact Angel Grey M .D. [address] [address] Referral ID Status Reason Start Date Expiration Date Visits Requ ested Visits Authorized Outpatient (Routine) - Closed Specialty Diagnoses / Procedures Referred By Contact Refer red To Contact Social Work Angel Grey M .D. [address] [address] Referral ID Status Reason Start Date Expiration Date Visits Requ ested Visits Authorized [id number] Closed 12/20/2018 12/20/2019 1 1 Specialty Diagnoses / Procedures Referred By Contact Refer red To Contact Angel Grey M .D. [address] [address] Referral ID Status Reason Start Date Expiration Date Visits Requ ested Visits Authorized Radiation Therapy (Routine) - Closed Specialty Diagnoses / Procedures Referred By Contact Refer red To Contact Diagnoses Primary Malignant Neoplasm Of Prostate (HCC) Angel Grey M.D. [facility] Procedures Prior Auth Rad Tx [place] IMRT SIMPLE [address] [place], [place] [phone] Referral ID Status Reason Start Date Expiration Date Visits Requ ested Visits Authorized [id number] Closed 12/20/2018 12/20/2019 20 20 Radiation Therapy (Routine) - Closed Specialty Diagnoses / Procedures Referred By Contact Refer red To Contact Diagnoses Primary Malignant Neoplasm Of Prostate (HCC) Angel Grey M.D. [facility] Procedures Initial Rad Onc Treatment Planning CT Simulation [address] [place] [address] Referral ID Status Reason Start Date Expiration Date Visits Requ ested Visits Authorized [id number] Closed 12/20/2018 12/20/2019 2 2 Outpatient (Routine) - Closed Specialty Diagnoses / Procedures Referred By Contact Refer red To Contact Radiation Oncology Angel Grey M .D. [facility] [address] [place] [address] Referral ID Status Reason Start Date Expiration Date Visits Requ ested Visits Authorized [id number] Closed 11/12/2018 11/12/2019 1 1 Reason for Visit Outpatient (Routine) - Closed Specialty Diagnoses / Procedures Referred By Contact Refer red To Contact Radiation Oncology Angel Grey M .D. [facility] [address] [place] [address] Referral ID Status Reason Start Date Expiration Date Visits Requ ested Visits Authorized [id number] Closed 11/12/2018 11/12/2019 1 1 Encounter Details Date Type Department Care Team Description 12/20/2018 Hospital Encounter Department of Angel Grey Malignant Radiation Oncology L, M.D. Neoplasm Of Prostate in [place], [facility] [address] (HCC) (Primary Dx) [place], [place] [address] [facility] [address] [place], [place] [phone] [address] (Work) [phone] Social History Tobacco Use Types Packs/Day Years [...] How often do you attend catholic or yazidi 1 to 4 times per year 02/25/2021 [...] with Dr. Laura for T1c prostate cancer, [place] 4+3=7. He discussed treatment options including expectant [...] 20, 2018: Patient saw Dr. Zamora at [facility] for chronic thrombocytopenia. 13. November 21, 2018: Patient received a Lupron 7.5 mg injection [facility]. 14. December 20, 2018: Patient is scheduled for a Lupron 22.5 injection at [facility]. This will be his last injection. INTERVAL [...] the consent form. He will proceed to [facility] next for his last Lupron injection (22.5 mg). I have ordered rectal spacer and fiducial p lacement in [place]. He will return in 2-[address] simulation as well as an MRI in the planning position at [facility]. We discussed our rectal emptying and bladder filling protocol. The patient and his spouse verbalized satisfaction with this plan. I have spent 20 minutes with this patient today with 20 minutes spent in counseling the patient. Signed by: Angel Grey M.D. 12/20/2018 4:04 PM Radiation Oncology [facility] [address] [place] [phone] documented in this encounter Plan of Treatment Upcoming Encounters Date Type Specialty Care Team Description 02/14/2022 Appointment Radiation Oncology Chris Grey M.D. [address] [place], [place] [phone] (Wo rk) Scheduled Orders [...] Time Received Time / Laterality Volume Narrative SOLEN ARIA - 01/11/2019 1:00 PM CDT Angel [...] City/State/ZIP Code Phon e Number JO EDITHA SOLEN MIAN na US Prostate Fiducial Marker Placement with [...] was prepared as descri bed in the mortgage loan officer's Instructions For Use. With the subject maintained [...] was prepared as descri bed in the mortgage loan officer's Instructions For Use. With the subject maintained [...] when dismissal criteria met. POST-PROCEDURE DIAGNOSIS: Prostate mariece r. IMPRESSION: 1. Successful ultrasound guided placemen [...]
--- OUTSIDE RECORDS SUMMARY | 2022-02-09 10:10 | XMS_ITS | Encounter Summary ---
:1950 Author Organization [facility] Address [address] [place] [address] Care Team Providers Name Role Phone Unavailable Primary Care Provider Unavailable Encounter Details Date Type Department Care Team Description 11/30/2018 Clinical Communication Department of Juanita, Radiation Oncology in [facility] [address] [place] [phone] Social History Tobacco Use Types Packs/Day Years [...] How often do you attend adventist or roman catholic 1 to 4 times per year [...] or slept in a custodial (including now)? Sex Assigned at Date Recorded Male 12/24/2018 8:16 PM CDT documented as of this encounter Miscellaneous Notes Telephone Encounter - Cheri Al R.N. - 11/30/2018 3:41 PM CDT Patient is [...] to start taking calcium pills. Phone number: [phone] Is it okay to leave a voicemail on answering machine with test results? Yes Pharmacy (if medication related): [place], [place] - [address] [place] [address] La Nena Grant documented in this encounter Plan of Treatment Upcoming Encounters Date Type Specialty Care Team Description 02/14/2022 Appointment Radiation Oncology Chris Grey M.D. [address] [place] [phone] (Wo rk) documented as of this encounter Visit Diagnoses Not on filedocumented in this encounter
--- OUTSIDE RECORDS SUMMARY | 2022-02-09 10:10 | XMS_ITS | Encounter Summary ---
:1950 Author Organization [facility] Address [address] [place] [address] Care Team Providers Name Role Phone Unavailable Primary Care Provider Unavailable Encounter Details Date Type Department Care Team Description 01/23/2019 Ancillary Procedure Department of Angel Grey Malignant Radiology in [place] Neoplasm Of [place]state [place], [place] [address] [facility] (HCC) [address] [place] [phone] Social History Tobacco Use Types Packs/Day Years [...] or relatives? How often do you attend temple or jain 1 to 4 times per year 02/25/2021 services? Do you belong to any clubs or organizations Yes 02/25/2021 such as temple groups, unions, fraternal or athletic groups, or [...] or slept in a retirement (including now)? Sex Assigned at Date Recorded Male 12/24/2018 8:16 PM CDT documented as of this encounter Plan of Treatment Upcoming Encounters Date Type Specialty Care Team Description 02/14/2022 Appointment Radiation Oncology Chris Grey M.D. [address] [place], [place] [phone] (Wo rk) documented as [...] further evaluation if clinically indicated given biopsy-proven [place] 4+3 prostate cancer. Narrative 01/24/2019 5:43 PM [...] lesions. Hypertrophic and degenerative c hanges lumbar spine.[id number] Procedure Note Rachid Mata M.D. - 01/29/2019Forma [...] lesions. Hypertrophic and degenerative c hanges lumbar spine.[id number] IMPRESSION: Multiple prominent mesenteric lymph node s [...]
--- OUTSIDE RECORDS SUMMARY | 2022-02-09 10:10 | XMS_ITS | Encounter Summary ---
:1950 Author Organization [facility] Address [address] [place] [address] Care Team Providers Name Role Phone Unavailable Primary Care Provider Unavailable Encounter Details Date Type Department Care Team Description 01/29/2019 Orders Only Department of Radiation Angel Grey , Oncology in [facility] [address] [facility] [address] [place] [phone] (Wo rk) Social History Tobacco Use Types [...] How often do you attend faith or anabaptism 1 to 4 times per [...] slept in a group home (including now)? Sex Assigned at Date Recorded Male 12/24/2018 8:16 PM CDT documented as of this encounter Plan of Treatment Upcoming Encounters Date Type Specialty Care Team Description 02/14/2022 Appointment Radiation Oncology Chris Grey M.D. [address] [place] [phone] (Wo rk) documented as of this encounter Visit Diagnoses Not on filedocumented in this encounter
--- OUTSIDE RECORDS SUMMARY | 2022-02-09 10:10 | XMS_ITS | Encounter Summary ---
:1950 Author Organization [facility] Address [address] [place] [address] Care Team Providers Name Role Phone Unavailable Primary Care Provider Unavailable Encounter Details Date Type Department Care Team Description 11/20/2018 Orders Only Department of Angel Grey Primary Mal ignant Radiation Oncology in [place] Neoplasm Of Prostate [facility] [address] [facility] (HCC) (Primary Dx) [address] [place] [phone] Social History Tobacco Use Types Packs/Day Years [...] How often do you attend mandaen or restorationism 1 to 4 times per [...] Radiation Oncology Chris Grey M.D. [address] [place] [phone] (Wo rk) documented as of this encounter Visit Diagnoses Diagnosis Primary Malignant Neoplasm Of Prostate ( HCC) - Primary documented in this encounter
--- OUTSIDE RECORDS SUMMARY | 2022-02-09 10:10 | XMS_ITS | Encounter Summary ---
:1950 Author Organization [facility] Address [address] [place] [address] Care Team Providers Name Role Phone Unavailable [...] Expiration Date Visits Requ ested Visits Authorized [id number] 1 1 Encounter Details Date Type Department Care Team Description 12/27/2018 Hospital Encounter Department of Angel Grey Malignant Radiology, Marcin Renteria M.D. Neoplasm Of Prostate [facility], in [address] [place] [address] (HCC) [place], [place] [address] [place] [address] [place], [place] [phone] (Work) [phone] Social History Tobacco Use Types Packs/Day Years [...] How often do you attend orthodoxy or hinduism 1 to 4 times per year 02/25/2021 [...] 20 mg by 0 016 tablet mouth. khdhycsaqiyg-qyzwggho-frny Take 1 tablet by 0 05/2013 in [...] Appointment Radiation Oncology Chris Grey M.D. [address] [place] [phone] (Wo rk) documented as of [...] was prepared as descri bed in the geek squad autotech's Instructions For Use. With the subject maintained [...] DIAGNOSIS: Prostate cance r. Procedure Note William aJcobson M.D. - 12/27/2018Fo rmatting of this note [...] was prepared as descri bed in the [employer]'s Instructions For Use. With the subject maintained [...] rectum. No immediate compli cations. NR Angel Grey M.D. IMSteve US PROCEDURES documented in this encounter Visit [...]
--- OUTSIDE RECORDS SUMMARY | 2022-02-09 10:10 | XMS_ITS | Encounter Summary ---
:1950 Author Organization [facility] Address [address] [place] [address] Care Team Providers Name Role Phone Unavailable Primary Care Provider Unavailable Reason for Visit Reason Comments Results Encounter Details Date Type Department Care Team Description 11/21/2018 Clinical Communication Department of Radiation Cheri Al, Results Oncology in [facility] [address] [facility] [address] [place] [phone] Social History Tobacco Use Types Packs/Day Years [...] with Dr. Laura for T1c prostate cancer, [place] 4+3=7. He discussed treatment options including expectant management, hormonal therapy, cryotherapy, HIFU, radiation, and surgery. He recommended obtaining second opinions with Radiation Oncology and Oncology. 10. November 20, 2018: Scheduled appointment with Medical Oncology at [facility]. 11. November 15, 2018: PSA 4.14 ng/mL, Total testosterone 419 ng/dL (collected at [facility]). Patient started Casodex. Plan is for patient to receive 1 month hormonal injection tomorrow at [facility] and then return to see Dr. Grey [...] 02/14/2022 Appointment Radiation Oncology Chris Grey M.D. [address] [place] [phone] (Wo rk) documented as of this encounter Visit Diagnoses Not on filedocumented in this encounter
--- OUTSIDE RECORDS SUMMARY | 2022-02-09 10:10 | XMS_ITS | Encounter Summary ---
:1950 Author Organization [facility] Address [address] [place] [address] Care Team Providers Name Role Phone Unavailable Primary Care Provider Unavailable Reason for Referral Outpatient (Routine) - Closed Specialty Diagnoses / Procedures Referred By Contact Refer red To Contact Radiation Oncology Angel Grey M .D. [facility] [address] [place] [address] Referral ID Status Reason Start Date Expiration Date Visits Requ ested Visits Authorized [id number] Closed 11/12/2018 11/12/2019 1 1 Reason for Visit Appointment Request (Routine) - Closed Specialty Diagnoses / Procedures Referred By Contact Refer red To Contact Radiation Oncology Ming Laura M.D. [address] [place] [address] Referral ID Status Reason Start Date Expiration Date Visits Requ ested Visits Authorized [id number] Closed 10/31/2018 10/31/2019 1 1 Encounter Details Date Type Department Care Team Description 11/12/2018 Hospital Encounter Department of Angel Grey Malignant Radiation Oncology [place] Neoplasm Of Prostate in [address] (HCC) (Primary Dx) [place], [place] 18[address] [facility] [address] [place], [place] [phone] (Work) [phone] Social History Tobacco Use Types Packs/Day Years [...] How often do you attend sabianist or buddhist 1 to 4 times per year 02/25/2021 [...] 2018: Scheduled appointment with Medical Oncology at [facility]. INTERVAL HISTORY The patient reports that he [...] to his , Clara. They live in [place], [place]. 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 He has 2 adult children, son [...] surgery, radiotherapy, or observation (Erica et al, [facility], 2016) that showed that surgery and rad [...] visit with Dr. Membreno on at the [facility]. I have ordered a repeat PSA and baseline testosterone to be drawn at that visit. He will beginbicalutamide after his blood draw. Next week, he will be scheduled for a Lupron 7.5 mg injection at [facility]. I will see him back 4 weeks [...] Grey M.D. 11/12/2018 5:12 PM Radiation Oncology [facility] [address] [place] [address] REFERRING PHYSICIAN Ming Laura M.D. PRIMARY PHYSICIAN Ranjan Membreno M.D. documented in this encounter Miscellaneous Notes Addendum Note - Shira Polo - 11/12/2018 5:15 PM CDT Encounter addended by: Shira Polo on: 11/13/2018 7:04 AM Actions taken: Letter saved documented in this encounter Plan of Treatment Upcoming Encounters Date Type Specialty Care Team Description 02/14/2022 Appointment Radiation Oncology Chris Grey M.D. [address] [place] [phone] (Wo rk) Scheduled Referrals Name Type Priority Associated Diagnoses Order S [facility] Radiation Oncology Outpatient Referral Routine Ex pected: office visit 12/13/2018 (clinic) (Approximate), Expires: 11/13/2019 documented as of this encounter Visit Diagnoses Diagnosis Primary Malignant Neoplasm Of Prostate ( HCC) - Primary documented in this encounter
--- OUTSIDE RECORDS SUMMARY | 2022-02-09 10:10 | XMS_ITS | Encounter Summary ---
:1950 Author Organization [facility] Address [address] [place] [address] Care Team Providers Name Role Phone Unavailable Primary Care Provider Unavailable Reason for Visit Radiation Therapy (Routine) - Closed Specialty Diagnoses / Procedures Referred By Contact Refer red To Contact Diagnoses Primary Malignant Neoplasm Of Prostate (HCC) Angel Grey M.D. [facility] Procedures Prior Auth Rad Tx [place] IMRT SIMPLE [address] [place] [address] Referral ID Status Reason Start Date Expiration Date Visits Requ ested Visits Authorized [id number] Closed 12/20/2018 12/20/2019 20 20 Encounter Details Date Type Department Care Team Description 02/01/2019 Hospital Encounter Department of Radiation Willi Grey, Oncology [place] [address] [facility] [address] [place] [phone] Social History Tobacco Use Types Packs/Day Years [...] How often do you attend mormonism or cheondoism 1 to 4 times per [...] the highest level of school Associate degree: [employer] program 02/01/2019 you have completed or the [...] into each nostril mcg/actuation nasal daily. spray pictpiljlfww-acpvxqpr-lz Take 1 tablet by 0 09/23 tein (CENTURY MATURE) mouth. tablet omega 2-wtx-arb-fish oil Take 1,200 mg by 0 1,000 [...] Radiation Oncology Chris Grey M.D. [address] [place], [place] [phone] (Wo rk) documented as of this encounter Visit Diagnoses Not on filedocumented in this encounter
--- OUTSIDE RECORDS SUMMARY | 2022-02-09 10:10 | XMS_ITS | Encounter Summary ---
:1950 Author Organization [facility] Address [address] [place] [address] Care Team Providers Name Role Phone Unavailable Primary Care Provider Unavailable Encounter Details Date Type Department Care Team Description 01/11/2019 Orders Only Department of Radiation Angel Grey , Oncology in [facility] [address] [facility] [address] [place] [phone] [phone] (Wo rk) Social History Tobacco Use Types [...] How often do you attend orthodox or religion 1 to 4 times per [...] slept in a skilled nursing (including now)? Sex Assigned at Date Recorded Male 12/24/2018 8:16 PM CDT documented as of this encounter Plan of Treatment Upcoming Encounters Date Type Specialty Care Team Description 02/14/2022 Appointment Radiation Oncology Chris Grey M.D. [address] [place] [phone] (Wo rk) documented as of this encounter Visit Diagnoses Not on filedocumented in this encounter
--- OUTSIDE RECORDS SUMMARY | 2022-02-09 10:10 | XMS_ITS | Encounter Summary ---
:1950 Author Organization [facility] Address [address] [place] [address] Care Team Providers Name Role Phone Unavailable Primary Care Provider Unavailable Encounter Details Date Type Department Care Team Description 11/23/2018 Clinical Communication Department of Juanita, Radiation Oncology in [facility] [address] [place] [phone] Social History Tobacco Use Types Packs/Day Years [...] How often do you attend scientologist or mandaeism 1 to 4 times per year 02/25/2021 [...] 3 month Lupron injection on December 20? Cheri Hdz Telephone Encounter - Angel Grey M.D. - [...] with radiation sooner than later Phone number: [phone] or [phone] Is it okay to leave a voicemail on answering machine with test results? Yes Pharmacy (if medication related): [facility] [place], [place] - [address] [place] [phone] La Nena Grant documented in this encounter Plan of Treatment Upcoming Encounters Date Type Specialty Care Team Description 02/14/2022 Appointment Radiation Oncology Chris Grey M.D. [address] [place] [phone] (Wo rk) documented as of this encounter Visit Diagnoses Not on filedocumented in this encounter
--- OUTSIDE RECORDS SUMMARY | 2022-02-09 10:10 | XMS_ITS | Encounter Summary ---
:1950 Author Organization [facility] Address [address] [place] [address] Care Team Providers Name Role Phone Unavailable Primary Care Provider Unavailable Encounter Details Date Type Department Care Team Description 01/30/2019 Clinical Communication Department of Angel rGey Radiation Oncology [place] [address] [facility] [address] [place] [phone] Social History Tobacco Use Types Packs/Day Years [...] How often do you attend pentecostal or sabianism 1 to 4 times per [...] left prostate demonstrated adenocarcinoma of the prostate, [place] 3+4=7, involving 10-30% of the length of 3 cores, perineural invasion not seen. 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 [place] radiology reviewed his CT imaging and concluded [...] 20, 2018: Patient saw Dr. Zamora at [facility] for chronic thrombocytopenia. 13. November 21, 2018: Patient received a Lupron 7.5 mg injection [facility]. 14. December 20, 2018: Patient received a Lupron 22.5 injection at [facility]. This was his last injection for a total of 4 months of ADT. 15. December 27, 2018: Hydrogel rectal spacer was placed as well as 4 gold seed fiducial markers in the prostate. ASSESSMENT / PLAN 1. Stage IIC (cT1c, cN0, cM0, PSA: 5.1, Grade Group: 3) [place] 4 + 3 adenocarcinoma of the prostate 2. Androgen deprivation therapy with bicalutamide for 3 weeks initiated on November 15, 2018; Lupron 7.5mg injection on November 21, 2018; and Lupron 22.5 mg injection on December 20, 2018 with no further ADT planned 3. Erectile dysfunction I communicated with Dr. Mcelroy who is the primary fugitive investigator of the COMPPARE trial for which the patient consented to enroll. She was concerned that the patient may have CLL given the patient's lymphadenopathy seen on his CT imaging. I requested [place] radiology review and they agree that his [...] Radiation Oncology Chris Grey M.D. [address] [place], [place] [phone] (Wo rk) documented as of this encounter Visit Diagnoses Diagnosis Primary Malignant Neoplasm Of Prostate ( HCC) - Primary documented in this encounter
--- OUTSIDE RECORDS SUMMARY | 2022-02-09 10:10 | XMS_ITS | Encounter Summary ---
:1950 Author Organization [facility] Address [address] [place] [address] Care Team Providers Name Role Phone Unavailable Primary Care Provider Unavailable Encounter Details Date Type Department Care Team Description 12/07/2018 Clinical Communication Department of Juanita, Radiation Oncology in [facility] [address] [place] [phone] Social History Tobacco Use Types Packs/Day Years [...] How often do you attend pentecostal or alevism 1 to 4 times per [...] Please call the patient back. Phone number: [phone] Is it okay to leave a voicemail on answering machine with test results? Yes Pharmacy (if medication related): [facility] - [place], [place] - [address] [facility] [id number] [place] documented in this encounter Plan of Treatment Upcoming Encounters Date Type Specialty Care Team Description 02/14/2022 Appointment Radiation Oncology Chris Grey M.D. [address] [place] [phone] (Wo rk) documented as of this encounter Visit Diagnoses Not on filedocumented in this encounter
--- OUTSIDE RECORDS SUMMARY | 2022-02-09 10:10 | XMS_ITS | Encounter Summary ---
:1950 Author Organization [facility] Address [address] [place] [address] Care Team Providers Name Role Phone Unavailable Primary Care Provider Unavailable Encounter Details Date Type Department Care Team Description 01/15/2019 Orders Only Department of Zuleika Hudson Primary Zaire flores Radiation Oncology in [facility] Neoplasm Of Prostate [facility] [phone] (HCC) (Primary Dx) [address] (Work) [place] [address] Social History Tobacco Use Types [...] How often do you attend sabianism or rastafarian 1 to 4 times per [...] slept in a long term (including now)? Sex Assigned at Date Recorded Male 12/24/2018 8:16 PM CDT documented as of this encounter Plan of Treatment Upcoming Encounters Date Type Specialty Care Team Description 02/14/2022 Appointment Radiation Oncology Chris Grey M.D. [address] [place], [place] [phone] (Wo rk) documented as of this encounter Visit Diagnoses Diagnosis Primary Malignant Neoplasm Of Prostate ( HCC) - Primary documented in this encounter
--- OUTSIDE RECORDS SUMMARY | 2022-02-09 10:10 | XMS_ITS | Encounter Summary ---
:1950 Author Organization [facility] Address [address] [place] [address] Care Team Providers Name Role Phone Unavailable Primary Care Provider Unavailable Reason for Referral Specialty Diagnoses / Procedures Referred By Contact Refer red To Contact Angel Grey M .D. [facility] [address] [place] [phone] Referral ID Status Reason Start Date Expiration Date Visits Requ ested Visits Authorized Encounter Details Date Type Department Care Team Description 02/05/2019 Hospital Encounter Department of Chris Grey M.D. [address] [place] [phone] Primary Malignant Radiation Oncology Cheri Al RPenny [address] [place] [phone] Neoplasm Of Prostate in [place], (HCC) [address] [phone] Social History Tobacco Use Types Packs/Day Years [...] How often do you attend synagogue or yazidi 1 to 4 times per [...] the highest level of school Associate degree: [employer] program 02/01/2019 you have completed or the [...] as XP OPHT) needed (for dry eyes). [id number] Take 1 tablet by 0 05/2013 ein (CENTURY MATURE) mouth. tablet omega 8-ool-lfj-fish oil Take 1,200 mg by 0 1,000 [...] Radiation Oncology Chris Grey M.D. [address] [place], [place] [phone] (Wo rk) Scheduled Referrals [...]
--- NOTE | 2022-02-09 11:00 | CRLHL7_ITS ---
For Patients: As a result of the Century Cures Act, medical imaging exams and procedure reports are released immediately into your electronic medical record. You may view this report before your referring provider. If you have questions, please contact your health care provider. INDICATION: suspected right glossal tonsillar sulcus prominence COMPARISON: CT cervical spine 01/28/2022 TECHNIQUE: A CT volumetric acquisition was performed of the neck during intravenous infusion of 100 cc Isovue 370 nonionic intravenous contrast. Please note that all CT scans at this facility use dose modulation, iterative reconstruction, and/or weight-based dosing when appropriate to reduce radiation dose to as low as reasonably achievable. FINDINGS: The CT images demonstrate normal aeration of the mastoid air cells and middle ear cavities. The paranasal sinuses are clear. Rightward curvature of the anterior nasal septum and leftward curvature of the posterior nasal septum with posterior left-sided nasal septal spur. Paradoxical turn of the middle turbinates noted without cosmo bullosa or nasal polyp. The parotid and submandibular glands are of normal size and have uniform enhancement. The oropharynx appears normal. Specifically, the posterior tongue base appears unremarkable on today`s examination. The valleculae, epiglottis, aryepiglottic folds and piriform sinuses appear normal. There is a normal appearance of the larynx and subglottic trachea. The thyroid gland is of normal size and has uniform density. An incidental subcentimeter left thyroid lobe colloid cyst is present. There is no evidence of lymphadenopathy within the anterior and posterior cervical triangles or within the supraclavicular region. 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 Scarring/atelectasis within the dependent lung apices. IMPRESSION: No suspicion for mass within the right glossal tonsillar sulcus. No adenopathy. Please note that all CT scans at this facility use dose modulation, iterative reconstruction, and/or weight-based dosing when appropriate to reduce radiation dose to as low as reasonably achievable. Dictated by Evaristo Leslie MD @ 02/09/2022 11:18:26 AM (Electronically Signed)
== END 2022-02-09 09:50 | disposition home or self-care (01) ==
LOC: CT 09:51
PROVIDERS: PCP Physician Assistant Medical; Visit Provider Emergency Medicine
DX: R93.89 Abnormal findings on diagnostic imaging of other specified body structures (principal)
CPT/HCPCS: 70491; Q9967

== ENCOUNTER 2022-02-14 22:07 | Outpatient (REF) | payer OTHER, MEDICARE, SELFPAY ==
--- OUTSIDE RECORDS SUMMARY | 2022-02-14 22:13 | XMS_ITS | Encounter Summary ---
:1950 Author Organization [facility] Address [address] [place] [address] Care Team Providers Name Role Phone Unavailable Primary Care Provider Unavailable Encounter Details Date Type Department Care Team Description 10/23/2019 Orders Only Department of Radiation Annia Stewart Pri mary Malignant Oncology in [place], P.ADave, M.S. Neoplasm Of Prostate [place] [address] [facility] (HCC) (Primary Dx) [address] [place] [phone] Social History Tobacco Use Types Packs/Day Years [...] How often do you attend orthodox or catholic 1 to 4 times per [...] as of this encounter Plan of Treatment Not on filedocumented as of this encounter Visit Diagnoses Diagnosis Primary Malignant Neoplasm Of Prostate ( HCC) - Primary documented in this encounter
--- OUTSIDE RECORDS SUMMARY | 2022-02-14 22:13 | XMS_ITS | Encounter Summary ---
:1950 Author Organization [facility] Address [address] [place] [address] Care Team Providers Name Role Phone Unavailable Primary Care Provider Unavailable Encounter Details Date Type Department Care Team Description 12/24/2019 Clinical Communication Department of Gracie Heredia Radiation Oncology in [facility] [phone] [place] [address] (Work) [place] [address] Social History Tobacco Use Types [...] How often do you attend voodoo or hoahaoism 1 to 4 times per [...] filedocumented as of this encounter Visit Diagnoses Not on filedocumented in this encounter
--- OUTSIDE RECORDS SUMMARY | 2022-02-14 22:13 | XMS_ITS | Encounter Summary ---
:1950 Author Organization [facility] Address [address] [place] [address] Care Team Providers Name Role Phone Unavailable Primary Care Provider Unavailable Encounter Details Date Type Department Care Team Description 02/10/2021 Immunization Department of [facility] Mike Turcios Cance led (Clinic: Pepito Del Castillo M.D., Ph. D. Request) Clinic, in [address] [phone] Social History Tobacco Use Types Packs/Day Years [...] How often do you attend caodaism or caodaism 1 to 4 times per year 02/25/2021 [...]
--- OUTSIDE RECORDS SUMMARY | 2022-02-14 22:13 | XMS_ITS | Encounter Summary ---
:1950 Author Organization [facility] Address [address] [place] [address] Care Team Providers Name Role Phone Unavailable Primary Care Provider Unavailable Encounter Details Date Type Department Care Team Description 01/01/2021 Orders Only RST PCP [facility] Abril Baxter M.D. [address] [place], [place] [phone] (Wo rk) Social History [...] How often do you attend mormon or latter-day 1 to 4 times per [...]
--- OUTSIDE RECORDS SUMMARY | 2022-02-14 22:13 | XMS_ITS | Encounter Summary ---
:1950 Author Organization [facility] Address [address] [place] [address] Care Team Providers Name Role Phone Unavailable Primary Care Provider Unavailable Reason for Referral Outpatient (Routine) - Closed Specialty Diagnoses / Procedures Referred By Contact Refer red To Contact Radiation Oncology Annia Stewart P.A.-C., [facility] [address] [place] [address] Referral ID Status Reason Start Date Expiration Date Visits Requ ested Visits Authorized [id number] Closed 01/29/2020 01/28/2021 1 1 Scheduling Instructions Please get PSA results and office notes from Dr. Laura. If patient has not had a recent PSA, please let us know and we ca n place an order. Thank you! Encounter Details Date Type Department Care Team Description 01/29/2020 Orders Only Department of Radiation Annia Stewart P.A .-C., Oncology in [facility] [address] [facility] [address] [place] [phone] (Wo rk) Social History Tobacco Use Types [...] How often do you attend mandaeism or tenriism 1 to 4 times per [...] as of this encounter Plan of Treatment Scheduled Referrals Name Type Priority Associated Diagnoses Order S jerilyn Radiation Oncology Outpatient Referral Routine Ex pected: office visit 03/01/2021 (clinic) (Approximate), Expires: 02/17/2022 documented as of this encounter Visit Diagnoses Not on filedocumented in this encounter
--- OUTSIDE RECORDS SUMMARY | 2022-02-14 22:13 | XMS_ITS | Encounter Summary ---
:1950 Author Organization [facility] Address [address] [place] [address] Care Team Providers Name Role Phone Unavailable Primary Care Provider Unavailable Reason for Visit Reason Comments Results Encounter Details Date Type Department Care Team Description 10/25/2019 Clinical Communication Department of Radiation Cheri Al, Results Oncology in [facility] [address] [facility] [address] [place] [phone] Social History Tobacco Use Types Packs/Day Years [...] often do you attend latter day or holiness 1 to 4 times per [...] Notes Telephone Encounter - Cheri Al Judy, RRaheelN. - 10/29/2019 1:07 PM CDT Test Result [...] left prostate demonstrated adenocarcinoma of the prostate, [place] 3+4=7,involving 10-30% of the length of 3 [...] definite hypermetabolic metastatic disease in the body. ??[facility] interpretation of outside imaging demonstrated that the multiple mildly prominent mesenteric and inguinal nodes had no or??only minimal FDG uptake, likely inflammatory. ??No other findings were seen to indicate abdominal or pelvic malignancy, higher grade lymphoma, or a??lymphoproliferative disorder. ??I spoke to the [facility] Radiologist regarding the uptake in the [...] repeat lab work to be completed at [facility] in [place] this coming January. Patient reports that he is doing well overall. No hematuria, diarrhea, rectal bleeding, feelings of obstruction, dysuria, bone pain or new symptoms or concerns. Radiation Oncology Cecil can be contacted at anytime for concerns or questions. Disposition/Recommendation: self-care - appropriate at this time, patient encouraged to call back with questions Information/Education: patient/caller able to teach back Caller agreeable to plan of care: yes Toxicities will be reviewed with Annia Stewart PA-C. documented in this encounter Plan of Treatment Not on filedocumented as of this encounter Procedures Procedure Name [...] AM CDT) P athologist Signature EXT <0.06 M[facility]TH [facility], Diagnostic, [facility] Specimen (Source) Anatomical Collection Method Collection Time Re ceived Time Location / / Volume Laterality Blood (Blood, 10/14/2019 9:44 AM Venous) CDT Angel Grey M.D. LAB BLOOD ADD-ON Performing Organization Address City/State/[facility] Code Phon e Number [facility], [address] [place] [id number] [facility]) PSA (Prostate-Specific Antigen), Diagnostic (10/14/2019 9:44 AM CDT) Specimen (Source) Anatomical Collection Method Collection Time Re ceived Time Location / / Volume Laterality Blood (Blood, 10/14/2019 9:44 AM Venous) CDT Angel Grey M.D. LAB BLOOD ADD-ON Performing Organization Address City/State/ZIP Code Phon e Number [facility], [address] [place] [id number] [facility]) documented in this encounter Visit Diagnoses Not on filedocumented in this encounter
--- OUTSIDE RECORDS SUMMARY | 2022-02-14 22:13 | XMS_ITS ---
:1950 Author Organization [facility] Address [address] [place] [address] Care Team Providers Name Role Phone Unavailable [...] Elapsed Days Session Dose Total Dos e [id number] 02/27/2019 27 300 cGy 6,000 cGy
--- OUTSIDE RECORDS SUMMARY | 2022-02-14 22:13 | XMS_ITS | Encounter Summary ---
:1950 Author Organization [facility] Address [address] [place] [address] Care Team Providers Name Role Phone Unavailable Primary Care Provider Unavailable Reason for Referral Outpatient (Routine) - Closed Specialty Diagnoses / Procedures Referred By Contact Sydnie bhatia To Contact Radiation Oncology Annia Stewart P.A.-C., [facility] [address] [place] [phone] Referral ID Status Reason Start Date Expiration Date Visits Requ ested Visits Authorized [id number] Closed 01/29/2020 01/28/2021 1 1 Scheduling Instructions Please get PSA results and office notes from Dr. Laura. If patient has not had a recent PSA, please let us know and we ca n place an order. Thank you! OLOGIST Reason for Visit Outpatient (Routine) - Closed Specialty Diagnoses / Procedures Referred By Contact Sydnie bhatia To Contact Radiation Oncology Annia Stewart P.A.-C., [facility] [address] [place] [phone] Referral ID Status Reason Start Date Expiration Date Visits Requ ested Visits Authorized [id number] Closed 01/29/2020 01/28/2021 1 1 Encounter Details Date Type Department Care Team Description 03/01/2021 Hospital Encounter Department of Angel Grey Malignant Radiation Oncology Omaira Renteria Neoplasm Of Prostate in [address] (HCC) (Primary Dx) [place], [place] [address] [facility] [address] [place], [place] [phone] [address] (Work) [phone] Social History Tobacco Use Types Packs/Day Years [...] How often do you attend gnosticism or amish 1 to 4 times per [...] Comments Blood Pressure 137/72 03/01/2021 3:28 PM HERBOLOGIST Pulse 53 03/01/2021 3:28 PM HERBOLOGIST Temperature 36.7 ??C (98 ??F) 03/01/2021 3:28 PM HERBOLOGIST Respiratory Rate - - Oxygen Saturation - - Inhaled Oxygen Concentration - - Weight 94.2 kg (207 lb 10.8 oz) 03/01/2021 3:28 PM HERBOLOGIST Height - - Body Mass Index 30.67 [...] into each nostril mcg/actuation nasal spray daily. [id number] Take 1 tablet by 0 05/2013 ein (CENTURY MATURE) mouth. tablet omega 6-isw-bws-fish oil Take 1,200 mg by 0 1,000 [...] of this encounter Progress Notes Annia Stewart P.A.-Jarad., M.S. - 03/01/2021 3:30 PM CST SUBJECTIVE DIAGNOSIS 1. Primary Malignant Neoplasm Of Prostate (HCC) SUPERVISED BY: Angel Grey M.D. ([phone]) HISTORY OF PRESENT ILLNESS Mr. Dick Sigala [...] left prostate demonstrated adenocarcinoma of the prostate, [place] 3+4=7,involving 10-30% of the length of 3 cores, perineural invasion not seen. ??Pathology of the right prostate demonstrated high-grade prostatic intraepithelial neoplasia, focal and adenocarcinoma of the prostate, [place] 4+3=7, involving 1-40% of the length of [...] 20, 2018: ??Patient saw Dr. Zamora at [facility] for chronic thrombocytopenia. 13. ??November 21, 2018: ??Patient received a Lupron 7.5 mg injection [facility]. 14. ??December 20, 2018: ??Patient received??a Lupron 22.5 injection at [facility]. ??This was??his last injection??for a total [...] hypermetabolic metastatic disease in the body. ??[facility] interpretation of outside imaging demonstrated that the multiple mildly prominent mesenteric and inguinal nodes had no or??only minimal FDG uptake, likely inflammatory. ??No other findings were seen to indicate abdominal or pelvic malignancy, higher grade lymphoma, or a??lymphoproliferative disorder. ??I spoke to the [facility] Radiologist regarding the uptake in the left [...] PSA lab draw to be done at [facility] in [place] in 6 months. We will send the [...] Annia Stewart P.A.-C., M.S. 03/01/2021 3:55 PM HERBOLOGIST [facility] [address] [place] [address] OLOGIST Associated attestation - Angel Grey M.D. - 03/01/2021 4:28 PM HERBOLOGIST I saw and evaluated the patient and [...] by: Angel Grey M.D. 03/01/21 4:28 PM HERBOLOGIST [facility] [place] documented in this encounter Miscellaneous Notes Addendum Note - Shannan Suarez C.NGustavo - 03/01/2021 3:30 PM HERBOLOGIST Encounter addended by: Shannan Suarez C.NGustavo on: 03/02/2021 7:06 AM Actions taken: Letter saved OLOGIST documented in this encounter Plan of Treatment Scheduled Referrals Name Type Priority Associated Order Schedule Diagnoses Radiation Oncology Outpatient Referral Routine On ce for 1 office visit Occurrences sta rting (clinic) 03/01/2021 unti l 03/01/2021 documented as of this encounter Visit Diagnoses Diagnosis Primary Malignant Neoplasm Of Prostate ( HCC) - Primary documented in this encounter
--- OUTSIDE RECORDS SUMMARY | 2022-02-14 22:13 | XMS_ITS | Encounter Summary ---
:1950 Author Organization [facility] Address [address] [place] [address] Care Team Providers Name Role Phone Unavailable Primary Care Provider Unavailable Reason for Referral Outpatient (Routine) - Authorized Specialty Diagnoses / Procedures Referred By Contact Refer red To Contact Radiation Oncology Diagnoses Primary Malignant Neoplasm Of Prostate (HCC) Annia Stewart P.A.-C., [place] [place] M.S. [address] [place] [phone] Referral ID Status Reason Start Date Expiration Date Visits V isits Requested Authorized [id number] Authorized 08/12/2021 08/12/2022 1 1 Encounter Details Date Type Department Care Team Description 08/12/2021 Orders Only Department of Radiation Brissa Willis Pri mary Malignant Oncology in [facility] Neoplasm Of Prostate [address] (HCC) (Primary Dx) [address] [place] [phone] Social History Tobacco Use Types Packs/Day Years [...] How often do you attend restorationism or restoration 1 to 4 times per [...] Name Type Priority Associated Diagnoses Order S [facility] Radiation Oncology Outpatient Referral Routine Primary Maligna nt Expected: office visit Neoplasm Of Prostate 022 (clinic) (HCC) (Approximate), Expires: 08/12/2022 documented as of this encounter Visit Diagnoses Diagnosis Primary Malignant Neoplasm Of Prostate ( HCC) - Primary documented in this encounter
--- OUTSIDE RECORDS SUMMARY | 2022-02-14 22:13 | XMS_ITS | Encounter Summary ---
:1950 Author Organization [facility] Address [address] [place] [address] Care Team Providers Name Role Phone Unavailable Primary Care Provider Unavailable Encounter Details Date Type Department Care Team Description 10/29/2019 Clinical Communication Department of Radiation Cheri Al, Oncology in [facility] [address] [facility] [address] [place] [phone] Social History Tobacco Use Types Packs/Day Years [...] How often do you attend taoist or lutheran 1 to 4 times per [...]
--- OUTSIDE RECORDS SUMMARY | 2022-02-14 22:13 | XMS_ITS | Encounter Summary ---
:1950 Author Organization [facility] Address [address] [place] [address] Care Team Providers Name Role Phone Unavailable Primary Care Provider Unavailable Encounter Details Date Type Department Care Team Description 02/24/2021 Orders Only Department of Radiation Cheri Al, Primary Malignant Oncology in [facility] Neoplasm Of Prostate [place] [address] [facility] (HCC) (Primary Dx) [address] [place] [phone] Social History Tobacco Use Types Packs/Day Years [...] or relatives? How often do you attend restorationist or jain 1 to 4 times per year 02/25/2021 services? Do you belong to any clubs or organizations Yes 02/25/2021 such as restorationist groups, unions, fraternal or athletic groups, or [...]
--- OUTSIDE RECORDS SUMMARY | 2022-02-14 22:13 | XMS_ITS | Encounter Summary ---
:1950 Author Organization [facility] Address [address] [place] [address] Care Team Providers Name Role Phone Unavailable Primary Care Provider Unavailable Encounter Details Date Type Department Care Team Description 02/10/2021 Immunization Department of [facility] Mike Turcios M.D., Medicine, [place] Ph.D. [facility], [place] [phone] [place] [phone] Social History Tobacco Use Types Packs/Day Years [...] or relatives? How often do you attend zoroastrian or lutheran 1 to 4 times per year 02/25/2021 services? Do you belong to any clubs or organizations Yes 02/25/2021 such as zoroastrian groups, unions, fraternal or athletic groups, or [...]
--- OUTSIDE RECORDS SUMMARY | 2022-02-14 22:13 | XMS_ITS | Clinical Summary ---
:1950 Author Organization [facility] Address [address] [place] [address] Care Team Providers Name Role Phone Unavailable Primary Care Provider Unavailable Source Comments Patient records contain information from all sites at [facility]. For routine questions regarding patient records, call [phone] during business hours, M-F 8:00 AM - 5:00 PM Central Time. Record requests for emergency care only can be directed to [phone] at any time.[facility] Allergies No known active allergies Medications [...] (six) hours as needed for pain. omega 4-dle-pnp-fish Take 1,200 mg by 0 Active oil [...] or relatives? How often do you attend anabaptism or yazidi 1 to 4 times per year 02/25/2021 services? Do you belong to any clubs or organizations Yes 02/25/2021 such as anabaptism groups, unions, fraternal or athletic groups, or [...] Comments Blood Pressure 137/72 03/01/2021 3:28 PM SYSTEMS LEAD Pulse 53 03/01/2021 3:28 PM SYSTEMS LEAD Temperature 36.7 ??C (98 ??F) 03/01/2021 3:28 PM SYSTEMS LEAD Respiratory Rate - - Oxygen Saturation - - Inhaled Oxygen Concentration - - Weight 94.2 kg (207 lb 10.8 oz) 03/01/2021 3:28 PM SYSTEMS LEAD Height 175.3 cm (5' 9) 11/12/2018 9:48 AM CDT Body Mass Index 30.67 11/12/2018 9:48 AM CDT Plan of Treatment Health Maintenance Due Date Last Done Comments CT Colonography 1950 Cologuard 1950 FIT 1950 Fasting Glucose for Diabetes 1950 Screening Hepatitis C Screening 1950 Colonoscopy 01/28/2016 01/27/2006 Colorectal Cancer Screening 01/28/2016 Depression Screening (Annual 04/24/2021 PHQ-2) Fall Risk Screen (Annual) 04/24/2021 COVID-19 Vaccine (5 - Booster for 12/07/2021 10/12/2021, , Pfizer series) 07/17/2020, Additional history exists DTaP,Tdap,and Td Vaccines (3 - Td 11/02/2027 11/01/2017, or Tdap) Pneumococcal vaccine (65+ years) Completed 10/29/2015, 04/2014 Zoster Vaccines Completed 10/15/2018, 07/27/2018 Abdominal Aortic Aneurysm (AAA) Discontinued 10/23/2018, 12/23 Screen Influenza Vaccine Completed 02/03/2022, 02/10/2021, 02/16/2020, Additional history exists Medical Devices Implanted Type Area Sample Coordinator Device Shelf Model / Serial / Identifier Expiration Lot Date Marker Gold Seed - [id number] - [id number] Imaging Team 351-1 / Implanted: Qty: 4 on 12/27/2018 by William Mendez M.D. at [facility] [id number] / Jamir [id number] Insurance Payer Benefit Plan / Subscriber ID Effective Phone Address T ype Group Dates [facility] [id number] 2015-Pres [phone] [address] PPO OPEN ACCESS ent [address] [place] [address]
--- OUTSIDE RECORDS SUMMARY | 2022-02-14 22:14 | XMS_ITS | Encounter Summary ---
:1950 Author Organization [facility] Address [address] [place] [address] Care Team Providers Name Role Phone Unavailable Primary Care Provider Unavailable Reason for Visit Radiation Therapy (Routine) - Closed Specialty Diagnoses / Procedures Referred By Contact Refer red To Contact Diagnoses Primary Malignant Neoplasm Of Prostate (HCC) Angel Grey M.D. [facility] Procedures Prior Auth Rad Tx [place] IMRT SIMPLE [address] [place] [address] Referral ID Status Reason Start Date Expiration Date Visits Requ ested Visits Authorized [id number] Closed 12/20/2018 12/20/2019 20 20 Encounter Details Date Type Department Care Team Description 02/13/2019 Hospital Encounter Department of Radiation Willi Grey, Oncology in [facility] [place] [address] [facility] [address] [place] [address] [phone] Social History Tobacco Use Types Packs/Day Years [...] How often do you attend christian or episcopalian 1 to 4 times per year 02/25/2021 [...] the highest level of school Associate degree: [employer] program 02/01/2019 you have completed or the [...] as XP OPHT) needed (for dry eyes). ykiwktquiqpm-tyqlrehj-ycz Take 1 tablet by 0 05/2013 ein (CENTURY MATURE) mouth. tablet omega 4-qgp-aex-fish oil Take 1,200 mg by 0 1,000 [...]
--- OUTSIDE RECORDS SUMMARY | 2022-02-14 22:14 | XMS_ITS | Encounter Summary ---
:[address] [facility] Address [address] [place] [address] Care Team Providers Name Role Phone Unavailable Primary Care Provider Unavailable Reason for Visit Radiation Therapy (Routine) - Closed Specialty Diagnoses / Procedures Referred By Contact Refer red To Contact Diagnoses Primary Malignant Neoplasm Of Prostate (HCC) Angel Grey M.D. [facility] Procedures Prior Auth Rad Tx [place] IMRT SIMPLE [address] [place] [address] Referral ID Status Reason Start Date Expiration Date Visits Requ ested Visits Authorized [id number] Closed 12/20/2018 12/20/2019 20 20 Encounter Details Date Type Department Care Team Description 02/15/2019 Hospital Encounter Department of Radiation Willi Grey, Oncology in [facility] [place] [address] [facility] [address] [place] [phone] [phone] Social History Tobacco Use Types Packs/Day Years [...] How often do you attend muslim or mandaeism 1 to 4 times per [...] the highest level of school Associate degree: [email or web address] program 02/01/2019 you have completed or the [...] as XP OPHT) needed (for dry eyes). cvqevgunvvze-qmyjtuox-sow Take 1 tablet by 0 05/2013 ein (CENTURY MATURE) mouth. tablet omega 6-paf-ozd-fish oil Take 1,200 mg by 0 1,000 [...]
--- OUTSIDE RECORDS SUMMARY | 2022-02-14 22:14 | XMS_ITS | Encounter Summary ---
:1950 Author Organization [facility] Address [address] [place] [address] Care Team Providers Name Role Phone Unavailable Primary Care Provider Unavailable Encounter Details Date Type Department Care Team Description 05/29/2019 Clinical Communication Department of Angel Grey Radiation Oncology [place] [address] [facility] [address] [place] [phone] Social History Tobacco Use Types Packs/Day Years [...] How often do you attend presybeterian or episcopal 1 to 4 times per year 02/25/2021 [...] the highest level of school Associate degree: [employer] program 02/01/2019 you have completed or the highest degree you have received? Sex Assigned at Date Recorded Male 12/24/2018 8:16 PM CDT documented as of this encounter Plan of Treatment Not on filedocumented as of this encounter Visit Diagnoses Not on filedocumented in this encounter
--- OUTSIDE RECORDS SUMMARY | 2022-02-14 22:14 | XMS_ITS | Encounter Summary ---
:1950 Author Organization [facility] Address [address] [place] [address] Care Team Providers Name Role Phone Unavailable Primary Care Provider Unavailable Reason for Visit Radiation Therapy (Routine) - Closed Specialty Diagnoses / Procedures Referred By Contact Refer red To Contact Diagnoses Primary Malignant Neoplasm Of Prostate (HCC) Angel Grey M.D. [facility] Procedures Prior Auth Rad Tx [place] IMRT SIMPLE [address] [place] [address] Referral ID Status Reason Start Date Expiration Date Visits Requ ested Visits Authorized [id number] Closed 12/20/2018 12/20/2019 20 20 Encounter Details Date Type Department Care Team Description 02/21/2019 Hospital Encounter Department of Radiation Willi Grey, Oncology in [facility] [place] [address] [facility] [address] [place] [address] [phone] Social History Tobacco Use Types Packs/Day Years [...] How often do you attend episcopalian or adventism 1 to 4 times per [...] the highest level of school Associate degree: [employer] program 02/01/2019 you have completed or the [...] as XP OPHT) needed (for dry eyes). cjazcbocuazi-nmxohaqu-vet Take 1 tablet by 0 05/2013 ein (CENTURY MATURE) mouth. tablet omega 4-hfz-wzx-fish oil Take 1,200 mg by 0 1,000 [...]
--- OUTSIDE RECORDS SUMMARY | 2022-02-14 22:14 | XMS_ITS | Encounter Summary ---
:[address] [facility] Address [address] [place] [address] Care Team Providers Name Role Phone Unavailable Primary Care Provider Unavailable Encounter Details Date Type Department Care Team Description 10/11/2019 Clinical Communication Department of Mee Berry Radiation Oncology in [address] [place] [phone] Social History Tobacco Use Types Packs/Day Years [...] How often do you attend gnosticist or taoism 1 to 4 times per [...]
--- OUTSIDE RECORDS SUMMARY | 2022-02-14 22:14 | XMS_ITS | Encounter Summary ---
:1950 Author Organization [facility] Address [address] [place] [address] Care Team Providers Name Role Phone Unavailable Primary Care Provider Unavailable Reason for Referral Outpatient (Routine) - Closed Specialty Diagnoses / Procedures Referred By Contact Refer red To Contact Radiation Oncology Annia Stewart P.A.-C., BENNY Goodwin 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 Reason for Visit Outpatient (Routine) - Closed Specialty Diagnoses / Procedures Referred By Contact Refer red To Contact Radiation Oncology Annia Stewart P.A.-C., [facility] [place] [facility] [address] [place] [phone] Referral ID Status Reason Start Date Expiration Date Visits Requ ested Visits Authorized [id number] Closed 02/27/2019 02/27/2020 1 1 Encounter Details Date Type Department Care Team Description 04/19/2019 Hospital Encounter Department of Angel Grey Malignant Radiation Oncology [place] Neoplasm Of Prostate in [place], [address] [place] [address] (HCC) (Primary Dx) [place], [place] [address] [facility] [address] [place], [place] [phone] (Work) [phone] Social History Tobacco Use Types Packs/Day Years [...] How often do you attend faith or yazdanism 1 to 4 times per [...] highest level of school Associate degree: academ [employer] program 02/01/2019 you have completed or the highest degree you have received? 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 oitdaduwrjqj-qwiskudl-jtf Take 1 tablet by 0 05/2013 ein (CENTURY MATURE) mouth. tablet omega 2-gjl-amh-fish oil Take 1,200 mg by 0 1,000 [...] Prostate (HCC) SUPERVISED BY: Angel Grey M.D. ([phone]) HISTORY OF PRESENT ILLNESS Mr. Dick Sigala [...] with Dr. Laura for T1c prostate cancer, [place] 4+3=7. ??He discussed treatment options including expectant [...] 20, 2018: ??Patient saw Dr. Zamora at [facility] for chronic thrombocytopenia. 13. ??November 21, 2018: ??Patient received a Lupron 7.[address] [facility]. 14. ??December 20, 2018: ??Patient received??a Lupron 22.[address] [facility]. ??This was??his last injection??for a total [...] cN0, cM0, PSA: 5.1, Grade Group: 3) [place] 4 + 3??adenocarcinoma of the prostate 2.?Androgen [...] the images. Dr. Grey also recommended a [facility] Radiology interpretation of the images and I will place an order. I will call the patient and review the results with him next week when they are available. The patient did report having a colonoscopy earlier this year through [facility] and I have also requested those records. I will order for a PSA and testosterone blood draw to be done at [facility] in [place] in three months. We will call the [...] Annia Stewart P.A.-C., M.S. 04/19/2019 3:30 PM RESTAURANT DELIVERY DRIVER [facility] [address] [place] [address] AURANT DELIVERY DRIVER documented in this encounter Plan of Treatment Scheduled Referrals Name Type Priority Associated Order Schedule Diagnoses Radiation Oncology Outpatient Referral Routine On ce for 1 office visit Occurrences sta rting (clinic) 04/19/2019 unti l 04/19/2019 documented as of this encounter Results Interpretation of Outside NM PET Scan (04/22/2019 7:21 AM RESTAURANT DELIVERY DRIVER) Anatomical Region Laterality Modality Nuclear Medicine PET RST LOS, Nuclear Medicine ARZ LOS, N/A Nuclear Medicine Nuclear Medicine FLA LOS, Nuclear Medicine, Other Specimen (Source) Anatomical Collection Method Collection Time Re ceived Time Location / / Volume Laterality 04/23/2019 8:47 AM RESTAURANT DELIVERY DRIVER Impressions 04/23/2019 3:49 PM RESTAURANT DELIVERY DRIVER The multiple mildly prominent mesenteric and [...] lymphoproliferative disorder. ? Narrative 04/23/2019 3:49 PM RESTAURANT DELIVERY DRIVER EXAM: ??INTERPRETATION OF OUTSIDE NM PET [...]
--- OUTSIDE RECORDS SUMMARY | 2022-02-14 22:14 | XMS_ITS | Encounter Summary ---
:1950 Author Organization [facility] Address [address] [place] [address] Care Team Providers Name Role Phone Unavailable Primary Care Provider Unavailable Reason for Referral Outpatient (Routine) - Closed Specialty Diagnoses / Procedures Referred By Contact Refer red To Contact Angel Stock[place] M .D. [facility] [address] [place] [phone] Referral ID Status Reason Start Date Expiration Date Visits Requ ested Visits Authorized [id number] Closed 12/20/2018 12/20/2019 1 1 Reason for Visit Outpatient (Routine) - Closed Specialty Diagnoses / Procedures Referred By Contact Refer red To Contact Angel Stockton M .D. [facility] Region [address] [place] [phone] Referral ID Status Reason Start Date Expiration Date Visits Requ ested Visits Authorized [id number] Closed 12/20/2018 12/20/2019 1 1 Encounter Details Date Type Department Care Team Description 02/12/2019 Hospital Encounter Department of Chris Grey M.D. [address] [place] [phone] Primary Malignant Radiation Oncology Anayeli Oneil Neoplasm Of Prostate in [place], (HCC) [place] [address] [place] [address] Social History Tobacco Use Types [...] How often do you attend alevism or holiness 1 to 4 times per [...] the highest level of school Associate degree: [employer] program 02/01/2019 you have completed or the [...] as XP OPHT) needed (for dry eyes). axsthrkpmksh-hlrepufw-jki Take 1 tablet by 0 05/2013 ein (CENTURY MATURE) mouth. tablet omega 6-rrd-skn-fish oil Take 1,200 mg by 0 1,000 [...] primary care provider on file. Primary Language: German REASON FOR CONSULT Initial social work consult [...] received permission to contact them. 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 Psychosocial Risk Factors impacting the patient: none noted. Abuse, Neglect, Maltreatment, Trauma: Current: None reported. Past: None reported. ENVIRONMENTAL SUPPORTS Current Living Situation: Lives in [place], [place] with his , children, and grandchildren. Patient's Home Environment: No safety concerns. FUNCTIONAL STATUS (ADL's and IADL's) Patient is fully independent in all activities. FINANCES/INSURANCE Primary insurance: [employer] OPEN ACCESS Secondary insurance: N/A ADVANCE DIRECTIVES Mr. Sigala does not have a health care directive on file with [facility]. This was not discussed today. OBJECTIVE [...] Discussion: Mr. Dick Sigala met with this psychotherapist social worker today for an initial social work consult and psychosocial assessment. He hoped to keep the visit brief so that he could get to his job. He and his Clara live in [place], [place], along with their son and their [...] Name Type Priority Associated Diagnoses Order S emma Social Work Outpatient Referral Routine Once for 1 office visit Occurrences sta rting (clinic) 02/12/2019 unti l 02/12/2019 documented as of this encounter Visit Diagnoses Diagnosis Primary Malignant Neoplasm Of Prostate ( HCC) documented in this encounter
--- OUTSIDE RECORDS SUMMARY | 2022-02-14 22:14 | XMS_ITS | Encounter Summary ---
:1950 Author Organization [facility] Address [address] [place] [address] Care Team Providers Name Role Phone Unavailable Primary Care Provider Unavailable Reason for Visit Radiation Therapy (Routine) - Closed Specialty Diagnoses / Procedures Referred By Contact Refer red To Contact Diagnoses Primary Malignant Neoplasm Of Prostate (HCC) Angel Grey M.D. [facility] Procedures Prior Auth Rad Tx [place] IMRT SIMPLE [address] [place] [address] Referral ID Status Reason Start Date Expiration Date Visits Requ ested Visits Authorized [id number] Closed 12/20/2018 12/20/2019 20 20 Encounter Details Date Type Department Care Team Description 02/25/2019 Hospital Encounter Department of Radiation Willi Grey, Oncology in [facility] [place] [address] [facility] [address] [place] [phone] [phone] Social History Tobacco Use Types Packs/Day Years [...] or relatives? How often do you attend islam or latter day 1 to 4 times per year 02/25/2021 services? Do you belong to any clubs or organizations Yes 02/25/2021 such as islam groups, unions, fraternal or athletic groups, or [...] the highest level of school Associate degree: [employer] program 02/01/2019 you have completed or the [...] as XP OPHT) needed (for dry eyes). elkezaiahgul-qloyeagp-eri Take 1 tablet by 0 05/2013 ein (CENTURY MATURE) mouth. tablet omega 7-mgt-rcc-fish oil Take 1,200 mg by 0 1,000 [...]
--- OUTSIDE RECORDS SUMMARY | 2022-02-14 22:14 | XMS_ITS | Encounter Summary ---
:1950 Author Organization [facility] Address [address] [place] [address] Care Team Providers Name Role Phone Unavailable Primary Care Provider Unavailable Encounter Details Date Type Department Care Team Description 10/22/2019 Clinical Communication Department of Angel Grey Radiation Oncology [place] [address] [facility] [address] [place] [phone] Social History Tobacco Use Types Packs/Day Years [...] How often do you attend zoroastrian or orthodox 1 to 4 times per [...] back when you are able. Phone number: [phone] Is it okay to leave a voicemail on answering machine with test results? Yes Pharmacy (if medication related): N/A Gracie Heredia documented in this encounter Plan of Treatment Not on filedocumented as of this encounter Visit Diagnoses Not on filedocumented in this encounter
--- OUTSIDE RECORDS SUMMARY | 2022-02-14 22:14 | XMS_ITS | Encounter Summary ---
:1950 Author Organization [facility] Address [address] [place] [address] Care Team Providers Name Role Phone Unavailable Primary Care Provider Unavailable Encounter Details Date Type Department Care Team Description 04/19/2019 Ancillary Procedure Department of Annia Stewart Primar y Malignant Radiology in P.Mauricio., M.S. Neoplasm Of Prostate [place], [place] [address] [facility] (HCC) [address] [place] [phone] Social History Tobacco Use Types Packs/Day Years [...] How often do you attend yazdanism or advent 1 to 4 times per [...] highest level of school Associate degree: academ [employer] program 02/01/2019 you have completed or the highest degree you have received? Sex Assigned at Date Recorded Male 12/24/2018 8:16 PM CDT documented as of this encounter Plan of Treatment Not on filedocumented as of this encounter Procedures Procedure Name Priority Date/Time Associated Comments Diagnosis INTERPRETATION OF RAD - Routine 04/22/2019 7:21 Primary Result s for OUTSIDE NM PET SCAN (most inpatients AM TECHNICAL TRAINING SPECIALIST Malignant this procedure and all Neoplasm Of are in the outpatients) Prostate (HCC) results section. documented in this encounter Results Interpretation of Outside NM PET Scan (04/22/2019 7:21 AM TECHNICAL TRAINING SPECIALIST) Anatomical Region Laterality Modality Nuclear Medicine PET RST LOS, Nuclear Medicine ARZ LOS, N/A Nuclear Medicine Nuclear Medicine FLA LOS, Nuclear Medicine, Other Specimen (Source) Anatomical Collection Method Collection Time Re ceived Time Location / / Volume Laterality 04/23/2019 8:47 AM TECHNICAL TRAINING SPECIALIST Impressions 04/23/2019 3:49 PM TECHNICAL TRAINING SPECIALIST The multiple mildly prominent mesenteric and inguinal [...] lymphoproliferative disorder. ? Narrative 04/23/2019 3:49 PM TECHNICAL TRAINING SPECIALIST EXAM: ??INTERPRETATION OF OUTSIDE NM PET SCAN [...] a lymphoproliferative disorder. Annia Stewart P.A.-C., M.S. [facility] [place] PROCEDURES documented in this encounter Visit Diagnoses Diagnosis Primary Malignant Neoplasm Of Prostate ( HCC) documented in this encounter
--- OUTSIDE RECORDS SUMMARY | 2022-02-14 22:14 | XMS_ITS | Encounter Summary ---
:1950 Author Organization [facility] Address [address] [place] [address] Care Team Providers Name Role Phone Unavailable Primary Care Provider Unavailable Encounter Details Date Type Department Care Team Description 02/27/2019 Clinical Communication Department of Mee Berry Radiation Oncology in [address] [place] [phone] Social History Tobacco Use Types Packs/Day Years [...] How often do you attend scientologist or pentecostal 1 to 4 times per [...] highest level of school Associate degree: academ [employer] program 02/01/2019 you have completed or the highest degree you have received? Sex Assigned at Date Recorded Male 12/24/2018 8:16 PM CDT documented as of this encounter Plan of Treatment Not on filedocumented as of this encounter Visit Diagnoses Not on filedocumented in this encounter
--- OUTSIDE RECORDS SUMMARY | 2022-02-14 22:14 | XMS_ITS | Encounter Summary ---
:1950 Author Organization [facility] Address [address] [place] [address] Care Team Providers Name Role Phone Unavailable Primary Care Provider Unavailable Reason for Referral Outpatient (Routine) - Closed Specialty Diagnoses / Procedures Referred By Contact Refer red To Contact Radiation Oncology Annia Stewart P.A.-C., BENNY [facility] [address] [place] [phone] Referral ID Status Reason Start Date Expiration Date Visits Requ ested Visits Authorized [id number] Closed 04/26/2019 04/25/[address] A/P completed prior at [facility], need imag es and report. PSA and testosterone lab work completed prior also. Reason for Visit Outpatient (Routine) - Closed Specialty Diagnoses / Procedures Referred By Contact Refer red To Contact Radiation Oncology Annia Stewart P.A.-C., BENNY [facility] [address] [place] [phone] Referral ID Status Reason Start Date Expiration Date Visits Requ ested Visits Authorized [id number] Closed 04/26/2019 04/25/2020 1 1 Encounter Details Date Type Department Care Team Description 10/14/2019 Hospital Encounter Department of Angel Grey Malignant Radiation Oncology [place] Renteria Neoplasm Of Prostate in [address] (HCC) (Primary Dx) [place], [place] [address] [facility] [address] [place], [place] [phone] [address] (Work) [phone] Social History Tobacco Use Types Packs/Day Years [...] How often do you attend gnosticist or worship 1 to 4 times per year 02/25/2021 [...] as XP OPHT) needed (for dry eyes). fywuoevqkudw-lsgjwzly-hip Take 1 tablet by 0 /05/2013 ein (CENTURY MATURE) mouth. tablet omega 0-adg-qvh-fish oil Take 1,200 mg by 0 1,000 [...] Prostate (HCC) SUPERVISED BY: Angel Grey M.D. ([id number]) HISTORY OF PRESENT ILLNESS Mr. Dick Sigala [...] with Dr. Laura for T1c prostate cancer, [place] 4+3=7. ??He discussed treatment options including expectant [...] 20, 2018: ??Patient saw Dr. Zamora at [facility] for chronic thrombocytopenia. 13. ??November 21, 2018: ??Patient received a Lupron 7.5 mg injection [facility]. 14. ??December 20, 2018: ??Patient received??a Lupron 22.5 injection at [facility]. ??This was??his last injection??for a [...] metastatic disease in the body. [facility] interpretation of outside imaging demonstrated that the multiple mildly prominent mesenteric and inguinal nodes had no or only minimal FDG uptake, likely inflammatory. No other findings were seen to indicate abdominal or pelvic malignancy, higher grade lymphoma, or a lymphoproliferative disorder. I spoke to the [facility] Radiologist regarding the uptake in the [...] today. Dr. Grey has ordered [facility] Radiology Interpretation of the images. The patient did not have his PSA and testosterone lab work completed, so he will have this done today at [facility] in [place]. We will call the patient when the [...] M.S. 10/14/2019 10:33 AM CDT [facility] Radiation Therapy Center [address] [place] [address] Associated attestation - Angel Grey M.D. - [...] on my review. I have ordered a [facility] radiology review. He did not have PSA and testosterone lab work done, so we will obtain this today and call him with the results of that and his CT scan review. We will base his follow-up off of that data. The patient verbalized satisfaction with this plan. Signed by: Angel Grey M.D. 10/14/2019 11:05 AM CDT [facility] Radiation Therapy Center [facility] documented in this encounter Miscellaneous Notes Addendum [...] noma in the abdomen or pelvis. Angel Grey M.D. IMSteve CT PROCEDURES documented in this encounter Visit Diagnoses Diagnosis Primary Malignant Neoplasm Of Prostate ( HCC) - Primary Primary Malignant Neoplasm Of Prostate ( HCC) documented in this encounter
--- OUTSIDE RECORDS SUMMARY | 2022-02-14 22:14 | XMS_ITS | Encounter Summary ---
:1950 Author Organization [facility] Address [address] [place] [address] Care Team Providers Name Role Phone Unavailable Primary Care Provider Unavailable Reason for Referral Outpatient (Routine) - Closed Specialty Diagnoses / Procedures Referred By Contact Refer red To Contact Radiation Oncology Annia Stewart P.A.-C., BENNY [facility] M.S. [address] [place] [phone] Referral ID Status Reason Start Date Expiration Date Visits Requ ested Visits Authorized [id number] Closed 02/27/2019 02/27/2020 1 1 Scheduling Instructions PET/CT scan prior at [facility] GENERATOR Radiation Therapy (Routine) - Canceled Specialty Diagnoses / Procedures Referred By Contact Refer red To Contact Diagnoses Primary Malignant Neoplasm Of Prostate (HCC) Angel Grey M.D. [facility] Procedures Management Visit [address] [place] [phone] Referral ID Status Reason Start Date Expiration Date Visits V isits Requested Authorized [id number] Canceled 12/20/2018 12/20/2019 10 10 GENERATOR Reason for Visit Radiation Therapy (Routine) - Canceled Specialty Diagnoses / Procedures Referred By Contact Refer red To Contact Diagnoses Primary Malignant Neoplasm Of Prostate (HCC) Angel Grey M.D. [facility] [place] [facility] Procedures Management Visit [address] [place], [place] [phone] Referral ID Status Reason Start Date Expiration Date Visits V isits Requested Authorized [id number] Canceled 12/20/2018 12/20/2019 10 10 Encounter Details Date Type Department Care Team Description 02/27/2019 Hospital Encounter Department of Angel Grey Malignant Radiation Oncology [place] Renteria Neoplasm Of Prostate in [place], [address] [facility] (HCC) [place], [place] 1821 [facility] [address] [place], [place] [phone] [address] (Work) [phone] Social History Tobacco Use Types Packs/Day Years [...] or relatives? How often do you attend congregation or sabianism 1 to 4 times per year 02/25/2021 services? Do you belong to any clubs or organizations Yes 02/25/2021 such as congregation groups, unions, fraternal or athletic groups, or [...] minutes do you engage in exercise at health system 30 min 02/25/2021 level? Stress Answer Date [...] highest level of school Associate degree: academ [employer] program 02/01/2019 you have completed or the highest degree you have received? Sex Assigned at Date Recorded Male 12/24/2018 8:16 PM CDT documented as of this encounter Last Filed Vital Signs Vital Sign Reading Time Taken Comments Blood Pressure - - Pulse - - Temperature 36.1 ??C (97 ??F) 02/27/2019 8:34 AM LEAD GENERATOR Respiratory Rate - - Oxygen Saturation - - Inhaled Oxygen Concentration - - Weight 96 kg (211 lb 10.3 oz) 02/27/2019 8:34 AM LEAD GENERATOR Height - - Body Mass Index 31.25 [...] as XP OPHT) needed (for dry eyes). mvswqazxznyn-wxwbunph-vdx Take 1 tablet by 0 05/2013 ein (CENTURY MATURE) mouth. tablet omega 0-eze-gat-fish oil Take 1,200 mg by 0 1,000 [...] Prostate (HCC) Attending Physician: Angel Grey M.D. ([id number]) Treatment Intent: Curative Concomitant Therapy: Hormonal Therapy Treatment Dates: January 31, 2019 - February 27, 2019 Single Plan Course Summary 02/27/2019 Plan ID [id number] PROSTATE First treatment 01/31/2019 07:39 LEAD GENERATOR Last treatment 02/27/2019 08:11 LEAD GENERATOR Fractions treated to date 20 Planned total [...] Annia Stewart P.A.-C., M.S., 02/27/2019 9:13 AM [facility] Radiation Therapy Center [address] [place] [address] GENERATOR Annia Stewart P.A.-C., M.S. - 02/27/2019 8:30 AM CST SUBJECTIVE REASON FOR VISIT Evaluation for side effects while receiving radiation treatment for 1. Primary Malignant Neoplasm Of Prostate (HCC) SUPERVISED BY: Angel Grey M.D. ([phone]) HISTORY OF PRESENT ILLNESS Mr. Dick Sigala [...] left prostate demonstrated adenocarcinoma of the prostate, [place] 3+4=7, involving 10-30% of the length of 3 cores, perineural invasion not seen. 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 Zamora at [facility] for chronic thrombocytopenia. 13. November 21, 2018: Patient received a Lupron 7.5 mg injection [facility]. 14. December 20, 2018: Patient received a Lupron 22.5 injection at [facility]. This was his last injection [...] cN0, cM0, PSA: 5.1, Grade Group: 3) [place] 4 + 3??adenocarcinoma of the prostate 2.?Androgen [...] PSA blood draw to be done at [facility] in [place] at the end of April 2019. Dr. Grey discussed the enlarged mesenteric lymph nodes seen on the CT scan from October 23, 2018. Afterdiscussion, it was agreed to proceed with a PET/CT scan for further evaluation. The PET/CT scan has been ordered to be completed at [facility] at the end of March 2019 to allow time for recovery following radiation treatment prior to the imaging. We will schedule a return visit here a few days later to review the results. He will contact us with sooner any questions or concerns. He verbally expressed his understanding of the plan. Signed by: Annia Stewart P.A.-C., M.S. 02/27/2019 9:02 AM GENERATOR Associated attestation - Angel Grey M.D. - 02/27/2019 1:38 PM LEAD GENERATOR I saw and evaluated the patient and [...] by: Angel Grey M.D. 02/27/19 1:38 PM [facility] Radiation Therapy Center [address] [place] [address] documented in this encounter Miscellaneous Notes Addendum Note - Shira Polo - 02/27/2019 8:30 AM LEAD GENERATOR Encounter addended by: Shira Polo on: 02/27/2019 1:51 PM Actions taken: SmartForm saved, Letter saved GENERATOR documented in this encounter Plan of Treatment Scheduled Orders Name Type Priority Associated Diagnoses [...]
--- OUTSIDE RECORDS SUMMARY | 2022-02-14 22:14 | XMS_ITS | Encounter Summary ---
:1950 Author Organization [facility] Address [address] [place] [address] Care Team Providers Name Role Phone Unavailable Primary Care Provider Unavailable Encounter Details Date Type Department Care Team Description 07/23/2019 Clinical Communication Department of Gracie Heredia Radiation Oncology in [facility] [phone] [place] [address] (Work) [place] [address] Social History Tobacco Use Types [...] How often do you attend druze or gnosticist 1 to 4 times per [...] highest level of school Associate degree: academ [employer] ([employer] program 02/01/2019 you have completed or the highest degree you have received? Sex Assigned at Date Recorded Male 12/24/2018 8:16 PM CDT documented as of this encounter Plan of Treatment Not on filedocumented as of this encounter Visit Diagnoses Not on filedocumented in this encounter
--- OUTSIDE RECORDS SUMMARY | 2022-02-14 22:14 | XMS_ITS | Encounter Summary ---
:1950 Author Organization [facility] Address [address] [place] [address] Care Team Providers Name Role Phone Unavailable Primary Care Provider Unavailable Reason for Referral Outpatient (Routine) - Closed Specialty Diagnoses / Procedures Referred By Contact Refer red To Contact Radiation Oncology Annia Stewart P.A.-C., BENNY [facility] M.S. [address] [place] [address] Referral ID Status Reason Start Date Expiration Date Visits Requ ested Visits Authorized [id number] Closed 04/26/2019 04/25/[address] A/P completed prior at [facility], need imag es and report. PSA and testosterone lab work completed prior also. UTER LABORATORY TECHNICIAN MRI/CAT/PET Scan (Routine) - Closed Specialty Diagnoses / Procedures Referred By Contact Refer red To Contact Radiology Diagnoses Primary Malignant Neoplasm Of Prostate (HCC) Lymphadenopathy Annia Stewart P.A.-C., BENNY [facility] Region Procedures CT Abdomen Pelvis with IV Contrast M.S. [address] [place] [address] Referral ID Status Reason Start Date Expiration Date Visits Requ ested Visits Authorized [id number] Closed 04/26/2019 04/25/2020 1 1 UTER LABORATORY TECHNICIAN Encounter Details Date Type Department Care Team Description 04/26/2019 Clinical Communication Department of Radiation Dexter Stewart, Oncology in [place], [place], M.S. [address] [address] [phone] Social History Tobacco Use Types Packs/Day Years [...] How often do you attend shinto or moravian 1 to 4 times per year 02/25/2021 [...] highest level of school Associate degree: academ [employer] program 02/01/2019 you have completed or the highest degree you have received? Sex Assigned at Date Recorded Male 12/24/2018 8:16 PM CDT documented as of this encounter Miscellaneous Notes Telephone Encounter - Annia Stewart P.A.-Jarad., M.S. - 04/26/2019 8:50 AM COMPUTER LABORATORY TECHNICIAN DIAGNOSIS 1. Primary Malignant Neoplasm Of Prostate (HCC) REASON FOR ENCOUNTER Telephone call. SUPERVISED BY: Angel Grey M.D. ([phone]) INTERVAL HISTORY Mr. Dick Sigala is a [...] left prostate demonstrated adenocarcinoma of the prostate, [place] 3+4=7,involving 10-30% of the length of 3 cores, perineural invasion not seen. ??Pathology of the right prostate demonstrated high-grade prostatic intraepithelial neoplasia, focal and adenocarcinoma of the prostate, [place] 4+3=7, involving 1-40% of the length of [...] with Dr. Laura for T1c prostate cancer, [place] 4+3=7. ??He discussed treatment options including expectant [...] definite hypermetabolic metastatic disease in the body. [facility] int erpretation of outside imaging demonstrated that the multiple mildly prominent mesenteric and inguinal nodes had no or only minimal FDG uptake, likely inflammatory. No other findings were seen to indicate abdominal or pelvic malignancy, higher grade lymphoma, or a lymphoproliferative disorder. I spoketo the [facility] Radiologist regarding the uptake in the left lower quadrant and he felt that thiswas normal uptake within the bowels. ASSESSMENT / PLAN I called to provide the patient with the PET/CT scan report and [facility] interpretation today. I left a voicemail asking [...] Annia Stewart P.A.-C., M.S. 04/26/2019 8:51 AM COMPUTER LABORATORY TECHNICIAN ADDENDUM: The patient returned my phone call and I spoke to him directly. I reviewed the PET report and [facility] interpretation with him. I reviewed Dr. Grey's recommendation for a CT scan in 3 months. Hewould like to have all his lab work and imaging done at the [facility]. I relayed this information to our clinical supply chain assistant for scheduling. The patient was appreciative of the phone call and results today. He had no further questions or concerns. He will contact us again if questions arise. He verbally expressed his understanding of the plan. UTER LABORATORY TECHNICIAN documented in this encounter Plan of [...]
--- OUTSIDE RECORDS SUMMARY | 2022-02-14 22:14 | XMS_ITS | Encounter Summary ---
:1950 Author Organization [facility] Address [address] [place] [address] Care Team Providers Name Role Phone Unavailable Primary Care Provider Unavailable Reason for Referral Radiation Therapy (Routine) - Canceled Specialty Diagnoses / Procedures Referred By Contact Refer red To Contact Diagnoses Primary Malignant Neoplasm Of Prostate (HCC) Angel [facility].D. [facility] Procedures Management Visit [address] [place] [address] Referral ID Status Reason Start Date Expiration Date Visits V isits Requested Authorized [id number] Canceled 12/20/2018 12/20/2019 10 10 Reason for Visit Radiation Therapy (Routine) - Canceled Specialty Diagnoses / Procedures Referred By Contact Refer red To Contact Diagnoses Primary Malignant Neoplasm Of Prostate (HCC) Angel Grey M.D. [facility] Procedures Management Visit [address] [place] [address] Referral ID Status Reason Start Date Expiration Date Visits V isits Requested Authorized [id number] Canceled 12/20/2018 12/20/2019 10 10 Encounter Details Date Type Department Care Team Description 02/13/2019 Hospital Encounter Department of Angel Grey Malignant Radiation Oncology Omaira Renteria Neoplasm Of Prostate in [place], [address] [facility] (HCC) [place], [place] [address] [facility] [address] [place], [place] [phone] (Work) [phone] Social History Tobacco Use Types Packs/Day Years [...] How often do you attend faith or restorationism 1 to 4 times per [...] the highest level of school Associate degree: [employer] program 02/01/2019 you have completed or the [...] as XP OPHT) needed (for dry eyes). gtkhpynfltbr-nkzsvpgy-wxc Take 1 tablet by 0 05/2013 ein (CENTURY MATURE) mouth. tablet omega 7-sqe-nen-fish oil Take 1,200 mg by 0 1,000 [...] documented as of this encounter Progress Notes Anina Stewart P.A.-C., M.S. - 02/13/2019 9:45 AM CDT SUBJECTIVE REASON FOR VISIT Evaluation for side effects while receiving radiation treatment for 1. Primary Malignant Neoplasm Of Prostate (HCC) SUPERVISED BY: Angel Grey M.D. ([phone]) HISTORY OF PRESENT ILLNESS Mr. Dick Sigala [...]
--- OUTSIDE RECORDS SUMMARY | 2022-02-14 22:14 | XMS_ITS | Encounter Summary ---
:1950 Author Organization [facility] Address [address] [place] [address] Care Team Providers Name Role Phone Unavailable Primary Care Provider Unavailable Reason for Visit Radiation Therapy (Routine) - Closed Specialty Diagnoses / Procedures Referred By Contact Refer red To Contact Diagnoses Primary Malignant Neoplasm Of Prostate (HCC) Angel Grey M.D. [facility] Procedures Prior Auth Rad Tx [place] IMRT SIMPLE [address] [place] [address] Referral ID Status Reason Start Date Expiration Date Visits Requ ested Visits Authorized [id number] Closed 12/20/2018 12/20/2019 20 20 Encounter Details Date Type Department Care Team Description 02/20/2019 Hospital Encounter Department of Radiation Willi Grey, Oncology in [facility] [place] [address] [facility] [address] [place] [address] [phone] Social History Tobacco Use Types Packs/Day Years [...] How often do you attend temple or scientology 1 to 4 times per year 02/25/2021 [...] the highest level of school Associate degree: [employer] program 02/01/2019 you have completed or the [...] as XP OPHT) needed (for dry eyes). lwafnhwogeqa-wxbcgvew-owv Take 1 tablet by 0 05/2013 ein (CENTURY MATURE) mouth. tablet omega 9-xan-ffe-fish oil Take 1,200 mg by 0 1,000 [...]
--- OUTSIDE RECORDS SUMMARY | 2022-02-14 22:14 | XMS_ITS | Encounter Summary ---
:1950 Author Organization [facility] Address [address] [place] [address] Care Team Providers Name Role Phone Unavailable Primary Care Provider Unavailable Encounter Details Date Type Department Care Team Description 10/14/2019 Ancillary Procedure Department of Angel Grey Malignant Radiology bee Renteria M.D. Neoplasm Of Prostate [place], [place] [address] [facility] (HCC) [address] [place] [phone] Social History Tobacco Use Types Packs/Day Years [...] often do you attend latter day or alevism 1 to 4 times per [...] completed or the highest technical, or vocational nivia mckoy degree you have received? Sex Assigned at [...]
--- OUTSIDE RECORDS SUMMARY | 2022-02-14 22:14 | XMS_ITS | Encounter Summary ---
:1950 Author Organization [facility] Address [address] [place] [address] Care Team Providers Name Role Phone Unavailable Primary Care Provider Unavailable Reason for Visit Radiation Therapy (Routine) - Closed Specialty Diagnoses / Procedures Referred By Contact Refer red To Contact Diagnoses Primary Malignant Neoplasm Of Prostate (HCC) Angel Grey M.D. [facility] Procedures Prior Auth Rad Tx [place] IMRT SIMPLE [address] [place] [address] Referral ID Status Reason Start Date Expiration Date Visits Requ ested Visits Authorized [id number] Closed 12/20/2018 12/20/2019 20 20 Encounter Details Date Type Department Care Team Description 02/12/2019 Hospital Encounter Department of Radiation Willi Grey, Oncology in [facility] [place] [address] [facility] [address] [place] [address] [phone] Social History Tobacco Use Types Packs/Day Years [...] How often do you attend evangelical or jain 1 to 4 times per [...] the highest level of school Associate degree: [employer] program 02/01/2019 you have completed or the [...] as XP OPHT) needed (for dry eyes). xhelkfzpwrik-qrsecffe-fic Take 1 tablet by 0 05/2013 ein (CENTURY MATURE) mouth. tablet omega 0-qle-dqq-fish oil Take 1,200 mg by 0 1,000 [...]
--- OUTSIDE RECORDS SUMMARY | 2022-02-14 22:14 | XMS_ITS | Encounter Summary ---
:1950 Author Organization [facility] Address [address] [place] [address] Care Team Providers Name Role Phone Unavailable Primary Care Provider Unavailable Reason for Visit Radiation Therapy (Routine) - Closed Specialty Diagnoses / Procedures Referred By Contact Refer red To Contact Diagnoses Primary Malignant Neoplasm Of Prostate (HCC) Angel Grey M.D. [facility] Procedures Prior Auth Rad Tx [place] IMRT SIMPLE [address] [place] [address] Referral ID Status Reason Start Date Expiration Date Visits Requ ested Visits Authorized [id number] Closed 12/20/2018 12/20/2019 20 20 Encounter Details Date Type Department Care Team Description 02/27/2019 Hospital Encounter Department of Radiation Willi Grey, Oncology in [facility] [place] [address] [facility] [address] [place] [address] [phone] Social History Tobacco Use Types Packs/Day Years [...] How often do you attend congregation or protestant 1 to 4 times per year 02/25/2021 [...] the highest level of school Associate degree: [employer] program 02/01/2019 you have completed or the [...] as XP OPHT) needed (for dry eyes). evdofqebljss-yplcxmkn-vww Take 1 tablet by 0 05/2013 ein (CENTURY MATURE) mouth. tablet omega 4-vlo-doz-fish oil Take 1,200 mg by 0 1,000 [...]
--- OUTSIDE RECORDS SUMMARY | 2022-02-14 22:14 | XMS_ITS | Encounter Summary ---
:1950 Author Organization [facility] Address [address] [place] [address] Care Team Providers Name Role Phone Unavailable Primary Care Provider Unavailable Reason for Visit Radiation Therapy (Routine) - Closed Specialty Diagnoses / Procedures Referred By Contact Refer red To Contact Diagnoses Primary Malignant Neoplasm Of Prostate (HCC) Angel Grey M.D. [facility] Procedures Prior Auth Rad Tx [place] IMRT SIMPLE [address] [place] [address] Referral ID Status Reason Start Date Expiration Date Visits Requ ested Visits Authorized [id number] Closed 12/20/2018 12/20/2019 20 20 Encounter Details Date Type Department Care Team Description 02/14/2019 Hospital Encounter Department of Radiation Willi Grey, Oncology in [facility] [place] [address] [facility] [address] [place] [address] [phone] Social History Tobacco Use Types Packs/Day Years [...] How often do you attend restorationism or bahai 1 to 4 times per year 02/25/2021 [...] the highest level of school Associate degree: [employer] program 02/01/2019 you have completed or the [...] as XP OPHT) needed (for dry eyes). xzqczmffrtfb-imwpmutr-wre Take 1 tablet by 0 05/2013 ein (CENTURY MATURE) mouth. tablet omega 3-wis-bnk-fish oil Take 1,200 mg by 0 1,000 [...]
--- OUTSIDE RECORDS SUMMARY | 2022-02-14 22:14 | XMS_ITS | Encounter Summary ---
:1950 Author Organization [facility] Address [address] [place] [address] Care Team Providers Name Role Phone Unavailable Primary Care Provider Unavailable Reason for Visit Radiation Therapy (Routine) - Closed Specialty Diagnoses / Procedures Referred By Contact Refer red To Contact Diagnoses Primary Malignant Neoplasm Of Prostate (HCC) Angel Grey M.D. [facility] Procedures Prior Auth Rad Tx [place] IMRT SIMPLE [address] [place] [address] Referral ID Status Reason Start Date Expiration Date Visits Requ ested Visits Authorized [id number] Closed 12/20/2018 12/20/2019 20 20 Encounter Details Date Type Department Care Team Description 02/22/2019 Hospital Encounter Department of Radiation Willi Grey, Oncology in [facility] [place] [address] [facility] [address] [place] [address] [phone] Social History Tobacco Use Types Packs/Day Years [...] How often do you attend jain or caodaism 1 to 4 times per [...] the highest level of school Associate degree: Moped program 02/01/2019 you have completed or the [...] as XP OPHT) needed (for dry eyes). cumcdehmhxco-joqensow-yub Take 1 tablet by 0 05/2013 ein (CENTURY MATURE) mouth. tablet omega 2-wkh-vhl-fish oil Take 1,200 mg by 0 1,000 [...]
--- OUTSIDE RECORDS SUMMARY | 2022-02-14 22:14 | XMS_ITS | Encounter Summary ---
:1950 Author Organization [facility] Address [address] [place] [address] Care Team Providers Name Role Phone Unavailable Primary Care Provider Unavailable Reason for Visit Radiation Therapy (Routine) - Closed Specialty Diagnoses / Procedures Referred By Contact Refer red To Contact Diagnoses Primary Malignant Neoplasm Of Prostate (HCC) Angel Grey M.D. [facility] Procedures Prior Auth Rad Tx [place] IMRT SIMPLE [address] [place] [address] Referral ID Status Reason Start Date Expiration Date Visits Requ ested Visits Authorized [id number] Closed 12/20/2018 12/20/2019 20 20 Encounter Details Date Type Department Care Team Description 02/19/2019 Hospital Encounter Department of Radiation Willi Grey, Oncology in [facility] [place] [address] [facility] [address] [place] [address] [phone] Social History Tobacco Use Types Packs/Day Years [...] How often do you attend yazidi or sabianism 1 to 4 times per [...] the highest level of school Associate degree: Constant [employer] program 02/01/2019 you have completed or the [...] as XP OPHT) needed (for dry eyes). cfowpnrdjhca-jnhdogxq-nis Take 1 tablet by 0 05/2013 ein (CENTURY MATURE) mouth. tablet omega 6-hoj-zxc-fish oil Take 1,200 mg by 0 1,000 [...]
--- OUTSIDE RECORDS SUMMARY | 2022-02-14 22:14 | XMS_ITS | Encounter Summary ---
:1950 Author Organization [facility] Address [address] [place] [address] Care Team Providers Name Role Phone Unavailable Primary Care Provider Unavailable Encounter Details Date Type Department Care Team Description 02/27/2019 Clinical Communication Department of Mee Berry Radiation Oncology in [address] [place] [phone] Social History Tobacco Use Types Packs/Day Years [...] How often do you attend restorationist or rastafari 1 to 4 times per year 02/25/2021 [...] highest level of school Associate degree: academ [employer] program 02/01/2019 you have completed or the highest degree you have received? Sex Assigned at Date Recorded Male 12/24/2018 8:16 PM CDT documented as of this encounter Plan of Treatment Not on filedocumented as of this encounter Visit Diagnoses Not on filedocumented in this encounter
--- OUTSIDE RECORDS SUMMARY | 2022-02-14 22:14 | XMS_ITS | Encounter Summary ---
:1950 Author Organization [facility] Address [address] [place] [address] Care Team Providers Name Role Phone Unavailable Primary Care Provider Unavailable Reason for Visit Radiation Therapy (Routine) - Closed Specialty Diagnoses / Procedures Referred By Contact Refer red To Contact Diagnoses Primary Malignant Neoplasm Of Prostate (HCC) Angel Grey M.D. [facility] Procedures Prior Auth Rad Tx [place] IMRT SIMPLE [address] [place] [address] Referral ID Status Reason Start Date Expiration Date Visits Requ ested Visits Authorized [id number] Closed 12/20/2018 12/20/2019 20 20 Encounter Details Date Type Department Care Team Description 02/26/2019 Hospital Encounter Department of Radiation Willi Grey, Oncology in [facility] [place] [address] [facility] [address] [place] [address] [phone] Social History Tobacco Use Types Packs/Day Years [...] How often do you attend yazidism or voodoo 1 to 4 times per [...] the highest level of school Associate degree: [employer] program 02/01/2019 you have completed or the [...] as XP OPHT) needed (for dry eyes). nwoqutlsbpbu-vllqxbrd-wnr Take 1 tablet by 0 05/2013 ein (CENTURY MATURE) mouth. tablet omega 3-cnq-xky-fish oil Take 1,200 mg by 0 1,000 [...]
--- OUTSIDE RECORDS SUMMARY | 2022-02-14 22:14 | XMS_ITS | Encounter Summary ---
:1950 Author Organization [facility] Address [address] [place] [address] Care Team Providers Name Role Phone Unavailable Primary Care Provider Unavailable Reason for Referral Radiation Therapy (Routine) - Canceled Specialty Diagnoses / Procedures Referred By Contact Refer red To Contact Diagnoses Primary Malignant Neoplasm Of Prostate (HCC) [facility]. [facility] Procedures Management Visit [address] [place] [address] Referral ID Status Reason Start Date Expiration Date Visits V isits Requested Authorized [id number] Canceled 12/20/2018 12/20/2019 10 10 Reason for Visit Radiation Therapy (Routine) - Canceled Specialty Diagnoses / Procedures Referred By Contact Refer red To Contact Diagnoses Primary Malignant Neoplasm Of Prostate (HCC) Angel [facility]. [facility] Procedures Management Visit [address] [place] [address] Referral ID Status Reason Start Date Expiration Date Visits V isits Requested Authorized [id number] Canceled 12/20/2018 12/20/2019 10 10 Encounter Details Date Type Department Care Team Description 02/20/2019 Hospital Encounter Department of Angel Grey Malignant Radiation Oncology [place] Renteria Neoplasm Of Prostate in [place], [address] [facility] (HCC) [place], [place] [address] [facility] [address] [place], [place] [phone] (Work) [phone] Social History Tobacco Use Types Packs/Day Years [...] the highest level of school Associate degree: deeplocal program 02/01/2019 you have completed or the [...] as XP OPHT) needed (for dry eyes). mxzcbzwaklsu-qctougai-qml Take 1 tablet by 0 05/2013 ein (CENTURY MATURE) mouth. tablet omega 6-uzy-vgq-fish oil Take 1,200 mg by 0 1,000 [...] Prostate (HCC) SUPERVISED BY: Angel Grey M.D. ([id number]) HISTORY OF PRESENT ILLNESS Mr. Dick Sigala [...]
--- OUTSIDE RECORDS SUMMARY | 2022-02-14 22:14 | XMS_ITS | Encounter Summary ---
:1950 Author Organization [facility] Address [address] [place] [address] Care Team Providers Name Role Phone Unavailable Primary Care Provider Unavailable Reason for Visit Radiation Therapy (Routine) - Closed Specialty Diagnoses / Procedures Referred By Contact Refer red To Contact Diagnoses Primary Malignant Neoplasm Of Prostate (HCC) Angel Grey M.D. [facility] Procedures Prior Auth Rad Tx [place] IMRT SIMPLE [address] [place] [address] Referral ID Status Reason Start Date Expiration Date Visits Requ ested Visits Authorized [id number] Closed 12/20/2018 12/20/2019 20 20 Encounter Details Date Type Department Care Team Description 02/18/2019 Hospital Encounter Department of Radiation Willi Grey, Oncology in [facility] [place] [address] [facility] [address] [place] [phone] [phone] Social History Tobacco Use Types Packs/Day Years [...] How often do you attend jainism or sikhism 1 to 4 times per [...] the highest level of school Associate degree: Kn[employer] program 02/01/2019 you have completed or the [...] as XP OPHT) needed (for dry eyes). avymubinpbvr-xtusmnbp-kwt Take 1 tablet by 0 05/2013 ein (CENTURY MATURE) mouth. tablet omega 2-ysc-hxo-fish oil Take 1,200 mg by 0 1,000 [...]
--- OUTSIDE RECORDS SUMMARY | 2022-02-14 22:15 | XMS_ITS | Encounter Summary ---
:[address] [facility] Address [address] [place] [address] Care Team Providers Name Role Phone Unavailable Primary Care Provider Unavailable Reason for Referral Specialty Diagnoses / Procedures Referred By Contact Refer red To Contact Angel Grey M .D. [facility] [address] [place] [phone] Referral ID Status Reason Start Date Expiration Date Visits Requ ested Visits Authorized Encounter Details Date Type Department Care Team Description 02/05/2019 Hospital Encounter Department of Chris Grey M.D. [address] [place] [phone] Primary Malignant Radiation Oncology Zuleika Hudson C.C.R.CRaheel Neoplasm Of Prostate in [facility] [place] [address] [place] [address] Social History Tobacco Use Types Packs/Day Years [...] or relatives? How often do you attend holiness or bahai 1 to 4 times per year 02/25/2021 services? Do you belong to any clubs or organizations Yes 02/25/2021 such as holiness groups, unions, fraternal or athletic groups, or [...] the highest level of school Associate degree: Diagnostic [employer] program 02/01/2019 you have completed or the [...] as XP OPHT) needed (for dry eyes). nnhnmnoyxcci-evblthrx-qxh Take 1 tablet by 0 05/2013 ein (CENTURY MATURE) mouth. tablet omega 3-tsa-xvc-fish oil Take 1,200 mg by 0 1,000 [...]
--- OUTSIDE RECORDS SUMMARY | 2022-02-14 22:15 | XMS_ITS | Encounter Summary ---
:1950 Author Organization [facility] Address [address] [place] [address] Care Team Providers Name Role Phone Unavailable Primary Care Provider Unavailable Reason for Visit Radiation Therapy (Routine) - Closed Specialty Diagnoses / Procedures Referred By Contact Refer red To Contact Diagnoses Primary Malignant Neoplasm Of Prostate (HCC) Angel Grey M.D. [facility] Procedures Prior Auth Rad Tx [place] IMRT SIMPLE [address] [place] [address] Referral ID Status Reason Start Date Expiration Date Visits Requ ested Visits Authorized [id number] Closed 12/20/2018 12/20/2019 20 20 Encounter Details Date Type Department Care Team Description 02/08/2019 Hospital Encounter Department of Radiation Willi Grey, Oncology in [facility] [place] [address] [facility] [address] [place] [address] [phone] Social History Tobacco Use Types Packs/Day Years [...] or relatives? How often do you attend confucianism or jewish 1 to 4 times per year 02/25/2021 services? Do you belong to any clubs or organizations Yes 02/25/2021 such as confucianism groups, unions, fraternal or athletic groups, or [...] the highest level of school Associate degree: [employer] program 02/01/2019 you have completed or the [...] as XP OPHT) needed (for dry eyes). vgtvtkfiakfo-nxcrwnnp-jem Take 1 tablet by 0 05/2013 ein (CENTURY MATURE) mouth. tablet omega 6-hxf-aap-fish oil Take 1,200 mg by 0 1,000 [...]
--- OUTSIDE RECORDS SUMMARY | 2022-02-14 22:15 | XMS_ITS | Encounter Summary ---
:1950 Author Organization [facility] Address [address] [place] [address] Care Team Providers Name Role Phone Unavailable Primary Care Provider Unavailable Encounter Details Date Type Department Care Team Description 01/11/2019 Orders Only Department of Radiation Angel Grey , Oncology in [place] [address] [facility] [address] [place] [address] [phone] (Wo rk) Social History Tobacco Use Types [...] How often do you attend mandaeism or holiness 1 to 4 times per [...]
--- OUTSIDE RECORDS SUMMARY | 2022-02-14 22:15 | XMS_ITS | Encounter Summary ---
:1950 Author Organization [facility] Address [address] [place] [address] Care Team Providers Name Role Phone Unavailable Primary Care Provider Unavailable Reason for Referral Specialty Diagnoses / Procedures Referred By Contact Refer red To Contact Angel Grey M .D. [address] [address] Referral ID Status Reason Start Date Expiration Date Visits Requ ested Visits Authorized Outpatient (Routine) - Closed Specialty Diagnoses / Procedures Referred By Contact Refer red To Contact Social Work Angel Grey M .D. [address] [address] Referral ID Status Reason Start Date Expiration Date Visits Requ ested Visits Authorized [id number] Closed 12/20/2018 12/20/2019 1 1 Specialty Diagnoses / Procedures Referred By Contact Refer red To Contact Angel Grey M .D. [address] [phone] Referral ID Status Reason Start Date Expiration Date Visits Requ ested Visits Authorized Radiation Therapy (Routine) - Closed Specialty Diagnoses / Procedures Referred By Contact Refer red To Contact Diagnoses Primary Malignant Neoplasm Of Prostate (HCC) Angel Grey M.D. [facility] Procedures Prior Auth Rad Tx [place] IMRT SIMPLE [address] [place], [place] [address] Referral ID Status Reason Start Date Expiration Date Visits Requ ested Visits Authorized [id number] Closed 12/20/2018 12/20/2019 20 20 Radiation Therapy (Routine) - Closed Specialty Diagnoses / Procedures Referred By Contact Refer red To Contact Diagnoses Primary Malignant Neoplasm Of Prostate (HCC) Angel Grey M.D. [facility] Procedures Initial Rad Onc Treatment Planning CT Simulation [address] [place] [address] Referral ID Status Reason Start Date Expiration Date Visits Requ ested Visits Authorized [id number] Closed 12/20/2018 12/20/2019 2 2 Outpatient (Routine) - Closed Specialty Diagnoses / Procedures Referred By Contact Refer red To Contact Radiation Oncology Angel Grey M .D. [facility] [address] [place] [address] Referral ID Status Reason Start Date Expiration Date Visits Requ ested Visits Authorized [id number] Closed 11/12/2018 11/12/2019 1 1 Reason for Visit Outpatient (Routine) - Closed Specialty Diagnoses / Procedures Referred By Contact Refer red To Contact Radiation Oncology Angel Grey M .D. [facility] [address] [place] [phone] Referral ID Status Reason Start Date Expiration Date Visits Requ ested Visits Authorized [id number] Closed 11/12/2018 11/12/2019 1 1 Encounter Details Date Type Department Care Team Description 12/20/2018 Hospital Encounter Department of Angel Grey Malignant Radiation Oncology [place] Renteria. Neoplasm Of Prostate in [place], [facility] [address] (HCC) (Primary Dx) [place], [place] [address] [facility] [address] [place], [place] [phone] [address] (Work) [phone] Social History Tobacco Use Types Packs/Day Years [...] left prostate demonstrated adenocarcinoma of the prostate, [place] 3+4=7, involving 10-30% of the length of [...] with Dr. Laura for T1c prostate cancer, [place] 4+3=7. He discussed treatment options including expectant [...] 20, 2018: Patient saw Dr. Zamora at [facility] for chronic thrombocytopenia. 13. November 21, 2018: Patient received a Lupron 7.5 mg injection [facility]. 14. December 20, 2018: Patient is scheduled for a Lupron 22.5 injection at [facility]. This will be his last injection. INTERVAL [...] cN0, cM0, PSA: 5.1, Grade Group: 3) [place] 4 + 3 adenocarcinoma of the prostate [...] the consent form. He will proceed to [facility] next for his last Lupron injection (22.5 mg). I have ordered rectal spacer and fiducial p lacement in [place]. He will return in 2-[address] simulation as well as an MRI in the planning position at [facility]. We discussed our rectal emptying and bladder filling protocol. The patient and his spouse verbalized satisfaction with this plan. I have spent 20 minutes with this patient today with 20 minutes spent in counseling the patient. Signed by: Angel Grey M.D. 12/20/2018 4:04 PM Radiation Oncology [facility] [address] [place] [address] documented in this encounter Plan of Treatment [...] Time Received Time / Laterality Volume Narrative CAROLINA EDITHA - 01/11/2019 1:00 PM CDT Angel Grey M.D. ? 01/11/2019 ??1:39 PM Initial Rad Onc Treatment Planning CT Si mulation Date/Time: 01/11/2019 1:37 PM Performed by: Angel Grey M.D. Authorized by: Angel Grey M.D. Care team members present 1. Linnea Martinez, RTT 2. Chel Zhegn, RTT CONSENT Consent obtained: written Angel Grey M.D. RADIATION ONCOLOGY ORDERABLE S Performing Organization Address City/State/ZIP Code Phon e Number SANDRO PAPPAS na [place] Prostate Fiducial Marker Placement with [...] was prepared as descri bed in the concrete block plant supervisor's Instructions For Use. With the subject maintained [...] was prepared as descri bed in the concrete block plant supervisor's Instructions For Use. With the subject maintained [...]
--- OUTSIDE RECORDS SUMMARY | 2022-02-14 22:15 | XMS_ITS | Encounter Summary ---
:1950 Author Organization [facility] Address [address] [place] [address] Care Team Providers Name Role Phone Unavailable Primary Care Provider Unavailable Encounter Details Date Type Department Care Team Description 12/07/2018 Clinical Communication Department of Juanita, Radiation Oncology in [facility] [address] [place] [phone] Social History Tobacco Use Types Packs/Day Years [...] How often do you attend restorationist or quaker 1 to 4 times per year 02/25/2021 [...] Please call the patient back. Phone number: [phone] Is it okay to leave a voicemail on answering machine with test results? Yes Pharmacy (if medication related): [facility] - [place], [place] - [address] [place] [address] [address] [facility] [address] [place] documented in this encounter Plan of Treatment Not on filedocumented as of this encounter Visit Diagnoses Not on filedocumented in this encounter
--- OUTSIDE RECORDS SUMMARY | 2022-02-14 22:15 | XMS_ITS | Encounter Summary ---
:1950 Author Organization [facility] Address [address] [place] [address] Care Team Providers Name Role Phone Unavailable Primary Care Provider Unavailable Reason for Visit Radiation Therapy (Routine) - Closed Specialty Diagnoses / Procedures Referred By Contact Refer red To Contact Diagnoses Primary Malignant Neoplasm Of Prostate (HCC) Angel Grey M.D. [facility] Procedures Prior Auth Rad Tx [place] IMRT SIMPLE [address] [place] [address] Referral ID Status Reason Start Date Expiration Date Visits Requ ested Visits Authorized [id number] Closed 12/20/2018 12/20/2019 20 20 Encounter Details Date Type Department Care Team Description 02/05/2019 Hospital Encounter Department of Radiation Willi Grey, Oncology in [facility] [place] [address] [facility] [address] [place] [address] [phone] Social History Tobacco Use Types Packs/Day Years [...] How often do you attend jain or orthodoxy 1 to 4 times per [...] the highest level of school Associate degree: [employer] program 02/01/2019 you have completed or the [...] into each nostril mcg/actuation nasal spray daily. tijzhxixmwfn-kmpnqujt-jfm Take 1 tablet by 0 05/2013 ein (CENTURY MATURE) mouth. tablet omega 7-fey-dfv-fish oil Take 1,200 mg by 0 1,000 [...]
--- OUTSIDE RECORDS SUMMARY | 2022-02-14 22:15 | XMS_ITS | Encounter Summary ---
:1950 Author Organization [facility] Address [address] [place] [address] Care Team Providers Name Role Phone Unavailable Primary Care Provider Unavailable Encounter Details Date Type Department Care Team Description 02/05/2019 Orders Only Department of Zuleika Hudson Primary [place]aire flores Radiation Oncology in [facility] Neoplasm Of Prostate [facility] [phone] (HCC) (Primary Dx) [address] [facility] (Work) [place] [address] Social History Tobacco Use Types [...] How often do you attend jain or gnosticism 1 to 4 times per [...] the highest level of school Associate degree: [employer] program 02/01/2019 you have completed or the highest degree you have received? Sex Assigned at Date Recorded Male 12/24/2018 8:16 PM CDT documented as of this encounter Plan of Treatment Not on filedocumented as of this encounter Visit Diagnoses Diagnosis Primary Malignant Neoplasm Of Prostate ( HCC) - Primary documented in this encounter
--- OUTSIDE RECORDS SUMMARY | 2022-02-14 22:15 | XMS_ITS | Encounter Summary ---
:1950 Author Organization [facility] Address [address] [place] [address] Care Team Providers Name Role Phone Unavailable [...] Expiration Date Visits Requ ested Visits Authorized [id number] 1 1 Encounter Details Date Type Department Care Team Description 12/27/2018 Hospital Encounter Department of Angel Grey Malignant Radiology, Marcin eRnteria M.D. Neoplasm Of Prostate [facility], in [address] [place] [address] (HCC) [place], [place] [address] [place] [address] [place], [place] [phone] [address] (Work) [phone] Social History Tobacco Use Types Packs/Day Years [...] How often do you attend druze or congregational 1 to 4 times per [...] 20 mg by 0 016 tablet mouth. lyjpfrxwpluq-elmcmxkg-drvn Take 1 tablet by 0 05/2013 in [...] reviewed. Discussed risks, benefits, alternatives for procedure, tete gallegos obtained informed consent. Patient understands information and [...] was prepared as descri bed in the leacher's Instructions For Use. With the subject maintained [...] was prepared as descri bed in the leacher's Instructions For Use. With the subject maintained [...] immediate compli cations. NR Angel Grey M.D. IMG US PROCEDURES documented in this encounter Visit [...]
--- OUTSIDE RECORDS SUMMARY | 2022-02-14 22:15 | XMS_ITS | Encounter Summary ---
:1950 Author Organization [facility] Address [address] [place] [address] Care Team Providers Name Role Phone Unavailable Primary Care Provider Unavailable Encounter Details Date Type Department Care Team Description 11/30/2018 Clinical Communication Department of Juanita, Radiation Oncology in [facility] [address] [place] [phone] Social History Tobacco Use Types Packs/Day Years [...] How often do you attend caodaism or orthodoxy 1 to 4 times per [...] Miscellaneous Notes Telephone Encounter - Cheri Al RRaheelN. - 11/30/2018 3:41 PM CDT Patient is [...] to start taking calcium pills. Phone number: [phone] Is it okay to leave a voicemail on answering machine with test results? Yes Pharmacy (if medication related): [facility] - [address] [address] [place] documented in this encounter Plan of Treatment Not on filedocumented as of this encounter Visit Diagnoses Not on filedocumented in this encounter
--- OUTSIDE RECORDS SUMMARY | 2022-02-14 22:15 | XMS_ITS | Encounter Summary ---
:1950 Author Organization [facility] Address [address] [place] [address] Care Team Providers Name Role Phone Unavailable Primary Care Provider Unavailable Encounter Details Date Type Department Care Team Description 01/15/2019 Orders Only Department of Zuleika Hudson Primary Zaire flores Radiation Oncology in [facility] Neoplasm Of Prostate [facility] [phone] (HCC) (Primary Dx) [address] [facility] (Work) [place] [address] Social History Tobacco Use Types [...] How often do you attend hinduism or denominational 1 to 4 times per year 02/25/2021 [...] slept in a senior care (including now)? Sex Assigned at Date Recorded Male 12/24/2018 8:16 PM CDT documented as of this encounter Plan of Treatment Not on filedocumented as of this encounter Visit Diagnoses Diagnosis Primary Malignant Neoplasm Of Prostate ( HCC) - Primary documented in this encounter
--- OUTSIDE RECORDS SUMMARY | 2022-02-14 22:15 | XMS_ITS | Encounter Summary ---
:1950 Author Organization [facility] Address [address] [place] [address] Care Team Providers Name Role Phone Unavailable Primary Care Provider Unavailable Reason for Visit Radiation Therapy (Routine) - Closed Specialty Diagnoses / Procedures Referred By Contact Refer red To Contact Diagnoses Primary Malignant Neoplasm Of Prostate (HCC) Angel Grey M.D. [facility] Procedures Prior Auth Rad Tx [place] IMRT SIMPLE [address] [place] [address] Referral ID Status Reason Start Date Expiration Date Visits Requ ested Visits Authorized [id number] Closed 12/20/2018 12/20/2019 20 20 Encounter Details Date Type Department Care Team Description 02/11/2019 Hospital Encounter Department of Radiation Willi Grey, Oncology in [facility] [place] [address] [facility] [address] [place] [address] [phone] Social History Tobacco Use Types Packs/Day Years [...] How often do you attend yazdanism or catholic 1 to 4 times per [...] the highest level of school Associate degree: [employer] program 02/01/2019 you have completed or [...] as XP OPHT) needed (for dry eyes). xqyxsrkhpqxp-joitqxmj-zik Take 1 tablet by 0 05/2013 ein (CENTURY MATURE) mouth. tablet omega 7-cjd-ztm-fish oil Take 1,200 mg by 0 1,000 [...]
--- OUTSIDE RECORDS SUMMARY | 2022-02-14 22:15 | XMS_ITS | Encounter Summary ---
:1950 Author Organization [facility] Address [address] [place] [address] Care Team Providers Name Role Phone Unavailable Primary Care Provider Unavailable Reason for Visit Radiation Therapy (Routine) - Closed Specialty Diagnoses / Procedures Referred By Contact Refer red To Contact Diagnoses Primary Malignant Neoplasm Of Prostate (HCC) Angel Grey M.D. [facility] Procedures Prior Auth Rad Tx [place] IMRT SIMPLE [address] [place] [address] Referral ID Status Reason Start Date Expiration Date Visits Requ ested Visits Authorized [id number] Closed 12/20/2018 12/20/2019 20 20 Encounter Details Date Type Department Care Team Description 02/01/2019 Hospital Encounter Department of Radiation Willi Grey, Oncology in [facility] [place] [address] [facility] [address] [place] [address] [phone] Social History Tobacco Use Types Packs/Day Years [...] How often do you attend congregational or mandaeism 1 to 4 times per [...] the highest level of school Associate degree: [employer] program 02/01/2019 you have completed or the [...] into each nostril mcg/actuation nasal daily. spray hbagkpibvghn-jhbdmhzi-jo Take 1 tablet by 0 09/23 tein (CENTURY MATURE) mouth. tablet omega 6-zum-pad-fish oil Take 1,200 mg by 0 1,000 [...]
--- OUTSIDE RECORDS SUMMARY | 2022-02-14 22:15 | XMS_ITS | Encounter Summary ---
:1950 Author Organization [facility] Address [address] [place] [address] Care Team Providers Name Role Phone Unavailable Primary Care Provider Unavailable Encounter Details Date Type Department Care Team Description 01/30/2019 Clinical Communication Department of Angel Grey Radiation Oncology [place] [address] [facility] [address] [place] [phone] Social History Tobacco Use Types Packs/Day Years [...] How often do you attend anabaptist or bahai 1 to 4 times per [...] or slept in a chcf (including now)? Sex Assigned at Date Recorded [...] left prostate demonstrated adenocarcinoma of the prostate, [place] 3+4=7, involving 10-30% of the length of [...] with benign arthritic changes at multiple locations. [facility] reviewed his CT imaging and concluded that his mesenteric lymph nodes and inguinal lymph nodes were enlarged but stable potentially due to inflammatory disease or a lymphoproliferative disorder. 9. October 29, 2018: Appointment with Dr. Laura for T1c prostate cancer, [place] 4+3=7. He discussed treatment options including expectant [...] 20, 2018: Patient saw Dr. Zamora at [facility] for chronic thrombocytopenia. 13. November 21, 2018: Patient received a Lupron 7.5 mg injection [facility]. 14. December 20, 2018: Patient received a Lupron 22.5 injection at [facility]. This was his last injection [...] with Dr. Mcelroy who is the primary fraud investigator of the COMPPARE trial for which the patient consented to enroll. She was concerned that the patient may have CLL given the patient's lymphadenopathy seen on his CT imaging. I requested [facility] review and they agree that his [...]
--- OUTSIDE RECORDS SUMMARY | 2022-02-14 22:15 | XMS_ITS | Encounter Summary ---
:1950 Author Organization [facility] Address [address] [place] [address] Care Team Providers Name Role Phone Unavailable Primary Care Provider Unavailable Reason for Referral Outpatient (Routine) - Closed Specialty Diagnoses / Procedures Referred By Contact Refer red To Contact Radiation Oncology Annia Stewart P.A.-C., [facility] [address] [place] [phone] Referral ID Status Reason Start Date Expiration Date Visits Requ ested Visits Authorized [id number] Closed 01/11/2019 01/11/2020 1 1 Reason for Visit Outpatient (Routine) - Closed Specialty Diagnoses / Procedures Referred By Contact Refer red To Contact Radiation Oncology Annia Stewart P.A.-C., [facility] [address] [place] [phone] Referral ID Status Reason Start Date Expiration Date Visits Requ ested Visits Authorized [id number] Closed 01/11/2019 01/11/2020 1 1 Encounter Details Date Type Department Care Team Description 01/11/2019 Hospital Encounter Department of Angel Grey Malignant Radiation Oncology [place] Renteria Neoplasm Of Prostate in [address] (HCC) (Primary Dx) [place], [place] [address] [facility] [address] [place], [place] [phone] (Work) [phone] Social History Tobacco Use Types Packs/Day Years [...] How often do you attend mandaeism or presybeterian 1 to 4 times per [...] into each nostril mcg/actuation nasal daily. spray gtvnqjavapzk-dozlmnxi-tw Take 1 tablet by 0 09/23 tein (CENTURY MATURE) mouth. tablet omega 7-tul-dej-fish oil Take 1,200 mg by 0 1,000 [...] left prostate demonstrated adenocarcinoma of the prostate, [place] 3+4=7, involving 10-30% of the length of [...] 20, 2018: Patient saw Dr. Zamora at [facility] for chronic thrombocytopenia. 13. November 21, 2018: Patient received a Lupron 7.5 mg injection [facility]. 14. December 20, 2018: Patient received a Lupron 22.5 injection at [facility]. This was his last injection for [...] Radiation in Prostate Cancer?? trial (IRB# [id number]). We discussed the similarities and differences of [...] an MRI in the planning position at [facility] today. We will aim to begin treatment [...] Grey M.D. 01/11/2019 1:28 PM Radiation Oncology [facility] [address] [place], [place] [id number] documented in this encounter Plan of Treatment Scheduled Referrals Name Type Priority Associated Order Schedule Diagnoses Radiation Oncology Outpatient Referral Routine On ce for 1 office visit Occurrences sta rting (clinic) 01/11/2019 unti l 01/11/2019 documented as of this encounter Visit Diagnoses Diagnosis Primary Malignant Neoplasm Of Prostate ( HCC) - Primary documented in this encounter
--- OUTSIDE RECORDS SUMMARY | 2022-02-14 22:15 | XMS_ITS | Encounter Summary ---
:1950 Author Organization [facility] Address [address] [place] [address] Care Team Providers Name Role Phone Unavailable Primary Care Provider Unavailable Encounter Details Date Type Department Care Team Description 01/23/2019 Ancillary Procedure Department of Angel Grey Malignant Radiology bee Renteria M.D. Neoplasm Of Prostate [place], [place] [address] [facility] (HCC) [address] [place] [phone] Social History Tobacco Use Types Packs/Day Years [...] How often do you attend yazidism or congregational 1 to 4 times per [...] lesions. Hypertrophic and degenerative c hanges lumbar spine.[id number] Procedure Note Rachid Mata M.D. - 01/29/2019Forma [...] lesions. Hypertrophic and degenerative c hanges lumbar spine.[id number] IMPRESSION: Multiple prominent mesenteric lymph node s measuring up to 11 mm should be due to small bowel or mesenter ic inflammation or a lymphoproliferative disorder; metastatic prostate cancer is very unlikely. Additional prominent subcentimeter retroperitoneal and inguin al lymph nodes, not significantly changed compared to 01/03/2012. Choline PET/CT could be helpful for further evaluation if clinically indicated given biopsy-proven [place] 4+[address] PROCEDURES documented in this encounter Visit Diagnoses Diagnosis Primary Malignant Neoplasm Of Prostate ( HCC) documented in this encounter
--- OUTSIDE RECORDS SUMMARY | 2022-02-14 22:15 | XMS_ITS | Encounter Summary ---
:1950 Author Organization [facility] Address [address] [place] [address] Care Team Providers Name Role Phone Unavailable Primary Care Provider Unavailable Reason for Visit Radiation Therapy (Routine) - Closed Specialty Diagnoses / Procedures Referred By Contact Refer red To Contact Diagnoses Primary Malignant Neoplasm Of Prostate (HCC) Angel Grey M.D. [facility] Procedures Prior Auth Rad Tx [place] IMRT SIMPLE [address] [place] [address] Referral ID Status Reason Start Date Expiration Date Visits Requ ested Visits Authorized [id number] Closed 12/20/2018 12/20/2019 20 20 Encounter Details Date Type Department Care Team Description 02/07/2019 Hospital Encounter Department of Radiation Willi Grey, Oncology in [facility] [place] [address] [facility] [address] [place] [address] [phone] Social History Tobacco Use Types Packs/Day Years [...] How often do you attend alevism or synagogue 1 to 4 times per year 02/25/2021 [...] the highest level of school Associate degree: [employer] program 02/01/2019 you have completed or the [...] as XP OPHT) needed (for dry eyes). ahlcsahuyzlm-pbxqxnbs-pml Take 1 tablet by 0 05/2013 ein (CENTURY MATURE) mouth. tablet omega 8-dtu-tww-fish oil Take 1,200 mg by 0 1,000 [...]
--- OUTSIDE RECORDS SUMMARY | 2022-02-14 22:15 | XMS_ITS | Encounter Summary ---
:1950 Author Organization [facility] Address [address] [place] [address] Care Team Providers Name Role Phone Unavailable Primary Care Provider Unavailable Encounter Details Date Type Department Care Team Description 11/20/2018 Orders Only Department of Angel Grey [facility] Radiation Oncology bee Renteria M.D. [facility] [address] [facility] (HCC) (Primary Dx) [address] [place] [phone] Social History Tobacco Use Types Packs/Day Years [...] How often do you attend shinto or restorationism 1 to 4 times per [...]
--- OUTSIDE RECORDS SUMMARY | 2022-02-14 22:15 | XMS_ITS | Encounter Summary ---
:1950 Author Organization [facility] Address [address] [place] [address] Care Team Providers Name Role Phone Unavailable Primary Care Provider Unavailable Reason for Visit Radiation Therapy (Routine) - Closed Specialty Diagnoses / Procedures Referred By Contact Refer red To Contact Diagnoses Primary Malignant Neoplasm Of Prostate (HCC) Angel Grey M.D. [facility] Procedures Prior Auth Rad Tx [place] IMRT SIMPLE [address] [place] [address] Referral ID Status Reason Start Date Expiration Date Visits Requ ested Visits Authorized [id number] Closed 12/20/2018 12/20/2019 20 20 Encounter Details Date Type Department Care Team Description 02/04/2019 Hospital Encounter Department of Radiation Willi Grey, Oncology in [facility] [place] [address] [facility] [address] [place] [address] [phone] Social History Tobacco Use Types Packs/Day Years [...] or relatives? How often do you attend protestant or zoroastrian 1 to 4 times per year 02/25/2021 services? Do you belong to any clubs or organizations Yes 02/25/2021 such as protestant groups, unions, fraternal or athletic groups, or [...] the highest level of school Associate degree: [employer] program 02/01/2019 you have completed or the [...] into each nostril mcg/actuation nasal daily. spray pchezlvfaucq-iaqhfrmn-kp Take 1 tablet by 0 09/23 tein (CENTURY MATURE) mouth. tablet omega 1-lup-lts-fish oil Take 1,200 mg by 0 1,000 [...]
--- OUTSIDE RECORDS SUMMARY | 2022-02-14 22:15 | XMS_ITS | Encounter Summary ---
:1950 Author Organization [facility] Address [address] [place] [address] Care Team Providers Name Role Phone Unavailable Primary Care Provider Unavailable Reason for Visit Radiation Therapy (Routine) - Closed Specialty Diagnoses / Procedures Referred By Contact Refer red To Contact Diagnoses Primary Malignant Neoplasm Of Prostate (HCC) Angel Grey M.D. [facility] Procedures Prior Auth Rad Tx [place] IMRT SIMPLE [address] [place] [address] Referral ID Status Reason Start Date Expiration Date Visits Requ ested Visits Authorized [id number] Closed 12/20/2018 12/20/2019 20 20 Encounter Details Date Type Department Care Team Description 01/31/2019 Hospital Encounter Department of Radiation Willi Grey, Oncology in [facility] [place] [address] [facility] [address] [place] [address] [phone] Social History Tobacco Use Types Packs/Day Years [...] often do you attend latter day or episcopalian 1 to 4 times per [...] or slept in a residential (including now)? Sex Assigned at Date Recorded [...] into each nostril mcg/actuation nasal daily. spray mksiiupxggtc-purpeoik-mq Take 1 tablet by 0 09/23 tein (CENTURY MATURE) mouth. tablet omega 1-ytd-wgz-fish oil Take 1,200 mg by 0 1,000 [...]
--- OUTSIDE RECORDS SUMMARY | 2022-02-14 22:15 | XMS_ITS | Encounter Summary ---
:1950 Author Organization [facility] Address [address] [place] [address] Care Team Providers Name Role Phone Unavailable Primary Care Provider Unavailable Reason for Referral Radiation Therapy (Routine) - Canceled Specialty Diagnoses / Procedures Referred By Contact Refer red To Contact Diagnoses Primary Malignant Neoplasm Of Prostate (HCC) Angel Grey M.D. [facility] Procedures Management Visit [address] [place] [phone] Referral ID Status Reason Start Date Expiration Date Visits V isits Requested Authorized [id number] Canceled 12/20/2018 12/20/2019 10 10 Reason for Visit Radiation Therapy (Routine) - Canceled Specialty Diagnoses / Procedures Referred By Contact Refer red To Contact Diagnoses Primary Malignant Neoplasm Of Prostate (HCC) Angel Grey M.D. [facility] Procedures Management Visit [address] [place], [place] [address] Referral ID Status Reason Start Date Expiration Date Visits V isits Requested Authorized [id number] Canceled 12/20/2018 12/20/2019 10 10 Encounter Details Date Type Department Care Team Description 02/06/2019 Hospital Encounter Department of Chris Grey M.D. [address] [place] [address] Primary Malignant Radiation Oncology Karely Cosme M.D. [address] [place] [phone] Neoplasm Of Prostate in [place], ([facility]) [place] [address] [place] [address] Social History Tobacco Use Types Packs/Day Years [...] How often do you attend gnosticism or hinduism 1 to 4 times per [...] the highest level of school Associate degree: [employer] program 02/01/2019 you have completed or [...] as XP OPHT) needed (for dry eyes). ajvvfxlbzclk-nwtrmgbj-wdf Take 1 tablet by 0 /05/2013 ein (CENTURY MATURE) mouth. tablet omega 7-cnu-ulg-fish oil Take 1,200 mg by 0 1,000 [...] cN0, cM0, PSA: 5.1, Grade Group: 3) [place] 4 + 3 adenocarcinoma of the prostate [...] Prostate Occurre nces starting (HCC) 02/06/2019 unti l 02/06/2019 documented as of this encounter Visit Diagnoses Diagnosis Primary Malignant Neoplasm Of Prostate ( HCC) documented in this encounter
--- OUTSIDE RECORDS SUMMARY | 2022-02-14 22:15 | XMS_ITS | Encounter Summary ---
:1950 Author Organization [facility] Address [address] [place] [address] Care Team Providers Name Role Phone Unavailable Primary Care Provider Unavailable Encounter Details Date Type Department Care Team Description 01/29/2019 Orders Only Department of Radiation Angel Grey , Oncology in [place] [address] [facility] [address] [place] [phone] (Wo rk) Social History Tobacco Use Types [...] How often do you attend confucianism or mandaeism 1 to 4 times per [...]
--- OUTSIDE RECORDS SUMMARY | 2022-02-14 22:15 | XMS_ITS | Encounter Summary ---
:1950 Author Organization [facility] Address [address] [place] [address] Care Team Providers Name Role Phone Unavailable Primary Care Provider Unavailable Reason for Referral Outpatient (Routine) - Closed Specialty Diagnoses / Procedures Referred By Contact Refer red To Contact Radiation Oncology Angel Grey M .D. [facility] [address] [place] [phone] Referral ID Status Reason Start Date Expiration Date Visits Requ ested Visits Authorized [id number] Closed 11/12/2018 11/12/2019 1 1 Reason for Visit Appointment Request (Routine) - Closed Specialty Diagnoses / Procedures Referred By Contact Refer jannette To Contact Radiation Oncology Ming Laura M.D. [address] [place] [phone] Referral ID Status Reason Start Date Expiration Date Visits Requ ested Visits Authorized [id number] Closed 10/31/2018 10/31/2019 1 1 Encounter Details Date Type Department Care Team Description 11/12/2018 Hospital Encounter Department of Angel Grey Malignant Radiation Oncology [place] Renteria Neoplasm Of Prostate in [address] (HCC) (Primary Dx) [place], [place] [address] [facility] [address] [place], [place] [phone] (Work) [phone] Social History Tobacco Use Types Packs/Day Years [...] How often do you attend restorationist or episcopalian 1 to 4 times per [...] left prostate demonstrated adenocarcinoma of the prostate, [place] 3+4=7, involving 10-30% of the length of 3 cores, perineural invasion not seen. 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 Laura for T1c prostate cancer, [place] 4+3=7. He discussed treatment options including expectant management, hormonal therapy, cryotherapy, HIFU, radiation, and surgery. He recommended obtaining second opinions with Radiation Oncology and Oncology. 10. November 20, 2018: Scheduled appointment with Medical Oncology at [facility]. INTERVAL HISTORY The patient reports that he [...] to his , Clara. They live in [place], [place]. 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 He has 2 adult children, son [...] surgery, radiotherapy, or observation (Erica et al, [facility], 2016) that showed that surgery and rad [...] visit with Dr. Membreno on at the [facility]. I have ordered a repeat PSA and baseline testosterone to be drawn at that visit. He will beginbicalutamide after his blood draw. Next week, he will be scheduled for a Lupron 7.5 mg injection at [facility]. I will see him back 4 weeks [...] Grey M.D. 11/12/2018 5:12 PM Radiation Oncology [facility] [address] [place] [address] REFERRING PHYSICIAN Ming Laura M.D. PRIMARY PHYSICIAN Ranjan Membreno M.D. documented in this encounter Miscellaneous Notes Addendum Note - Polo, Shira M - 11/12/2018 5:15 PM CDT Encounter addended by: Shira Polo on: 11/13/2018 7:04 AM Actions taken: Letter saved documented in this encounter Plan of Treatment Scheduled Referrals Name Type Priority Associated Diagnoses Order S [facility] Radiation Oncology Outpatient Referral Routine Ex pected: office visit 12/13/2018 (clinic) (Approximate), Expires: 11/13/2019 documented as of this encounter Visit Diagnoses Diagnosis Primary Malignant Neoplasm Of Prostate ( HCC) - Primary documented in this encounter
--- OUTSIDE RECORDS SUMMARY | 2022-02-14 22:15 | XMS_ITS | Encounter Summary ---
:1950 Author Organization [facility] Address [address] [place] [address] Care Team Providers Name Role Phone Unavailable Primary Care Provider Unavailable Reason for Referral Outpatient (Routine) - Closed Specialty Diagnoses / Procedures Referred By Contact Refer red To Contact Radiation Oncology Annia Stewart P.A.-C., [facility] [address] [place] [phone] Referral ID Status Reason Start Date Expiration Date Visits Requ ested Visits Authorized [id number] Closed 01/11/2019 01/11/2020 1 1 Encounter Details Date Type Department Care Team Description 01/11/2019 Orders Only Department of Radiation Annia Stewart [facility] Malignant Oncology [place] Neoplasm Of Prostate [address] (HCC) (Primary Dx) [address] [place] [phone] Social History Tobacco Use Types Packs/Day Years [...] How often do you attend mandaeism or mu-ism 1 to 4 times per [...] or slept in a long-term (including now)? Sex Assigned at Date Recorded Male 12/24/2018 8:16 PM CDT documented as of this encounter Plan of Treatment Scheduled Referrals Name Type Priority Associated Diagnoses Order S [facility] Radiation Oncology Outpatient Referral Routine Ex pected: office visit 01/11/2019, (clinic) Expires: 01/12/2020 documented as of this encounter Visit Diagnoses Diagnosis Primary Malignant Neoplasm Of Prostate ( HCC) - Primary documented in this encounter
--- OUTSIDE RECORDS SUMMARY | 2022-02-14 22:15 | XMS_ITS | Encounter Summary ---
:1950 Author Organization [facility] Address [address] [place] [address] Care Team Providers Name Role Phone Unavailable Primary Care Provider Unavailable Reason for Visit Reason Comments Results Encounter Details Date Type Department Care Team Description 11/21/2018 Clinical Communication Department of Radiation Cheri Al, Results Oncology in [facility] [address] [facility] [address] [place] [phone] Social History Tobacco Use Types Packs/Day Years [...] How often do you attend scientology or orthodox 1 to 4 times per [...] or slept in a fpc (including now)? Sex Assigned at Date Recorded [...] left prostate demonstrated adenocarcinoma of the prostate, [place] 3+4=7, involving 10-30% of the length of [...] 2018: Scheduled appointment with Medical Oncology at [facility]. 11. November 15, 2018: PSA 4.14 ng/mL, Total testosterone 419 ng/dL (collected at [facility]). Patient started Casodex. Plan is for patient to receive 1 month hormonal injection tomorrow at [facility] and then return to see Dr. [...]
--- OUTSIDE RECORDS SUMMARY | 2022-02-14 22:15 | XMS_ITS | Encounter Summary ---
:1950 Author Organization [facility] Address [address] [place] [address] Care Team Providers Name Role Phone Unavailable Primary Care Provider Unavailable Reason for Visit Radiation Therapy (Routine) - Closed Specialty Diagnoses / Procedures Referred By Contact Refer red To Contact Diagnoses Primary Malignant Neoplasm Of Prostate (HCC) Angel Grey M.D. [facility] Procedures Prior Auth Rad Tx AR IMRT SIMPLE [address] [place] [address] Referral ID Status Reason Start Date Expiration Date Visits Requ ested Visits Authorized [id number] Closed 12/20/2018 12/20/2019 20 20 Encounter Details Date Type Department Care Team Description 02/06/2019 Hospital Encounter Department of Radiation Willi Grey, Oncology in [facility] [place] [address] [facility] [address] [place] [phone] Social History Tobacco Use Types Packs/Day Years [...] How often do you attend anglican or amish 1 to 4 times per [...] the highest level of school Associate degree: [employer] program 02/01/2019 you have completed or the [...] as XP OPHT) needed (for dry eyes). kjnqjpyfengg-sejbduqj-vuw Take 1 tablet by 0 05/2013 ein (CENTURY MATURE) mouth. tablet omega 3-twf-ltp-fish oil Take 1,200 mg by 0 1,000 [...]
--- OUTSIDE RECORDS SUMMARY | 2022-02-14 22:15 | XMS_ITS | Encounter Summary ---
:1950 Author Organization [facility] Address [address] [place] [address] Care Team Providers Name Role Phone Unavailable Primary Care Provider Unavailable Reason for Referral Specialty Diagnoses / Procedures Referred By Contact Refer red To Contact Angel Grey M .D. [facility] [address] [place] [phone] Referral ID Status Reason Start Date Expiration Date Visits Requ ested Visits Authorized Encounter Details Date Type Department Care Team Description 02/05/2019 Hospital Encounter Department of Chris Grey M.D. [address] [place] [phone] Primary Malignant Radiation Oncology Cheri Al R.N. [address] [place] [phone] Neoplasm Of Prostate in [place], (HCC) [place] [address] [place] [phone] Social History Tobacco Use Types Packs/Day Years [...] How often do you attend nondenominational or congregation 1 to 4 times per [...] the highest level of school Associate degree: [employer] program 02/01/2019 you have completed or the [...] as XP OPHT) needed (for dry eyes). zsygkmukdcpa-pucolqqv-teq Take 1 tablet by 0 05/2013 ein (CENTURY MATURE) mouth. tablet omega 2-hgk-qrg-fish oil Take 1,200 mg by 0 1,000 [...]
--- OUTSIDE RECORDS SUMMARY | 2022-02-14 22:15 | XMS_ITS | Encounter Summary ---
:1950 Author Organization [facility] Address [address] [place] [address] Care Team Providers Name Role Phone Unavailable Primary Care Provider Unavailable Encounter Details Date Type Department Care Team Description 11/23/2018 Clinical Communication Department of Juanita, Radiation Oncology in [facility] [address] [place] [phone] Social History Tobacco Use Types Packs/Day Years [...] How often do you attend anabaptist or holiness 1 to 4 times per [...] with radiation sooner than later Phone number: [phone] or [phone] Is it okay to leave a voicemail on answering machine with test results? Yes Pharmacy (if medication related): [facility] - [place], [place] - [address] [place] [id number] [place] Nena Grant documented in this encounter Plan of Treatment Not on filedocumented as of this encounter Visit Diagnoses Not on filedocumented in this encounter
--- OUTSIDE RECORDS SUMMARY | 2022-02-14 22:15 | XMS_ITS | Encounter Summary ---
:[address] [facility] Address [address] [place] [address] Care Team Providers Name Role Phone Unavailable Primary Care Provider Unavailable Reason for Referral Radiation Therapy (Routine) - Closed Specialty Diagnoses / Procedures Referred By Contact Refer red To Contact Diagnoses Primary Malignant Neoplasm Of Prostate (HCC) Angel Grey M.D. [facility] Procedures Initial Rad Onc Treatment Planning CT Simulation [address] [place] [address] Referral ID Status Reason Start Date Expiration Date Visits Requ ested Visits Authorized [id number] Closed 12/20/2018 12/20/2019 2 2 Reason for Visit Radiation Therapy (Routine) - Closed Specialty Diagnoses / Procedures Referred By Contact Refer red To Contact Diagnoses Primary Malignant Neoplasm Of Prostate (HCC) Angel Grey M.D. [facility] Procedures Initial Rad Onc Treatment Planning CT Simulation [address] [place] [address] Referral ID Status Reason Start Date Expiration Date Visits Requ ested Visits Authorized [id number] Closed 12/20/2018 12/20/2019 2 2 Encounter Details Date Type Department Care Team Description 01/11/2019 Hospital Encounter Department of Angel Grey Malignant Radiation Oncology Omaira Renteria Neoplasm Of Prostate in [place], [address] [facility] (HCC) [place], [place] [address] [facility] [phone] [place], [place] [phone] (Work) [phone] Social History Tobacco Use Types Packs/Day Years [...] How often do you attend baptism or jehovah's witness 1 to 4 times [...] into each nostril mcg/actuation nasal daily. spray ozynpbnmyeki-cadvhusg-wl Take 1 tablet by 0 09/23 tein (CENTURY MATURE) mouth. tablet omega 7-rmj-mno-fish oil Take 1,200 mg by 0 1,000 [...] cN0, cM0, PSA: 5.1, Grade Group: 3) [place] 4 + 3 adenocarcinoma of the prostate [...] tattoos. CT images were transferred to the Eclipse planning system. Segmentation and treatmentplanning will take place prior to treatment delivery. Patient set up and imaging was appropriate and completed without incident. He will proceed next [facility] for a planning MRI. documented [...] Time Received Time / Laterality Volume Narrative SANDRO PAPPAS - 01/11/2019 1:00 PM CDT Angel Grey [...] City/State/ZIP Code Phon e Number SANDRO PAPPAS JO MIAN na documented in this encounter Visit Diagnoses Diagnosis Primary Malignant Neoplasm Of Prostate ( HCC) documented in this encounter
--- OUTSIDE RECORDS SUMMARY | 2022-02-14 22:15 | XMS_ITS | Encounter Summary ---
:1950 Author Organization [facility] Address [address] [place] [address] Care Team Providers Name Role Phone Unavailable Primary Care Provider Unavailable Encounter Details Date Type Department Care Team Description 01/23/2019 Orders Only Department of Angel Grey Radiation Oncology bee Renteria M.D. [facility] [address] (HCC) (Primary Dx) [address] [place] [phone] Social History Tobacco Use Types Packs/Day Years [...] How often do you attend anabaptist or tenriism 1 to 4 times per [...] Not on filedocumented as of this encounter Results Interpretation of [...] further evaluation if clinically indicated given biopsy-proven [place] 4+3 prostate cancer. Narrative 01/24/2019 5:43 PM [...] lesions. Hypertrophic and degenerative c hanges lumbar spine.[id number] Procedure Note Rachid Mata M.D. - 01/29/2019Forma [...] lesions. Hypertrophic and degenerative c hanges lumbar spine.[id number] IMPRESSION: Multiple prominent mesenteric lymph node s [...]
--- OUTSIDE RECORDS SUMMARY | 2022-02-14 22:16 | XMS_ITS | Clinical Summary ---
:1950 Author Organization [facility] [place] [address] Care Team Providers Name Role Phone Sharmin Gallegos RN Unavailable Ranjan Membreno MD Primary Care Provider [phone] Allergies No known active allergies Medications [...] Comments Blood Pressure 112/62 03/15/2021 1:25 PM SUPERVISOR GARMENT MANUFACTURING Pulse 66 03/15/2021 1:25 PM SUPERVISOR GARMENT MANUFACTURING Temperature 36.4 ??C (97.6 ??F) 03/15/2021 1:25 PM SUPERVISOR GARMENT MANUFACTURING Respiratory Rate 16 11/24/2000 12:00 AM CDT Oxygen Saturation 99% 03/15/2021 1:25 PM SUPERVISOR GARMENT MANUFACTURING Inhaled Oxygen Concentration - - Weight 92.1 kg (203 lb) 03/15/2021 1:25 PM SUPERVISOR GARMENT MANUFACTURING Height 178 cm (5' 10.08) 08/04/2015 10:48 [...] Phone Addre ss Type Group [facility] [id number] 2015-Present [address] [place] [address] Care Teams Data Processing Auditor Relationship Specialty Start Date End Date Ranjan Membreno, PCP - General Family Practice 06/11/[address] [place] [address] Sharmin Gallegos, RN Cancer Nurse Coordinator Registered Nurse 10/31/18
[2022-02-15 01:12] LABS: PSA Diagnostic* 0.14 ng/mL (0.10-4.00)
== END 2022-02-14 22:08 | disposition home or self-care (01) ==
LOC: LAB 22:07
PROVIDERS: PCP Physician Assistant Medical; Visit Provider Internal Medicine
DX: C61 Malignant neoplasm of prostate (principal)
CPT/HCPCS: 36415; 84153

== ENCOUNTER 2022-03-03 09:57 | Outpatient (CLI) | payer OTHER, MEDICARE, SELFPAY ==
[2022-03-03 10:52] LABS: Creatinine* 1.2 mg/dL (0.5-1.5); Estimated Glomerular Filt Rate 64 ml/min
--- NOTE | 2022-03-03 11:00 | CRLHL7_ITS ---
For Patients: As a result of the Century Cures Act, medical imaging exams and procedure reports are released immediately into your electronic medical record. You may view this report before your referring provider. If you have questions, please contact your health care provider. INDICATION: Diastasis of rectus abdominus. Prostate cancer. TECHNIQUE: Contrast-enhanced CT of the abdomen and pelvis. 98 cc nonionic Isovue-370 administered. COMPARISON: October 10, 2019. FINDINGS: Minimal subpleural fibrosis at the lung bases. No pleural or pericardial effusions. No pulmonary nodules at either lung base. There is no evidence for abdominal wall diastasis. No direct abdominal wall/inguinal hernia. No umbilical hernia. Normal-appearing liver, spleen, pancreas, gallbladder, and adrenal glands. 1 mm nonobstructing stone lower pole right kidney. Small renal cysts right greater than left. No solid renal mass or obstruction. Normal caliber abdominal aorta and iliac arteries containing scattered vascular calcification. Normal inferior vena cava. No bowel obstruction or ileus. No ascites or lymphadenopathy. Few sigmoid diverticula. No diverticulitis. The urinary bladder is unremarkable. Prostatic enlargement. Fiducial markers in the prostate gland. No pelvic or inguinal lymphadenopathy. The included skeleton is negative for skeletal metastatic disease. Scattered degenerative arthritis of the lower thoracic and lumbar spine with multilevel degenerative disc disease. IMPRESSION: 1. No evidence for abdominal wall diastasis. There is some thinning of the abdominal wall musculature diffusely however. 2. Post intervention change within the prostate gland. No evidence for metastatic disease. 3. Renal cysts. Stable tiny nonobstructing lower pole right renal stone. Few sigmoid diverticula. Please note that all CT scans at this facility use dose modulation, iterative reconstruction, and/or weight-based dosing when appropriate to reduce radiation dose to as low as reasonably achievable. Dictated by Xavi Hou MD @ 03/04/2022 9:30:08 AM (Electronically Signed)
== END 2022-03-03 09:58 | disposition home or self-care (01) ==
LOC: CT 09:58
PROVIDERS: PCP Physician Assistant Medical; Visit Provider Surgery
DX: M62.08 Separation of muscle (nontraumatic), other site (principal); C61 Malignant neoplasm of prostate; N28.1 Cyst of kidney, acquired; N20.0 Calculus of kidney
CPT/HCPCS: 36415; 74177; 82565; Q9967

== ENCOUNTER 2022-07-07 13:58 | Outpatient (CLI) | payer BC, SELFPAY ==
[2022-07-07 22:11] LABS: Chloride* 109 mmol/L (96-114); Potassium* 3.9 mmol/L (3.6-5.1); Sodium* 139 mmol/L (135-149)
[2022-07-07 22:13] LABS: Creatinine* 1.3 mg/dL (0.5-1.5); Estimated Glomerular Filt Rate 58 ml/min
[2022-07-07 22:14] LABS: Blood Urea Nitrogen* 23 mg/dL (7-30); Calcium* 9.1 mg/dL (8.4-10.6); Carbon Dioxide* 23 mmol/L (20-32); Glucose* 103 mg/dL (60-115)
== END 2022-07-07 13:59 | disposition home or self-care (01) ==
PROVIDERS: PCP Family Medicine; Visit Provider Family Medicine
DX: R53.83 Other fatigue (principal); E87.1 Hypo-osmolality and hyponatremia; E78.5 Hyperlipidemia, unspecified; F03.90 Unspecified dementia, unspecified severity, without behavioral disturbance, psychotic disturbance, mood disturbance, and anxiety; G47.00 Insomnia, unspecified
CPT/HCPCS: 80048

== ENCOUNTER 2023-02-20 22:21 | Outpatient (REF) | payer MEDICARE, SELFPAY ==
[2023-02-21 00:15] LABS: PSA Diagnostic* 0.16 ng/mL (0.10-4.00)
== END 2023-02-20 22:22 | disposition home or self-care (01) ==
LOC: NPINS 22:21
PROVIDERS: PCP Family Medicine; Visit Provider Physician Assistant
DX: Z12.5 Encounter for screening for malignant neoplasm of prostate (principal); R53.83 Other fatigue; Z13.6 Encounter for screening for cardiovascular disorders
CPT/HCPCS: 84153

== ENCOUNTER 2023-02-27 11:49 | Outpatient (CLI) | payer MEDICARE, SELFPAY | END 2023-02-27 11:50 | disposition home or self-care (01) | PROVIDERS: PCP Family Medicine; Visit Provider Family Medicine | DX: Z00.00 Encounter for general adult medical examination without abnormal findings (principal); R53.83 Other fatigue; R78.5 Finding of other psychotropic drug in blood; E87.1 Hypo-osmolality and hyponatremia; D69.6 Thrombocytopenia, unspecified; Z11.59 Encounter for screening for other viral diseases; Z13.6 Encounter for screening for cardiovascular disorders | CPT/HCPCS: 80053; 80061; 86803 ==

== ENCOUNTER 2023-04-04 13:04 | Outpatient (CLI) | payer MEDICARE, SELFPAY ==
--- NOTE | 2023-04-04 13:30 | CRLHL7_ITS ---
For Patients: As a result of the Century Cures Act, medical imaging exams and procedure reports are released immediately into your electronic medical record. You may view this report before your referring provider. If you have questions, please contact your health care provider. DXA BONE MINERAL DENSITY STUDY Reason for exam: Suspected osteoporosis. Current height (in): 67.0. Weight (lb): 193.0. Ethnicity: White. 1. Have you had a previous hip or vertebral fracture? No. 2. Have you had any fractures during your adult life which did not result from significant trauma (e.g., auto accident)? No. 3. Did either of your parents have a hip fracture? No. 4. Do you smoke? No. 5. Have you ever taken Glucocorticoids? No. 6. Do you have rheumatoid arthritis? No. 7. Do you have secondary osteoporosis? No. 8. Do you drink 3 or more alcoholic drinks per day? No. 9. Are you being treated for osteoporosis? No. 10. Have you ever taken any of the following medications: Actonel, Evista, Fosamax, Miacalcin, Reclast, Boniva, Forteo, HRT (i.e. estrogen/hormone therapy), Protelos, Prolia, Vitamin D, Calcium, other ??? please specify. ANSWER: Yes, vitamin D, calcium. 11. Do you have any of the following medical conditions: Anorexia or bulimia, asthma or emphysema, end stage renal disease, hyperparathyroidism, any seizure disorders, cancer, inflammatory bowel diseases, hysterectomy, other ??? please specify. ANSWER: No. 12. What was your maximum height (inches)? 72. 13. Do you perform weight bearing exercise regularly? No. 14. Do you regularly consume dairy products? No. 15. Do you drink caffeinated beverages? Yes. TECHNIQUE: Bone mineral density study was performed using the Augur Wi. FINDINGS: The results of the study expressed as bone mineral density (BMD) are as follows: Lumbar spine L1 to L4: BMD: 1.288 g/cm2. T-score: 1.8. Z-score: 2.8. Neck Left: BMD: 0.816 g/cm2. T-score: -0.8. Z-score: 0.4. Right: BMD: 0.821 g/cm2. T-score: -0.8. Z-score: 0.5. Total Left: BMD: 0.946 g/cm2. T-score: -0.6. Z-score: 0.2. Right: BMD: 0.959 g/cm2. T-score: -0.5. Z-score: 0.3. IMPRESSION: Normal bone density. Evaristo Leslie M.D. Diagnostic Radiologist [email or web address] PUSHPA/juana / be/Dictated by: Evaristo Leslie MD @ 04/04/2023 2:43:00 PM (Electronically Signed)
== END 2023-04-04 13:05 | disposition home or self-care (01) ==
PROVIDERS: PCP Family Medicine; Visit Provider Family Medicine
DX: M81.0 Age-related osteoporosis without current pathological fracture (principal); R29.890 Loss of height
CPT/HCPCS: 77080

== ENCOUNTER 2023-08-28 21:40 | Outpatient (REF) | payer MEDICARE, SELFPAY ==
--- OUTSIDE RECORDS SUMMARY | 2023-08-28 21:45 | XMS_ITS ---
Author Name Unknown Organization [facility] Address [address] [place] [address] Care Team Providers Care Casting Tester Name Role Phone Unavailable Unavailable Unavailable Surgery Details Not on file Complications Check Surgery Details section. Procedure Estimated Blood Loss Check Surgery Details section. Procedure Findings Check Surgery Details section. Procedure Specimens Taken Check Surgery Details section.
--- OUTSIDE RECORDS SUMMARY | 2023-08-28 21:45 | XMS_ITS | Clinical Summary ---
Author Name Unknown Organization [facility] Address [address] [place] [address] Care Team Providers Care Splitting Machine Feeder Name Role Phone No Primary/Referring, Phy Primary Care Provider Unavailable Source Comments You are receiving this document as you are listed as the primary care provider,follow-up provider, or the patient has been referred to you for consultation.This is in compliance with the Medicare and[facility] EHR Incentive Program,which states Providers who transition their patient to another setting of careor provider of care or refers their patient to another provider of care shouldprovide summary care record for each transition of care or referral. [facility] Medications No known medications Social History Tobacco Use Types Packs/Day Years Used Date Smoking Tobacco: Never Assessed Sex and Gender Information Value Date Recorded Sex Assigned at Not on file Gender Identity Not on file Sexual Orientation Not on file Plan of Treatment Health Maintenance Due Date Last Done Comments Colon Cancer Screening Plan Due 1950 Hep C Screening (Preventive Services) 1950 Medicare Welcome Visit 1950 DTaP/Tdap/Td (1 - Tdap) 1968 Cholesterol 1984 Zoster/Shingles (1 of 2) 10/21/1999 Pneumococcal 65+ Yrs (1 - PCV) 2014 COVID-19 Vaccine ( - 2022-2 4 season) 2022 Influenza (Season Ended) 2023 HepA Aged Out No longer eligi ble based on patient's age to complete this topic HepB Aged Out No longer eligi ble based on patient's age to complete this topic Hib Aged Out No longer eligi ble based on patient's age to complete this topic IPV (Polio) Aged Out No longer eligi ble based on patient's age to complete this topic MCV4 Aged Out No longer eligi ble based on patient's age to complete this topic Care Teams Splitting Machine Feeder Relationship Specialty Start Date End Date No Primary/Referring, Phy PCP - General 02/14/23
--- OUTSIDE RECORDS SUMMARY | 2023-08-28 21:45 | XMS_ITS | Clinical Summary ---
Author Name Unknown Organization [facility] Address [place], [place] [address] Care Team Providers Care Resident Care Manager Name Role Phone Ranjan Membreno MD Primary Care Provider [phone] Allergies No known active allergies Medications Medication Sig Dispensed Refills Start Date End Date Status latanoprost (XALATAN) 0.005 % ophthalmic solution Place 1 Drop into both eyes at bedtime. 2.5 mL 0 09/23/2013 Active aspirin enteric coated 81 mg tablet Take 1 tablet by mouth once daily with a meal. 0 09/23/2013 Active multivitamins-mineral s-lutein (CENTRUM SILVER) tab tablet Take 1 tablet by mouth once daily. 0 09/23/2013 Active famotidine (PEPCID) 20 mg tablet Take 1 tablet by mouth 2 times daily. 0 08/04/2015 Active simvastatin (ZOCOR) 40 mg tablet Take 1 tablet by mouth at bedtime. 0 08/04/2015 Active aspirin chewable 81 mg chewable tablet Chew 1 Tablet by mouth once daily. Active primidone (MYSOLINE) 50 mg tablet Take 1 Tablet by mouth once daily. 01/25/2021 Active donepeziL (ARICEPT) 10 mg tablet Take 1 Tablet by mouth once daily. 01/04/2021 Active citalopram (CELEXA) 20 mg tablet Take 1 Tablet by mouth once daily. 01/25/2021 Active omeprazole (PRILOSEC) 40 mg Delayed-Release capsule Take 1 Capsule by mouth once daily. 01/14/2021 Active tamsulosin (FLOMAX) 0.4 mg capsuleIndications:Be nign prostatic hyperplasia with urinary frequency TAKE 1 CAPSULE DAILY AFTER A MEAL 90 Capsule 3 04/06/2021 Active Active Problems Problem Noted Date Diagnosed Date Prostate cancer 10/29/2018 Elevated PSA 08/29/2018 Benign prostatic hyperplasia with urinary freque ncy 05/23/2018 EXAMINATION, ROUTINE MEDICAL 10/19/2000 LACRIMAL INSUFFICIENCY 11/23/1999 REFLUX, ESOPHAGEAL 07/19/1999 Overview: EGD 09/2013 gastritis, no H. 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 RASH, OTH NONSPECIFIC SKIN ERUPTION FATIGUE AND MALAISE SHORTNESS OF BREATH NOCTURIA PAIN, ABDOMINAL, GENERALIZED MOLE - BENIGN Immunizations Name Administration Dates Next Due Influenza A (H1N1), Inactivated 04/09/2009 Influenza, High-dose Inactivated 05/24/2019,12/23,01/21/2015 Influenza, High-dose Quadriv alent Inactivated 02/10/2021 Influenza, IIV3 (Age >=3 years) 01/04/20 18,01/21/2015,02/21/2014,2012 Influenza, IIV4 04/09/2009 Influenza, Inactivated AIIV4 (Age 65+ Years) Preserv Free 02/16/2020 Pneumococcal Poly,23-Valent (Pneumovax) 10/22/2014 Pneumococcal conj 13-Valent (Prevnar 13) 10/29/2015 Td, Preservative Free (age > = 7 Years) 11/01/2017 Tdap 04/24/2007 Zoster (Shingrix-RZV, recombinant) 10/15/2018, Zoster, Unspecified Formulation 04/24/2012 Family History Medical History Relation Name Comments Genetic Other Mo-; Diabetic Relation Name Status Comments Other Social History Tobacco Use Types Packs/Day Years Used Date Smoking Tobacco: Former Cigarettes Smokeless Tobacco: Never Tobacco Cessation:Counseling Given: Yes Alcohol Use Standard Drinks/Week Comments Yes 0 (1 standard drink = 0.6 oz pur e alcohol) occ Social Connections Answer Date Recorded Frequency of Communication with Friends and Fami ly Not on file 04/24/2021 Financial Resource Strain Answer Date R ecorded Difficulty of Paying Living Expenses Not on file 04/24/2021 Difficulty of Paying Living Expenses Not on file 04/24/2021 Sex and Gender Information Value Date Recorded Sex Assigned at Not on file Gender Identity Not on file Sexual Orientation Not on file Obstetrics History Last Filed Vital Signs Vital Sign Reading Time Taken Comments Blood Pressure 112/62 03/15/2021 1:25 PM MEDICAL DIRECTOR OCCUPATIONAL HEALTH Pulse 66 03/15/2021 1:25 PM MEDICAL DIRECTOR OCCUPATIONAL HEALTH Temperature 36.4 ??C (97.6 ??F) 03/15/2021 1:25 PM CS T Respiratory Rate 16 11/24/2000 12:00 AM CDT Oxygen Saturation 99% 03/15/2021 1:25 PM MEDICAL DIRECTOR OCCUPATIONAL HEALTH Inhaled Oxygen Concentration - - Weight 92.1 kg (203 lb) 03/15/2021 1:25 PM MEDICAL DIRECTOR OCCUPATIONAL HEALTH Height 178 cm (5' 10.08) 08/04/2015 10:48 AM CD T Body Mass Index 29.06 08/04/2015 10:48 AM CDT Plan of Treatment Health Maintenance Due Date Last Done Comments Depression screening for age 12+ 1961 Hepatitis C screening for ag e 18-79 10/21/1967 Colonoscopy through age 75 1994 Lipids for age 45-75 10/24/2005 10/24/2000 BMI (ht and wt on same day) for age 18+ 08/03/2016 08/04/2015 COVID-19 vaccine series ( season) 2022 02/10/2021 Influenza for age 65+ 12/24/2023 02/10/2021 , 02/16/2020, 05/24/2019, Additional history exists Tetanus booster 11/02/2027 11/01/2017, 04/24/2007 Tdap Completed 04/24/2007 Pneumococcal series for age 65+ Completed 6, 10/22/2014 Zoster (shingles) series for age 50+ Completed 10/15/2018, 07/27/2018 Procedures Procedure Name Priority Date/Time Associated Diagnosis Comments CHOLESTEROL,TOTAL Routine 10/24/2000 4:1 2 PM CDT from Last 3 Months or Most Recently Relevant to Health Maintenance Results * (ABNORMAL) CHOLESTEROL,TOTAL (10/24/2000 4:12 PM CDT) CHOLESTEROL,TOT AL 209(A) 110 - 199 mg/dL 10/24/2000 4:12 PM CDT Narrative 10/02/2003 5:03 PM CDT Ordered by an unspecified provider. Other Clinical Staff CHEMISTRY from Last 3 Months or Most Recently Relevant to Health Maintenance Care Teams Resident Care Manager Relationship Specialty Start Date End Date Ranjan Membreno MD [address] [place] [id number] PCP - General Family Practice 06/11/20
--- OUTSIDE RECORDS SUMMARY | 2023-08-28 21:45 | XMS_ITS ---
Author Name Unknown Organization [facility] Address [address] [place] [address] Care Team Providers Care Real Estate Job Titles Name Role Phone Unavailable Primary Care Provider Unavailabl e Active Problems Problem Noted Date Diagnosed Date Primary Malignant Neoplasm Of Prostate 9 Cancer Staging:Clinical stage from 10/09/2018:Stage IIC(cT1c, cN0, cM0, PSA: 5.1, Grade Group: 3) - Signed by Angel Grey M.D. on 11/12/2018 Current Oncology Plans No current plan information found. Past Plans No past plan information found. Radiation Treatments * Plan Last Treated On Elapsed Days Fractions Treated Prescribed Fraction Dose Prescribed Total Dose F1 PROSTATE 02/27/2019 27 20 of 20 300 cGy 6,000 cG y Reference Point Last Treated On Elapsed Days Session Dose Total Dose [id number] 02/27/2019 27 300 cGy 6,000 cGy
--- OUTSIDE RECORDS SUMMARY | 2023-08-28 21:45 | XMS_ITS | Encounter Summary ---
Author Name Unknown Organization [facility] Address [address] [place] [address] Care Team Providers Care Typing Teacher Name Role Phone Unavailable Primary Care Provider Unavailabl e Encounter Details Date Type Department Care Team (Late st Contact Info) Description 06/09/2023 Clinical Communication Department of Radiation Oncology in [place], [place] [address] [place] [phone] Angel Grey M.D. [address] [place] [address] Social History Tobacco Use Types Packs/Day Years Used Date Smoking Tobacco: Never Assessed Social Connection and Isolat ion Panel [NHANES] Answer Date Recorded In a typical week, how many times do you talk on the phone with family, friends, or neighbors? Twice a week 02/24/2021 How often do you get togethe r with friends or relatives? Once a week 02/24/2021 How often do you attend chur ch or holiness services? 1 to 4 times per year 02/24/2021 Do you belong to any clubs o r organizations such as faith groups, unions, fraternal or athletic groups, or school groups? Yes 02/24/2021 How often do you attend meet ings of the clubs or organizations you belong to? More than 4 times per year 02/24/2021 Are you , , di vorced, , never , or living with a partner? 02/24/2021 AUDIT-C Answer Date Recorded Q1: How often do you have a drink containing alc ohol? Monthly or less 02/24/2021 Q2: How many drinks containi ng alcohol do you have on a typical day when you are drinking? 1 or 2 02/24/2021 Q3: How often do you have si x or more drinks on one occasion? Less than monthly 02/24/2021 Overall Financial Resource Strain (CARDIA) Answe r Date Recorded How hard is it for you to pa y for the very basics like food, housing, medical care, and heating? Not hard at all 02/24/2021 [facility] - Occupational Stress Questionnaire Answer Date Recorded Do you feel stress - tense, restless, nervous, or anxious, or unable to sleep at night because your mind is troubled all the time - these days? Not at all 02/24/2021 Exercise Vital Sign Answer Date Recorde d On average, how many days pe r week do you engage in moderate to strenuous exercise (like a brisk walk)? 1 day 02/24/2021 On average, how many minutes do you engage in exercise at this level? 30 min 02/24/2021 Hunger Vital Sign Answer Date Recorded Within the past 12 months, y ou worried that your food would run out before you got the money to buy more. Never true 02/25/20 21 Within the past 12 months, t he food you bought just didn't last and you didn't have money to get more. Never true 02/24/2021 PRAPARE - Transportation Answer Date Re corded In the past 12 months, has l ack of transportation kept you from medical appointments or from getting medications? No 06/2020 In the past 12 months, has l ack of transportation kept you from meetings, work, or from getting things needed for daily living? No 02/24/2021 Housing Stability Vital Sign Answer Sergio e Recorded In the last 12 months, was t here a time when you were not able to pay the mortgage or rent on time? No 02/24/2021 In the last 12 months, how many places have you lived? 1 02/24/2021 In the last 12 months, was t here a time when you did not have a steady place to sleep or slept in a longterm (including now)? No 02/24/2021 Nutrition Answer Date Recorded Nutrition: EVOO Fat Source No 02/24 On average, how many serving s of fruits and vegetables do you eat per day (serving size is equal to 1 cup or approximately the size of a tennis ball)? 2-3 02/24/2021 Dental Answer Date Recorded Dental: Regular Dentist Yes 05/03/19 Employment Answer Date Recorded Employment status Retired 02/24/2021 Education Answer Date Recorded What is the highest level of school you have completed or the highest degree you have received? Associate degree: occupational, technical, or vocational program 10/09/2019 Sex and Gender Information Value Date Recorded Sex Assigned at Male 12/24/2018 8:16 PM CDT Gender Identity Male 12/24/2018 8:16 PM CDT Sexual Orientation Straight 12/24/2018 8: 16 PM CDT documented as of this encounter Plan of Treatment Not on file documented as of this encounter Visit Diagnoses Not on filedocumented in this encounter
--- OUTSIDE RECORDS SUMMARY | 2023-08-28 21:45 | XMS_ITS | Encounter Summary ---
Author Name Unknown Organization [facility] Address [address], [place] [address] Care Team Providers Care Wire Basket Maker Name Role Phone No Primary/Referring, Phy Primary Care Provider Unavailable Encounter Details Date Type Department Care Team (Late st Contact Info) Description 09/24/2012 Scanned History External to Transferred Record, Provider TITMUS VISION RECORD Social History Tobacco Use Types Packs/Day Years Used Date Smoking Tobacco: Never Assessed Sex and Gender Information Value Date Recorded Sex Assigned at Not on file Gender Identity Not on file Sexual Orientation Not on file documented as of this encounter Progress Notes * Transferred Record, Provider - 09/24/2012 12:00 AM CDT documented in this encounter Plan of Treatment Not on file documented as of this encounter Visit Diagnoses Not on filedocumented in this encounter Care Teams Wire Basket Maker Relationship Specialty Start Date End Date No Primary/Referring, Phy PCP - General 02/14/23 documented as of this encounter
--- OUTSIDE RECORDS SUMMARY | 2023-08-28 21:45 | XMS_ITS | Encounter Summary ---
Author Name Unknown Organization [facility] Address [address] [place] [address] Care Team Providers Care Physician Practice Manager Name Role Phone No Primary/Referring, Phy Primary Care Provider Unavailable Encounter Details Date Type Department Care Team (Late st Contact Info) Description 10/04/2011 Correspondence [facility] [address] [place], [place] [address]e [address] [place], [place] [address] Axel Arreaga MD CERT FOR CONTINGENT WORKER Social History Tobacco Use Types Packs/Day Years Used Date Smoking Tobacco: Never Assessed Sex and Gender Information Value Date Recorded Sex Assigned at Not on file Gender Identity Not on file Sexual Orientation Not on file documented as of this encounter Progress Notes * Axel Arreaga MD - 10/04/2011 12:00 AM CDT documented in this encounter Plan of Treatment Not on file documented as of this encounter Visit Diagnoses Not on filedocumented in this encounter Care Teams Physician Practice Manager Relationship Specialty Start Date End Date No Primary/ReferringOlya PCP - General 02/14/23 documented as of this encounter
--- OUTSIDE RECORDS SUMMARY | 2023-08-28 21:45 | XMS_ITS | Clinical Summary ---
Author Name Unknown Organization [facility] Address [address] [place] [address] Care Team Providers Care Biology Intern Name Role Phone Unavailable Primary Care Provider Unavailabl e Source Comments Patient records contain information from all sites at [facility]. For routine questions regarding patient records, call [phone] during business hours, M-F 8:00 AM - 5:00 PM Central Time. Record requests for emergency care only can be directed to [phone] at any time.[facility] Allergies No known active allergies Medications Medication Sig Dispensed Refills Start Date End Date Status aspirin [address] tablet Take 81 mg by mouth. 09/23/2013 Acti ve celecoxib (CeleBREX) 200 mg capsule Take 200 mg by mouth. 08/04/2015 Active multivitamin-mineral s-lutein (CENTURY MATURE) tablet Take 1 tablet by mouth. 09/23/2013 Active omeprazole (PriLOSEC) [address] capsule 11/01/2018 Active simvastatin (ZOCOR) 40 mg tablet Take 40 mg by mouth. 08/04/2015 Ac tive tamsulosin (FLOMAX) 0.4 mg 24 hr capsule Take 0.4 mg by mouth. 03/21/2018 Active calcium carbonate-vitamin D3 1,250 mg (500 mg calcium)-5 mcg (200 Unit) per tablet Take 1 tablet by mouth daily with breakfast. Active acetaminophen (TYLENOL) 500 mg tablet Take 500 mg by mouth every 6 (six) hours as needed for pain. Active omega 5-cao-gwf-fish oil 1,000 mg (120 mg-180 mg) capsule Take 1,200 mg by mouth. Active fluticasone propionate (FLONASE) 50 mcg/actuation nasal spray Administer 2 sprays into each nostril daily. Active psyllium (METAMUCIL) powder Take 1 packet by mouth daily. Active donepeziL (ARICEPT) 5 mg tablet 09/28/2019 Active primidone (MYSOLINE) 50 mg tablet 11/11/2020 Active citalopram (CeleXA) 20 mg tablet 01/25/2021 Active latanoprost (XALATAN) 0.005 % ophthalmic solution INSTILL 1 DROP INTO RIGHT EYE EVERY NIGHT. 12/02/2022 Active Active Problems Problem Noted Date Diagnosed Date Primary Malignant Neoplasm Of Prostate 9 Cancer Staging:Clinical stage from 10/09/2018:Stage IIC(cT1c, cN0, cM0, PSA: 5.1, Grade Group: 3) - Signed by Angel Grey M.D. on 11/12/2018 Encounters Date Type Department Care Team Description 06/09/2023 Clinical Communication Department of Radiation Oncology in [address] [phone] Angel Grey M.D. from Last 3 Months Immunizations Name Administration Dates Next Due Influenza high dose QV(65 years or older) (PF) 1 SARS-COV-2 (COVID-19) - PFIZ ER (Discontinued)(12 years or older) 02/10/2021 Social History Tobacco Use Types Packs/Day Years [...] often do you attend chur ch or alevism services? 1 to 4 times per year 02/24/2021 Do you belong to any clubs o r organizations such as rastafari groups, unions, fraternal or athletic groups, or [...] and heating? Not hard at all 02/24/2021 [facility] [place] of Occupat ional Health - Occupational Stress [...] or slept in a retirement (including now)? No 02/24/2021 Nutrition Answer Date [...] Orientation Straight 12/24/2018 8: 16 PM CDT Last Filed Vital Signs Vital Sign Reading Time Taken Comments Blood Pressure 115/54 02/28/2023 2:17 PM UNDERGROUND HEAVY EQUIPMENT OPERATOR Pulse 73 02/28/2023 2:17 PM UNDERGROUND HEAVY EQUIPMENT OPERATOR Temperature 36.9 ??C (98.4 ??F) 02/28/2023 2:17 PM CS T Respiratory Rate - - Oxygen Saturation - - Inhaled Oxygen Concentration - - Weight 92.2 kg (203 lb 4.2 oz) 02/28/2023 2:17 P M UNDERGROUND HEAVY EQUIPMENT OPERATOR Height 175.3 cm (5' 9) 11/12/2018 9:48 AM CDT Body Mass Index 30.02 11/12/2018 9:48 AM CDT Plan of Treatment Health Maintenance Due Date Last Done Comments CT Colonography 1950 Cologuard 1950 FIT 1950 Fasting Glucose for Diabetes Screening 1950 Hepatitis C Screening 1950 Colonoscopy 01/28/2016 01/27/2006 Colorectal Cancer Screening 01/28/2016 Influenza Vaccine (#1) 2023 , 02/10/2021, 02/16/2020, Additional history exists Depression Screening (Annual PHQ-2) 04/24/2023 Fall Risk Screen (Annual) 04/24/2023 COVID-19 Vaccine (2022-2 4 season) 2023 01/25/2023, 10/12/2021, 02/10/2021, Additional history exists DTaP,Tdap,and Td Vaccines (3 - Td or Tdap) 11/02/2027 11/01/2017, 04/24/2007 Pneumococcal vaccine (65+ years) Completed 10/29/19 16, 10/22/2014 Zoster Vaccines Completed 10/15/2018, 07/27/2018 Abdominal Aortic Aneurysm (A AA) Screen Discontinued 10/23/2018, 01/03/2012 Medical Devices Implanted Type Area Shipping Receiving Clerk Device Identifier Shelf Expiration Date Model / Serial / Lot Marker Gold Seed - [id number] - [id number] Implanted:Qty: 4 on 12/27/2018 by William Jacobson M.D. at [facility] Imaging Marker Team [employer] 351-1 / [id number] / [id number] Procedures Procedure Name Priority Date/Time Associated Diagnosis Comments CT ABDOMEN PELVIS WITH IV CONTRAST RAD - Routine (most inpatients and all outpatients) 10/23/2018 12:15 PM CDT from Last 3 Months or Most Recently Relevant to Health Maintenance
--- OUTSIDE RECORDS SUMMARY | 2023-08-28 21:45 | XMS_ITS | Referral Summary ---
Author Name Unknown Organization [facility] Address [address] [place] [address] Care Team Providers Care Music Librarian Name Role Phone Unavailable Primary Care Provider Unavailabl e Source Comments Patient records contain information from all sites at [facility]. For routine questions regarding patient records, call [phone] during business hours, M-F 8:00 AM - 5:00 PM Central Time. Record requests for emergency care only can be directed to [phone] at any time.[facility] Encounters Date Type Department Care Team Description 06/09/2023 Clinical Communication Department of Radiation Oncology in [place], [place] [address] [place] [phone] Angel Grey M.D. from Last 3 Months Allergies No known active allergies Medications Medication [...] hours as needed for pain. Active omega 3-slk-eaw-fish oil 1,000 mg (120 mg-180 mg) capsule [...] often do you attend chur ch or yazidi services? 1 to 4 times per year 02/24/2021 Do you belong to any clubs o r organizations such as denominational groups, unions, fraternal or athletic groups, or [...] and heating? Not hard at all 02/24/2021 [facility] of Occupat ional Health - Occupational Stress [...] or slept in a penitentiary (including now)? No 02/24/2021 Nutrition Answer Date [...] Comments Blood Pressure 115/54 02/28/2023 2:17 PM DIGITAL DESIGN ENGINEER Pulse 73 02/28/2023 2:17 PM DIGITAL DESIGN ENGINEER Temperature 36.9 ??C (98.4 ??F) 02/28/2023 2:17 PM CS T Respiratory Rate - - Oxygen Saturation - - Inhaled Oxygen Concentration - - Weight 92.2 kg (203 lb 4.2 oz) 02/28/2023 2:17 P M DIGITAL DESIGN ENGINEER Height 175.3 cm (5' 9) 11/12/2018 9:48 AM CDT Body Mass Index 30.02 11/12/2018 9:48 AM CDT Plan of Treatment Not on file Medical Devices Implanted Type Area Ethanol Operations Manager Device Identifier Shelf Expiration Date Model / Serial / Lot Marker Gold Seed - [id number] - [id number] Implanted:Qty: 4 on 12/27/2018 by William Jacobson M.D. at [facility] Imaging Marker Team [employer] 351-1 / [id number] / [id number] Procedures Procedure Name Priority Date/Time Associated Diagnosis Comments CT ABDOMEN PELVIS WITH IV CONTRAST RAD - Routine (most inpatients and all outpatients) 10/23/2018 12:15 PM CDT from Last 3 Months or Most Recently Relevant to Health Maintenance
[2023-08-28 23:43] LABS: PSA Diagnostic* 0.13 ng/mL (0.10-4.00)
== END 2023-08-28 21:41 | disposition home or self-care (01) ==
LOC: NPINS 21:40
PROVIDERS: PCP Family Medicine; Visit Provider Nurse Practitioner
DX: C61 Malignant neoplasm of prostate (principal)
CPT/HCPCS: 84153

== ENCOUNTER 2023-12-18 11:43 | Outpatient (CLI) | payer MEDICARE, SELFPAY ==
--- OUTSIDE RECORDS SUMMARY | 2023-12-18 11:46 | XMS_ITS | Clinical Summary ---
Author Organization [facility] Address [address], [place] [address] Care Team Providers Care Radial Router Operator Name Role Phone No Primary/Referring, Olya Primary Care Provider Unavailable Source Comments You are receiving this document as you are listed as the primary care provider,follow-up provider, or the patient has been referred to you for consultation.This is in compliance with the Medicare andSelect Medical [facility] Rehabilitation Hospitalcand EHR Incentive Program,which states Providers who transition [...] ( - 2022-2 4 season) 2022 Influenza (#1) 2023 HepA Aged Out No longer eligi [...] age to complete this topic Care Teams Radial Router Operator Relationship Specialty Start Date End Date No Primary/Referring, Phy PCP - General 02/14/23
--- OUTSIDE RECORDS SUMMARY | 2023-12-18 11:46 | XMS_ITS | Encounter Summary ---
Author Organization [facility] Address [address] [place] [address] Care Team Providers Care Forensic Artist Name Role Phone No Primary/Referring, Olya Primary Care Provider Unavailable Encounter Details Date Type Department Care Team (Late st Contact Info) Description 10/04/2011 Correspondence [facility] [address] [place], [place] [address]e. [address] [place], [place] [address] Axel Arreaga MD CERT FOR CONTINGENT WORKER [...] on filedocumented in this encounter Care Teams Forensic Artist Relationship Specialty Start Date End Date No Primary/ReferringOlya PCP - General 02/14/23 documented as of this encounter
--- OUTSIDE RECORDS SUMMARY | 2023-12-18 11:46 | XMS_ITS ---
Author Organization [facility] Address [address] [place] [address] Care Team Providers Care Material Handler 2Nd Shift Name Role Phone Unavailable Unavailable Unavailable Surgery Details Not on file Complications Check Surgery Details section. Procedure Estimated Blood Loss Check Surgery Details section. Procedure Findings Check Surgery Details section. Procedure Specimens Taken Check Surgery Details section.
--- OUTSIDE RECORDS SUMMARY | 2023-12-18 11:46 | XMS_ITS ---
Author Organization [facility] Address [address] [place] [address] Care Team Providers Care Cnc Wood Lathe Operator Name Role Phone Unavailable Primary Care Provider [...] On Elapsed Days Session Dose Total Dose [id number] 02/27/2019 27 300 cGy 6,000 cGy
--- OUTSIDE RECORDS SUMMARY | 2023-12-18 11:46 | XMS_ITS | Clinical Summary ---
Author Organization [facility] Address [address] [place] [address] Care Team Providers Care Button Tacker Name Role Phone Unavailable Primary Care Provider Unavailabl e Source Comments Patient records contain information from all sites at [facility]. For routine questions regarding patient records, call [phone] during business hours, M-F 8:00 AM - 5:00 PM Central Time. Record requests for emergency care only can be directed to [phone] at any time.[facility] Allergies No known active allergies Medications Medication [...] hours as needed for pain. Active omega 6-tks-prl-fish oil 1,000 mg (120 mg-180 mg) capsule [...] week 02/24/2021 How often do you attend [facility] or anglican services? 1 to 4 times per year 02/24/2021 Do you belong to any clubs o r organizations such as advent groups, unions, fraternal or [...] and heating? Not hard at all 02/24/2021 [facility] of Occupat ional Health - Occupational Stress [...] slept in a nursing home (including now)? No 02/24/2021 Nutrition Answer Date [...] Comments Blood Pressure 115/54 02/28/2023 2:17 PM INDEPENDENT FREIGHT AGENT Pulse 73 02/28/2023 2:17 PM INDEPENDENT FREIGHT AGENT Temperature 36.9 ??C (98.4 ??F) 02/28/2023 2:17 PM CS T Respiratory Rate - - Oxygen Saturation - - Inhaled Oxygen Concentration - - Weight 92.2 kg (203 lb 4.2 oz) 02/28/2023 2:17 P M INDEPENDENT FREIGHT AGENT Height 175.3 cm (5' 9) 11/12/2018 9:48 AM CDT Body Mass Index 30.02 11/12/2018 9:48 AM CDT Plan of Treatment Upcoming Encounters Date Type Department Care Team (Late st Contact Info) Description 03/07/2024 11:30 AM INDEPENDENT FREIGHT AGENT Appointment Department of Radiation Oncology in [place], [place] [address] [place] [phone] Angel Grey M.D. [address] [place] [address] Health Maintenance Due Date Last Done Comments CT Colonography 1950 Cologuard 1950 FIT 1950 Fasting Glucose for Diabetes Screening 1950 Hepatitis C Screening 1950 Colonoscopy 01/28/2016 01/27/2006 Colorectal Cancer Screening 01/28/2016 Depression Screening (Annual PHQ-2) 04/24/2023 Fall Risk Screen (Annual) 04/24/2023 COVID-19 Vaccine (2022- 4 season) 2023 01/25/2023, 10/12/2021, 02/10/2021, Additional history exists Influenza Vaccine (#1) 2024 2, 02/10/2021, 02/16/2020, Additional history exists DTaP,Tdap,and Td Vaccines (3 - Td or Tdap) 11/02/2027 11/01/2017, 04/24/2007 Pneumococcal vaccine (65+ years) Completed 10/29/19 16, 10/22/2014 Zoster Vaccines Completed 10/15/2018, 07/27/2018 Abdominal Aortic Aneurysm (A AA) Screen Discontinued 10/23/2018, 01/03/2012 Medical Devices Implanted Type Area Color Consultant Device Identifier Shelf Expiration Date Model / Serial / Lot Marker Gold Seed - [id number] - [id number] Implanted:Qty: 4 on 12/27/2018 by William Jacobson M.D. at [facility] Imaging Marker [employer] 351-1 / [id number] / [id number]
--- OUTSIDE RECORDS SUMMARY | 2023-12-18 11:46 | XMS_ITS | Encounter Summary ---
[facility] Address [address], [place] [address] Care Team Providers Care Trauma Nurse Name Role Phone No Primary/Referring, Phy Primary [...] on filedocumented in this encounter Care Teams Trauma Nurse Relationship Specialty Start Date End Date No Primary/Referring, Giovannay PCP - General 02/14/23 documented as of this encounter
--- OUTSIDE RECORDS SUMMARY | 2023-12-18 11:46 | XMS_ITS | Clinical Summary ---
Author Organization [facility] Address [place], [place] [address] Care Team Providers Care Plant Buyer Name Role Phone Ranjan Membreno MD Primary Care Provider [phone] Allergies No known active allergies Medications Medication [...] Comments Blood Pressure 112/62 03/15/2021 1:25 PM CHANGE CONTROL SPECIALIST Pulse 66 03/15/2021 1:25 PM CHANGE CONTROL SPECIALIST Temperature 36.4 ??C (97.6 ??F) 03/15/2021 1:25 PM CS T Respiratory Rate 16 11/24/2000 12:00 AM CDT Oxygen Saturation 99% 03/15/2021 1:25 PM CHANGE CONTROL SPECIALIST Inhaled Oxygen Concentration - - Weight 92.1 kg (203 lb) 03/15/2021 1:25 PM CHANGE CONTROL SPECIALIST Height 178 cm (5' 10.08) 08/04/2015 [...] Recently Relevant to Health Maintenance Care Teams Plant Buyer Relationship Specialty Start Date End Date Ranjan Membreno MD [address] [place] [address] PCP - General Family Practice 06/11/20
--- OUTSIDE RECORDS SUMMARY | 2023-12-18 11:46 | XMS_ITS | Referral Summary ---
Author Organization [facility] Address [address] [place] [address] Care Team Providers Care Fbi Investigator Name Role Phone Unavailable Primary Care Provider Unavailabl e Source Comments Patient records contain information from all sites at [facility]. For routine questions regarding patient records, call [phone] during business hours, M-F 8:00 AM - 5:00 PM Central Time. Record requests for emergency care only can be directed to [phone] at any time.[facility] Allergies No known active allergies Medications [...] hours as needed for pain. Active omega 2-zpp-aus-fish oil 1,000 mg (120 mg-180 mg) capsule [...] week 02/24/2021 How often do you attend [facility] or rastafarian services? 1 to 4 times per year 02/24/2021 Do you belong to any clubs o r organizations such as scientology groups, unions, fraternal or [...] and heating? Not hard at all 02/24/2021 [facility] of Occupat ional Health - Occupational Stress [...] or slept in a detention (including now)? No 02/24/2021 Nutrition Answer Date [...] Comments Blood Pressure 115/54 02/28/2023 2:17 PM JUNIOR DATABASE ADMINISTRATOR Pulse 73 02/28/2023 2:17 PM JUNIOR DATABASE ADMINISTRATOR Temperature 36.9 ??C (98.4 ??F) 02/28/2023 2:17 PM CS T Respiratory Rate - - Oxygen Saturation - - Inhaled Oxygen Concentration - - Weight 92.2 kg (203 lb 4.2 oz) 02/28/2023 2:17 P M JUNIOR DATABASE ADMINISTRATOR Height 175.3 cm (5' 9) 11/12/2018 9:48 AM CDT Body Mass Index 30.02 11/12/2018 9:48 AM CDT Plan of Treatment Upcoming Encounters Date Type Department Care Team (Late st Contact Info) Description 03/07/2024 11:30 AM JUNIOR DATABASE ADMINISTRATOR Appointment Department of Radiation Oncology in [place], [place] [address] [place] [address] Angel Grey M.D. [address] [place] [address] Medical Devices Implanted Type Area Card Cutter Device Identifier Shelf Expiration Date Model / Serial / Lot Marker Gold Seed - [id number] - [id number] Implanted:Qty: 4 on 12/27/2018 by William Jacobson M.D. at [facility] Imaging Marker Team [employer] 351-1 / [id number] / [id number]
--- NOTE | 2023-12-18 12:23 | W.ANESCHARGE ---
Anesthesia Charges Start Date/Time Anesthesia Start Date: 12/18/23 Anesthesia Start Time: 12:59 Stop Date/Time Anesthesia Stop Date: 12/18/23 Anesthesia Stop Time: 13:52 Summary Extremes of Age - Over 70 or under 1: MDA
--- NOTE | 2023-12-18 13:51 | W.ANESCHARGE ---
Anesthesia Charges Start Date/Time Anesthesia Start Date: 12/18/23 Anesthesia Start Time: 12:59 Stop Date/Time Anesthesia Stop Date: 12/18/23 Anesthesia Stop Time: 13:52
== END 2023-12-18 11:44 | disposition home or self-care (01) ==
LOC: OP CLINIC 11:44
PROVIDERS: PCP Family Medicine; Visit Provider Surgery
DX: Z12.11 Encounter for screening for malignant neoplasm of colon (principal); Z86.010 Personal history of colon polyps; D13.39 Benign neoplasm of other parts of small intestine; K64.8 Other hemorrhoids
CPT/HCPCS: 00811; 45385; 88305; 99100; J2704

== ENCOUNTER 2024-03-04 22:07 | Outpatient (REF) | payer MEDICARE, SELFPAY ==
--- OUTSIDE RECORDS SUMMARY | 2024-03-04 22:10 | XMS_ITS | Encounter Summary ---
Author Organization [facility] Address [address] [place] [address] Care Team Providers Care Delimer Name Role Phone No Primary/Referring, Olya Primary Care Provider Unavailable Encounter Details Date Type Department Care Team (Late st Contact Info) Description 10/04/2011 Correspondence [facility] [address] [place], [place] [address]. [address] [place], [place] [id number] Axel Arreaga MD CERT FOR CONTINGENT WORKER [...] on filedocumented in this encounter Care Teams Delimer Relationship Specialty Start Date End Date No Primary/ReferringOlya PCP - General 02/14/23 documented as of this encounter
--- OUTSIDE RECORDS SUMMARY | 2024-03-04 22:10 | XMS_ITS | Encounter Summary ---
[facility] Address [address] [address] Care Team Providers Care Annealing Oven Operator Name Role Phone No Primary/Referring, Phy Primary [...] on filedocumented in this encounter Care Teams Annealing Oven Operator Relationship Specialty Start Date End Date No Primary/Referring, Giovannay PCP - General 02/14/23 documented as of this encounter
--- OUTSIDE RECORDS SUMMARY | 2024-03-04 22:10 | XMS_ITS | Clinical Summary ---
Author Organization [facility] Address [address], [place] [address] Care Team Providers Care Maintenance And Engineering Manager Name Role Phone No Primary/Referring, Olya Primary Care Provider Unavailable Source Comments You are receiving this document as you are listed as the primary care provider,follow-up provider, or the patient has been referred to you for consultation.This is in compliance with the Medicare and[facility] EHR Incentive Program,which states Providers who transition their patient to another setting of careor provider of care or refers their patient to another provider of care shouldprovide summary care record for each transition of care or referral. [facility] Medications No known medications Social History Tobacco Use Types Packs/Day Years Used Date Smoking Tobacco: Never Assessed Sex and Gender Information Value Date Recorded Sex Assigned at Not on file Gender Identity Not on file Sexual Orientation Not on file Plan of Treatment Health Maintenance Due Date Last Done Comments Colon Cancer Screening Plan Due 1950 Hep C Screening (Preventive Services) 1950 Medicare Annual Wellness Visit 1950 DTaP/Tdap/Td (1 - Tdap) 1968 Cholesterol 1984 Zoster/Shingles (1 of 2) 10/21/1999 Pneumococcal 65+ Yrs (1 - PCV) 2014 COVID-19 Vaccine ( - 2023-2 5 season) 2023 Influenza (#1) 2023 RSV (1 - 1-dose 75+ series) 2024 HepA Aged Out No longer eligi ble based on patient's age to complete this topic HepB Aged Out No longer eligi ble based on patient's age to complete this topic Hib Aged Out No longer eligi ble based on patient's age to complete this topic IPV (Polio) Aged Out No longer eligi ble based on patient's age to complete this topic RSV Aged Out No longer eligi ble based on patient's age to complete this topic MCV4 Aged Out No longer eligi ble based on patient's age to complete this topic Care Teams Maintenance And Engineering Manager Relationship Specialty Start Date End Date No Primary/Referring, Phy PCP - General 02/14/23
--- OUTSIDE RECORDS SUMMARY | 2024-03-04 22:10 | XMS_ITS | Clinical Summary ---
Author Organization [facility] Address [place], [place] [address] Care Team Providers Care Natural Gas Basis Trader Name Role Phone Ranjan Membreno MD Primary Care Provider [phone] Allergies No known active allergies Medications Medication [...] 10/19/2000 LACRIMAL INSUFFICIENCY 11/23/1999 REFLUX, ESOPHAGEAL 07/19/1999 Overview (10/15/2013): EGD 09/2013 gastritis, no H. 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 RASH, OTH NONSPECIFIC SKIN ERUPTION FATIGUE AND MALAISE SHORTNESS OF BREATH NOCTURIA PAIN, ABDOMINAL, GENERALIZED MOLE - BENIGN Encounters Date Type Department Care Team Description 12/19/2023 Lab Requisition [facility] [phone] Stacy Rosario MD from Last 3 Months Immunizations Name Administration [...] Comments Blood Pressure 112/62 03/15/2021 1:25 PM FLOAT BUILDER Pulse 66 03/15/2021 1:25 PM FLOAT BUILDER Temperature 36.4 ??C (97.6 ??F) 03/15/2021 1:25 PM CS T Respiratory Rate 16 11/24/2000 12:00 AM CDT Oxygen Saturation 99% 03/15/2021 1:25 PM FLOAT BUILDER Inhaled Oxygen Concentration - - Weight 92.1 kg (203 lb) 03/15/2021 1:25 PM FLOAT BUILDER Height 178 cm (5' 10.08) 08/04/2015 10:48 [...] 08/03/2016 08/04/2015 COVID-19 vaccine series ( season) 2023 02/10/2021 Influenza for age 65+ 12/24/2023 02/10/2021 , 02/16/2020, 05/24/2019, Additional history exists Tetanus booster 11/02/2027 11/01/2017, 04/24/2007 Tdap Completed 04/24/2007 Pneumococcal series for age 65+ Completed 6, 10/22/2014 Zoster (shingles) series for age 50+ Completed 10/15/2018, 07/27/2018 Procedures Procedure Name Priority Date/Time Associated Diagnosis Comments LAB TRACKING EVENT Routine 12/18/2023 1: 20 PM CDT PATH TISSUE EXAM Routine 12/18/2023 1:20 PM CDT CHOLESTEROL,TOTAL Routine 10/24/2000 4:1 2 PM CDT from Last 3 Months or Most Recently Relevant to Health Maintenance Results * LAB TRACKING EVENT (12/18/2023 1:20 PM CDT) Other (Other) Client Collect / Unknown 12/18/2023 1:20 PM CDT 12/19/2023 12:19 AM CDT Stacy Rosario MD LAB BILL ONLY [facility] [address] [place] [address], * PATH TISSUE EXAM (12/18/2023 1:20 PM CDT) Case Report Pathology Report ?Case: [id number] ? Authorizing Provider: ??Stacy Rosario MD ??Collected: ? 12/18/2023 1320 ? Ordering Location: ? [facility] ?Received: ?12/19/2023 0832 ? Pathologist: ? Xavi Hampton MD ? Specimen: ?Cecal Polyp ? 12/21/2023 2:31 PM CDT [facility] Final Diagnosis A) COLON, ILEOCECAL VALVE, POLYPECTOMY: 1. Normal ileocecal valve mucosa with prominent submucosal adipose tissue 2. Overlying colonic mucosa with no diagnostic abnormalities 3. Negative for dysplasia and malignancy 12/21/2023 2:31 PM CDT [facility] Comment This case was seen by Drs. Hampton and Jean Marie. 12/21/2023 2:31 PM CDT [facility] Clinical Information Mr. Sigala is a 73 y.o. who presents for screening colonoscopy. 12/21/2023 2:31 PM CDT [facility] Gross Description A) Received in formalin, labeled with the patient's name and [id number] l valve, is a 0.7 x 0.6 x 0.4 cm rubbery yellow-brooks sessile polyp. The resection margin is inked black and the specimen is trisected. Entirely submitted 1 cassette. LDW 12/19/2023 12/21/2023 2:31 PM CDT [facility] Microscopic Description The final diagnosis is based on microscopic examination of appropriate sections of all specimens. 12/21/2023 2:31 PM CDT [facility] Additional Information Interpreted at [facility] - [address] [address] 12/21/2023 2:31 PM CDT [facility] Other (Cecal Polyp) 12/18/2023 1:20 PM CDT 12/19/2023 8:32 AM CDT Stacy Rosario MD PATHOLOG[facility] [address] [place] [address], * (ABNORMAL) CHOLESTEROL,TOTAL (10/24/2000 4:12 PM CDT) CHOLESTEROL,TOT AL 209(A) 110 - 199 mg/dL 10/24/2000 4:12 PM CDT Narrative 10/02/2003 5:03 PM CDT Ordered by an unspecified provider. Other Clinical Staff CHEMISTRY from Last 3 Months or Most Recently Relevant to Health Maintenance Care Teams Natural Gas Basis Trader Relationship Specialty Start Date End Date Ranjan Membreno MD [address] [place] [id number] PCP - General Family Practice 06/11/20
[2024-03-04 23:29] LABS: PSA Diagnostic* 0.17 ng/mL (0.10-4.00)
== END 2024-03-04 22:08 | disposition home or self-care (01) ==
LOC: NPINS 22:07
PROVIDERS: PCP Family Medicine; Visit Provider Nurse Practitioner
DX: C61 Malignant neoplasm of prostate (principal)
CPT/HCPCS: 84153

== ENCOUNTER 2024-06-28 12:48 | Outpatient (CLI) | payer MEDICARE, SELFPAY | END 2024-06-28 12:49 | disposition home or self-care (01) | LOC: NFLDREF 07-02 05:45 | PROVIDERS: PCP Family Medicine; Referring Provider Family Medicine; Visit Provider Family Medicine | DX: E78.2 Mixed hyperlipidemia (principal); I51.7 Cardiomegaly; D72.819 Decreased white blood cell count, unspecified; I83.90 Asymptomatic varicose veins of unspecified lower extremity; Z85.46 Personal history of malignant neoplasm of prostate; R06.82 Tachypnea, not elsewhere classified; Z12.5 Encounter for screening for malignant neoplasm of prostate | CPT/HCPCS: 80053; 80061; G0103 ==

== ENCOUNTER 2024-12-03 08:39 | Outpatient (CLI) | payer MEDICARE, SELFPAY ==
[2024-12-03 13:27] LABS: Hematocrit* 48.3 % (37.0-53.0); Hemoglobin* 16.5 gm/dL (13.5-17.5); Immature Granulocytes Pct Auto 0.2 %; Mean Corpuscular HGB Conc 34 gm/dL (32-36); Mean Corpuscular Hemoglobin 31 pg (26-34); Mean Corpuscular Volume 90 fL (80-100); RDW Coefficient of Variation % 12.7 % (11.5-15.5); Red Blood Count* 5.36 m/uL (4.30-5.90); White Blood Count* 4.43 K/uL (4.50-11.00)
[2024-12-03 13:37] LABS: Appearance Urine Clear (Clear)
[2024-12-03 13:47] LABS: Albumin* 4.3 g/dL (3.3-5.0); Chloride* 103 mmol/L (96-114)
[2024-12-03 13:48] LABS: Potassium* 4.5 mmol/L (3.6-5.1); Sodium* 139 mmol/L (135-149)
[2024-12-03 13:49] LABS: Ammonia* < 8.7 umol/L (13.1-30.0)
[2024-12-03 13:50] LABS: Alanine Aminotransferase* 30 U/L (4-50); Anion Gap 5 mEq/L (7-15); Aspartate Amino Transferase* 36 U/L (12-35); Blood Urea Nitrogen* 19 mg/dL (7-30); Carbon Dioxide* 31 mmol/L (20-32); Creatinine* 1.4 mg/dL (0.5-1.5); Estimated Glomerular Filt Rate 52 ml/min
[2024-12-03 13:51] LABS: Alkaline Phosphatase* 46 U/L (40-150); Bilirubin Total* 1.0 mg/dL (0.1-1.5); Calcium* 9.6 mg/dL (8.4-10.6); Glucose* 109 mg/dL (60-115); Total Protein* 6.8 g/dL (6.0-8.3)
[2024-12-03 13:54] LABS: Immature Granulocytes Abs Auto 0.00 K/uL (0.00-0.30); Lymphocytes Absolute Auto 1.30 K/uL (0.90-2.90); Slide Review Reflex No
== END 2024-12-03 08:40 | disposition home or self-care (01) ==
LOC: NPINS 08:39
PROVIDERS: PCP Family Medicine; Visit Provider Psychiatry & Neurology Neurology
DX: G31.09 Other frontotemporal neurocognitive disorder (principal); F03.B0 Unspecified dementia, moderate, without behavioral disturbance, psychotic disturbance, mood disturbance, and anxiety; F80.89 Other developmental disorders of speech and language; R41.3 Other amnesia; R25.1 Tremor, unspecified
CPT/HCPCS: 80053; 81001; 82140; 85025

== ENCOUNTER 2025-02-19 09:45 | Emergency (ER) | payer MEDICARE, SELFPAY ==
[2025-02-19] VITALS (16 sets, daily range): BP systolic 106–124; BP diastolic 63–81; PULSE 66–90; RESP 16–20; TEMP 36.7–37.2; O2SAT 94–97; BMI 28.2
--- OUTSIDE RECORDS SUMMARY | 2025-02-19 09:49 | XMS_ITS | Clinical Summary ---
Author Organization [facility] Address [address] [place] [address] Care Team Providers Care Dairy Feed Worker Name Role Phone Ranjan Membreno MD Primary Care Provider [phone] [phone] Allergies No known active allergies Medications latanoprost (XALATAN) 0.005 % ophthalmic solution Place 1 Drop into both eyes at bedtime. 2.5 mL 0 09/23/2013 Active aspirin enteric coated 81 mg tablet Take 1 tablet by mouth once daily with a meal. 0 09/23/2013 Active multivitamins-mi nerals-lutein (CENTRUM SILVER) tab tablet Take 1 tablet [...] daily. 01/14/2021 Active tamsulosin (FLOMAX) 0.4 mg capsuleIndicatio ns:Benign prostatic hyperplasia with urinary frequency TAKE 1 [...] PAIN, ABDOMINAL, GENERALIZED MOLE - BENIGN Immunizations Immunization Administration Dates Next Due Influenza A (H1N1), [...] Recorded Sex Assigned at Not on file Legal Sex Male 6:09 AM CONTROL PANEL OPERATOR CRUDE UNIT Gender Identity Not on file Sexual Orientation Not on file Obstetrics History Last Filed Vital Signs Vital Sign Reading Time Taken Comments Blood Pressure 112/62 03/15/2021 1:25 PM CONTROL PANEL OPERATOR CRUDE UNIT Pulse 66 03/15/2021 1:25 PM CONTROL PANEL OPERATOR CRUDE UNIT Temperature 36.4 C (97.6 F) 03/15/2021 1:25 PM CONTROL PANEL OPERATOR CRUDE UNIT Respiratory Rate 16 11/24/2000 12:00 AM CDT Oxygen Saturation 99% 03/15/2021 1:25 PM CONTROL PANEL OPERATOR CRUDE UNIT Inhaled Oxygen Concentration - - Weight 92.1 kg (203 lb) 03/15/2021 1:25 PM CONTROL PANEL OPERATOR CRUDE UNIT Height 178 cm (5' 10.08) 08/04/2015 10:48 AM CD T Body Mass Index 29.06 08/04/2015 10:48 AM CDT Plan of Treatment Health Maintenance Due Date Last Done Comments Depression screening for age 12+ 1961 Hepatitis C screening for age 18-79 10/21/1967 Colonoscopy through age 75 1994 Lipids for age 45-75 10/24/2005 10/24/2000 BMI (ht and wt on same day) for age 18+ 08/03/2016 08/04/2015 RSV vaccine for adults or (1 - 1-dose 75+ series) 2024 Influenza Vaccine (#1) 2024 0, 05/24/2019, 01/03/2018, Additional history exists Tetanus booster 11/02/2027 11/01/2017, 04/24/2007 Pneumococcal series for age 50+ Completed 10/29/2015, 10/22/2014 Zoster (shingles) series for age 50+ Completed 10/15/2018, 07/27/2018 Hepatitis B series for 19+ Aged Out N o longer eligible based on patient's age to complete this topic Procedures Procedure Name Priority Date/Time Associated Diagnosis Comments CHOLESTEROL,TOTAL Routine 10/24/2000 4:1 2 PM CDT from Last 3 Months or Most Recently Relevant to Health Maintenance Results * (ABNORMAL) CHOLESTEROL,TOTAL (10/24/2000 4:12 PM CDT) CHOLESTEROL,TOT AL 209(A) 110 - 199 mg/dL 10/24/2000 4:1 2 PM CDT Narrative 10/02/2003 5:03 PM CDT Ordered by an unspecified provider. us Other Clinical Staff CHEMISTRY Final Resul t from Last 3 Months or Most Recently Relevant to Health Maintenance Insurance [facility] Care Teams Dairy Feed Worker Relationship Specialty Start Date End Date Ranjan Membreno MD [address] [place] [address] PCP - General Family Practice 06/11/20
--- OUTSIDE RECORDS SUMMARY | 2025-02-19 09:49 | XMS_ITS | Encounter Summary ---
Author Organization [facility] Address [address] [place] [address] Care Team Providers Care Fish Filleter Name Role Phone No Primary/Referring, Giovannay Primary Care Provider Unavailable Encounter Details Date Type Department Care Team (Late st Contact Info) Description 10/04/2011 Correspondence [facility] [address] [place], [place] [address]. S[address] [place], [place] [address] Axel Arreaga MD CERT FOR CONTINGENT WORKER Social History Tobacco Use Types Packs/Day Years Used Date Smoking Tobacco: Never Assessed Sex and Gender Information Value Date Recorded Sex Assigned at Not on file Legal Sex Male 5:09 AM CDT Gender Identity Not on file Sexual Orientation Not on file documented as of this encounter Progress Notes * Axel Arreaga MD - 10/04/2011 12:00 AM CDT documented in this encounter Plan of Treatment Not on file documented as of this encounter Visit Diagnoses Not on filedocumented in this encounter Care Teams Fish Filleter Relationship Specialty Start Date End Date No Primary/ReferringOlya PCP - General 02/14/23 documented as of this encounter
--- OUTSIDE RECORDS SUMMARY | 2025-02-19 09:49 | XMS_ITS | Clinical Summary ---
Author Organization [facility] Address [address] [place] [address] Care Team Providers Care Talent Development Manager Name Role Phone Unavailable Primary Care Provider Unavailabl e Source Comments Patient records contain information from all sites at [facility]. For routine questions regarding patient records, call [phone] during business hours, M-F 8:00 AM - 5:00 PM Central Time. Record requests for emergency care only can be directed to [phone] at any time.[facility] Allergies No known active allergies Medications aspirin [address] tablet Take 81 mg by mouth. 4 Active celecoxib (CeleBREX) 200 mg capsule Take 200 mg by mouth. 6 Active multivitamin-mi nerals-lutein (CENTURY MATURE) tablet Take 1 tablet by mouth. 4 Active omeprazole (PriLOSEC) [address] capsule 9 Active simvastatin (ZOCOR) 40 mg tablet Take 40 mg by mouth. 6 Active tamsulosin (FLOMAX) 0.4 mg 24 hr capsule Take 0.4 mg by mouth. 8 Active calcium carbonate-vitam in D3 1,250 mg (500 mg calcium)-5 mcg (200 Unit) per tablet Take 1 tablet by mouth daily with breakfast. Active acetaminophen (TYLENOL) 500 mg tablet Take 500 mg by mouth every 6 (six) hours as needed for pain. Active omega 5-qdh-omt-fish oil 1,000 mg (120 mg-180 mg) capsule Take 1,200 mg by mouth. Active fluticasone propionate (FLONASE) 50 mcg/actuation nasal spray Administer 2 sprays into each nostril daily. Active psyllium (METAMUCIL) powder Take 1 packet by mouth daily. Active donepeziL (ARICEPT) 5 mg tablet 0 Active primidone (MYSOLINE) 50 mg tablet 1 Active citalopram (CeleXA) 20 mg tablet 1 Active latanoprost (XALATAN) 0.005 % ophthalmic solution INSTILL 1 DROP INTO RIGHT EYE EVERY NIGHT. 3 Active Active Problems Problem Noted Date Diagnosed Date Primary Malignant Neoplasm Of Prostate 9 Cancer Staging:Clinical stage from 10/09/2018:Stage IIC(cT1c, cN0, cM0, PSA: 5.1, Grade Group: 3) - Signed by Angel Grey M.D. on 11/12/2018 Immunizations Immunization Administration Dates Next Due Influenza high dose QV(65 years or older) (PF) 1 SARS-COV-2 (COVID-19) - PFIZ ER (Discontinued)(12 years or older) 02/10/2021 Social History Tobacco Use Types Packs/Day Years Used Date Smoking Tobacco: Never Assessed Hunger Vital Sign Answer Date Recorded Within [...] or slept in a fdc (including now)? No 02/24/2021 Education Answer Date Recorded What is the highest level of school you have completed or the highest degree you have received? Associate degree: occupational, technical, or vocational program 10/09/2019 Sex and Gender Information Value Date Recorded Sex Assigned at Male 12/24/2018 8:16 PM CDT Legal Sex Male 7:10 PM QUALITY CONTROL INDUSTRIAL ENGINEER Gender Identity Male 12/24/2018 8:16 PM CDT Sexual Orientation Straight 12/24/2018 8: 16 PM CDT Last Filed Vital Signs Vital Sign Reading Time Taken Comments Blood Pressure 119/60 03/11/2024 3:25 PM QUALITY CONTROL INDUSTRIAL ENGINEER Pulse 67 03/11/2024 3:25 PM QUALITY CONTROL INDUSTRIAL ENGINEER Temperature 36.6 C (97.9 F) 03/11/2024 3:25 PM QUALITY CONTROL INDUSTRIAL ENGINEER Respiratory Rate - - Oxygen Saturation - - Inhaled Oxygen Concentration - - Weight 86.3 kg (190 lb 4.1 oz) 03/11/2024 3:25 P M QUALITY CONTROL INDUSTRIAL ENGINEER Height 175.3 cm (5' 9) 11/12/2018 9:48 AM CDT Body Mass Index 28.1 11/12/2018 9:48 AM CDT Plan of Treatment Health Maintenance Due Date Last Done Comments CT Colonography 1950 Cologuard 1950 FIT 1950 Fasting Glucose for Diabetes Screening 1950 Hepatitis C Screening 1950 Colonoscopy 01/28/2016 01/27/2006 Colorectal Cancer Screening 01/28/2016 Depression Screening (Annual PHQ-2) 04/24/2024 Fall Risk Screen (Annual) 04/24/2024 RSV vaccine - (32-36 weeks) or 50+ years (1 - 1-dose 75+ series) 2024 COVID-19 Vaccine (2024- season) 2024 01/25/2023, 10/12/2021, 02/10/2021, Additional history exists Influenza Vaccine (#1) 2024 , 02/10/2021, 02/16/2020, Additional history exists DTaP,Tdap,and Td Vaccines (3 - Td or Tdap) 11/02/2027 11/01/2017, 04/24/2007 Pneumococcal vaccine (50+ years) Completed 10/29/2015, 10/22/2014 Zoster Vaccines Completed 10/15/2018, 07/27/2018 Abdominal Aortic Aneurysm (AAA) Screen Discontinued 10/23/2018, 01/03/2012 IPV Vaccines Aged Out No longer eligi ble based on patient's age to complete this topic Medical Devices Implanted Type Area Telesales Team Leader Device Identifier Shelf Expiration Date Model / Serial / Lot Marker Gold Seed - [id number] - [id number] Implanted:Qty: 4 on 12/27/2018 by William Jacobson M.D. at [facility] Marker Team [facility] 351-1 / [id number] / [id number] Insurance [facility]
--- OUTSIDE RECORDS SUMMARY | 2025-02-19 09:49 | XMS_ITS | Encounter Summary ---
[facility] Address [address], [place] [address] Care Team Providers Care Yard Motor Operator Name Role Phone No Primary/Referring, Phy [...] on filedocumented in this encounter Care Teams Yard Motor Operator Relationship Specialty Start Date End Date No Primary/Referring, Phy PCP - General 02/14/23 documented as of this encounter
--- OUTSIDE RECORDS SUMMARY | 2025-02-19 09:49 | XMS_ITS ---
Author Organization [facility] Address [address] [place] [address] Care Team Providers Care Composition Molder Name Role Phone Unavailable Primary Care Provider Unavailabl e Active Problems Problem Noted Date Diagnosed Date Primary Malignant Neoplasm Of Prostate 9 Cancer Staging:Clinical stage from 10/09/2018:Stage IIC(cT1c, cN0, cM0, PSA: 5.1, Grade Group: 3) - Signed by Angel Grey M.D. on 11/12/2018 Current Treatment and Therapy Plans No current plan information found. Past Treatment and Therapy Plans No past plan information found. Radiation Treatments (No Episode) * Course 1x PROSTATE 01/31/2019 - 02/27/2019 Treatment Period Energy Fraction Dose Fractions Total Dose Plans Planned F1 PROSTATE 01/31/2019 - 02/27/2019 300 cGy 20 6,000 cGy Reference Points Delivered [id number] 01/31/2019 - 02/27/2019 6,000 cGy
--- OUTSIDE RECORDS SUMMARY | 2025-02-19 09:49 | XMS_ITS | Clinical Summary ---
Author Organization [facility] Address [address], [place] [address] Care Team Providers Care Sharemilker Name Role Phone No Primary/Referring, Olya Primary Care Provider Unavailable Source Comments You are receiving this document as you are listed as the primary care provider,follow-up provider, or the patient has been referred to you for consultation.This is in compliance with the Medicare and[facility] Incentive [facility],which states Providers who transition their patient to another setting of careor provider of care or refers their patient to another provider of care shouldprovide summary care record for each transition of care or referral. [facility] Medications No known medications Social History [...] 1950 Medicare Annual Wellness Visit 1950 DTaP/Tdap/Td Vaccine (1 - Tdap) 1968 Pneumococcal Vaccine 50+ Yrs (1 of 1 - PCV) 10/21/1999 Zoster/Shingles Vaccine (1 of 2) 10/21/1999 RSV Vaccine (1 - 1-dose 75+ series) 2024 COVID-19 Vaccine ( - 2023-2 5 season) 2024 Influenza Vaccine (#1) 2024 HepA Vaccine Aged Out No longer eligi ble based on patient's age to complete this topic HepB Vaccine Aged Out No longer eligi ble based on patient's age to complete this topic Hib Vaccine Aged Out No longer eligi ble based on patient's age to complete this topic MCV4 Vaccine Aged Out No longer eligi ble based on patient's age to complete this topic Meningococcal B Vaccine Aged Out No l onger eligible based on patient's age to complete this topic Insurance MEDICARE Care Teams Sharemilker Relationship Specialty Start Date End Date No Primary/Referring, Phy PCP - General 02/14/23
--- NOTE | 2025-02-19 10:39 | ED_ITS ---
HPI - General Adult General Chief complaint: Lower Extremity Swelling Stated complaint: L foot swollen Time Seen by Provider: 02/19/25 10:38 History of Present Illness HPI narrative: Patient has been sick since Monday with flu light symptoms. Has not been wearing his compression stockings. Left foot is swollen, red and noticed streaking. said he had a fever overnight around 130 and she gave Tylenol. Has had a blood clot and cellulitis before. called [facility] and they advised he come here. Patient has dementia. 74-year-old man presenting to the emergency department with concern of potential cellulitis and a blood clot in his left foot/leg. Has felt unwell as spouse phrases that over the last 3 days with maximal fever last night at 101. She feels he broke it as as not febrile this morning. Treated with acetaminophen. Has noticed new swelling in the left foot and tenderness the left lower leg. Does have a history of DVT in this leg and cellulitis. No chest pain or shortness of breath. No noted trauma Related Data Home Medications ?Medication ?Instructions ?Recorded ?Confirmed aspirin 81 mg tablet,delayed 81 mg PO QDAY 10/26/21 release multivitamin 1 tab PO DAILY 02/03/2209/15 fish oil-dha-epa 1,200 mg-144 2 cap PO DAILY 05/16/22 02/26/25 mg-216 mg capsule latanoprost 0.005 % eye drops 1 drp ophthalmic (eye) Q PM 02/27/23 02/26/25 psyllium husk 3.4 gram/5.4 gram 2 tsp PO QHS 02/27/23 02/26/25 oral powder (Metamucil) Previous Rx's ?Medication ?Instructions ?Recorded citalopram 20 mg tablet 20 mg PO DAILY #90 tabs 06/23 08/16 trazodone 50 mg tablet 50 mg PO QHS insomnia #90 ta bs 10/07/24 tamsulosin 0.4 mg capsule 0.4 mg PO QHS #90 caps 01/28 celecoxib 100 mg capsule (Celebrex) 100 mg PO BID #180 caps 02/04/25 simvastatin 40 mg tablet 40 mg PO .QHS #90 tabs 02/13 omeprazole 20 mg capsule,delayed 20 mg PO BID PRN gerd #180 caps 02/14/25 release cephalexin 500 mg capsule 500 mg PO TID 9 days #27 cap s 02/19/25 Allergies Allergy/AdvReac Type Severity Reaction Status Date / Time No Known Allergies Allergy Unknown Verified 02/26/25 14:12 Review of Systems Status of ROS: Reports: 6 or more systems reviewed and unremarkable except as noted in History and below [facility] Medical History Abnormal echocardiogram ?R93.1 - Abnormal findings on diagnostic imaging of heart and coronary circulation (ICD-10) History of DVT (deep vein thrombosis) ?Z86.718 - Personal history of other venous thrombosis and embolism (ICD-10) Surgical History Status post total knee replacement, left ?Z96.652 - Presence of left artificial knee joint (ICD-10) History of cataract removal with insertion of prosthetic lens ?Z98.49 - Cataract extraction status, unspecified eye (ICD-10) ?Z96.1 - Presence of intraocular lens (ICD-10) History of vasectomy ?Z98.52 - Vasectomy status (ICD-10) History of tonsillectomy and adenoidectomy ?Z90.89 - Acquired absence of other organs (ICD-10) Family History Father Heart disease Myocardial infarction Aunt Alzheimers disease Mother Diabetes Myocardial infarction Social History Narrative: Consumes alcohol occasionally Does not use illicit drugs Former smoker Patient is retired. Lives with his , 2 children and grandkids. Smoking Status: Never smoker Do you use any of these nicotine containing products: None Second hand tobacco smoke exposure: No How often do you have a drink containing alcohol: never How often do you have six or more drinks on one occasion: Never AUDIT-C Alcohol total score: 0 Non-prescribed substance use: denies use service: No Exam Narrative: Exam Narrative: Pleasant. NAD. Mildly labored in breathing but lungs appear clear. Heart in regular rate and rhythm. Appears a little tired. Soft inflamed venous varicosities in the right medial upper aspect of the leg Calor and mild erythema with mild pitting edema over most of the left foot. There is some erythema that extends medially and a little laterally there is some puffiness as well. Extends to about 3 or 4 in below the knee Does have puffiness in faint erythema over the ankle as well. There is not much in duration. Tender over the dorsum foot in particular. Well-perfused. Const: Vital Signs, click to edit/add: Vital Signs - 24 hr 02/19/25 09:59 02/19/25 10:00 02/19/25 10:01 Temperature 98.0 F Pulse Rate 79 80 Pulse Rate [Pulse Oximeter] 90 Respiratory Rate 16 Blood Pressure 124/72 Blood Pressure [Le ft Upper Arm] 116/73 Pulse Oximetry 96 97 96 Oxygen Delivery Me thod Room Air 02/19/25 10:02 02/19/25 10:05 Temperature 98.9 F Pulse Rate 80 Pulse Rate [Pulse Oximeter] Respiratory Rate 16 Blood Pressure 117/69 Blood Pressure [Le ft Upper Arm] Pulse Oximetry 96 Oxygen Delivery Me thod Documenting provider has reviewed patient's vital signs: yes Course Vital Signs Vital signs: Initial Vital Signs Pulse Rate 79 02/19/25 09:59 Blood Pressure 124/72 02/19/25 09:59 Blood Pressure Mean 89 02/19/25 09:59 Pulse Oximetry 96 02/19/25 09:59 Vital Signs Pulse Rate 79 02/19/25 09:59 Blood Pressure 124/72 02/19/25 09:59 Pulse Oximetry 96 02/19/25 09:59 Temperature 98.9 F 02/19/25 10:05 Pulse Rate 66 02/19/25 12:31 Respiratory Rate 20 02/19/25 12:02 Blood Pressure 113/63 02/19/25 12:31 Pulse Oximetry 96 02/19/25 12:31 Oxygen Delivery Method Room Air 02/19/25 10:01 Medications Administered Medications: Discontinued Medications Generic Name Dose Route Start Last Admin Trade Name Freq PRN Reason Stop Dose Admin Sodium Chloride 500 mls @ 500 mls/hr 02/19/25 10:53 02/19/25 12:34 0.9 % Sodium Chloride 500 Ml IV 02/19/25 11:52 Infused .Q1H ONE Infusion Ceftriaxone Sodium 2 gm/ 100 mls @ 200 mls/hr 02/19/25 12:45 02/19/25 13:30 Sodium Chloride IVPB 02/19/25 12:46 Infused ONCE ONE Infusion Medical Decision Making MDM Narrative Medical decision making narrative: Documented febrile illness by spouse. I am not sure that that is necessarily related to his legs though the tenderness would suggest mild cellulitis. I do not think these changes are representative phlebotomy services of a DVT. I do not see the degree of tenderness that I would expect with gout. Does not have a specific joint in volved. Seems that has more of a generalized illness. I would check some labs though and perhaps this erythema is representing more than I think. Considering community prevalence screen also for COVID and influenza. Has trouble expressing or describing. I think it would x-ray chest here considering the labored breathing. Might be a pneumonia. Also with history though of clot in this leg, should ultrasound as well. One-view chest x-ray independently reviewed by me with a little congestion I think. Lower expansion volume though. Probably has some difficulty coordinating the breath. DVT of the left leg was noted to be unremarkable. Radiology over-read of chest x-ray below INDICATION: Fever, tachypnea, COVID positive TECHNIQUE: Chest 1 view. COMPARISON: 11/12/2024 FINDINGS: Low lung volumes. Increased cardiomediastinal silhouette and vascular interstitial prominence, likely exacerbated by poor inspiration. No definite focal consolidation. No large pleural effusion or pneumothorax. No osseous abnormality. IMPRESSION: Low lung volumes without definite acute abnormality. Consider repeat chest radiograph with better inspiratory effort for better assessment Dictated by Екатерина Bosch MD @ 02/19/2025 12:14:52 PM Labs reviewed. [place] [address]; there is a history of thrombocytopenia. Suppression of lymphocytes a little would be consistent with his positive COVID diagnosis today. CRP rather elevated. I wonder if this might be more related to his leg. Would be a good idea to initiate antibiotics. Probably dehydrated as well. Given normal saline and Rocephin. Hopefully this gets hime in the right direction. Reviewed medications and renal function and will be prescribing Paxlovid. I think can be discharged with close monitoring. Spouse is appropriately involved. See patient discharge plan for further discussion I am prescribing Paxlovid for your COVID. Your kidney function looks good but recommendations would be to wait until evening to take 1st Paxlovid dose so that it is about 12 hours from your last simvastatin dose. Do not take simvastatin until 5 days after completing the Paxlovid course. Consider also holding tamsulosin beginning 3 days after done with Paxlovid and same for trazodone; intermittent dosing over this time period would likely be ok. Also initiating antibiotics for what appears to be a cellulitis. You received initial dose of Rocephin. Will be continuing with cephalexin. You can start your 1st dose of cephalexin later this evening. Rocephin should cover you actually for this entire day. Recommendations would be to quarantine for 10 days from your 1st day of illness. Consider also doing home COVID test at that point to verify clearing. Can take ibuprofen or acetaminophen for fever or pain. Be sure to elevate your left leg at rest. I would consider application also of compression stockings or Vijay wraps. Return for increasing fever, spreading redness after 2 days, marked increase in redness/pain/swelling, persistent and worsening shortness of breath or weakness. Medical Records Medical records reviewed: Yes I reviewed the patient's medical records Lab Data Lab results reviewed: Yes I reviewed the patient's lab results Labs: Lab Results 02/19/25 02/19/25 Range/Units 09:52 11:05 WBC 11.87 H (4.50-11.00) K/uL RBC 4.94 (4.30-5.90) m/uL Hgb 15.3 (13.5-17.5) gm/dL Hct 43.2 (37.0-53.0) % MCV 87 (80-100) fL MCH 31 (26-34) pg MCHC 35 (32-36) gm/dL RDW Coeff of Monse 13.0 (11.5-15.5) % Plt Count 88 L (140-440) K/uL Neut % (Auto) 88.1 H (42.0-72.0) % Lymph % (Auto) 3.4 L (20-44) % [place]es % (Auto) 8.2 (0.0-11.0) % Eos % (Auto) 0.0 (0.0-7.0) % Baso % (Auto) 0.0 (0.0-3.0) % Neut # (Auto) 10.50 H (1.7-7.0) K/uL Lymph # (Auto) 0.40 L (0.90-2.90) K/uL C[place]es # (Auto) 1.00 H (0.00-0.90) K/UL Eos # (Auto) 0.00 (0.00-0.50) K/uL Baso # (Auto) 0.00 (0.00-0.30) K/uL Abs Immat Gran (auto) 0.00 (0.00-0.30) K/uL Imm/Tot Granulo (auto) 0.3 % Sodium 132 L (135-149) mmol/L Potassium 3.3 L (3.6-5.1) mmol/L Chloride 98 (96-114) mmol/L Carbon Dioxide 22 (20-32) mmol/L Anion Gap 12 (7-15) mEq/L BUN 27 (7-30) mg/dL Creatinine 1.2 (0.5-1.5) mg/dL Estimated Creat Clear 48.00 Estimated GFR 63 ml/min Glucose 188 H (60-115) mg/dL Calcium 8.7 (8.4-10.6) mg/dL C-Reactive Protein 25.9 H (0.5-1.0) mg/dL SARS-CoV-2 (PCR) POSITIVE SARS-CoV-2 A (Negative) Influenza Type A (PCR) Negative PCR FLU A (Negative) Influenza Type B (PCR) Negative PCR FLU B (Negative) RSV (PCR) Negative PCR RSV (Negative) Discharge Plan Discharge Clinical Impression: COVID-19, Cellulitis Patient Disposition: Home w/ Parent or Adult Condition: Stable Additional Instructions: I am prescribing Paxlovid for your COVID. Your kidney function looks good but recommendations would be to wait until evening to take 1st Paxlovid dose so that it is about 12 hours from your last simvastatin dose. Do not take simvastatin until 5 days after completing the Paxlovid course. Consider also holding tamsulosin beginning 3 days after done with Paxlovid and same for trazodone; intermittent dosing over this time period would likely be ok. Also initiating antibiotics for what appears to be a cellulitis. You received initial dose of Rocephin. Will be continuing with cephalexin. You can start your 1st dose of cephalexin later this evening. Rocephin should cover you actually for this entire day. Recommendations would be to quarantine for 10 days from your 1st day of illness. Consider also doing home COVID test at that point to verify clearing. Can take ibuprofen or acetaminophen for fever or pain. Be sure to elevate your left leg at rest. I would consider application also of compression stockings or Vijay wraps. Return for increasing fever, spreading redness after 2 days, marked increase in redness/pain/swelling, persistent and worsening shortness of breath or weakness. Prescriptions: New cephalexin 500 mg capsule 500 mg PO TID 9 Days Qty: 27 0RF No Action aspirin 81 mg tablet,delayed release (DR/EC) 81 mg PO QDAY Patient Comments: TAKE ONE TABLET BY MOUTH TWICE A DAY Metamucil 3.4 gram/5.4 gram powder 2 tsp PO QHS Rx Instructions: mix into at least 8 oz of water or juice before administering latanoprost 0.005 % drops 1 drp ophthalmic (eye) QPM multivitamin Tablet 1 tab PO DAILY fish oil-dha-epa 1,200-144-216 mg capsule 2 cap PO DAILY citalopram 20 mg tablet 20 mg PO DAILY Qty: 90 3RF trazodone 50 mg tablet 50 mg PO QHS Qty: 90 0RF tamsulosin 0.4 mg capsule 0.4 mg PO QHS Qty: 90 0RF celecoxib [Celebrex] 100 mg capsule 100 mg PO BID Qty: 180 0RF simvastatin 40 mg tablet 40 mg PO .QHS Qty: 90 0RF omeprazole 20 mg capsule,delayed release(DR/EC) 20 mg PO BID PRN (Reason: gerd) Qty: 180 0RF Follow Up/Referrals: Dinah Kerr MD [Primary Care Provider, Family Practice] Stand Alone Forms: MyHealth Info Instructions
--- NOTE | 2025-02-19 10:53 | CRLHL7_ITS ---
For Patients: As a result of the Century Cures Act, medical imaging exams and procedure reports are released immediately into your electronic medical record. You may view this report before your referring provider. If you have questions, please contact your health care provider. INDICATION: Fever, tachypnea, COVID positive TECHNIQUE: Chest 1 view. COMPARISON: 11/12/2024 FINDINGS: Low lung volumes. Increased cardiomediastinal silhouette and vascular interstitial prominence, likely exacerbated by poor inspiration. No definite focal consolidation. No large pleural effusion or pneumothorax. No osseous abnormality. IMPRESSION: Low lung volumes without definite acute abnormality. Consider repeat chest radiograph with better inspiratory effort for better assessment Dictated by Екатерина Bosch MD @ 02/19/2025 12:14:52 PM (Electronically Signed)
--- NOTE | 2025-02-19 10:55 | CRLHL7_ITS ---
For Patients: As a result of the Cures Act, medical imaging exams and procedure reports are released immediately into your electronic medical record. You may view this report before your referring provider. If you have questions, please contact your health care provider. INDICATION: Left leg redness/swelling, history of DVT. (Sic) COMPARISON: None available. Reference is made to a prior report dated 06/22/2021. TECHNIQUE: Static and compression grayscale and spectral (including color) Doppler ultrasound of the left lower extremity. FINDINGS: Deep veins: The imaged left common femoral, deep femoral, superficial femoral, popliteal, posterior tibial, peroneal and contralateral right common femoral veins are patent and free of clot. Superficial veins: The imaged left great saphenous vein is patent and free of clot. Extravascular findings: No significant incidental findings. IMPRESSION: No evidence of DVT in the left lower extremity. Dictated by Lane Nash MD @ 02/19/2025 11:52:49 AM (Electronically Signed)
[2025-02-19 10:58] LABS: PCR FLU A Negative PCR FLU A (Negative); PCR FLU B Negative PCR FLU B (Negative); PCR RSV Negative PCR RSV (Negative); SARS PCR* POSITIVE SARS-CoV-2 (Negative)
--- OUTSIDE RECORDS SUMMARY | 2025-02-19 10:58 | XMS_ITS | Clinical Summary ---
Author Organization [facility] Address [address] , [address] [place] [address] Phone Care Team Providers Care Inspector Electromechanical Name Role Phone Vannessa MURPHY, Arthur Bustillos Conditions or Problems Problem Name Problem Code Onset Date Status Entry Date Provider Comment Standard Description Annotate Unspecified dementia, moderate, without behavioral disturbance , psychotic disturbance , mood disturbance , and anxiety 61993153 (SNOMED CT) 08/29 Active 08/29 Nevaeh Ho DNP,BRAKE REPAIR MECHANIC,CN P Dementia Mild cognitive impairment 104586063 (SNOMED CT) 05/02 Inactive 05/04 Nevaeh Ho DNP,BRAKE REPAIR MECHANIC,CN P Mild neurocognitive disorder Frontotempo ral dementia 582519410 (SNOMED CT) Active Arthur Hurd MD Frontotemporal dementia Word finding difficulty 635517521 (SNOMED CT) Active Tanya Marreroon Word finding difficulty Tremor 78922022 (SNOMED CT) 09/26 Active 09/26 Nevaeh Ho DNP,BRAKE REPAIR MECHANIC,CN P Tremor Mild cognitive impairment 999431243 (SNOMED CT) 05/02 Removed 05/04 Nevaeh Ho DNP,BRAKE REPAIR MECHANIC,CN P Mild neurocognitive disorder Memory impairment 022927640 (SNOMED CT) 07/07 Active 07/07 Rachid Felix MD Memory impairment Medications Medication Instructions Start Date Stop Date Generic Name NDC Provider MULTI-VITAMIN TABS multivitamin 78337758593 Ratna Baldwin PA-C CALCIUM 500/D 500-5 MG-MCG TABS calcium carbonate-vitam in d3 92286938687 Ratna Baldwin INES-C FISH OIL 500 MG CAPS omega 3-udv-iqq-fish oil 86337090991 Ratna Baldwin INES-C ASPIRIN LOW DOSE 81 MG TBEC aspirin 41677395828 Ratna Baldwin INES-C TAMSULOSIN HCL 0.4 MG CAPS tamsulosin 64135283809 Arthur Hurd MD MEMANTINE HCL 10 MG TABS Week #1 take 1 pill daily. Week #2 take 1 pill bid with food memantine 11489762627 Nevaeh Pintoigel DNP,BRAKE REPAIR MECHANIC,CELL ATTENDANT HELPER DONEPEZIL HCL 10 MG TABS TAKE ONE-HALF (1/2) TABLET TWICE A DAY donepezil 66220658202 Nevaeh Pintoigel DNP,BRAKE REPAIR MECHANIC,CELL ATTENDANT HELPER PRIMIDONE 50 MG TABS Take 1 tablet by mouth twice a day primidone 62715238969 Nevaeh Wiggins Rechjohanaigel DNP,BRAKE REPAIR MECHANIC,CELL ATTENDANT HELPER OMEPRAZOLE 40 MG CPDR omeprazole 21291698743 Nevaeh Wiggins Rechjohanaigel DNP,BRAKE REPAIR MECHANIC,CELL ATTENDANT HELPER SIMVASTATIN 40 MG TABS simvastatin 37063869519 Nevaeh Wiggins Rechjohanaigel DNP,BRAKE REPAIR MECHANIC,CELL ATTENDANT HELPER TAMSULOSIN HCL 0.4 MG CAPS tamsulosin 53514789877 Nevaeh Pintoigel DNP,BRAKE REPAIR MECHANIC,CELL ATTENDANT HELPER CELECOXIB 200 MG CAPS celecoxib 09995269476 Nevaeh Pintoigel DNP,BRAKE REPAIR MECHANIC,CELL ATTENDANT HELPER TRAZODONE HCL 50 MG TABS trazodone 63418660696 Nevaeh Pintoigel DNP,BRAKE REPAIR MECHANIC,CELL ATTENDANT HELPER DONEPEZIL HCL 10 MG TABS Take 1/2 tablet by mouth twice a day donepezil 96510953576 Rachid Felix MD DONEPEZIL HCL 10 MG TABS TAKE ONE-HALF (1/2) TABLET TWICE A DAY donepezil 48525333095 Rachid Felix MD MEMANTINE HCL 10 MG TABS Week #1 take 1 pill daily. Week #2 take 1 pill bid with food memantine 07378752231 Rachid Felix MD CITALOPRAM HYDROBROMIDE 20 MG TABS Weeks #1 and #2 take 1/2 pill daily. Week #3 and on take 1 pill daily citalopram 47773004821 Rachid Felix MD CITALOPRAM HYDROBROMIDE 20 MG TABS Take 1 tablet by mouth once a day citalopram 04847489342 Rachid Felix MD PRIMIDONE 50 MG TABS Week #1 take 1/2 qhs. Week #2 take 1/2 bid. Week #3 take 1/2 in AM and 1 in PM. Week #4 take 1 bid primidone 60760846940 Rachid Felix MD PRIMIDONE 50 MG TABS Take 1 tablet by mouth twice a day primidone 63132360781 Rachid Felix MD DONEPEZIL HCL 10 MG TABS take 1 pill daily donepezil 38846037373 Rachid Felix MD DONEPEZIL HCL 10 MG TABS Take 1/2 tablet by mouth twice a day donepezil 09031156460 Ratna Baldwin PA-C PRIMIDONE 50 MG TABS Week #1 take 1/2 qhs. Week #2 take 1/2 bid. Week #3 take 1/2 in AM and 1 in PM. Week #4 take 1 bid PRIMIDONE 77769575731 Rachid Felix MD CITALOPRAM HYDROBROMIDE 20 MG TABS Weeks #1 and #2 take 1/2 pill daily. Week #3 and on take 1 pill daily CITALOPRAM HYDROBROMIDE 05620955501 Rachid Felix MD DONEPEZIL HCL 5 MG TABS 1 pill daily DONEPEZIL HCL 03004829047 Rachid Felix MD DONEPEZIL HCL 10 MG TABS take 1 pill daily DONEPEZIL HCL 23425850563 Rachid Felix MD DONEPEZIL HCL 5 MG TABS 1 pill daily DONEPEZIL HCL 55641825494 Rachid Felix MD Medications Administered No information available. Allergies, Adverse Reactions, Alerts Observed no known allergies at Results Date Name Value Unit Range Flag Description Internal Other: Verbal Autho rization/Emergency Contact - OBS VERBAL_EMER DONE Verbal authorization and emergency contact Office Visit: Office Visit m ail [id number] Mild Total scor e [MoCA] MMSE SCORE 25 Total scor e [MMSE] Office Visit: Office Visit f ax [id number] Assessment of cognition performed and results reviewed. Total score [M MSE] [id number] Moderate Total sco re [MoCA] MOCA SCORE 14 Total scor e [MMSE] MEDS REVIEW Done Documenta tion of current medications (procedure) Internal Other: Authorizatio n AUTHBENEFIT Yes Authoriza tion: Assignment of Benefits and Payment Agreement [email or web address] Yes Authorizat ion: Authorization for [facility] to leave messages, voicemail, send text messages, send emails AUTHRELHCARE Yes Authoriz ation: Release/Retrieval of Information to/from Healthcare Facilities, Pharmacy Benefit Payers and Providers ROIAUTHOTHER Yes Authoriz ation: Release of Information - Authorize Others/Insurance - Payment and Healthcare Operations [email or web address] Yes Authoriza tion: Release of Information - Authorize [facility] - Payment and Healthcare Operations AUTHPRIVPRAC Yes Authoriz ation: Notice of privacy practices HIECONSENT Yes Consent To Release information to the Health Information Exchange (HIE) Plan of Care Type Date Detail Appointment 01:00 PM Tavia puga PhD, [address], [address], [place], [address], Appointment 03:00 PM Arthur Hurd MD, [address], [address], [place], [address], Pending order Follow up Pending order Follow up Pending order Neuropsychology Evaluation Pending order Neuropsychology Evaluation Pending order Ammonia Pending order CBC with Diff/Pl atelet Pending order Comp Metabolic P soco (14) Pending order Urinalysis Compl ete (w/Microscopic) Pending order Instructions for Staff Pending order Patient Instruct ions Pending order Follow up MARCELO Pending order Occupational The rapy Pending order Occupational The rapy Pending order Follow up Pending order Patient Instruct ions Pending order Patient Instruct ions Pending order Follow up with N eurologist or MARCELO Pending order MURPHY Scan Pending order MURPHY Scan Pending order Follow up in cli melanie Pending order Other Test Pending order Occupational The rapy Pending order Driving Evaluati on Pending order Other Test Pending order Driving Evaluati on Pending order Follow up after testing in clinic or telemedicine Pending order Obtain outside r ecords Pending order Follow up in cli melanie or telemedicine Pending order Update [facility] Pro vider Pending order Neuropsychology Evaluation Pending order Telemedicine Fol low up Pending order Telemedicine Fol low up Pending order Telemedicine Fol low up Pending order Telemedicine Fol low up Pending order Follow up Pending order Telemedicine Fol low up Pending order Neuropsych Testi ng Pending order Neuropsych Testi ng Pending Order exclud ed from report: Procedures Code Procedure Name Date Entry Date ORDERS Follow up MARCELO ORDERS Instructions for Staff 08/29 ORDERS Patient Instructions LOINC 21171-1 MOCA ORDERS Follow up [facility]-[id number] Documentation of current medicatio ns ORDERS Occupational Therapy ORDERS Patient Instructions ORDERS Patient Instructions LOINC 58401-1 MMSE ORDERS Follow up with Neurologist or MARCELO ORDERS MURPHY Scan [facility]-[id number] Documentation of current medicatio ns ORDERS Follow up in clinic ORDERS Occupational Therapy ORDERS Driving Evaluation 5 ORDERS Other Test ORDERS Follow up after test ing in clinic or telemedicine ORDERS Follow up in clinic or telemedicine 05/02 ORDERS Update [facility] Provider 05/02 ORDERS Neuropsychology Evaluation 2 ORDERS Obtain outside records 05/02 ORDERS Telemedicine Follow up 05/10 ORDERS Telemedicine Follow up 01/01 ORDERS Telemedicine Follow up 11/03 ORDERS Telemedicine Follow up 08/18 ORDERS Telemedicine Follow up 01/28 ORDERS Follow up ORDERS Neuropsych Testing 6 ORDERS Neuropsych Testing 6 Vital Signs No information available. Immunizations No information available. Advance Directives No information available.
[2025-02-19 11:14] LABS: Hematocrit* 43.2 % (37.0-53.0); Hemoglobin* 15.3 gm/dL (13.5-17.5); Immature Granulocytes Pct Auto 0.3 %; Lymphocytes Absolute Auto 0.40 K/uL (0.90-2.90); Mean Corpuscular HGB Conc 35 gm/dL (32-36); Mean Corpuscular Hemoglobin 31 pg (26-34); Mean Corpuscular Volume 87 fL (80-100); RDW Coefficient of Variation % 13.0 % (11.5-15.5); Red Blood Count* 4.94 m/uL (4.30-5.90); White Blood Count* 11.87 K/uL (4.50-11.00)
[2025-02-19 11:17] LABS: Immature Granulocytes Abs Auto 0.00 K/uL (0.00-0.30); Slide Review Reflex No
[2025-02-19 11:29] LABS: Chloride* 98 mmol/L (96-114); Potassium* 3.3 mmol/L (3.6-5.1)
[2025-02-19 11:32] LABS: Blood Urea Nitrogen* 27 mg/dL (7-30); Creatinine* 1.2 mg/dL (0.5-1.5); Est. Creatinine Clearance* 48.00; Estimated Glomerular Filt Rate 63 ml/min
[2025-02-19 11:33] LABS: Calcium* 8.7 mg/dL (8.4-10.6); Carbon Dioxide* 22 mmol/L (20-32); Glucose* 188 mg/dL (60-115)
[2025-02-19 11:58] LABS: Anion Gap 12 mEq/L (7-15); Sodium* 132 mmol/L (135-149)
[2025-02-19] MEDS: 0.9 % SODIUM CHLORIDE 500 ML 500 ML IV (12:08)
[2025-02-19] MEDS: cefTRIAXone 2 GM in 0.9 % SODIUM CHLORIDE Mini-bag 100 ML IVPB (12:51)
== END 2025-02-19 13:42 | disposition home or self-care (01) ==
PROVIDERS: Emergency Provider Family Medicine; PCP Family Medicine
DX: L03.116 Cellulitis of left lower limb (principal); U07.1 COVID-19; Z86.718 Personal history of other venous thrombosis and embolism
CPT/HCPCS: 36415; 71045; 80048; 81001; 85025; 86140; 87631; 93971; 96365; 99284; 99285; J0696; J7030

== ENCOUNTER 2025-03-03 15:26 | Outpatient (CLI) | payer MEDICARE, SELFPAY | END 2025-03-03 15:27 | disposition home or self-care (01) | LOC: FRMREF 15:28 | PROVIDERS: PCP Family Medicine; Visit Provider Family Medicine | DX: R41.82 Altered mental status, unspecified (principal) | CPT/HCPCS: 86140 ==

== ENCOUNTER 2025-03-03 16:36 | Inpatient (IN) | payer MEDICARE, SELFPAY ==
[2025-03-03] VITALS (10 sets, daily range): BP systolic 117–143; BP diastolic 73–99; PULSE 75–92; RESP 16–35; TEMP 36.5–37.2; O2SAT 94–99; BMI 27.6; BMI 27.7
--- OUTSIDE RECORDS SUMMARY | 2025-03-03 16:38 | XMS_ITS | Clinical Summary ---
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 Name Role Phone Vannessa MURPHY, Arthur Bustillos Conditions or Problems Problem Name Problem Code Onset Date Status Entry Date Provider Comment Standard Description Annotate Unspecified dementia, moderate, without behavioral disturbance , psychotic disturbance , mood disturbance , and anxiety 49924331 (SNOMED CT) 08/29 Active 08/29 Nevaeh Ho DNP,[employer]OD SERVICE ATTENDANT,CN P Dementia Mild cognitive impairment 554572868 (SNOMED CT) 05/02 Inactive 05/04 Nevaeh Ho DNP,ROOM SERVICE FOOD SERVICE ATTENDANT,CN P Mild neurocognitive disorder Frontotempo ral dementia 804589923 (SNOMED CT) Active Arthur Hurd MD Frontotemporal dementia Word finding difficulty 091999118 (SNOMED CT) Active Tanya Marreroon Word finding difficulty Tremor 67836630 (SNOMED CT) 09/26 Active 09/26 Nevaeh Ho DNP,ROOM SERVICE FOOD SERVICE ATTENDANT,CN P Tremor Mild cognitive impairment 677788054 (SNOMED CT) 05/02 Removed 05/04 Nevaeh Ho DNP,ROOM SERVICE FOOD SERVICE ATTENDANT,CN P Mild neurocognitive disorder Memory impairment 032921446 (SNOMED CT) 07/07 Active 07/07 Rachid Felix MD Memory impairment Medications Medication Instructions Start Date Stop Date Generic Name NDC Provider MULTI-VITAMIN TABS multivitamin 45496789566 Ratna Baldwin PA-C CALCIUM 500/D 500-5 MG-MCG TABS calcium carbonate-vitam in d3 14581284032 Ratna Baldwin INES-C FISH OIL 500 MG CAPS omega 8-mhb-hww-fish oil 73126170503 Ratna Baldwin INES-C ASPIRIN LOW DOSE 81 MG TBEC aspirin 34085860672 Ratna Baldwin INES-C TAMSULOSIN HCL 0.4 MG CAPS tamsulosin 43622463974 Arthur Hurd MD MEMANTINE HCL 10 MG TABS Week #1 take 1 pill daily. Week #2 take 1 pill bid with food memantine 18299876659 Nevaeh Pintoigel DNP,ROOM SERVICE FOOD SERVICE ATTENDANT,ACID TENDER DONEPEZIL HCL 10 MG TABS TAKE ONE-HALF (1/2) TABLET TWICE A DAY donepezil 42253329578 Nevaeh Pintoigel DNP,ROOM SERVICE FOOD SERVICE ATTENDANT,ACID TENDER PRIMIDONE 50 MG TABS Take 1 tablet by mouth twice a day primidone 15006962110 Nevaeh Wiggins Rechjohanaigel DNP,ROOM SERVICE FOOD SERVICE ATTENDANT,ACID TENDER OMEPRAZOLE 40 MG CPDR omeprazole 54147661007 Nevaeh Wiggins Rechjohanaigel DNP,ROOM SERVICE FOOD SERVICE ATTENDANT,ACID TENDER SIMVASTATIN 40 MG TABS simvastatin 83572938772 Nevaeh Wiggins Rechjohanaigel DNP,ROOM SERVICE FOOD SERVICE ATTENDANT,ACID TENDER TAMSULOSIN HCL 0.4 MG CAPS tamsulosin 42742954682 Nevaeh Pintoigel DNP,ROOM SERVICE FOOD SERVICE ATTENDANT,ACID TENDER CELECOXIB 200 MG CAPS celecoxib 42609459875 Nevaeh Pintoigel DNP,ROOM SERVICE FOOD SERVICE ATTENDANT,ACID TENDER TRAZODONE HCL 50 MG TABS trazodone 60100736863 Nevaeh Pintoigel DNP,ROOM SERVICE FOOD SERVICE ATTENDANT,ACID TENDER DONEPEZIL HCL 10 MG TABS Take 1/2 tablet by mouth twice a day donepezil 95604011431 Rachid Felix MD DONEPEZIL HCL 10 MG TABS TAKE ONE-HALF (1/2) TABLET TWICE A DAY donepezil 27995773330 Rachid Felix MD MEMANTINE HCL 10 MG TABS Week #1 take 1 pill daily. Week #2 take 1 pill bid with food memantine 29550706820 Rachid Felix MD CITALOPRAM HYDROBROMIDE 20 MG TABS Weeks #1 and #2 take 1/2 pill daily. Week #3 and on take 1 pill daily citalopram 94978980000 Rachid Felix MD CITALOPRAM HYDROBROMIDE 20 MG TABS Take 1 tablet by mouth once a day citalopram 15211799014 Rachid Felix MD PRIMIDONE 50 MG TABS Week #1 take 1/2 qhs. Week #2 take 1/2 bid. Week #3 take 1/2 in AM and 1 in PM. Week #4 take 1 bid primidone 97367064905 Rachid Felix MD PRIMIDONE 50 MG TABS Take 1 tablet by mouth twice a day primidone 88237571656 Rachid Felix MD DONEPEZIL HCL 10 MG TABS take 1 pill daily donepezil 84593296933 Rachid Felix MD DONEPEZIL HCL 10 MG TABS Take 1/2 tablet by mouth twice a day donepezil 86047627093 Ratna Baldwin PA-C PRIMIDONE 50 MG TABS Week #1 take 1/2 qhs. Week #2 take 1/2 bid. Week #3 take 1/2 in AM and 1 in PM. Week #4 take 1 bid PRIMIDONE [id number] Rachid Felix MD CITALOPRAM HYDROBROMIDE 20 MG TABS Weeks #1 and #2 take 1/2 pill daily. Week #3 and on take 1 pill daily CITALOPRAM HYDROBROMIDE 67846051072 Rachid Felix MD DONEPEZIL HCL 5 MG TABS 1 pill daily DONEPEZIL HCL 09471692471 Rachid Felix MD DONEPEZIL HCL 10 MG TABS take 1 pill daily DONEPEZIL HCL 15726633129 Rachid Felix MD DONEPEZIL HCL 5 MG TABS 1 pill daily DONEPEZIL HCL 34740684594 Rachid Felix MD Medications Administered No information available. Allergies, Adverse Reactions, Alerts Observed no known allergies at Results Date Name Value Unit Range Flag Description Internal Other: Verbal Autho rization/Emergency Contact - OBS VERBAL_EMER DONE Verbal authorization and emergency contact Office Visit: Office Visit m ail [id number] Mild Total scor e [MoCA] MMSE SCORE 25 Total scor e [MMSE] Office Visit: Office Visit f ax [id number] Assessment of cognition performed and results reviewed. Total score [M MSE] [id number] Moderate Total sco re [MoCA] MOCA SCORE [...] Appointment 01:00 PM Tavia puga PhD, [address], [address], [place], [address], Appointment 03:00 PM Arthur Hurd MD, [address], [address], [place], [address], Pending order Follow up Pending order Follow [...] for Staff 08/29 ORDERS Patient Instructions LOINC 74391-1 MOCA ORDERS Follow up [facility]-[id number] Documentation of current medicatio ns ORDERS Occupational Therapy ORDERS Patient Instructions ORDERS Patient Instructions LOINC 61102-0 MMSE ORDERS Follow up with Neurologist or MARCELO ORDERS MURPHY Scan [facility]-[id number] Documentation of current medicatio ns ORDERS Follow [...]
--- NOTE | 2025-03-03 19:11 | CRLHL7_ITS ---
For Patients: As a result of the Century Cures Act, medical imaging exams and procedure reports are released immediately into your electronic medical record. You may view this report before your referring provider. If you have questions, please contact your health care provider. Indication: Lateral ankle pain. Technique: Three views of the left ankle. Comparison: None. Findings: Bones: No acute fracture. Degenerative changes at the talus. Plantar calcaneal spurring. Calcaneal enthesopathy. Soft tissue calcifications at the plantar aspect of the calcaneus. Diffuse soft tissue swelling. Vascular calcifications in the soft tissues. Dictated by Joesph Diamond MD @ 03/03/2025 8:13:50 PM (Electronically Signed)
--- NOTE | 2025-03-03 19:12 | CT_ITS ---
Patient: DESTINY IRVIN Facility:?[facility] Patient ID:?[id number] Site Patient ID:?[id number]. Site :?[id number] Study:?CT-Abdomen/Pelvis 84CC ISOVUE 370-03/03/2025 7:50:04 PM Ordering Physician:Tennille Teresa Final Report: INDICATION: Abdominal distention. TECHNIQUE: CT abdomen and pelvis acquired with Isovue 370, 84 mL cc IV contrast. COMPARISON: None. FINDINGS: Lower chest: Cardiomegaly. Evaluation of the visceral abdominal organs is limited by significant motion artifact involving the mid and upper abdomen. Liver: Unremarkable. Normal in size and attenuation. No suspicious masses. Gallbladder and bile ducts: Nonvisualized common possibly due to underdistention/artifact versus prior surgical removal. Pancreas: Unremarkable. No mass or inflammation. Spleen: Unremarkable. Normal in size. No masses. Adrenal glands: Unremarkable. No nodules. Kidneys: Right renal hypodense lesions are limited in evaluation, possibly reflecting cysts. GI tract: Colonic diverticulosis without CT evidence of acute diverticulitis. No evidence of bowel obstruction. Vasculature: Abdominal aorta is normal in caliber. Mesenteric arteries are patent. Lymph nodes: No lymphadenopathy. Peritoneum/Abdominal Wall: Unremarkable. No sign of mass or infiltration. No free air or significant free fluid. Pelvis: Unremarkable. Bones: Unremarkable for age. IMPRESSION: Limited study. No evidence of bowel obstruction. Cardiomegaly. Please note that all CT scans at this facility use dose modulation, iterative reconstruction, and/or weight-based dosing when appropriate to reduce radiation dose to as low as reasonably achievable. Dictated by Dm Carlos MD @ 03/03/2025 8:18:47 PM (Electronic Signature)
--- NOTE | 2025-03-03 19:12 | CRLHL7_ITS ---
For Patients: As a result of the Century Cures Act, medical imaging exams and procedure reports are released immediately into your electronic medical record. You may view this report before your referring provider. If you have questions, please contact your health care provider. INDICATION: Transient alteration of awareness TECHNIQUE: CT Head without i.v. contrast. Coronal and sagittal reformats were obtained. COMPARISON: 01/28/2022 FINDINGS: CSF space: Unremarkable for age. Brain: No evidence of mass, acute infarction or hemorrhage is seen. No mass-effect or midline shift is seen. Mild diffuse cortical atrophy is noted. The brain parenchyma is otherwise normal in appearance with preservation of the landa-white matter junction. Calvarium: The visualized paranasal sinuses are well aerated. The mastoid air cells are clear. The visualized orbits are grossly unremarkable. The calvarium is unremarkable in appearance with no fractures identified. IMPRESSION: 1. No evidence of acute infarction, intracranial hemorrhage, or mass-effect seen. Please note that all CT scans at this facility use dose modulation, iterative reconstruction, and/or weight-based dosing when appropriate to reduce radiation dose to as low as reasonably achievable. Dictated by: Holden Lafleur MD @ 03/03/2025 20:10:12 (Electronically Signed)
--- NOTE | 2025-03-03 19:17 | ED.GENADULT ---
HPI - General Adult General Date Seen: 03/03/25 Chief complaint: Weakness Stated complaint: pain in stomach/ weakness Time Seen by Provider: 03/03/25 18:48 Source: patient and family Mode of arrival: ambulatory Limitations: no limitations History of Present Illness HPI narrative: Patient is a 74-year-old male with a history of frontotemporal dementia presenting to the emergency department for weakness, leg swelling, abdominal swelling. His is his primary die repair and states he was seen here on 02/15 is diagnosed COVID. Was also started antibiotics for is left leg cellulitis. Ultrasound was done at that time and was negative. They spoke about admitting the patient but the want to take him home as she felt like she could take care of him. She states since then he has been getting weaker and weaker. He has been having worse pain pain to the left ankle. He will not walk around as much as he used to due to the pain. Has had decreased oral intake as he does not want to have it up to go to the bathroom. She does states she has been making him eat and drink 3 meals a day. She states the swelling has improved in the leg but the redness has not. Urine she states his legs typically not swollen. Has not had any fevers or chills that they are aware of. He has also had 2 falls over the past and a week and a half. Falls or abnormal for him the states. She also states she seems to be getting more confused compared to his baseline. He is having more issues answering basic questions and does not seem to be tracking you when you speak to him. She states that is abnormal for him. They brought him to his primary care provider today for his annual physical and he did abnormal ESR otherwise no concerning lab work. Did have elevated CRP on the 19 of February. He has also had a distended abdomen for the past few weeks. His states this is abnormal. Has not been complaining about any pain. Did complete a 10 day course of cephalexin Related Data Home Medications ?Medication ?Instructions ?Recorded ?Confirmed aspirin 81 mg tablet,delayed 81 mg PO QDAY 10/26/21 03/03/25 release multivitamin 1 tab PO DAILY 02/03/22 03/03/25 fish oil-dha-epa 1,200 mg-144 2 cap PO DAILY 05/16/22 03/03/25 mg-216 mg capsule latanoprost 0.005 % eye drops 1 drp ophthalmic (eye) QPM 02/27/23 03/03/25 psyllium husk 3.4 gram/5.4 gram 2 tsp PO QHS 02/27/23 03/03/25 oral powder (Metamucil) Previous Rx's ?Medication ?Instructions ?Recorded citalopram 20 mg tablet 20 mg PO DAILY #90 tabs 07/15/24 trazodone 50 mg tablet 50 mg PO QHS insomnia #90 tabs 10/07/24 tamsulosin 0.4 mg capsule 0.4 mg PO QHS #90 caps 01/28/25 celecoxib 100 mg capsule (Celebrex) 100 mg PO BID #180 caps 02/04/25 simvastatin 40 mg tablet 40 mg PO .QHS #90 tabs 02/13/25 omeprazole 20 mg capsule,delayed 20 mg PO BID PRN gerd #180 caps 02/14/25 release Allergies Allergy/AdvReac Type Severity Reaction Status Date / Time No Known Allergies Allergy Unknown Verified 03/03/25 19:59 Review of Systems Status of ROS: Reports: unobtainable due to medical condition [facility] Medical History Abnormal echocardiogram ?R93.1 - Abnormal findings on diagnostic imaging of heart and coronary circulation (ICD-10) History of DVT (deep vein thrombosis) ?Z86.718 - Personal history of other venous thrombosis and embolism (ICD-10) Surgical History Status post total knee replacement, left ?Z96.652 - Presence of left artificial knee joint (ICD-10) History of cataract removal with insertion of prosthetic lens ?Z98.49 - Cataract extraction status, unspecified eye (ICD-10) ?Z96.1 - Presence of intraocular lens (ICD-10) History of vasectomy ?Z98.52 - Vasectomy status (ICD-10) History of tonsillectomy and adenoidectomy ?Z90.89 - Acquired absence of other organs (ICD-10) Family History Father Heart disease Myocardial infarction Aunt Alzheimers disease Mother Diabetes Myocardial infarction Social History Narrative: Consumes alcohol occasionally Does not use illicit drugs Former smoker Patient is retired. Lives with his , 2 children and grandkids. What is your current living situation?: I presently have a place to live Problems where you live: no known problems In the past 12 months, utilities in danger of being shut off: no In past 12 months, lack of transportation kept you from medical appts, meetings, work, or getting things needed for daily living: no In the past 12 mos, have been you worried that your food would run out before you had money to buy more?: never true In the past 12 mos, the food you bought just didn't last and you didn't have money to buy more?: never true Smoking Status: Never smoker Do you use any of these nicotine containing products: None Second hand tobacco smoke exposure: No How often do you have a drink containing alcohol: never How often do you have six or more drinks on one occasion: Never AUDIT-C Alcohol total score: 0 Non-prescribed substance use: denies use How often does anyone, including family, friends and others, physically hurt you: never How often does anyone, including family, friends and others, insult or talk down to you: rarely How often does anyone, including family, friends and others, threaten you with harm: never How often does anyone, including family, friends and others, scream or curse at you: rarely service: No Health Related Social Needs: Other personal risk factors, not elsewhere classified (Z91.89) Exam Narrative: Exam Narrative: Const: Well-nourished, Well-developed, in mild distress Eyes: PERRL, no conjunctival injection, and symmetrical lids HENT: Atraumatic external nose and ears. Moist mucous membranes. Neck: Symmetric, trachea midline, No thyromegaly. CVS: RRR, No murmurs or gallops. Peripheral pulses 2+ and equal in all extremities RESP: Unlabored respiratory effort. Clear to auscultation bilaterally. GI: Nontender, noticeably distended abdomen, No rebound or guarding. MSK: Swollen left lower extremity up to midway of the lower leg. Notable swelling around the ankle. Only seems have tenderness to the lateral malleolus and no other tenderness noted to foot or ankle. Skin: Warm, Dry. Erythema left lower extremity consistent with where the swelling is Neuro: Normal Muscle tone, No focal neurological deficits. Psych: Awake, Alert Const: Vital Signs, click to edit/add: Vital Signs - 24 hr 03/03/25 16:55 Temperature 97.7 F Pulse Rate [Pulse Oximeter] 76 Respiratory Rate 16 Blood Pressure [Ri ght Upper Arm] 143/81 H Pulse Oximetry 97 Oxygen Delivery Me thod Room Air Course Vital Signs Vital signs: Initial Vital Signs Temperature 97.7 F 03/03/25 16:55 Temperature Source Temporal Artery Scan 03/03/25 16:55 Pulse Rate 76 03/03/25 16:55 Respiratory Rate 16 03/03/25 16:55 Blood Pressure 143/81 H 03/03/25 16:55 Blood Pressure Mean 101 03/03/25 16:55 Pulse Oximetry 97 03/03/25 16:55 Oxygen Delivery Method Room Air 03/03/25 16:55 Vital Signs Temperature 97.7 F 03/03/25 16:55 Pulse Rate 76 03/03/25 16:55 Respiratory Rate 16 03/03/25 16:55 Blood Pressure 143/81 H 03/03/25 16:55 Pulse Oximetry 97 03/03/25 16:55 Oxygen Delivery Method Room Air 03/03/25 16:55 Temperature 97.7 F 03/03/25 16:55 Pulse Rate 76 03/03/25 16:55 Respiratory Rate 16 03/03/25 16:55 Blood Pressure 143/81 H 03/03/25 16:55 Pulse Oximetry 97 03/03/25 16:55 Oxygen Delivery Method Room Air 03/03/25 16:55 Medical Decision Making [facility] Narrative Medical decision making narrative: Patient is a 74-year-old male presenting for multiple complaints. Is hard to get much of a story of him most the story was given by his . He does state there is pain and his lateral malleolus on palpation and denies any pain when palpating the rest of his lower extremity. With elevated ESR and CRP from previous visits I do believe he still has cellulitis. With the ankle pain I do have some concern for osteomyelitis. Will do an x-ray as we are unable to do an MRI at this time. I do still believe he has an infection considering the ESR was 75 today. Will order CBC and repeat CRP today as the previous CRP is not returned yet from today. For his increased confusion this is very likely related to his infection but I will do a CT scan of his head especially considering he has fallen multiple times. He does have new abdominal distension and unsure what this is from. The distention is relatively new and he has no history of liver disease family is aware of. Will order CT scan the abdomen pelvis, CMP, magnesium. Will also order urinalysis for his altered mental status. This all could be related to an uncommon presentation for cardiac abnormalities and will do an EKG and troponin. Patient's lab work returned showing no acute concerning abnormalities. His CRP has improved compared to a few weeks ago. He does have slightly elevated liver function test but the cervix consistent with previously. Imaging interpreted by myself and the radiologist independently showed no acute concerning abnormalities. No signs of small-bowel obstruction intracranial abnormalities or osteomyelitis. There is obvious swelling to the soft tissue of the left ankle. CT scan the abdomen was limited due to motion artifact I mainly want to make sure there was no small bowel obstruction or free fluid causing the abdominal distension. EKG interpreted by myself shows no acute concerning abnormalities. I do believe he has cellulitis that has failed outpatient treatment. Swelling has improved I do not believe repeat ultrasound is necessary. With the elevated ESR and CRP there is some concern for osteomyelitis but MRI can be done tomorrow if deemed necessary. Will start him on Rocephin. I spoke to the hospitalist who accepted him for admission. Lab Data Labs: Lab Results 03/03/25 03/03/25 Range/Units 19:25 20:33 WBC 6.72 (4.50-11.00) K/uL RBC 4.94 (4.30-5.90) m/uL Hgb 15.0 (13.5-17.5) gm/dL Hct 44.2 (37.0-53.0) % MCV 90 (80-100) fL MCH 30 (26-34) pg MCHC 34 (32-36) gm/dL RDW Coeff of Monse 12.9 (11.5-15.5) % Plt Count 350 (140-440) K/uL Neut % (Auto) 70.7 (42.0-72.0) % Lymph % (Auto) 17.4 L (20-44) % Noble % (Auto) 9.7 (0.0-11.0) % Eos % (Auto) 0.9 (0.0-7.0) % Baso % (Auto) 0.6 (0.0-3.0) % Neut # (Auto) 4.75 (1.7-7.0) K/uL Lymph # (Auto) 1.20 (0.90-2.90) K/uL Noble # (Auto) 0.70 (0.00-0.90) K/UL Eos # (Auto) 0.06 (0.00-0.50) K/uL Baso # (Auto) 0.04 (0.00-0.30) K/uL Abs Immat Gran (auto) 0.05 (0.00-0.30) K/uL Imm/Tot Granulo (auto) 0.7 % Sodium 133 L (135-149) mmol/L Potassium 3.8 (3.6-5.1) mmol/L Chloride 98 (96-114) mmol/L Carbon Dioxide 25 (20-32) mmol/L Anion Gap 10 (7-15) mEq/L BUN 17 (7-30) mg/dL Creatinine 1.0 (0.5-1.5) mg/dL Estimated GFR 78 ml/min Glucose 139 H (60-115) mg/dL Calcium 9.2 (8.4-10.6) mg/dL Magnesium 2.2 (1.5-2.6) mg/dL Total Bilirubin 1.2 (0.1-1.5) mg/dL AST 49 H (12-35) U/L ALT 54 H (4-50) U/L Alkaline Phosphatase 63 (40-150) U/L Troponin I < 0.01 (0.01-0.04) ng/mL C-Reactive Protein 7.5 H (0.5-1.0) mg/dL Total Protein 7.8 (6.0-8.3) g/dL Albumin 3.8 (3.3-5.0) g/dL Lipase 127 (23-300) U/L Urine Color Yellow (Yellow) Urine Appearance Clear (Clear) Urine pH 7.0 (5.0-8.5) Ur Specific [place] 1.015 (1.000-1.030) Urine Protein 1+ A (Negative) Urine Glucose (UA) Negative (Negative) Urine Ketones Trace A (Negative) Urine Blood Negative (Negative) Urine Nitrite Negative (Negative) Urine Bilirubin Negative (Negative) Urine Urobilinogen 1.0 (0.2-1.0) Ur Leukocyte Esterase Negative (Negative) Urine RBC 0-2 (0-2) Urine WBC 0-2 (0-5) Ur Squamous Epith Cells Few (None-Few) Urine Bacteria None (None) Imaging Data CT scan - head: Attestation: I have reviewed the pertinent imaging results. Radiologist's impression: 1. No evidence of acute infarction, intracranial hemorrhage, or mass-effect seen. Please note that all CT scans at this facility use dose modulation, iterative reconstruction, and/or weight-based dosing when appropriate to reduce radiation dose to as low as reasonably achievable. Dictated by: Holden Lafleur MD @ 03/03/2025 20:10:12 Ankle x-ray: Attestation: I have reviewed the pertinent imaging results. Radiologist's impression: Bones: No acute fracture. Degenerative changes at the talus. Plantar calcaneal spurring. Calcaneal enthesopathy. Soft tissue calcifications at the plantar aspect of the calcaneus. Diffuse soft tissue swelling. Vascular calcifications in the soft tissues. Dictated by Joesph Diamond MD @ 03/03/2025 8:13:[address] scan abdomen and pelvis: Attestation: I have reviewed the pertinent imaging results. Radiologist's impression: Limited study. No evidence of bowel obstruction. Cardiomegaly. Please note that all CT scans at this facility use dose modulation, iterative reconstruction, and/or weight-based dosing when appropriate to reduce radiation dose to as low as reasonably achievable. Dictated by Dm Carlos MD @ 03/03/2025 8:18:47 PM ECG Data Attestation: I personally reviewed and interpreted this ECG as follows: Prior ECG tracings: available for review Interpretation: Normal sinus rhythm with a rate of 77 beats per minute, normal intervals, normal axis, vice fascicular block, no ST or T-wave abnormalities. Appears similar to previous EKG on file. Discharge Plan Discharge Clinical Impression: Acute alteration in mental status Cellulitis Qualifiers: Site of cellulitis: extremity Site of cellulitis of extremity: lower extremity Laterality: left Qualified Code(s): L03.116 - Cellulitis of left lower limb Patient Disposition: Admitted As Observation Condition: Stable
[2025-03-03 20:01] LABS: Hematocrit* 44.2 % (37.0-53.0); Hemoglobin* 15.0 gm/dL (13.5-17.5); Immature Granulocytes Abs Auto 0.05 K/uL (0.00-0.30); Immature Granulocytes Pct Auto 0.7 %; Mean Corpuscular HGB Conc 34 gm/dL (32-36); Mean Corpuscular Hemoglobin 30 pg (26-34); Mean Corpuscular Volume 90 fL (80-100); RDW Coefficient of Variation % 12.9 % (11.5-15.5); Red Blood Count* 4.94 m/uL (4.30-5.90); White Blood Count* 6.72 K/uL (4.50-11.00)
[2025-03-03 20:16] LABS: Albumin* 3.8 g/dL (3.3-5.0); Chloride* 98 mmol/L (96-114); Potassium* 3.8 mmol/L (3.6-5.1); Sodium* 133 mmol/L (135-149)
[2025-03-03 20:18] LABS: Blood Urea Nitrogen* 17 mg/dL (7-30); Creatinine* 1.0 mg/dL (0.5-1.5); Estimated Glomerular Filt Rate 78 ml/min
[2025-03-03 20:19] LABS: Alanine Aminotransferase* 54 U/L (4-50); Alkaline Phosphatase* 63 U/L (40-150); Anion Gap 10 mEq/L (7-15); Aspartate Amino Transferase* 49 U/L (12-35); Bilirubin Total* 1.2 mg/dL (0.1-1.5); Calcium* 9.2 mg/dL (8.4-10.6); Carbon Dioxide* 25 mmol/L (20-32); Glucose* 139 mg/dL (60-115); Total Protein* 7.8 g/dL (6.0-8.3)
[2025-03-03 20:20] LABS: Lymphocytes Absolute Auto 1.20 K/uL (0.90-2.90); Slide Review Reflex No
[2025-03-03 20:38] LABS: Appearance Urine Clear (Clear)
--- NOTE | 2025-03-03 21:12 | PM.IMHP1 ---
Assessment and Plan Assessment and plan (1) Acute alteration in mental status: Problem comment: -baseline dementia worsened by recent covid encephalopathy, left ankle infection/inflammation, poor intake/weight loss. -monitor and support Status: Acute (2) COVID-19: Problem comment: Jan 2025; took paxlovid -symptoms started in late January with head cold and then weakness and confusion followed. Status: Acute (3) Cellulitis: Problem comment: previously treated with 1x dose of Rocephin and Keflex course. -x-rays neg -CRP and WBC downtrending -Rocephin restarted; consider analysis for crystals or advanced imaging -uric acid pending Status: Acute (4) Dementia: Problem comment: -continue SSRI; trazodone on hold -continue supportive cares Status: Acute (5) Bifascicular block: Problem comment: Neg stress echo- ventricular hypertrophy, cardiology consult 2013. 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 Status: Acute (9) Hearing loss: Problem comment: Hearing aides Status: Acute Hospitalist- H&P: HPI History of Present Illness Date Seen: 03/03/25 Chief complaint: pain in stomach/ weakness Narrative: ADMISSION HISTORY AND PHYSICAL - HOSPITALIST Chief Complaint: Ongoing weakness; recent Covid, left ankle pain, dementia acutely worse; falling at home. HPI: Song was in his usual state of poor but stable health (frontal temporal dementia) until late January 2025. He presented for care 02/19 b/c of a bad head cold (with weakness and confusion) + left ankle pain (no injury) and he was diagnosed with COVID-19 and cellulitis of the left ankle. He was prescribed Paxlovid and Keflex at that ER eval. He went home with his . He also received 1 dose of Rocephin. His was able to care for him but did bring him in to clinic 6 days later on February 26 for a follow-up regarding his ongoing weakness, poor appetite and left ankle pain. At that visit he was given reassurance about COVID-19, told to continue and finish his cephalexin and they increased his Celebrex. His previously elevated WBC was improved. He was then seen today, 03/03 for a previously scheduled annual wellness visit. It was quite obvious though at today's visit that he was still not feeling well. His said that he remains weak, he's had two falls at home, continues to be more confused than baseline, and just not weight-bearing as she would expect given his treatment for the cellulitis. Apparently he did not use a walker prior to the cellulitis in late January and has been completely reliant on a walker since. He is also not drinking/eating normally. Review of data- Prescribed paxlovid on 02/19. Prescribed Keflex after 1 dose of Rocephin as well on 02/19. Chest x-ray was unremarkable and there was no DVT by ultrasound on 02/19. CBC on 02/19 showed an 11.87K white blood cell count with thrombocytopenia and a normal hemoglobin. CRP that day was 25.9. Mild hyponatremia, mild hypokalemia. 02/26, clinic appt; reassurance and Celebrex was increased. CBC had normalized. 03/03: Clinic and ED. Left ankle x-ray shows diffuse soft tissue swelling. No acute fracture. White count was normal both in clinic and here in the ED. ESR this morning was 75 however CRP was down to 7.5. LFTs were drawn for the 1st time in this set of illness. And they are mildly elevated. He has a normal troponin, magnesium and total bilirubin. Head CT is negative. Abdominal pelvic CT was ordered because there was some vague complaints of abdominal pain since he was diagnosed with COVID. This is negative for acute findings as well as lipase is negative. As mentioned above his LFTs are slightly bumped. ER COURSE: xrays, CT head and abd/pelvis, labs. CODE STATUS: DNR DNI PCP: Dinah Kerr M.D. [phone] EMERGENCY CONTACT PLAN: PENNY IRVIN Spouse [phone] I've updated the PFSH, medications and allergies in the Expanse tabs. INVESTIGATIONS: LABS/MICRO/ECG/IMAGING Afebrile. Blood pressure is 143/81 but has been as low as 106/63. Pulse 76. Rest per 16 and unlabored. Pulse ox 97% on room air. Total white blood cell count 6.72. Hemoglobin 15. Platelet count 350. Mildly low sodium at 133. Normal electrolytes, normal renal function with a GFR of 78. Glucose 139. Normal lactate. Normal magnesium. Normal bilirubin. Normal troponin. Mildly elevated AST and ALT. CRP 7.5 down from 25.9. Lipase is normal. Urine is unremarkable today. Blood cultures drawn x2 MRSA screen pending EKG shows known bifascicular block. Normal sinus rhythm. REVIEW OF SYSTEMS: 12-point ROS completed with patient and negative unless otherwise stated in HPI or below. PHYSICAL EXAM: CONSTITUTIONAL: alert; one word answers. pulling at IV, staring up at rocephin hanging. He did read Dr. Muse on the board which suprised me. GENERAL: older than stated age. VITAL SIGNS: see record. HEENT: Sclerae are anicteric. No petechiae. CARDIAC: rhythm is regular. There is no S3 or rub. No harsh murmurs. +symmetrical pulses. ABDOMEN: soft. xiphoid process is prominent. small midline umbilical hernia LEFT LOWER EXTREMITY: red/warm/edema. skin intact. tender to range of motion. NEURO: A brief neurologic exam is negative. SKIN: No rashes, petechiae, concerning changes (other than left ankle) PSYCHIATRIC: Euthymic. ADMIT TO MEDSURG: FLOOR CARE DVT: Lovenox GI: PO intake Time spent: Today I spent 75 minutes seeing the patient, discussing the patient with ER staff, reviewing Expanse and EPIC notes/diagnostics, discussing the care plan with our care time that includes social work, PT/OT, pharmacy, RT, jail and documenting my impressions and plan in the medical record. Medical Decision Making Medical Decision Making Has patient completed a Health Care Directive: Yes [facility] Medical History (Updated 03/03/25 @ 22:13 by Iar Muse MD) COVID-19 ?U07.1 - COVID-19 (ICD-10) Varicose vein of leg ?I83.90 - Asymptomatic varicose veins of unspecified lower extremity (ICD-10) Arthritis ?M19.90 - Unspecified osteoarthritis, unspecified site (ICD-10) Chronic hyponatremia ?E87.1 - Hypo-osmolality and hyponatremia (ICD-10) Insomnia ?G47.00 - Insomnia, unspecified (ICD-10) Osteoporosis ?M81.0 - Age-related osteoporosis without current pathological fracture (ICD-10) GERD with esophagitis ?K21.00 - Gastro-esophageal reflux disease with esophagitis, without bleeding (ICD-10) Left ventricular hypertrophy ?I51.7 - Cardiomegaly (ICD-10) Abnormal echocardiogram ?R93.1 - Abnormal findings on diagnostic imaging of heart and coronary circulation (ICD-10) History of DVT (deep vein thrombosis) ?Z86.718 - Personal history of other venous thrombosis and embolism (ICD-10) Surgical History Status post total knee replacement, left ?Z96.652 - Presence of left artificial knee joint (ICD-10) History of cataract removal with insertion of prosthetic lens ?Z98.49 - Cataract extraction status, unspecified eye (ICD-10) ?Z96.1 - Presence of intraocular lens (ICD-10) History of vasectomy ?Z98.52 - Vasectomy status (ICD-10) History of tonsillectomy and adenoidectomy ?Z90.89 - Acquired absence of other organs (ICD-10) Family History Father Heart disease Myocardial infarction Aunt Alzheimers disease Mother Diabetes Myocardial infarction Social History Narrative: Consumes alcohol occasionally Does not use illicit drugs Former smoker Patient is retired. Lives with his , 2 children and grandkids. What is your current living situation?: I presently have a place to live Problems where you live: no known problems In the past 12 months, utilities in danger of being shut off: no In past 12 months, lack of transportation kept you from medical appts, meetings, work, or getting things needed for daily living: no In the past 12 mos, have been you worried that your food would run out before you had money to buy more?: never true In the past 12 mos, the food you bought just didn't last and you didn't have money to buy more?: never true Smoking Status: Never smoker Do you use any of these nicotine containing products: None Second hand tobacco smoke exposure: No How often do you have a drink containing alcohol: never How often do you have six or more drinks on one occasion: Never AUDIT-C Alcohol total score: 0 Non-prescribed substance use: denies use How often does anyone, including family, friends and others, physically hurt you: never How often does anyone, including family, friends and others, insult or talk down to you: rarely How often does anyone, including family, friends and others, threaten you with harm: never How often does anyone, including family, friends and others, scream or curse at you: rarely service: No Health Related Social Needs: Other personal risk factors, not elsewhere classified (Z91.89) Meds Home Medications and Allergies Home Medications ?Medication ?Instructions ?Recorded ?Confirmed ?Type aspirin 81 mg tablet,delayed 81 mg PO QDAY 10/26/21 03/03/25 History release multivitamin 1 tab PO DAILY 02/03/22 03/03/25 History fish oil-dha-epa 1,200 mg-144 2 cap PO DAILY 05/16/22 03/03/25 History mg-216 mg capsule latanoprost 0.005 % eye drops 1 drp ophthalmic (eye) QPM 02/27/23 03/03/25 History psyllium husk 3.4 gram/5.4 gram 2 tsp PO QHS 02/27/23 03/03/25 History oral powder (Metamucil) citalopram 20 mg tablet 20 mg PO DAILY #90 tabs 07/15/24 03/03/25 Rx trazodone 50 mg tablet 50 mg PO QHS insomnia #90 tabs 10/07/24 03/03/25 Rx tamsulosin 0.4 mg capsule 0.4 mg PO QHS #90 caps 01/28/25 03/03/25 Rx celecoxib 100 mg capsule (Celebrex) 100 mg PO BID #180 caps 02/04/25 03/03/25 Rx simvastatin 40 mg tablet 40 mg PO .QHS #90 tabs 02/13/25 03/03/25 Rx omeprazole 20 mg capsule,delayed 20 mg PO BID PRN gerd #180 caps 02/14/25 03/03/25 Rx release Allergies Allergy/AdvReac Type Severity Reaction Status Date / Time No Known Allergies Allergy Unknown Verified 03/03/25 19:59 Exam Const: Vital Signs, click to edit/add: Vital Signs - 24 hr 03/03/25 16:55 Temperature 97.7 F Pulse Rate [Pulse Oximeter] 76 Respiratory Rate 16 Blood Pressure [Ri ght Upper Arm] 143/81 H Pulse Oximetry 97 Oxygen Delivery Me thod Room Air Hospitalist - H&P: Result Labs Labs: Short CBC 03/03/25 Range/Units 19:25 WBC 6.72 (4.50-11.00) K/uL Hgb 15.0 (13.5-17.5) gm/dL Hct 44.2 (37.0-53.0) % Plt Count 350 (140-440) K/uL BMP 03/03/25 19:25 Sodium 133 L Potassium 3.8 Chloride 98 Carbon Dioxide 25 BUN 17 Creatinine 1.0 Glucose 139 H Calcium 9.2 Cardiac Enzymes 03/03/25 Range/Units 19:25 Troponin I < 0.01 (0.01-0.04) ng/mL Liver Function 03/03/25 Range/Units 19:25 Total Bilirubin 1.2 (0.1-1.5) mg/dL AST 49 H (12-35) U/L ALT 54 H (4-50) U/L Alkaline Phosphatase 63 (40-150) U/L Albumin 3.8 (3.3-5.0) g/dL Urine 03/03/25 Range/Units 20:33 Urine Color Yellow (Yellow) Urine Appearance Clear (Clear) Urine pH 7.0 (5.0-8.5) Ur Specific [place] 1.015 (1.000-1.030) Urine Protein 1+ A (Negative) Urine Glucose (UA) Negative (Negative)
[2025-03-03 21:21] LABS: Lactate Sepsis w/Reflex* 1.1 mmol/L (0.5-1.9)
[2025-03-03] MEDS: cefTRIAXone 1 GM in 0.9 % SODIUM CHLORIDE Mini-bag 100 ML IVPB (21:32)
[2025-03-03] MEDS: MELATONIN 3 MG TABLET 6 MG PO (22:41)
[2025-03-03] MEDS: TAMSULOSIN HCL 0.4 MG CAPSULE PO (22:42)
[2025-03-03] MEDS: ASPIRIN 81 MG TABLET EC PO (22:42)
[2025-03-04] VITALS (7 sets, daily range): BP systolic 108–124; BP diastolic 66–75; PULSE 70–87; RESP 16–18; TEMP 36.3–37.2; O2SAT 93–97; BMI 28.0
--- NOTE | 2025-03-04 05:51 | PC.NURSE ---
Shift note ([id number]): Patient admitted from ED at?2140 accompanied by and son. Pt pleasant, alert and cooperative with cares. Transferred to bedside commode with gait belt and assist of two. Regular diet. Denied pain. Purewick applied and draining clear zach colored urine. Given PRN Melatonin and HS. Slept well.?
[2025-03-04 06:29] LABS: HCO3 VBG 24 mmol/L (21-28); PCO2 VBG 33 mmHG (40-50); PO2 VBG 59.9 mmHG (25-47); pH VBG 7.467 (7.32-7.43)
[2025-03-04 06:37] LABS: Hematocrit* 38.8 % (37.0-53.0); Hemoglobin* 13.0 gm/dL (13.5-17.5); Immature Granulocytes Abs Auto 0.03 K/uL (0.00-0.30); Immature Granulocytes Pct Auto 0.6 %; Mean Corpuscular HGB Conc 34 gm/dL (32-36); Mean Corpuscular Hemoglobin 30 pg (26-34); Mean Corpuscular Volume 90 fL (80-100); RDW Coefficient of Variation % 13.0 % (11.5-15.5); Red Blood Count* 4.31 m/uL (4.30-5.90); White Blood Count* 5.31 K/uL (4.50-11.00)
[2025-03-04 06:41] LABS: Lymphocytes Absolute Auto 1.00 K/uL (0.90-2.90); Slide Review Reflex No
[2025-03-04 06:51] LABS: Chloride* 101 mmol/L (96-114); Sodium* 132 mmol/L (135-149)
[2025-03-04 06:52] LABS: Albumin* 3.2 g/dL (3.3-5.0); Potassium* 4.2 mmol/L (3.6-5.1)
[2025-03-04 06:55] LABS: Alanine Aminotransferase* 45 U/L (4-50); Alkaline Phosphatase* 59 U/L (40-150); Anion Gap 8 mEq/L (7-15); Aspartate Amino Transferase* 39 U/L (12-35); Bilirubin Direct* 0.3 mg/dL (0.0-0.5); Bilirubin Total* 0.7 mg/dL (0.1-1.5); Blood Urea Nitrogen* 17 mg/dL (7-30); Calcium* 8.5 mg/dL (8.4-10.6); Carbon Dioxide* 23 mmol/L (20-32); Creatinine* 0.9 mg/dL (0.5-1.5); Est. Creatinine Clearance* 57.60; Estimated Glomerular Filt Rate 89 ml/min; Glucose* 122 mg/dL (60-115); Total Protein* 6.6 g/dL (6.0-8.3)
[2025-03-04 07:05] LABS: NT Pro B Type NatriureticPept* 68 pg/mL (See Note)
--- NOTE | 2025-03-04 07:55 | CRLHL7_ITS ---
For Patients: As a result of the 21st Century Cures Act, medical imaging exams and procedure reports are released immediately into your electronic medical record. You may view this report before your referring provider. If you have questions, please contact your health care provider. CLINICAL INDICATION: Left ankle pain and swelling. COMPARISON IMAGING STUDIES: Radiographs from 03/03/2025. TECHNICAL: Non-contrast MR of the left ankle. Axial and coronal proton density and proton density fat sat images were acquired. The patient was unable to complete the entire examination and no sagittal images were obtained. 1.5 [facility] MR scanner. FINDINGS: Examination is limited by the absence of sagittal images secondary to patient inability to complete the examination. OSSEOUS STRUCTURES: There is bone marrow edema within the lateral malleolus, medial malleolus, talus and calcaneus. No acute fracture. There is a chronic ossicle noted along the dorsal aspect of the talar head correlating with that seen radiographically. JOINT SPACES: Moderate to large ankle joint effusion. Areas of periarticular bone marrow edema. Apparent erosion of the lateral talar dome. Moderate to large posterior subtalar joint effusion with periarticular bone marrow edema and apparent erosive change. These findings could relate to inflammatory arthropathy, crystalline arthropathy (such as gout or pseudogout) or infection. Joint spaces within the midfoot, at the midfoot-hindfoot and midfoot-forefoot junction are maintained. LIGAMENTS: Syndesmotic Ligaments: The anterior and posterior syndesmotic ligaments are intact. Lateral Ligaments: The anterior talofibular, calcaneofibular and posterior talofibular ligaments are intact. Medial Ligaments: The superficial and deep components of the deltoid ligament complex are maintained. Spring Ligaments: There is some attenuation of the superomedial component of the calcaneonavicular spring ligament. Lisfranc ligament complex: Intact. TENDONS: Flexor Tendons: There is high-grade tearing of the posterior tibial tendon with near-complete tearing of the tendon as it passes posterior to the medial malleolus. The flexor digitorum longus and flexor hallucis longus tendons are intact. There is a smaller fluid within their tendon Extensor Tendons: Sheaths. Intact. Achilles Tendon: Mild Achilles tendinosis without tendon tear. Peroneal Tendons: Peroneus longus tendon is intact. There is high-grade partial tearing of the peroneus brevis tendon. TARSAL TUNNEL: No mass within the tarsal tunnel. SINUS TARSI: There is edema within the sinus tarsi. PLANTAR SOFT TISSUES: Abnormal plantar fascia with both thickening and partial tearing. OTHER FINDINGS: Diffuse soft tissue edema. No subcutaneous collection. IMPRESSION: 1. Examination limited as patient was unable to complete the entire examination and no sagittal images were obtained. 2. Ankle and posterior subtalar joint effusions with periarticular bone marrow edema and erosive change. This could relate to inflammatory arthropathy, crystalline arthropathy (such as gout or pseudogout) or infection. 3. Diffuse soft tissue edema without subcutaneous collection. 4. High-grade posterior tibial tendon tearing. 5. High-grade peroneus brevis tendon tearing. 6. Other findings as detailed above. Dictated by Osman Kimbrough MD @ 03/04/2025 1:32:19 PM (Electronically Signed)
[2025-03-04] MEDS: ASPIRIN 81 MG TABLET EC PO (08:26)
[2025-03-04] MEDS: CITALOPRAM HYDROBROMIDE 20 MG TABLET PO (08:26)
[2025-03-04] MEDS: cefTRIAXone 1 GM in 0.9 % SODIUM CHLORIDE Mini-bag 100 ML IVPB (08:27)
--- NOTE | 2025-03-04 11:11 | PC.SOCIAL ---
Addendum entered by MEDINA Trejo 03/04/25 15:50: Discharge planning: idea worker found out later in the afternoon today that the pt will be staying in the hospital again tonight for further work up on his ankle. idea worker notified the pt's who was thankful for the call. Pt's is still planning to come up to the hospital tonight to visit. Social work to follow-up as needed. Addendum entered by MEDINA Trejo 03/04/25 11:48: Discharge planning: This social work associate submitted a referral to [facility] today. Confirmation number [id number]. Social work to follow-up as needed. Addendum entered by MEDINA Trejo 03/04/25 11:36: Discharge planning: idea worker spoke with pt's , Clara, on the phone shortly after leaving her a message. She states that it is getting harder to take care of the pt at home with his Dimentia. Clara states there are two stairs to get into the house and seven stairs to get up to the second floor of the house and that is the biggest issue for the pt. Pt's adult daughter, Sarika, and adult grandson, Nadeem, are helpful at home per Clara. Clara asked about information on how to get her grandson, Nadeem, to be able to be a RV BODY MECHANIC for the pt. idea worker explained the [facility] waiver application process. idea worker will print a blank application for the family to take with them when the pt discharges. idea worker will also make a referral to [facility] to help the family with navigating resources and services in the home for the pt. Social work to follow-up as needed. Original Note: Discharge planning: idea worker met with pt and his sister, Ugo. Pt could not answer questions about how he is doing at home and his sister really couldn't either. Pt's sister did says that the pt lives with his , adult daughter, Sarika, and his grandson, Nadeem. This worker is not sure how old Nadeem is, but he is listed as a contact on the pt's chart. idea worker tried calling pt's , Clara, but had to leave a message. idea worker asked for a call back. Social work to follow-up as needed.
--- NOTE | 2025-03-04 14:48 | PC.NURSE ---
End of shift. pt has been pleasant but sadly she has dementia. she is eating, drinking and voiding. she is up with 1 assist walker and GB. SL is patent.
--- NOTE | 2025-03-04 14:54 | PC.NURSE ---
End of shift. pt has been pleasant but sadly he has dementia. he is eating, drinking and voiding. he is up with 1 assist walker and GB. IV is patent and later he was SL. he had a MRI today.
--- NOTE | 2025-03-04 15:22 | P.IMPN_ITS ---
Assessment and Plan Assessment and plan (1) Ankle pain: Problem comment: Appears to have probable acute and chronic ankle pain. MRI showing tendon tears and joint effusion. Will likely need aspiration of his joint looking for infection or crystals. Consult Ortho/podiatry. Status: Acute (2) Weakness: Problem comment: According to his the weakness is relatively recent. Up until 2 weeks ago he was walking independently. Now needing a walker. He seemed to be doing fairly well prior to onset of COVID about 2 weeks ago. Has not recovered very well since then. Therapy to evaluate. Pending consultation from Ortho/podiatry regarding management of ankle problems Status: Acute (3) Dementia: Problem comment: Moderately severe. According to his he was fairly functional at home until 2 weeks ago. Status: Acute (4) History of prostate cancer: Problem comment: Stage IIC (cT1c, cN0, cM0, PSA: 5.1, Grade Group: 3) [place] 4 + 3 adenocarcinoma of the prostate 2019- completed radiotherapy with short course of androgen deprivation therapy 2018. Status: Acute (5) COVID-19: Problem comment: Feb 19, 2025; took paxlovid. Respiratory symptoms got better but weakness and confusion are persisting Status: Acute Plan Continue in hospital for ongoing evaluation of his ankle problems as well as functional status. Total Time Spent Total Time Spent: Total time spent today is 55 minutes in reviewing outside records, coordination of care, discussion with patient's and other providers ongoing evaluation and management of weakness, dementia, multiple ankle problems Subjective Date Seen: 03/04/25 Interval history: Song was in his usual state of poor but stable health (frontal temporal dementia) until late January 2025. He presented for care 02/19 b/c of a bad head cold (with weakness and confusion) + left ankle pain (no injury) and he was diagnosed with COVID-19 and cellulitis of the left ankle. He was prescribed Paxlovid and Keflex at that ER eval. He went home with his . He also received 1 dose of Rocephin. His was able to care for him but did bring him in to clinic 6 days later on February 26 for a follow-up regarding his ongoing weakness, poor appetite and left ankle pain. At that visit he was given reassurance about COVID-19, told to continue and finish his cephalexin and they increased his Celebrex. His previously elevated WBC was improved. He was then seen today, 03/03 for a previously scheduled annual wellness visit. It was quite obvious though at today's visit that he was still not feeling well. His said that he remains weak, he's had two falls at home, continues to be more confused than baseline, and just not weight-bearing as she would expect given his treatment for the cellulitis. Apparently he did not use a walker prior to the cellulitis in late January and has been completely reliant on a walker since. He is also not drinking/eating normally. Review of data- Prescribed paxlovid on 02/19. Prescribed Keflex after 1 dose of Rocephin as well on 02/19. Finished Paxlovid and Keflex about a week ago. Chest x-ray was unremarkable and there was no DVT by ultrasound on 02/19. CBC on 02/19 showed an 11.87K white blood cell count with thrombocytopenia and a normal hemoglobin. CRP that day was 25.9. Mild hyponatremia, mild hypokalemia. 02/26, clinic appt; reassurance and Celebrex was increased. CBC had normalized. 03/03: Clinic and ED. Left ankle x-ray shows diffuse soft tissue swelling. No acute fracture. White count was normal both in clinic and here in the ED. ESR this morning was 75 however CRP was down to 7.5. LFTs were drawn for the 1st time in this set of illness. And they are mildly elevated. He has a normal troponin, magnesium and total bilirubin. Head CT is negative. Abdominal pelvic CT was ordered because there was some vague complaints of abdominal pain since he was diagnosed with COVID. This is negative for acute findings as well as lipase is negative. As mentioned above his LFTs are slightly bumped. 03/04/2025: Patient is not oriented to his circumstances. He has no complaints today. Therapy notes he walks with some pain on in his left ankle. Exam Narrative: Exam Narrative: He is alert and appears in no distress. He is confused. Pleasant and cooperative. Respirations are clear to auscultation. Cardiovascular: S1, S2, regular rate and rhythm. Abdomen: Bowel sounds active. Abdomen is soft without tenderness or mass. Extremities notable for moderate left ankle area generalized swelling with mild erythema. No significant tenderness with palpation. He has limited range of motion in that left ankle but does not appear to have significant pain with attempts at passive range of motion. He does have an intact pedal pulses. Capillary refill. Const: Vital Signs, click to edit/add: Vital Signs - 24 hr 03/03/25 16:55 03/03/25 20:16 03/03/25 20:30 Temperature 97.7 F Pulse Rate 75 Pulse Rate [Pulse Oximeter] 76 Respiratory Rate 16 20 25 H Blood Pressure Blood Pressure [Le ft Arm] Blood Pressure [Ri ght Upper Arm] 143/81 H Pulse Oximetry 97 98 Oxygen Delivery Me thod Room Air 03/03/25 20:33 03/03/25 20:45 03/03/25 21:00 Temperature Pulse Rate 92 82 81 Pulse Rate [Pulse Oximeter] Respiratory Rate 28 H 17 26 H Blood Pressure 117/99 H Blood Pressure [Le ft Arm] Blood Pressure [Ri ght Upper Arm] Pulse Oximetry 96 95 94 Oxygen Delivery Me thod 03/03/25 21:02 03/03/25 21:15 03/03/25 21:30 Temperature Pulse Rate 83 Pulse Rate [Pulse Oximeter] Respiratory Rate 35 H 22 19 Blood Pressure 126/73 Blood Pressure [Le ft Arm] Blood Pressure [Ri ght Upper Arm] Pulse Oximetry 95 Oxygen Delivery Me thod 03/03/25 21:53 03/03/25 21:53 03/04/25 02:47 Temperature 99.0 F 98.1 F Pulse Rate Pulse Rate [Pulse Oximeter] 84 83 Respiratory Rate 16 18 Blood Pressure Blood Pressure [Le ft Arm] 121/79 108/66 Blood Pressure [Ri ght Upper Arm] Pulse Oximetry 99 99 96 Oxygen Delivery Me thod Room Air Room Air Room Air 03/04/25 07:51 03/04/25 07:54 03/04/25 11:15 Temperature 97.9 F 97.4 F L Pulse Rate Pulse Rate [Pulse Oximeter] 80 80 70 Respiratory Rate 18 18 16 Blood Pressure Blood Pressure [Le ft Arm] 124/73 115/69 Blood Pressure [Ri ght Upper Arm] Pulse Oximetry 96 95 Oxygen Delivery Me thod Room Air Room Air Labs Labs: Laboratory Results - last 24 hr 03/03/25 03/03/25 03/03/25 19:25 20:33 21:10 WBC 6.72 RBC 4.94 Hgb 15.0 Hct 44.2 MCV 90 MCH 30 MCHC 34 RDW Coeff of Monse 12.9 Plt Count 350 Neut % (Auto) 70.7 Lymph % (Auto) 17.4 L [place] % (Auto) 9.7 Eos % (Auto) 0.9 Baso % (Auto) 0.6 Neut # (Auto) 4.75 Lymph # (Auto) 1.20 [place] # (Auto) 0.70 Eos # (Auto) 0.06 Baso # (Auto) 0.04 Abs Immat Gran (auto) 0.05 Imm/Tot Granulo (auto) 0.7 VBG pH VBG pCO2 VBG pO2 VBG HCO3 Sodium 133 L Potassium 3.8 Chloride 98 Carbon Dioxide 25 Anion Gap 10 BUN 17 Creatinine 1.0 Estimated Creat Clear Estimated GFR 78 Glucose 139 H Lactate 1.1 Uric Acid 4.1 Calcium 9.2 Phosphorus Magnesium 2.2 Total Bilirubin 1.2 Direct Bilirubin AST 49 H ALT 54 H Alkaline Phosphatase 63 Troponin I < 0.01 C-Reactive Protein 7.5 H NT-Pro-B Natriuret Pep Total Protein 7.8 Albumin 3.8 Lipase 127 TSH Urine Color Yellow Urine Appearance Clear Urine pH 7.0 Ur Specific [place] 1.015 Urine Protein 1+ A Urine Glucose (UA) Negative Urine Ketones Trace A Urine Blood Negative Urine Nitrite Negative Urine Bilirubin Negative Urine Urobilinogen 1.0 Ur Leukocyte Esterase Negative Urine RBC 0-2 Urine WBC 0-2 Ur Squamous Epith Cells Few Urine Bacteria None Lab Acknowledgement 03/03/25 03/04/25 21:57 05:35 WBC 5.31 RBC 4.31 Hgb 13.0 L Hct 38.8 MCV 90 MCH 30 MCHC 34 RDW Coeff of Monse 13.0 Plt Count 344 Neut % (Auto) 64.2 Lymph % (Auto) 19.6 L [place] % (Auto) 12.4 H Eos % (Auto) 1.9 Baso % (Auto) 1.3 Neut # (Auto) 3.41 Lymph # (Auto) 1.00 [place] # (Auto) 0.70 Eos # (Auto) 0.10 Baso # (Auto) 0.07 Abs Immat Gran (auto) 0.03 Imm/Tot Granulo (auto) 0.6 VBG pH 7.467 H VBG pCO2 33 L VBG pO2 59.9 H VBG HCO3 24 Sodium 132 L Potassium 4.2 Chloride 101 Carbon Dioxide 23 Anion Gap 8 BUN 17 Creatinine 0.9 Estimated Creat Clear 57.60 Estimated GFR 89 Glucose 122 H Lactate Uric Acid Calcium 8.5 Phosphorus 4.8 H Magnesium Total Bilirubin 0.7 Direct Bilirubin 0.3 AST 39 H ALT 45 Alkaline Phosphatase 59 Troponin I C-Reactive Protein 7.2 H NT-Pro-B Natriuret Pep 68 Total Protein 6.6 Albumin 3.2 L Lipase TSH 2.010 Urine Color Urine Appearance Urine pH Ur Specific [place] Urine Protein Urine Glucose (UA) Urine Ketones Urine Blood Urine Nitrite Urine Bilirubin Urine Urobilinogen Ur Leukocyte Esterase Urine RBC Urine WBC Ur Squamous Epith Cells Urine Bacteria Lab Acknowledgement Test Added Imaging MRI ankle: Radiologist's impression: CLINICAL INDICATION: Left ankle pain and swelling. COMPARISON IMAGING STUDIES: Radiographs from 03/03/2025. TECHNICAL: Non-contrast MR of the left ankle. Axial and coronal proton density and proton density fat sat images were acquired. The patient was unable to complete the entire examination and no sagittal images were obtained. 1.5 [facility] MR scanner. FINDINGS: Examination is limited by the absence of sagittal images secondary to patient inability to complete the examination. OSSEOUS STRUCTURES: There is bone marrow edema within the lateral malleolus, medial malleolus, talus and calcaneus. No acute fracture. There is a chronic ossicle noted along the dorsal aspect of the talar head correlating with that seen radiographically. JOINT SPACES: Moderate to large ankle joint effusion. Areas of periarticular bone marrow edema. Apparent erosion of the lateral talar dome. Moderate to large posterior subtalar joint effusion with periarticular bone marrow edema and apparent erosive change. These findings could relate to inflammatory arthropathy, crystalline arthropathy (such as gout or pseudogout) or infection. Joint spaces within the midfoot, at the midfoot-hindfoot and midfoot-forefoot junction are maintained. LIGAMENTS: Syndesmotic Ligaments: The anterior and posterior syndesmotic ligaments are intact. Lateral Ligaments: The anterior talofibular, calcaneofibular and posterior talofibular ligaments are intact. Medial Ligaments: The superficial and deep components of the deltoid ligament complex are maintained. Spring Ligaments: There is some attenuation of the superomedial component of the calcaneonavicular spring ligament. Lisfranc ligament complex: Intact. TENDONS: Flexor Tendons: There is high-grade tearing of the posterior tibial tendon with near-complete tearing of the tendon as it passes posterior to the medial malleolus. The flexor digitorum longus and flexor hallucis longus tendons are intact. There is a smaller fluid within their tendon Extensor Tendons: Sheaths. Intact. Achilles Tendon: Mild Achilles tendinosis without tendon tear. Peroneal Tendons: Peroneus longus tendon is intact. There is high-grade partial tearing of the peroneus brevis tendon. TARSAL TUNNEL: No mass within the tarsal tunnel. SINUS TARSI: There is edema within the sinus tarsi. PLANTAR SOFT TISSUES: Abnormal plantar fascia with both thickening and partial tearing. OTHER FINDINGS: Diffuse soft tissue edema. No subcutaneous collection. IMPRESSION: 1. Examination limited as patient was unable to complete the entire examination and no sagittal images were obtained. 2. Ankle and posterior subtalar joint effusions with periarticular bone marrow edema and erosive change. This could relate to inflammatory arthropathy, crystalline arthropathy (such as gout or pseudogout) or infection. 3. Diffuse soft tissue edema without subcutaneous collection. 4. High-grade posterior tibial tendon tearing. 5. High-grade peroneus brevis tendon tearing. 6. Other findings as detailed above.
--- NOTE | 2025-03-04 17:33 | P.PODCN_ITS ---
HPI - Podiatry Data of Consult Date Seen: 03/04/25 Requesting physician: Ira Muse MD Primary care provider: Dinah Kerr MD Consult Narrative Narrative: Dick Sigala is a 74 year old male with PMH of dementia that was admitted for severe left ankle pain. History obtained via patient's . She states that the ankle pain has been present for months. The family reports that the patient has visited the doctor at least two or three times previously for this complaint, with x-rays performed showing arthritis. They note that the patient does not typically complain about pain, making this complaint particularly significant. The patient is not walking normally on the affected ankle. The ankle pain is located on the outside of the left ankle and has been present for several months without any identifiable precipitating injury, change in activity, or shoe gear modification. There was no specific onset event reported. The patient recently had COVID two weeks prior to this visit and completed Paxlovid treatment one week ago. Concurrently with the COVID infection, the patient developed cellulitis in the same leg, causing significant swelling described as huge by family members. The swelling has decreased since the acute cellulitis but has not completely resolved. Review of systems is negative for recent urinary tract infections and dental abscesses or recent dental work. The patient has hearing difficulties and dementia, which limits their ability to provide detailed historical information. Past Medical History: - Arthritis (per previous x-ray findings) - Recent COVID infection (two weeks prior) - Recent cellulitis of left lower extremity Social History: - Lives with family support - Hearing impairment - Dementia affecting communication cc:: CC: Ira Muse MD [facility] Medical History (Updated 03/04/25 @ 19:04 by Marv Bland DPM) Ankle pain ?M25.579 - Pain in unspecified ankle and joints of unspecified foot (ICD-10) COVID-19 ?U07.1 - COVID-19 (ICD-10) Varicose vein of leg ?I83.90 - Asymptomatic varicose veins of unspecified lower extremity (ICD-10) Arthritis ?M19.90 - Unspecified osteoarthritis, unspecified site (ICD-10) Chronic hyponatremia ?E87.1 - Hypo-osmolality and hyponatremia (ICD-10) Insomnia ?G47.00 - Insomnia, unspecified (ICD-10) Osteoporosis ?M81.0 - Age-related osteoporosis without current pathological fracture (ICD- 10) GERD with esophagitis ?K21.00 - Gastro-esophageal reflux disease with esophagitis, without bleeding (ICD-10) Left ventricular hypertrophy ?I51.7 - Cardiomegaly (ICD-10) Abnormal echocardiogram ?R93.1 - Abnormal findings on diagnostic imaging of heart and coronary circulation (ICD-10) History of DVT (deep vein thrombosis) ?Z86.718 - Personal history of other venous thrombosis and embolism (ICD-10) Surgical History Status post total knee replacement, left ?Z96.652 - Presence of left artificial knee joint (ICD-10) History of cataract removal with insertion of prosthetic lens ?Z98.49 - Cataract extraction status, unspecified eye (ICD-10) ?Z96.1 - Presence of intraocular lens (ICD-10) History of vasectomy ?Z98.52 - Vasectomy status (ICD-10) History of tonsillectomy and adenoidectomy ?Z90.89 - Acquired absence of other organs (ICD-10) Family History Father Heart disease Myocardial infarction Aunt Alzheimers disease Mother Diabetes Myocardial infarction Social History Narrative: Consumes alcohol occasionally Does not use illicit drugs Former smoker Patient is retired. Lives with his , 2 children and grandkids. What is your current living situation?: unable to answer Problems where you live: unable to answer Problems where you live details: n/a In the past 12 months, utilities in danger of being shut off: unable to answer In past 12 months, lack of transportation kept you from medical appts, meetings, work, or getting things needed for daily living: unable to answer In the past 12 mos, have been you worried that your food would run out before you had money to buy more?: unable to answer In the past 12 mos, the food you bought just didn't last and you didn't have money to buy more?: unable to answer Smoking Status: Never smoker Do you use any of these nicotine containing products: None Second hand tobacco smoke exposure: No How often do you have a drink containing alcohol: monthly or less How often do you have six or more drinks on one occasion: Never AUDIT-C Alcohol total score: 1 Non-prescribed substance use: denies use How often does anyone, including family, friends and others, physically hurt you : unable to answer How often does anyone, including family, friends and others, insult or talk down to you: unable to answer How often does anyone, including family, friends and others, threaten you with harm: unable to answer How often does anyone, including family, friends and others, scream or curse at you: unable to answer service: No Exam Narrative: Exam Narrative: General Appearance: Patient cooperative with examination, hearing impaired, with known dementia affecting communication ability. Integument: Increased swelling and redness noted to the left leg compared to the right. Hyperkeratotic lesion noted to the distal tip of the second toe on the right foot. No open wounds appreciated to the LLE. Vascular: Palpable dorsalis pedis pulses bilateral. Palpable posterior tibial pulses bilateral. Neurological: Patient able to feel light touch to bilateral feet when tested. Musculoskeletal: Contractures noted to digits two through five bilateral. Limited passive range of motion to the left ankle joint. Pain with palpation along the peroneal tendons on the left foot. Mild pain with palpation along the posterior tibial and peroneal tendons, left. Pain with palpation to the anterior medial ankle joint gutter on the left side. The left foot demonstrates decreased passive ROM left ankle compared to the contralateral foot. Radiology: MRI Left Ankle: 1. Examination limited as patient was unable to complete the entire examination and no sagittal images were obtained. 2. Ankle and posterior subtalar joint ef fusions with periarticular bone marrow edema and erosive change. This could relate to inflammatory arthropathy, crystalline arthropathy (such as gout or pseudogout) or infection. 3. Diffuse soft tissue edema without sub cutaneous collection. 4. High-grade posterior tibial tendon te aring. 5. High-grade peroneus brevis tendon tea ring. 6. Other findings as detailed above. Const: Vital Signs, click to edit/add: Vital Signs - 24 hr 03/03/25 20:16 03/03/25 20:30 03/03/25 20:33 Temperature Pulse Rate 75 92 Pulse Rate [Pulse Oximeter] Respiratory Rate 20 25 H 28 H Blood Pressure 117/99 H Blood Pressure [Le ft Arm] Pulse Oximetry 98 96 Oxygen Delivery Me thod 03/03/25 20:45 03/03/25 21:00 03/03/25 21:02 Temperature Pulse Rate 82 81 83 Pulse Rate [Pulse Oximeter] Respiratory Rate 17 26 H 35 H Blood Pressure 126/73 Blood Pressure [Le ft Arm] Pulse Oximetry 95 94 95 Oxygen Delivery Me thod 03/03/25 21:15 03/03/25 21:30 03/03/25 21:53 Temperature 99.0 F Pulse Rate Pulse Rate [Pulse Oximeter] 84 Respiratory Rate 22 19 16 Blood Pressure Blood Pressure [Le ft Arm] 121/79 Pulse Oximetry 99 Oxygen Delivery Me thod Room Air 03/03/25 21:53 03/04/25 02:47 03/04/25 07:51 Temperature 98.1 F 97.9 F Pulse Rate Pulse Rate [Pulse Oximeter] 83 80 Respiratory Rate 18 18 Blood Pressure Blood Pressure [Le ft Arm] 108/66 124/73 Pulse Oximetry 99 96 96 Oxygen Delivery Me thod Room Air Room Air Room Air 03/04/25 07:54 03/04/25 11:15 03/04/25 15:45 Temperature 97.4 F L Pulse Rate Pulse Rate [Pulse Oximeter] 80 70 80 Respiratory Rate 18 16 18 Blood Pressure Blood Pressure [Le ft Arm] 115/69 Pulse Oximetry 95 Oxygen Delivery Me thod Room Air 03/04/25 15:45 Temperature 98.2 F Pulse Rate Pulse Rate [Pulse Oximeter] 80 Respiratory Rate 18 Blood Pressure Blood Pressure [Le ft Arm] 123/66 Pulse Oximetry 93 Oxygen Delivery Me thod Room Air Assessment and Plan Assessment and plan (1) Synovitis of left ankle: Status: Acute (2) Left ankle pain: Status: Acute Plan 1. Left ankle joint effusion with suspected septic arthritis versus inflammatory arthropathy - Supporting findings: - Months of ankle pain in patient who typically does not complain - Recent history of cellulitis in same extremity (no current leukocytosis) - Recent COVID infection (may explain elevated CRP) - Physical examination revealing swelling, erythema, and tenderness - MRI evidence of joint effusion - Joint aspiration yielding sanguinous fluid with precipitate - Differential diagnoses: Septic arthritis, crystal arthropathy (gout/pseudogout), inflammatory arthritis, post-infectious reactive arthritis In order to better determine cause of pain and synovitis of the ankle, recommend joint aspiration with fluid analysis. This analysis will include crystal analysis to evaluate for gout or pseudogout, bacterial culture and sensitivity testing, and cytology with cell count and differential. The results of these analyses will guide further treatment decisions. Should this represent septic arthritis, discussed the need for arthrscopic debridement. If this represents inflammatory synovitis, will treat conservatively with a CAM boot and possible outpatient injection. In the meantime, the patient will be monitored for any changes in the condition of the left ankle, with particular attention to signs of infection or worsening symptoms. PROCEDURE: After obtaining consent from patient's guardian (his ), a TIME-OUT was performed to confirm correct procedure and laterality (Left ankle joint aspiration). Joint aspiration of the left ankle was performed under sterile technique using betadine preparation cleansed with isopropyl alcohol. Utilizing a 16-gauge needle, the left ankle joint was aspirated from a anteromedial approach yielding approximately 3 ccs of sanguinous joint aspirate with evidence of precipitate noted. Total Time Spent Total Time Spent: 60 minutes Nail Debridement Qualifies If: Qualifiers If:: A patient qualifies for nail debridement if they have: 1 class A finding (Q7) 2 class B findings (Q8) OR 1 class B & 2 class C findings in addition to a primary condition (Q9)
[2025-03-04] MEDS: MELATONIN 3 MG TABLET 6 MG PO (18:23)
[2025-03-04 18:49] LABS: Mononuclear WBC Body Fluid* 2 %; Polynuclear WBC Body Fluid* 98 %; RBC, Body Fluid* 261000 Cells/uL; WBC, Body Fluid* 18248 Cells/uL
--- NOTE | 2025-03-04 19:03 | PC.NURSE ---
Nursing Care Hours: [id number] Pt this shift calm and cooperative, alert and oriented to self. Denies pain. Left leg is more swollen than right and slight redness noted proximal to ankle and more prominent on medial ankle. Joint aspiration done in the room, repairer typewriter assist. Sent sample to lab. Dr and repairer typewriter worked together to get orders put in. Pt independent with BR cares. Cream applied to glutes for redness. VSS. Pt requested melatonin for sleep.
[2025-03-04 19:12] LABS: BF Total Volume* 1.5
[2025-03-04 19:13] LABS: BF Clarity* Cloudy
[2025-03-04] MEDS: ENOXAPARIN 40 MG/0.4 ML INJ SUBCUT (20:33)
[2025-03-04] MEDS: LATANOPROST 0.005% OPHTH 1 DROP EYE-BOTH (20:34)
[2025-03-04] MEDS: SODIUM CHLORIDE 0.9 % (FLUSH) 10 ML SYRINGE 5 ML IVF (20:34)
[2025-03-04] MEDS: TAMSULOSIN HCL 0.4 MG CAPSULE PO (20:34)
[2025-03-05] VITALS (8 sets, daily range): BP systolic 107–121; BP diastolic 68–78; PULSE 70–96; RESP 14–18; TEMP 36.2–37.2; O2SAT 95–99; BMI 27.6
--- NOTE | 2025-03-05 06:05 | PC.NURSE ---
End of shift note 243? Patient has been pleasant and cooperative throughout shift. VSS. Afebrile. Patient is very soft spoken. Purewick in place. A&O to self only. Unclear if patient know how to utilize call light appropriately. Hourly checks done through shift. Mobility 1 assist. Call light within reach.?
[2025-03-05] MEDS: CITALOPRAM HYDROBROMIDE 20 MG TABLET PO (10:01)
[2025-03-05] MEDS: cefTRIAXone 1 GM in 0.9 % SODIUM CHLORIDE Mini-bag 100 ML IVPB (10:01)
[2025-03-05] MEDS: CELECOXIB 200 MG CAPSULE PO (10:01)
[2025-03-05] MEDS: ASPIRIN 81 MG TABLET EC PO (10:01)
[2025-03-05] MEDS: SODIUM CHLORIDE 0.9 % (FLUSH) 10 ML SYRINGE 5 ML IVF (10:02)
--- NOTE | 2025-03-05 13:54 | PM.IMPN1 ---
Assessment and Plan Assessment and plan (1) Synovitis of left ankle: Problem comment: Possibly this is an improving acute monoarticular arthritis such as septic arthritis or crystalline arthropathy. Has been treated for gout and infection with Keflex. Cultures and crystals are pending. Status: Acute (2) Left ankle pain: Problem comment: Pain swelling and ambulation all getting better Status: Acute (3) Tibialis posterior tendon tear, nontraumatic: Problem comment: MRI from 03/04/2025: Also peroneus brevis tendon tear. Unknown duration or cause of injury Status: Acute (4) Cellulitis: Problem comment: previously treated with 1x dose of Rocephin and Keflex course. -x-rays neg -CRP and WBC downtrending -Rocephin restarted; consider analysis for crystals or advanced imaging -uric acid pending Status: Acute (5) Weakness: Problem comment: According to his the weakness is relatively recent. Up until 2 weeks ago he was walking independently. Now needing a walker. He seemed to be doing fairly well prior to onset of COVID about 2 weeks ago. Has not recovered very well since then. Therapy to evaluate. Mobility appears to be improving. Status: Acute Plan 74-year-old male with advanced dementia admitted to the hospital with possible septic arthritis of the left ankle associated with immobility and pain. This is possibly a partially treated infection or could also possibly be and improving crystalline arthropathy. Admit pending cultures and crystal results. Ongoing IV antibiotics and treatment with therapy Total Time Spent Total Time Spent: Total time spent today is 45 minutes in coordination of care and discussing with patient's and other providers ongoing management of ankle problems Subjective Date Seen: 03/05/25 Interval history: Song was in his usual state of poor but stable health (frontal temporal dementia) until late January 2025. He presented for care 02/19 b/c of a bad head cold (with weakness and confusion) + left ankle pain (no injury) and he was diagnosed with COVID-19 and cellulitis of the left ankle. He was prescribed Paxlovid and Keflex at that ER eval. He went home with his . He also received 1 dose of Rocephin. His was able to care for him but did bring him in to clinic 6 days later on February 26 for a follow-up regarding his ongoing weakness, poor appetite and left ankle pain. At that visit he was given reassurance about COVID-19, told to continue and finish his cephalexin and they increased his Celebrex. His previously elevated WBC was improved. He was then seen today, 03/03 for a previously scheduled annual wellness visit. It was quite obvious though at today's visit that he was still not feeling well. His said that he remains weak, he's had two falls at home, continues to be more confused than baseline, and just not weight-bearing as she would expect given his treatment for the cellulitis. Apparently he did not use a walker prior to the cellulitis in late January and has been completely reliant on a walker since. He is also not drinking/eating normally. Review of data- Prescribed paxlovid on 02/19. Prescribed Keflex after 1 dose of Rocephin as well on 02/19. Finished Paxlovid and Keflex about a week ago. Chest x-ray was unremarkable and there was no DVT by ultrasound on 02/19. CBC on 02/19 showed an 11.87K white blood cell count with thrombocytopenia and a normal hemoglobin. CRP that day was 25.9. Mild hyponatremia, mild hypokalemia. 02/26, clinic appt; reassurance and Celebrex was increased. CBC had normalized. 03/03: Clinic and ED. Left ankle x-ray shows diffuse soft tissue swelling. No acute fracture. White count was normal both in clinic and here in the ED. ESR this morning was 75 however CRP was down to 7.5. LFTs were drawn for the 1st time in this set of illness. And they are mildly elevated. He has a normal troponin, magnesium and total bilirubin. Head CT is negative. Abdominal pelvic CT was ordered because there was some vague complaints of abdominal pain since he was diagnosed with COVID. This is negative for acute findings as well as lipase is negative. As mentioned above his LFTs are slightly bumped. 03/04/2025: Patient is not oriented to his circumstances. He has no complaints today. Therapy notes he walks with some pain on in his left ankle. MRI ankle obtained as noted . Podiatry consulted recommending cam walker boot and aspiration of ankle fluid. Results noted. G stain negative for bacteria. Primarily red cells but also moderate leukocytosis. 03/05/2025: Patient reports no complaints. Therapy notes that he does not like wearing the cam walker boot but does allow them to put it on when he walks. He is doing fairly well walking with a cam walker boot and a walker. Exam Narrative: Exam Narrative: Leg and ankle examined. Clinically significantly improved today less redness, less swelling. No significant tenderness on palpation. Active range of motion is without significant discomfort though limited dorsiflexion and plantar flexion at the ankle. Const: Vital Signs, click to edit/add: Vital Signs - 24 hr 03/04/25 15:45 03/04/25 15:45 03/04/25 19:00 Temperature 98.2 F 98.9 F Pulse Rate [Pulse Oximeter] 80 80 87 Respiratory Rate 18 18 16 Blood Pressure [Le ft Arm] 123/66 120/73 Pulse Oximetry 93 96 Oxygen Delivery Me thod Room Air Room Air 03/04/25 23:00 03/04/25 23:00 03/05/25 03:00 Temperature 97.8 F 98.9 F Pulse Rate [Pulse Oximeter] 77 77 79 Respiratory Rate 16 18 Blood Pressure [Le ft Arm] 118/75 117/70 Pulse Oximetry 97 99 Oxygen Delivery Me thod Room Air Room Air 03/05/25 07:00 03/05/25 08:15 03/05/25 11:00 Temperature 97.9 F 98.0 F Pulse Rate [Pulse Oximeter] 90 90 96 Respiratory Rate 18 18 18 Blood Pressure [Le ft Arm] 120/73 121/74 Pulse Oximetry 95 96 Oxygen Delivery Me thod Room Air Room Air Documenting provider has reviewed patient's vital signs: yes Labs Labs: Laboratory Results - last 24 hr 03/04/25 17:18 Fluid Volume 1.5 Fluid Color Grossly Bloody A Fluid Appearance Cloudy A Fluid WBC 13019 Fluid RBC 630990 Fluid Polynuclear WBCs 98 Fluid Mononuclear WBCs 2
--- NOTE | 2025-03-05 16:48 | PC.SOCIAL ---
Discharge planning: No discharge date as of yet. dry cure worker will call pt's in the morning to see if she is able to be present for the pt's PT session tomorrow, as PT will be able to show her some teaching/education for how the pt should mobilize with his cam boot on his ankle. Social work to follow-up as needed.
[2025-03-05] MEDS: LATANOPROST 0.005% OPHTH 1 DROP EYE-BOTH (18:08)
[2025-03-05] MEDS: SIMVASTATIN 40 MG TABLET PO (19:45)
[2025-03-05] MEDS: ENOXAPARIN 40 MG/0.4 ML INJ SUBCUT (19:45)
[2025-03-05] MEDS: TAMSULOSIN HCL 0.4 MG CAPSULE PO (19:46)
--- NOTE | 2025-03-05 19:54 | PC.NURSE ---
Pt SBA, at bedside for most of shift. Pt on regular diet, dinner tolerated. Pt had no complaints of pain throughout shift, pt confused, oriented to person. Pt sleeping at this time
--- NOTE | 2025-03-05 23:15 | PC.NURSE ---
Pt SBA, Sister at bedside for most of shift. Pt on regular diet, dinner tolerated. Pt had no complaints of pain throughout shift, pt confused, oriented to person. Pt sleeping at this time
[2025-03-06 02:40] VITALS: BP 125/77; PULSE 87; RESP 16; TEMP 36.9; O2SAT 96
--- NOTE | 2025-03-06 04:39 | PC.NURSE ---
shift note: Pt alert to self and place. Afebrile. Pt repositioned q2h. Purewick in place. Pt denies pain, N/V. Pt uses call light appropriately. L leg elevated.
[2025-03-06 05:54] VITALS: BMI 26.2
[2025-03-06 06:17] LABS: Hematocrit* 38.5 % (37.0-53.0); Hemoglobin* 12.9 gm/dL (13.5-17.5); Mean Corpuscular HGB Conc 34 gm/dL (32-36); Mean Corpuscular Hemoglobin 30 pg (26-34); Mean Corpuscular Volume 90 fL (80-100); RDW Coefficient of Variation % 12.9 % (11.5-15.5); Red Blood Count* 4.29 m/uL (4.30-5.90); White Blood Count* 4.60 K/uL (4.50-11.00)
[2025-03-06 06:19] LABS: Slide Review Reflex No
[2025-03-06 07:00] VITALS: BP 101/71; PULSE 103; RESP 18; TEMP 36.6; O2SAT 97
[2025-03-06] MEDS: CELECOXIB 200 MG CAPSULE PO (08:27)
[2025-03-06] MEDS: CITALOPRAM HYDROBROMIDE 20 MG TABLET PO (08:28)
[2025-03-06] MEDS: cefTRIAXone 1 GM in 0.9 % SODIUM CHLORIDE Mini-bag 100 ML IVPB (08:28)
[2025-03-06] MEDS: ASPIRIN 81 MG TABLET EC PO (08:28)
[2025-03-06] MEDS: SODIUM CHLORIDE 0.9 % (FLUSH) 10 ML SYRINGE 5 ML IVF (08:29)
--- NOTE | 2025-03-06 09:44 | P.DS_ITS ---
DS: Providers Provider Date Seen: 03/06/25 Date of admission: 03/05/25 09:15 Primary care physician: Dinah Kerr MD Admitting Clinician: Ira Muse MD Attending Physician on discharge: Alonso Hewitt MD Date of Discharge: 03/06/25 DS: Diagnosis Discharge Diagnosis (1) Synovitis of left ankle: Status: Acute Problem details: Possibly this is an improving acute monoarticular arthritis such as septic arthritis or crystalline arthropathy. Has been treated for gout and infection with Keflex. Cultures and crystals are pending. Clinically improving (2) Cellulitis: Status: Acute Problem details: Prior to admission treated with Rocephin and Keflex. On ceftriaxone during this hospital stay with clinical improvement. Associated with multiple findings on MRI of ankle. (3) Tibialis posterior tendon tear, nontraumatic: Status: Acute Problem details: MRI from 03/04/2025: Also peroneus brevis tendon tear. Unknown duration or cause of injury (4) Left ankle pain: Status: Acute Problem details: He has had chronic left foot and ankle pain for months but much worse in the last 2 weeks prior to admission. Likely due to cellulitis/acute monoarticular arthritis/tendon tears. (5) Weakness: Status: Acute Problem details: According to his the weakness is relatively recent. Up until 2 weeks ago he was walking independently. Now needing a walker. He seemed to be doing fairly well prior to onset of COVID about 2 weeks ago. Has not recovered very well since then. Therapy to evaluate. Mobility appears to be improving as his ankle is looking and feeling better (6) Acute alteration in mental status: Status: Acute Problem details: -baseline dementia worsened by recent covid encephalopathy, left ankle infection/inflammation, poor intake/weight loss. Mental status has improved through his hospital stay (7) COVID-19: Status: Acute Problem details: Feb 19, 2025; took paxlovid. Respiratory symptoms got better but weakness and confusion are persisting. Clinical improvement suggest now that COVID 19 symptoms are resolving (8) Dementia: Status: Acute Problem details: Moderately severe. According to his he was fairly functional at home until 2 weeks ago. DS: Summary Hospital Course Hospital Course: Song was in his usual state of poor but stable health (frontal temporal dementia) until late January 2025. He presented for care 02/19 b/c of a bad head cold (with weakness and confusion) + left ankle pain (no injury) and he was diagnosed with COVID-19 and cellulitis of the left ankle. He was prescribed Paxlovid and Keflex at that ER eval. He went home with his . He also received 1 dose of Rocephin. His was able to care for him but did bring him in to clinic 6 days later on February 26 for a follow-up regarding his ongoing weakness, poor appetite and left ankle pain. At that visit he was given reassurance about COVID-19, told to continue and finish his cephalexin and they increased his Celebrex. His previously elevated WBC was improved. He was then seen today, 03/03 for a previously scheduled annual wellness visit. It was quite obvious though at today's visit that he was still not feeling well. His said that he remains weak, he's had two falls at home, continues to be more confused than baseline, and just not weight-bearing as she would expect given his treatment for the cellulitis. Apparently he did not use a walker prior to the cellulitis in late January and has been completely reliant on a walker since. He is also not drinking/eating normally. Review of data- Prescribed paxlovid on 02/19. Prescribed Keflex after 1 dose of Rocephin as well on 02/19. Finished Paxlovid and Keflex about a week ago. Chest x-ray was unremarkable and there was no DVT by ultrasound on 02/19. CBC on 02/19 showed an 11.87K white blood cell count with thrombocytopenia and a normal hemoglobin. CRP that day was 25.9. Mild hyponatremia, mild hypokalemia. 02/26, clinic appt; reassurance and Celebrex was increased. CBC had normalized. 03/03: Clinic and ED. Left ankle x-ray shows diffuse soft tissue swelling. No acute fracture. White count was normal both in clinic and here in the ED. ESR this morning was 75 however CRP was down to 7.5. LFTs were drawn for the 1st time in this set of illness. And they are mildly elevated. He has a normal troponin, magnesium and total bilirubin. Head CT is negative. Abdominal pelvic CT was ordered because there was some vague complaints of abdominal pain since he was diagnosed with COVID. This is negative for acute findings as well as lipase is negative. As mentioned above his LFTs are slightly bumped. During his hospital stay he had improvement in his mental status, pain in his ankle, mobility, appetite. He is walking with a walker and a cam walker boot on his left leg. Status at Discharge Functional status at discharge: uses cane/walker Overall status at discharge: patient is progressing back to baseline Time Spent with Patient Time attestation: Total time spent providing and/or coordinating discharge services: 45 minutes Exam Narrative: Exam Narrative: He is alert and pleasant and confused. He reports some discomfort from wearing the cam walker boot but otherwise no pain in his ankle. Left lower extremity is examined: The erythema that extended up almost custodial up his calf has now almost entirely resolved. The swelling is also much improved, almost back to appearing similar to his right ankle. He has no tenderness with palpation. There is still a little bit of bogginess with palpation around the ankle joint suggesting some persisting synovitis. No tenderness. Intact pedal pulses. Ankle motion is without discomfort. Const: Vital Signs, click to edit/add: Vital Signs - 24 hr 03/05/25 11:00 03/05/25 15:00 03/05/25 19:00 Temperature 98.0 F 97.2 F L 97.4 F L Pulse Rate [Pulse Oximeter] 96 70 79 Respiratory Rate 18 14 16 Blood Pressure [Le ft Arm] 121/74 107/78 118/68 Pulse Oximetry 96 96 96 Oxygen Delivery Me thod Room Air Room Air Room Air 03/05/25 23:22 03/05/25 23:33 03/06/25 02:40 Temperature 98.5 F 98.5 F Pulse Rate [Pulse Oximeter] 83 83 87 Respiratory Rate 14 14 16 Blood Pressure [Le ft Arm] 113/69 125/77 Pulse Oximetry 96 96 Oxygen Delivery Me thod Room Air Room Air 03/06/25 07:00 Temperature 97.8 F Pulse Rate [Pulse Oximeter] 103 H Respiratory Rate 18 Blood Pressure [Le ft Arm] 101/71 Pulse Oximetry 97 Oxygen Delivery Me thod Room Air Documenting provider has reviewed patient's vital signs: yes DS: Data Data Completed and Pending Pending studies at discharge: G stain and culture of fluid from the ankle remains negative for evidence of bacterial infection. Studies for crystals are pending. Final culture will be available in 3-4 days Labs on day of discharge: Labs from last 24 hours 03/06/25 05:40 WBC 4.60 RBC 4.29 L Hgb 12.9 L Hct 38.5 MCV 90 MCH 30 MCHC 34 RDW Coeff of Monse 12.9 Plt Count 338 Neut % (Auto) Not Reportable Lymph % (Auto) Not Reportable Victoria % (Auto) Not Reportable Eos % (Auto) Not Reportable Baso % (Auto) Not Reportable Neut # (Auto) Not Reportable Lymph # (Auto) Not Reportable Victoria # (Auto) Not Reportable Eos # (Auto) Not Reportable Baso # (Auto) Not Reportable C-Reactive Protein 5.5 H Preliminary micro results at discharge 03/04/25 17:18 Aerobic Culture - Preliminary Ankle Left 03/03/25 21:10 Blood Culture - Preliminary Blood NO GROWTH AFTER 48 HOURS 03/03/25 21:10 Blood Culture - Preliminary Blood NO GROWTH AFTER 48 HOURS Imaging MRI left ankle: Radiologist's impression: CLINICAL INDICATION: Left ankle pain and swelling. COMPARISON IMAGING STUDIES: Radiographs from 03/03/2025. TECHNICAL: Non-contrast MR of the left ankle. Axial and coronal proton density and proton density fat sat images were acquired. The patient was unable to complete the entire examination and no sagittal images were obtained. 1.5 [facility] MR scanner. FINDINGS: Examination is limited by the absence of sagittal images secondary to patient inability to complete the examination. OSSEOUS STRUCTURES: There is bone marrow edema within the lateral malleolus, medial malleolus, talus and calcaneus. No acute fracture. There is a chronic ossicle noted along the dorsal aspect of the talar head correlating with that seen radiographically. JOINT SPACES: Moderate to large ankle joint effusion. Areas of periarticular bone marrow edema. Apparent erosion of the lateral talar dome. Moderate to large posterior subtalar joint effusion with periarticular bone marrow edema and apparent erosive change. These findings could relate to inflammatory arthropathy, crystalline arthropathy (such as gout or pseudogout) or infection. Joint spaces within the midfoot, at the midfoot-hindfoot and midfoot-forefoot junction are maintained. LIGAMENTS: Syndesmotic Ligaments: The anterior and posterior syndesmotic ligaments are intact. Lateral Ligaments: The anterior talofibular, calcaneofibular and posterior talofibular ligaments are intact. Medial Ligaments: The superficial and deep components of the deltoid ligament complex are maintained. Spring Ligaments: There is some attenuation of the superomedial component of the calcaneonavicular spring ligament. Lisfranc ligament complex: Intact. TENDONS: Flexor Tendons: There is high-grade tearing of the posterior tibial tendon with near-complete tearing of the tendon as it passes posterior to the medial malleolus. The flexor digitorum longus and flexor hallucis longus tendons are intact. There is a smaller fluid within their tendon Extensor Tendons: Sheaths. Intact. Achilles Tendon: Mild Achilles tendinosis without tendon tear. Peroneal Tendons: Peroneus longus tendon is intact. There is high-grade partial tearing of the peroneus brevis tendon. TARSAL TUNNEL: No mass within the tarsal tunnel. SINUS TARSI: There is edema within the sinus tarsi. PLANTAR SOFT TISSUES: Abnormal plantar fascia with both thickening and partial tearing. OTHER FINDINGS: Diffuse soft tissue edema. No subcutaneous collection. IMPRESSION: 1. Examination limited as patient was unable to complete the entire examination and no sagittal images were obtained. 2. Ankle and posterior subtalar joint effusions with periarticular bone marrow edema and erosive change. This could relate to inflammatory arthropathy, crystalline arthropathy (such as gout or pseudogout) or infection. 3. Diffuse soft tissue edema without subcutaneous collection. 4. High-grade posterior tibial tendon tearing. 5. High-grade peroneus brevis tendon tearing. 6. Other findings as detailed above. Discharge Plan Discharge Disposition: Home w/ Parent or Adult Date of Admission: 03/05/25 09:15 Attending Provider on Discharge: Rachid Hewitt Primary Care Provider: Dinah Kerr Condition: Stable Anticipated Discharge Date/Time: 03/06/25 13:00 Discharge Medications: New cephalexin 500 mg tablet 500 mg PO QID Qty: 20 0RF Continued aspirin 81 mg tablet,delayed release (DR/EC) 81 mg PO QDAY Metamucil 3.4 gram/5.4 gram powder 2 tsp PO QHS Rx Instructions: mix into at least 8 oz of water or juice before administering latanoprost 0.005 % drops 1 drp ophthalmic (eye) QPM multivitamin Tablet 1 tab PO DAILY fish oil-dha-epa 1,200-144-216 mg capsule 2 cap PO DAILY citalopram 20 mg tablet 20 mg PO DAILY Qty: 90 3RF trazodone 50 mg tablet 50 mg PO QHS Qty: 90 0RF tamsulosin 0.4 mg capsule 0.4 mg PO QHS Qty: 90 0RF celecoxib [Celebrex] 100 mg capsule 100 mg PO BID Qty: 180 0RF simvastatin 40 mg tablet 40 mg PO .QHS Qty: 90 0RF omeprazole 20 mg capsule,delayed release(DR/EC) 20 mg PO BID PRN (Reason: gerd) Qty: 180 0RF Discharge Orders: Discharge Order (Routine); Ordered 03/06/25 Ordered By: Rachid Hewitt Activity Level: Use Walker and Other Activity Detail: wear CAM walker boot when up walking Discharge Diet: Regular Follow Up Appointments: Marv Bland DPM [Staff Physician, Podiatry] Referral Note: 1-2 weeks Dinah Kerr MD [Primary Care Provider, Family Practice] Referral Note: one week Forms: [facility] Info Instructions Discharge Comments: Home safety evaluation with OT
--- NOTE | 2025-03-06 12:49 | PC.NURSE ---
PATIENT DISCHARGED HOME WITH , PATIENT VERBALIZED UNDERSTANDING OF DISCHARGE INSTRUCTIONS AND HAD NO FURTHER QUESTIONS AT THIS TIME, PT UP WITH A1 WALKER AND BELT WITH CAMBOOT. DECLINING PAIN THIS SHIFT. LEFT VIA WHEELCHAIR WITH .
== END 2025-03-06 12:53 | disposition home or self-care (01) | DRG 558 ==
LOC: ED 20:57 → MEDSURG 21:22
PROVIDERS: Family Medicine; Podiatrist; Admitting Provider Family Medicine; Emergency Provider Student in an Organized Health Care Education/Training Program; PCP Family Medicine; Visit Provider Family Medicine
DX: M65.872 Other synovitis and tenosynovitis, left ankle and foot (principal); M00.9 Pyogenic arthritis, unspecified; L03.116 Cellulitis of left lower limb; I45.2 Bifascicular block; M11.9 Crystal arthropathy, unspecified; M66.372 Spontaneous rupture of flexor tendons, left ankle and foot; G31.09 Other frontotemporal neurocognitive disorder; F02.B0 Dementia in other diseases classified elsewhere, moderate, without behavioral disturbance, psychotic disturbance, mood disturbance, and anxiety; R53.1 Weakness; R10.9 Unspecified abdominal pain; U09.9 Post COVID-19 condition, unspecified; G47.33 Obstructive sleep apnea (adult) (pediatric); Z91.89 Other specified personal risk factors, not elsewhere classified; E78.5 Hyperlipidemia, unspecified; H91.90 Unspecified hearing loss, unspecified ear; Z86.718 Personal history of other venous thrombosis and embolism; Z91.81 History of falling; Z79.82 Long term (current) use of aspirin; Z97.4 Presence of external hearing-aid; Z96.652 Presence of left artificial knee joint; Z85.46 Personal history of malignant neoplasm of prostate; R41.82 Altered mental status, unspecified
CPT/HCPCS: 36415; 51702; 51798; 70450; 73610; 73721; 74177; 80053; 80069; 80076; 81001; 82565; 82803; 83605; 83690; 83735; 83880; 84443; 84484; 84550; 85025; 86140; 87040; 87070; 87075; 87081; 87205; 89051; 89060; 93005; 97116; 97162; 97165; 97530; 97535; 99285; A9270; G0378; J0696; J1650; J7030; Q9967